=== PATIENT | female | born 1995 | race Caucasian/White ===

== ENCOUNTER → 2018-02-20 19:07 | Outpatient (CLI) | payer BC, SELFPAY ==
[2018-02-26 15:53] LABS: HPV Reflexed? NOT INDICATED
== END ==
PROVIDERS: Family Provider Pediatrics; PCP Pediatrics; Visit Provider Nurse Practitioner Women's Health
DX: Z12.4 Encounter for screening for malignant neoplasm of cervix (principal)
CPT/HCPCS: 88175; G0145

== ENCOUNTER → 2019-12-25 14:44 | Outpatient (CLI) | payer BC, SELFPAY ==
[2019-12-25 08:16] VITALS: BMI 23.2
[2019-12-25 17:58] LABS: Chlamydia Trachomatis by PCR Negative (Negative); Neisserai gonorrhoeae by PCR Negative (Negative); Probe Check PASS; Sample Adequacy Control PASS; Specimen Processing Control PASS
[2019-12-30 20:43] LABS: HPV Reflexed? NOT INDICATED
--- OUTSIDE RECORDS SUMMARY | 2020-05-18 15:33 | XMS RPT_ITS | CCD ---
:1995 External Reference #:[id number] Author Organization [facility] [employer] Care Team Providers Name Role Phone MALLAT Unavailable Unavailable MALLAT Unavailable Unavailable MALLAT Unavailable Unavailable ANDRE, C Unavailable Unavailable NO REFERRING DR Unavailable Unavailable MALLAT, F Unavailable Unavailable MALLAT, F Unavailable Unavailable MALLAT, F Unavailable Unavailable ANDRE, C Unavailable Unavailable Problems Active Problems Category Problem Name Status Date Location External Injury - Struck Struck by soccer Active 04-28-2017 - [facility] by; against ball, initial System (05267) encounter Unclassified Injury, unspecified, Active 05-17-2017 - [facility] encounter Medical Ce [facility]ter (50649) Unclassified Unknown / Active 05-17-2017 - [facility] UN[facility](Unknown) System (65944) Past or Other Problems Category Problem Name Status Date Location Crushing injury or Unspecified laceration Completed 04-28-2017 - [facility] injury of spleen, initial Medica [facility] Center encounter (34869) Unclassified Unspecified laceration 05-17-2017 - [facility] of spleen, initial Health Sy stem encounter (99629) Viral infection Infectious Completed 04-28-2017 - [facility] mon[facility]osis, [facility] unspecified without (25596) complication Results Result Name Value Range Unit Interpretation Flag Date Location progress on 2019-02 PROGRESS HNO ID: [id number] Normal 02-24-2019 [facility] Author: Lambert Markham [place] ([id number]) Service: ? Author Type: Physician Type: Progress Notes Filed: 02/24/2019 5:14 PM Note Text: WELL VISIT PEDIATRIC FEMALE 18+ YRS OLD SERVICE DATE: 02/24/2019 Chapin is a 23 year old female who presents today for well e xam. SUBJECTIVE CONCERNS: noting some chest tightness with running recently in the warmer weather. Patient knows that she has a lung nodule as a subse quent finding from MRI last year. 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 No surgical intervention. grade 2 tear. PAST SURGICAL HISTORY Procedure Laterality Date - NONE Allergies: ALLERGIES Allergen Reactions - Seasonal Allergies Other: See Comments Sinus pressure, itchy watery eyes Medications: fluticasone (FLONASE) 50 mcg/actuation nasal spray Use 2 Spr ays in each nostril once daily. Rinse mouth after use. Desogestrel-Ethinyl Estradiol (ORTHO-CEPT, 28,) 0.15-0.03 mg per tablet Take 1 tablet by mouth once daily. Family History: FAMILY HISTORY Problem Relation Age of Onset - other (hyperthyroidism) Mother 16 - Hypertension Maternal Grandmother - other (elevated cholesterol) Maternal Grandmother - other (albino) Sister Social History Social History Narrative Not on file Smoking Exposure: Do you spend a significant amount of time with anyone who sm okes? 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 Physical Activity more than 1 hour of physical activity per day Physical activity: running Screen Time totaling more than 2 hours of screen time per da y. Safety: seat belts, bike helmets and smoke detectors Diet: -Eats 3 meals per day and 1 snacks per day -Typical beverages include water -Fruits and vegetables are eaten as snacks -# of fast food meals/week: 2 -# of days/week that family has dinner together: 3 Elimination: Has IBS, has been doing well recently Dental: dental care not current Sleep: -no sleep concerns Gynecological history: LMP: 01/15/2019 Cycles are regular and last 5 days, periods are once every 3 months with BCP Dysmenorrhea: none Heavy periods: no Substance use: none High risk behaviors: none Sexual History: Attraction: male Sexually Active: Yes Number of lifetime partners: 1 Contraception: condoms every time GC/C screen within the past year: No GC/C screen since most recent partner? No Change in normal vaginal discharge: No Body image: satisfactory Screening tools reviewed and discussed with patient/family-P HQ-A score 0 (recommended cut off score is 11). Please see questionnaires and review flowsheets. REVIEW OF SYSTEMS GENERAL: No fevers EYES: No vision concerns and Wears glasses ENT: No hearing concerns RESPIRATORY: Negative for cough, wheezing or respiratory dis tress CARDIOVASCULAR: Negative for chest pain, syncope, lightheadn ess or heart racing SKIN: Negative for lesions, rash, and itching ENDOCRINE: No growth concerns HEARING EXAM: Frequency 2000Hz Right15 dB Left 15dB 4000Hz Right15 dB Left 15dB OBJECTIVE Physical Exam: BP 118/78 Pulse 64 Temp 36.6 ?C (97.8 ?F) (Temporal Sherice ry) Resp 12 Ht 169.5 cm (5' 6.73) Wt 66.2 kg (146 lb) LMP 01/04 BMI 23.05 kg/m? Blood pressure percentiles are not available for patients wh o are 18 years or older. Normalized BMI data available only for age 0 to 20 years. Last BMI: Wt: 65.3 kg (144 lb) BMI: 22.55 kg/(m2) Last 4 Encounter Wt Readings: Date: Wt: 06/05/2018 65.3 kg (144 lb) 01/14/2018 66.7 kg (147 lb) 01/03/2018 66.7 kg (147 lb) 11/02/2017 67.1 kg (148 lb) Last 4 Encounter Ht Readings: Date: Ht: 05/17/2017 170.2 cm (5' 7) 02/19/2017 170.2 cm (5' 7) 02/23/2016 170.2 cm (5' 7) (86 %, Z= 1.07)* 10/21/2014 169.7 cm (5' 6.8) (84 %, Z= 1.01)* GENERAL: alert, well appearing, in no distress HABITUS: normal build HEAD: normocephalic LEFT EYE: no drainage noted, no conjunctival injection noted , pupil round and reactive to light, fundus benign; RIGHT EYE: no drainage noted, no conjunctival injection noted, pupil round and reactive to li ght, fundus benign; NO ADDITIONAL EYE FINDINGS LEFT EAR: pinna normal, auditory canal normal, tympanic memb graham clear, no effusion noted, RIGHT EAR: pinna normal, auditory canal norm al, tympanic membrane clear, no effusion noted NOSE/SINUSES: nares normal, mucosa normal, no drainage noted OROPHARYNX: lips without lesions noted, gums/mucosa normal, oropharynx without erythema or exudates NECK/ADENOPATHY: neck supple, no adenopathy noted CHEST/LUNGS: lungs clear to auscultation CARDIOVASCULAR: regular rate and rhythm, no murmur, capillar y refill less than 2 seconds ABDOMEN: soft, nontender, bowel sounds normal, no masses, no organomegaly GENITILIA: DEFERRED EXAM MUSCULOSKELETAL: extremities with full range of motion prese nt throughout, spine without scoliosis NEUROLOGICAL: cranial nerves II-XII grossly intact, deep ten don reflexes 2+/4+ throughout, muscle mass and tone normal SKIN: normal color, no rash, no jaundice ASSESSMENT AND PLAN: Encounter Diagnosis ICD-10-CM 1. Encounter for routine child health examination with abnor mal findings Z00.121 BLOOD TB SCREEN TETANUS/DIPTHERIA BOOSTER (OVER 7), PF IM 2. Shortness of breath R06.02 3. Seasonal allergies J30.2 Normalized BMI data available only for age 0 to 20 years. Based on PHQ-A score and interview, presentation is not cons istent with depression - Discussed diet and safety. - Dental care discussed. - Bright Futures handout given (See Patient Instructions). - Ounce of Prevention handout given (See Patient Instruction s). - No immunization ordered at this visit. - Follow up in one year for routine physical. ADDITIONAL PLAN 1. Shortness of breath. She has noticed this over the last s everal weeks when the weather is extremely hot. No other respiratory symp toms. [facility] states that she had a pulmonary nodule that was diagnosed at an outside facility via MRI last year. We discussed I would recommend s cheduling an appointment to evaluate the shortness of breath. It will be important to obtain the MRI records before that appointment. 2. Mild scoliosis. No additional evaluation or treatment req uired. 3. 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 Problem list and history reviewed. Allergies reviewed. Medications reviewed. Immunizations reviewed. This note was partially generated using iloho recogni tion system, and there may be some incorrect words, spellings, and punctu ation that were not noted in checking the note before saving. Lambert Markham M.D. howard on 2019-02-24 CNOV Office Visit (PEDSWS) Normal 02-25-20 [place] [facility]LE[facility] ([id number]) 1995 F [place] Date Time Provider Department ([id number]) 02/24/19 1:45 PM LAMBERT MARKHAM During your visit today, we recorded the following informati on about you: Temperature Pulse Respiration Blood pressure 97.8 degrees 64/minute 12/minute 118/78 Weight Height Last Period 66.2 kg 1.695 m 01/15/19 Lambert Markham MD 02/24/2019 5:14 PM Signed WELL VISIT PEDIATRIC FEMALE 18+ YRS OLD SERVICE DATE: 02/24/2019 Chapin is a 23 year old female who presents today for well e xa. SUBJECTIVE CONCERNS: noting some chest tightness with running recently in the warmer weather. Patient knows that she has a hao ng nodule as a subsequent finding from MRI last year. 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 No surgical intervention. grade 2 tear. PAST SURGICAL HISTORY Procedure Laterality Date - NONE Allergies: ALLERGIES Allergen Reactions - Seasonal Allergies Other: See Comments Sinus pressure, itchy watery eyes Medications: fluticasone (FLONASE) 50 mcg /actuation nasal spray Use 2 Sprays in each nostril once daily. Rinse mouth after use. Desogestrel-Ethinyl Estradiol (ORTHO-CEP T, 28,) 0.15-0.03 mg per tablet Take 1 tablet by mouth once daily. Family History: FAMILY HISTORY Problem Relation Age of Onset - other (hyperthyroidism) Mother 16 - Hypertension Maternal Grandmother - other (elevated cholesterol) Maternal Grandmother - other (albino) Sister Social History Social History Narrative Not on file Smoking Exposure: Do you spend a significant amount of time with anyone who sm okes? 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 Physical Activity more than 1 hour of physical activity per day Physical activity: running Screen Time totaling more than 2 hours of screen time per da y. Safety: seat belts, bike helmets and smoke detectors Diet: -Eats 3 meals per day and 1 snacks per day -Typical beverages include water -Fruits and vegetables are eaten as snacks -# of fast food meals/week: 2 -# of days/week that family has dinner together: 3 Elimination: Has IBS, has been doing well recently Dental: dental care not current Sleep: -no sleep concerns Gynecological history: LMP: 01/15/2019 Cycles are regular and last 5 days, periods are once e very 3 months with BCP Dysmenorrhea: none Heavy periods: no Substance use: none High risk behaviors: none Sexual History: Attraction: male Sexually Active: Yes Number of lifetime partners: 1 Contraception: condoms every time GC/C screen within the past year: No GC/C screen since most recent partner? No Change in normal vaginal discharge: No Body image: satisfactory Screening tools reviewed and discussed with patient/family-P HQ-A score 0 (recommended cut off score is 11). Please see questionnaires and review flowsheets. REVIEW OF SYSTEMS GENERAL: No fevers EYES: No vision concerns and Wears glasses ENT: No hearing concerns RESPIRATORY: Negative for cough, wheezing or respiratory dis tress CARDIOVASCULAR: Negative for chest pain, syncope, lightheadness or heart racing SKIN: Negative for lesions, rash, and itching ENDOCRINE: No growth concerns HEARING EXAM: Frequency 2000Hz Right15 dB Left 15dB 4000Hz Right15 dB Left 15dB OBJECTIVE Physical Exam: BP 118/78 Pulse 64 Temp 36.6 ?C (97.8 ?F) (Temporal Ar carroll) Resp 12 Ht 169.5 cm (5' 6.73) Wt 66.2 kg (146 lb) LMP 9 BMI 23.05 kg/m? Blood pressure percentiles are not available for patients who are 18 years or older. Normalized BMI data available only for age 0 to 20 years. Last BMI: Wt: 65.3 kg (144 lb) BMI: 22.55 kg/(m2) Last 4 Encounter Wt Readings: Date: Wt: 06/05/2018 65.3 kg (144 lb) 01/14/2018 66.7 kg (147 lb) 01/03/2018 66.7 kg (147 lb) 11/02/2017 67.1 kg (148 lb) Last 4 Encounter Ht Readings: Date: Ht: 05/17/2017 170.2 cm (5' 7) 02/19/2017 170.2 cm (5' 7) 02/23/2016 170.2 cm (5' 7) (86 %, Z= 1.07)* 10/21/2014 169.7 cm (5' 6.8) (84 %, Z= 1.01)* GENERAL: alert, well appearing, in no distress HABITUS: normal build HEAD: normocephalic LEFT EYE: no drainage noted, no conjunctival inj ection noted, pupil round and reactive to light, fundus benign; RIGHT EYE: no drainage not ed, no conjunctival injection noted , pupil round and reactive to light, fundus benign; NO ADDITIONAL EYE FINDINGS LEFT EAR: pinna normal, auditory canal normal, tympanic memb graham clear, no effusion noted, RIGHT EAR: pinna normal, auditory canal norm al, tympanic membrane clear, no effusion noted NOSE/SINUSES: nares normal, mucosa normal, no drainage noted OROPHARYNX: lips without lesions noted, gums/mucosa normal, oropharynx without erythema or exudates NECK/ADENOPATHY: neck supple, no adenopathy noted CHEST/LUNGS: lungs clear to auscultation CARDIOVASCULAR: regular rate and rhythm, no murmur, capillary refill less than 2 seconds ABDOMEN: soft, nontender, bowel sounds normal, no masses, no organomegaly GENITILIA: DEFERRED EXAM MUSCULOSKELETAL: extremities with full range of motion prese nt throughout, spine without scoliosis NEUROLOGICAL: cranial nerves II-XII diego sly intact, deep tendon reflexes 2+/4+ throughout, muscle mass and tone normal SKIN: normal color, no rash, no jaundice ASSESSMENT AND PLAN: Encounter Diagnosis ICD-10-CM 1. Encounter for routine child health examination with abnor mal findings Z00.121 BLOOD TB SCREEN TETANUS/DIPTHERIA BOOSTER (OVER 7), PF IM 2. Shortness of breath R06.02 3. Seasonal allergies J30.2 Normalized BMI data available only for age 0 to 20 years. Based on PHQ-A score and interview, presentation is not cons istent with depression - Discussed diet and safety. - Dental care discussed. - Bright Futures handout given (See Patient Instructions). - Ounce of Prevention handout given (See Patient Instruction s). - No immunization ordered at this visit. - Follow up in one year for routine physical. ADDITIONAL PLAN 1. Shortness of breath. She has noticed this ove r the last several weeks when the weather is extremely hot. No other respiratory symptoms. [facility] states that she had a pulmonary nodule that was diagnos ed at an outside facility via MRI last year. We discussed I would recommend scheduling an appointment to evaluate the shortness of breath. It will be important to ob tain the MRI records before that appointment. 2. Mild scoliosis. No additional evaluation or treatment req uired. 3. Nursing school form to be completed once all results kaplan ve been returned. Problem list and history reviewed. Allergies reviewed. Medications reviewed. Immunizations reviewed. This note was partially generated using Andel system, and there may be some incorrect words, spellings, and punctuat ion that were not noted in checking the note before saving. Lambert Markham M.D. Referring Provider: SELF [[id number]] Allergies As of Date: 02/24/2019 Noted Allergy Reaction SEASONAL ALLERGIES 01/03/2018 14 - Other: See Comments Comments: Sinus pressure, itchy watery eyes Date Reviewed: 02/24/2019 Reviewed by: Lambert Markham - Fully Assessed Reason for Visit: Physical [83] Primary Visit Diagnosis:Encounter for routine child health examination with abnormal findings [Z00.121] Other Visit Diagnoses:Shortness of breath [R06.02] Seasonal allergies [J30.2] Order(s):fluticasone (FLONASE) 50 mcg/actuation nasal sprayU se 2 Sprays in each nostril once daily. Rinse mouth after use.Disp: 1 Bottl eRfl: 1 BLOOD TB SCREEN [SQINFTBP] Order #: [id number] FUTURE TETANUS/DIPTHERIA BOOSTER (OVER 7), PF IM [[id number]] Order # : [id number] Prescriptions as of 02/24/2019 Sig: FLUTICASONE PROPIONATE 50 MCG* Use 2 Sprays in each nostril * DESOGESTREL 0.15 MG-ETHINYL E* Take 1 tablet by mouth once d * Problem List As Of Date 02/24/2019 Noted Resolved Acne [L70.9] INVALID FOR* Dysmenorrhea [N94.6] INVALID FOR* Shortness of breath [R06.02] INVALID FOR* Seasonal allergies [J30.2] INVALID FOR* Prescriptions ordered this encounter Disp Refills Start End FLUTICASONE PROPIONATE 50 MCG/ACTUAT* 1 Abhi* 1 02/24/2019 Route: EACH NOSTRIL Sig: Use 2 Sprays in each nostril once daily. Rinse mouth af ter use. Medications Discontinued During This Encounter fluticasone (FLONASE) 50 mcg/actuati* 1 Abhi* 1 06/05/201802/04 Route: EACH NOSTRIL Sig: Use 2 Sprays in each nostril once daily. Rinse mouth af ter use. Disc: Reason for discontinue is not on file. Questionnaire: PED PHQ 9 1. Feeling down, depressed, irritable or hopeless? -> 0 - No t at All 2. Little interest or pleasure in doing things? -> 0 - Not A t All 3. Trouble falling asleep, staying aslee p, or sleeping too much? -> 0 - Not At All 4. Poor appetite, weight loss, or overeating? -> 0 - Not At All 5. Feeling tired or little energy? -> 0 - Not At All 6. Feeling bad about yourself-or feeling that you are a fa ilure or that you have let yourself or your family down? -> 0 - Not At All 7. Trouble concentrating on things like school work, r eading or watching TV? -> 0 - No- t At All 8. Moving or speaking so slowly that other people coul d have notices? Or the opposite-being so fidgety or restless that you were mo ving around a lot more than usual? -> 0 - Not At All 9. Thoughts that you would be better off or of hu rting yourself in some way? -> 0 - Not At All 10. In the past year have yo u felt depressed or sad most days, even if you felt okay sometimes? -> No 11. If you are experiencing any of the problems listed on this questionnaire, how difficult have these pro blems made it for you to do your work, take care of things at home or get along with other people? -> Not at all difficult 12. Has there been a time in the past mo nth when you have had serious thoughts about ending your life? -> No 13. Have you ever tried to kill yourself or made a suicide a ttempt? -> No SCORE -> 0 Questionnaire: PED SOCIAL HLTH TOOL In the last 3 months, were you ever worr ied your food would run out before you could buy more? -> No In the last 12 months, has it been hard for you to pay any o f these bills: Utility, Housing, Car, and Medical? -> No Are you worried that in the next 2 month s, you may not have stable housing? -> No Do problems getting children's author make it difficult for you to work or study? (leave blank if you do not have children) -> No In the last 12 months, have you needed to see a doctor but could not because of the cost? -> No In the last 12 months, have you ever had to go without health care because you didn?t have a way to get there? -> No Do you ever need help reading hospital materials? -> No Are you afraid you might be hurt in your apartment buildin g or house? -> No If you checked YES to any boxes above, would you like to r eceive assistance with any of these needs? -> No Are any of your needs urgent? (For examp le: I don?t have food tonight, I don?t have a place to sleep tonight) -> No Over the past 2 weeks, have you had little interest or pleas ure in doing things? -> Not at all Over the past 2 weeks have you felt down , depressed or hopeless? -> Not at all Encounter Status:Closed by LAMBERT MARKHAM MD on 02/24/19 progress on 2018-05 PROGRESS HNO ID: [id number] Normal 06-05-2018 [facility] Author: Cristiane (Linesperson) [facility] ([id number]) Service: (none) Author Type: Nurse Practitioner Type: Progress Notes Filed: 06/05/2018 2:07 PM Note Text: Subjective HPI HPI Chapin Coleman is a 22 year old female who presents today for CC of upset stomach, sore throat. This started 1 week. Has tried o tc medication. Symptoms are worsened by nothing. Risk factors s ick exposures at school. Denies possibility of being . 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 No surgical intervention. grade 2 tear. PAST SURGICAL HISTORY Procedure Laterality Date - NONE ALLERGIES Seasonal Allergies MEDICATIONS Desogestrel-Ethinyl Estradiol (ORTHO-CEPT, 28,) 0.15-0.03 mg per tablet Take 1 tablet by mouth once daily. FAMILY HISTORY Problem Relation Age of Onset - other (hyperthyroidism) Mother 16 - Hypertension Maternal Grandmother - other (elevated cholesterol) Maternal Grandmother - other (albino) Sister Social History Substance Use Topics - Smoking status: Never Smoker - Smokeless tobacco: Never Used - Alcohol use No Review of Systems Constitutional: Negative for chills, fever, malaise/fatigue and weight loss. HENT: Positive for congestion, sinus pain (may be improving) and sore throat. Negative for ear pain and nosebleeds. Respiratory: Negative for cough, shortness of breath and whe ezing. Cardiovascular: Negative for chest pain. Musculoskeletal: Negative for neck pain. Neurological: Negative for weakness. Objective Blood pressure 110/68, pulse 80, temperature 37.3 ?C (99.1 ? F), temperature source Tympanic, resp. rate 16, weight 65.3 kg ( 144 lb). Physical Exam Constitutional: She is oriented to person, place, and time a nd well-developed, well-nourished, and in no distress. Non-toxi c appearance. She does not have a sickly appearance. No distress. HENT: Head: Normocephalic and atraumatic. Right Ear: Hearing, tympanic membrane, external ear and ear canal normal. Left Ear: Hearing, tympanic membrane, external ear and ear c anal normal. Nose: Nose normal. Mouth/Throat: Uvula is midline and mucous membranes are norm al. Posterior oropharyngeal erythema present. No oropharyngeal exudate, po sterior oropharyngeal edema or tonsillar abscesses. Eyes: Pupils are equal, round, and reactive to light. Conjun ctivae and lids are normal. Right eye exhibits no discharge. Left eye e xhibits no discharge. No scleral icterus. Neck: Trachea normal and normal range of motion. Neck supple . Cardiovascular: Normal rate, regular rhythm and normal heart sounds. Pulmonary/Chest: Effort normal and breath sounds normal. Abdominal: Soft. Normal appearance and bowel sounds are norm al. There is no hepatosplenomegaly, splenomegaly or hepatomegaly. There i s no tenderness. Lymphadenopathy: She has no cervical adenopathy. Neurological: She is alert and oriented to person, place, an d time. Skin: No rash noted. She is not diaphoretic. ASSESSMENT/PLAN: 1. Sore throat - ICD9: 462, ICD10: J02.9 (primary diagnosis) - suspect viral - Rapid Strep negative in the office today and Throat cultur e pending - Discussed supportive care treatment with fluids, rest and analgesia. - The patient should follow up in 3-5 days if symptoms persi st or worsen - Call back if drooling, increased temperature, symptoms of dehydration and/or still sick in one week - GROUP A STREPTOCOCCUS BY PCR - RAPID STREP TEST B/O 2. Sinus pressure - ICD9: 478.19, ICD10: J34.89 -hold antibiotic for 3-4 days and if no better use antibioti c - Supportive care with plenty of fluids, rest, and analgesia prn. - Follow up in 3-5 days if symptoms persist or worsen. - AMOXICILLIN 875 MG-POTASSIUM CLAVULANATE 125 MG TABLET - FLUTICASONE 50 MCG/ACTUATION NASAL SPRAY,SUSPENSION Prescription instructions reviewed with patient as applicabl e. Patient advised if symptoms do not improve or if symptoms worsen hallie ner, to contact the office for further evaluation by their primary c are physician. Potential red flag symptoms discussed with the patient. Revi ewed appropriate action plan to take if red flag symptoms occur. Patient agreeable to treatment plan. Cristiane Storey APRN.ROBBIE group a strep by pcr on 2018-06-05 [facility] Specimen Source Throat Swab Normal 06-05-20 [facility] ([id number]) Comment: Performed By: #### GASPCR ## ## [facility] Laboratorie s [address] [id number] Group A Strep PCR Negative for Group A Normal 1 [facility] Streptococcus by PCR. [place] ([id number]) Comment: Result Comment: This test wa s developed and its performance characteristics determined by [facility]'s [facility] [place] ([facility]). It has not been cleared or a pproved by the FDA. [facility] is regulated under CLIA as qualified to perform high-complexity testing. This test is used for clinical purposes. It should not be regarded as inv estigational or for research . Performed By: #### GASPCR ## ## [facility] [address] [address] cnov on 2018-06-05 CNOV Office Visit (UCWSTR) Normal 06-05-20 18 [place] CHAPIN Lopez ([id number]) 1995 F [place] Date Time Provider Department ([id number]) 06/05/18 1:15 PM CRISTIANE STOREY (BUSINESS SOLUTION ANALYST) [facility] During your visit today, we recorded the following informati on about you: Temperature Pulse Respiration Blood pressure 99.1 degrees 80/minute 16/minute 110/68 Weight 65.3 kg Cristiane Storey APRN.CNP 06/05/2018 2:07 PM Signed Subjective HPI HPI Chapin Coleman is a 22 year old [facility] upset stomach, sore throat. This started 1 week. Has t ried otc medication. Symptoms are worsened by nothing. Risk factors sick exposures at [facility]. Denies possibility of being . 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 No surgical intervention. grade 2 tear. PAST SURGICAL HISTORY Procedure Laterality Date - NONE ALLERGIES Seasonal Allergies MEDICATIONS Desogestrel-Ethinyl Estradiol (ORTHO-CEP T, 28,) 0.15-0.03 mg per tablet Take 1 tablet by mouth once daily. FAMILY HISTORY Problem Relation Age of Onset - other (hyperthyroidism) Mother 16 - Hypertension Maternal Grandmother - other (elevated cholesterol) Maternal Grandmother - other (albino) Sister Social History Substance Use Topics - Smoking status: Never Smoker - Smokeless tobacco: Never Used - Alcohol use No Review of Systems Constitutional: Negative for chills, fever, malaise/fa tigue and weight loss. HENT: Positive for congestion, sinus pain (december b e improving) and sore throat. Negative for ear pain and nosebleeds. Respiratory: Negative for cough, shortness of breath and whe ezing. Cardiovascular: Negative for chest pain. Musculoskeletal: Negative for neck pain. Neurological: Negative for weakness. Objective Blood pressure 110/68, pulse 80, temperature 37.3 ?C (99.1 ?F), temperature source Tympanic, resp. rate 16, weight 65.3 kg (144 lb). Physical Exam Constitutional: She is oriented to perso n, place, and time and well-developed, well-nourished, and in no distress. Non-toxic ap pearance. She does not have a sickly appearance. No distress. HENT: Head: Normocephalic and atraumatic. Right Ear: Hearing, tympanic membrane, external ear and ear canal normal. Left Ear: Hearing, tympanic membrane, external ear and ear c anal normal. Nose: Nose normal. Mouth/Throat: Uvula is midline and mucous membranes are norm al. Posterior oropharyngeal erythema present. No oropharyngeal exudate, po sterior oropharyngeal edema or tonsillar abscesses. Eyes: Pupils are equal, roun d, and reactive to light. Conjunctivae and lids are normal. Right eye exhibits no discharge. Left eye exhibits no discharge. No scleral icterus. Neck: Trachea normal and normal range of motion. Neck supple . Cardiovascular: Normal rate, regular rhythm and normal heart sounds. Pulmonary/Chest: Effort normal and breath sounds normal. Abdominal: Soft. Normal appearance and bowel sounds are no rmal. There is no hepatosplenomegaly, splenomegaly or hepatomegaly. There is n o tenderness. Lymphadenopathy: She has no cervical adenopathy. Neurological: She is alert and oriented to person, place, an d time. Skin: No rash noted. She is not diaphoretic. ASSESSMENT/PLAN: 1. Sore throat - ICD9: 462, ICD10: J02.9 (primary diagnosis) - suspect viral - Rapid Strep negative in the office today and Throat cultur e pending - Discussed supportive care treatment with fluids, rest and analgesia. - The patient should follow up in 3-5 days if symptoms persi st or worsen - Call back if drooling, increased tempe rature, symptoms of dehydration and/or still sick in one week - GROUP A STREPTOCOCCUS BY PCR - RAPID STREP TEST B/O 2. Sinus pressure - ICD9: 478.19, ICD10: J34.89 -hold antibiotic for 3-4 days and if no better use antibioti c - Supportive care with plenty of fluids, rest, and analgesia prn. - Follow up in 3-5 days if symptoms persist or worsen. - AMOXICILLIN 875 MG-POTASSIUM CLAVULANATE 125 MG TABLET - FLUTICASONE 50 MCG/ACTUATION NASAL SPRAY,SUSPENSION Prescription instructions reviewed with patient as applicable. Patient advised if symptoms do not improve or if symptom s worsen sooner, to contact the office for further evaluation by their primary care physician. Pote ntial red flag symptoms discussed with the patient. Reviewed ap propriate action plan to take if red flag symptoms occur. Patient agreeable to treatment karen hammer. CHRISTEN Cabrera APRN.CNP 06/05/2018 1:45 PM Signed ASSESSMENT/PLAN: 1. Sore throat - ICD9: 462, ICD10: J02.9 (primary diagnosis) - suspect viral - Rapid Strep negative in the office today and Throat cultur e pending - Discussed supportive care treatment with fluids, rest and analgesia. - The patient should follow up in 3-5 days if symptoms persi st or worsen - Call back if drooling, increased tempe rature, symptoms of dehydration and/or still sick in one week - GROUP A STREPTOCOCCUS BY PCR - RAPID STREP TEST B/O 2. Sinus pressure - ICD9: 478.19, ICD10: J34.89 -hold antibiotic for 3-4 days and if no better use antibioti c - Supportive care with plenty of fluids, rest, and analgesia prn. - Follow up in 3-5 days if symptoms persist or worsen. - AMOXICILLIN 875 MG-POTASSIUM CLAVULANATE 125 MG TABLET - FLUTICASONE 50 MCG/ACTUATION NASAL SPRAY,SUSPENSION You have sinusitis, an infection of the sinus cavities around the nose. This infection usually follows a respiratory illness; it can also be related to allergies, changes in atmospheric pressure (flyi ng, diving), or anything that blocks nasal drainage. Symptoms include: headach e, facial pain, a thick nasal discharge, congestion, and cough. The treatment includes antibiotic therapy, increasing oral fluids, and pain medication if needed. Nose s pray decongestants (Afrin, Abdulaziz-Synephrine) and oral decongestants may be needed to reduce congestion and drainage. Rarely the sinus must be irrigated to remove the infected material. Sinusitis can lead to seriou s complications by spreading to other areas such as the eye or brain. Please drea l your doctor or return here right away if you have any of the following more serious symptoms: - Unusual swelling around the eye or trouble seeing. - Increasing pain, severe headache, or toothache. - Nausea, vomiting, or unusual drowsiness. Referring Provider: SELF [[id number]] Allergies As of Date: 06/05/2018 Noted Allergy Reaction SEASONAL ALLERGIES 01/03/2018 14 - Other: See Comments Comments: Sinus pressure, itchy watery eyes Date Reviewed: 06/05/2018 Reviewed by: Cristiane Storey - Fully Assessed Reason for Visit: Sore Throat [200] Cmt: white spots x 1 week, upset stomach d oes have ibs Reason For Visit History Recorded Primary Visit Diagnosis:Sore throat [J02.9] Other Visit Diagnosis:Sinus pressure [J34.89] Order(s):GROUP A STREPTOCOCCUS BY PCR [SQGASPCR] Order #: [id number] RAPID STREP TEST B/O [[id number]] Order #: [id number] amoxicillin-clavulanic acid (AUGMENTIN) 875-125 mg per table tTake 1 tablet by mouth twice daily for 10 days.Disp: 20 tabletRfl: 0 fluticasone (FLONASE) 50 mcg/actuation nasal sprayUse 2 Spra ys in each nostril once daily. Rinse mouth after use.Disp: 1 Bottl eRfl: 1 Prescriptions as of 06/05/2018 Sig: DESOGESTREL 0.15 MG-ETHINYL E* Take 1 tablet by mouth once d * AMOXICILLIN 875 MG-POTASSIUM * Take 1 tablet by mouth twice * FLUTICASONE 50 MCG/ACTUATION * Use 2 Sprays in each nostril * Problem List As Of Date 06/05/2018 Noted Resolved Acne [L70.9] INVALID FOR* Dysmenorrhea [N94.6] INVALID FOR* Other instructions from your clinician: ASSESSMENT/PLAN: 1. Sore throat - ICD9: 462, ICD10: J02.9 (primary diagnosis) - suspect viral - Rapid Strep negative in the office today and Throat cultur e pending - Discussed supportive care treatment with fluids, rest and analgesia. - The patient should follow up in 3-5 days if symptoms persi st or worsen - Call back if drooling, increased temperature, symptoms of dehydration and/or still sick in one week - GROUP A STREPTOCOCCUS BY PCR - RAPID STREP TEST B/O 2. Sinus pressure - ICD9: 478.19, ICD10: J34.89 -hold antibiotic for 3-4 days and if no better use antibioti c - Supportive care with plenty of fluids, rest, and analgesia prn. - Follow up in 3-5 days if symptoms persist or worsen. - AMOXICILLIN 875 MG-POTASSIUM CLAVULANATE 125 MG TABLET - FLUTICASONE 50 MCG/ACTUATION NASAL SPRAY,SUSPENSION You have sinusitis, an infection of the sinus cavities aroun d the nose. This infection usually follows a respiratory illness; it can also be related to allergies, changes in atmospheric pressure (flyin g, diving), or anything that blocks nasal drainage. Symptoms include: heada danika, facial pain, a thick nasal discharge, congestion, and cough. The treatment includes antibiotic therapy, increasing oral f luids, and pain medication if needed. Nose spray decongestants (Afrin, Abdulaziz-Synephrine) and oral decongestants may be needed to redu ce congestion and drainage. Rarely the sinus must be irrigated to remove t he infected material. Sinusitis can lead to serious complications by spreading to other areas such as the eye or brain. Please call your doctor or return here right away if you have any of the following more serious symptoms: - Unusual swelling around the eye or trouble seeing. - Increasing pain, severe headache, or toothache. - Nausea, vomiting, or unusual drowsiness. Prescriptions ordered this encounter Disp Refills Start End AMOXICILLIN 875 MG-POTASSIUM CLAVULA* 20 t* 0 06/05/201805/2018 Class: Print RX Route: ORAL Sig: Take 1 tablet by mouth twice daily for 10 days. FLUTICASONE 50 MCG/ACTUATION NASAL S* 1 Abhi* 1 06/05/2018 Route: EACH NOSTRIL Sig: Use 2 Sprays in each nostril once daily. Rinse mouth af ter use. Encounter Status:Closed by CRISTIANE STOREY CNP on 06/05/18 progress on 2017-05 PROGRESS HNO ID: [id number]: Mirta Normal 05-17-2017 [facility] (none)Author Type: Medical Center PhysicianType: Progress NotesFiled: ([id number]) 05/17/2017 5:08 PMNote Text:Patient referred by:Madelaine Andre MD[address] 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- PMH - PAST MEDICAL HISTORY OF 01/05 Normal color visionPAST SURGICAL HISTORYProcedure Laterality Date- NONEFAMILY HISTORYProblem Relation Age of Onset- Hypertension Maternal Grandmother- elevated cholesterol [OTHER] Maternal Grandmother- albino [OTHER] SisterSocial History Marital status: Single Spouse name: Years of education: Number of children: 0Occupational HistoryOccupation Employer CommentStudent [place]Social History Main Topics Smoking status: Never Smoker Smokeless status: Never Used Alcohol use: No Drug use: No Sexual activity: Yes Partners with: Male control/protection: PillCurrent Outpatient Prescriptions:Desogestrel-Ethinyl Estradiol (ORTHO-CEPT, 28,) 0.15-0.03 mg per tabletTake 1 tablet by mouth once daily.No current facility-administered medications for this visit.ALLERGIESNo Known AllergiesREVIEW OF SYSTEMS:GENERAL: No weight loss, malaise or feversGI: Negative for abdominal pain, nausea , vomiting, diarrhea, constipationand signs of jaundice Positive for nonePHYSICAL EXAM:BP 102/64 Pulse 64 Ht 5' 7 (1.70m) Wt 145 lb (65.8kg) LMP04/08/2017 BMI 22.71 kg/(m2).GENERAL APPEARANCE: Well appearing, alert, in no acute distress,well-hydrated, well nourished..ABDOMEN: Normal abdominal exam, Abdomen soft, non-tender. Bowel soundsnormal. No masses, organomegalyNEURO: Alert, oriented x3, no asterixis, speech clear and articulate andMAEDATA:Diagnostic tests reviewed for today's visit:No new labsA total of 15 minutes was spent in direct patient contact.Greater than 50%of the direct patient contact time was spent in counseling or coordinationof care.ASSESSMENT / PLAN1. Laceration of spleen, initial encounterConservative management. She is ok to gradually resume soccer activity ator after 6 weeks. I will see her on PRN basis2. Blunt traumaAs MD max Melendezov on 2017-05-17 CNOV Office Visit Normal 05-17-2017 [place] (AGGENS5) ---------MARYANCHAPIN Moe ([id number]) 1995 F Date Time Provider Ytzbtzavyr36/12/17 3:30 PM MIRTA ALICEA AGGENS5 During M edical your visit today, we recorde d the following information about you: Pulse Blood pressure Weight Height Cente r 64/minute 102/64 65.8 kg 1.7 02 García Alicea MD 05/17/2017 4:06 PM SignedYour exam today is normal. ([id number] ) Please maintain low physical activity till 6 weeksfrom your injury then start graduallyAli MD Deanne 05/17/2017 5:08 PM SignedPat ient referred by:Madelaine Andre MD[address] [facility] [place] [address]Kqernsh presents with:H ospital F/U: SPLEEN LACERATIONHPI:Chapin is a 21 year old female who had a splenic laceration 3 weeks a go she wasnoted to have mononucleosis and she was injured during a [facility] she has been doing very well she has been taking iteasy she has no complaint of nausea vomit ing or constipation no feverPAST MEDICAL HISTORYDiagnosis Date- PMH - PAST MEDICAL HISTORY OF 01/05 Willam e Syndrome - right eye doesn't turn to the side- PMH - PAST MEDICAL HISTORY OF 01/05 Normal color visionPAST SURGICAL HISTORYProcedure Laterality Date- NONEFAMILY HISTORYProblem Relation Age of Onset- Hypertension Maternal Grandmother- elevated cholesterol [OTHER] Maternal Grandmother- albino [OTHER] SisterSocial History Marital status: Single Spouse name: Years of education: Number of childre n: 0Occupational HistoryOccupation Employer CommentStudent [employer]Social History Main Topics Smoking status: Never Smoker Smokeless status: Never Used Alcohol use: No Drug use: No Sexual activity: Yes Partners with: Male control/protection: PillCurrent Outpatient Prescriptions:Desogestrel-Et hinyl Estradiol (ORTHO-CEPT, 28,) 0.15-0.03 mg per tablet Take 1tablet by mouth once daily.No current facility-administered medications for this visit.ALLERGIESNo Known AllergiesREVIEW OF SYSTEMS:G ENERAL: No weight loss, malaise or feversGI: Negative for abdominal pain, nausea , vomiting, diarrhea, constipation andsigns of jaundice Positive for nonePHYSICAL EXAM:BP 102/64 Pulse 64 Ht 5' 7A NDquot; (1.70m) Wt 145 lb (65.8kg) LMP04/08/2017 BMI 22.71 kg/(m2).GENERAL APPEARANCE: Well appearing, alert, in no acute distress, well-hydrated,well nourished..ABDOMEN: Normal a bdominal exam, Abdomen soft, non-tender. Bowel sounds normal.No masses, organomegalyNEURO: Alert, or iented x3, no asterixis, speech clear and articulate and MAEDATA:Diagnostic tests rev iewed for today's visit:No new labsA total of 15 minutes was spent in direct patient contact.Great er than 50% ofthe direct patient contact time was spent in counseling or coordination of care.ASSESSM ENT / PLAN1. Laceration of spleen, initial encounterConservative management. She is ok to gra dually resume soccer activity at orafter 6 weeks. I will see her on PRN basis2. Blunt traumaAs above Mirta Alicea MDReferrlui Provider: MADELAINE ANDRE [[id number]]Allergies As of Date: 05/17/2017(No Known Al lergies)Date Reviewed: 05/17/2017Reviewed by: Mirta Alicea - Fully AssessedReason for Visit: Henrry ford F/U [57] Cmt: SPLEEN LACERATIONPrimary Visit Diagnosis:Laceration of spleen, initial encounter [S36.039A] Other Visit Diagnosis:Blunt trauma [T14.90XA]Prescriptions as of 05/17/2017 Sig: DESOGESTR EL 0.15 MG-ETHINYL E* Take 1 tablet by mouth once d*Problem List As Of Date 05/17/2017 Noted Resolv ed Acne [L70.9] INVALID FOR* Dysmenorrhea [N94.6] INVALID FOR* Other instructions from your clini li: Your exam today is normal. Please maintain low physical activity till 6 weeks from your injur y then start graduallyDisposition: Return if symptoms worsen or fail to improve.Follow-up and Dispos ition History RecordedEncounter Number: [id number] Status:Closed by MIRTA ALICEA MD on 05/17/17 discharge summary o n 2017-05-09 DISCHARGE SUMMARY [facility] No rmal 05-09-2017 [facility] SYNDEYMRN: [id number] ACCTNUM: [id number]) [id number] OF : 1995 SEX/AGE: F/21[place] [facility] [place] [id number] DATE: 04/28/2017 DISCHARGE DATE: 04/30/2017A 48-hour discharge summary for that patient.REASON FOR HOSPITALIZATION: Blunt abdominal injury following diagnosis of mononucleosis.SIGNIFICANT FINDINGS: Included a grade 2 splenic laceration.PROCEDURES: None.COMPLICATIONS: None.CONDITION AT DISCHARGE: Good.DISPOSITION: Home.FINAL DIAGNOSES: Grade 2 splenic laceration and mono.MEDICATION RECONCILIATION: Please see MRF for medication at time of discharge.DISCHARGE AND FOLLOWUP INSTRUCTIONS: Call office for followup appointment with Dr. Alicea for 2weeks, . Also, to follow up with primary care physician prior to resuming sports. Also, report tophysician if fevers of 100.4, more of recurrent pain, persistent fatigue, dizziness, or bloody urine.Augustine Moraes MD dictating Perri Alicea MD Signed: MIRTA ALICEA MD 05/09/2017 10:00 EDTSurgeryBC:modlD: 05/03/2017 18:05:20T: 05/04/2017 09:27:14Job #: [id number] Page 1 of 1 DISCHARGE SUMMARY Normal 05-09-2017 A [facility] ([id number]) mdrd gfr on 2017-04 eGFR (non-black) >60 >60mL/min/1.73m2 mL/min/{1.73_m2} Normal 04-30-2017 [facility] ([address]25) Comment: Result Comment: If the patie nt is , multiply the result by 1.210. Performed By: #### GFR ####A [address] [address] hemogram/diff on 22-04-25 Interpreted by See below Normal 04-30-2017 [facility] (15466) Comment: Result Comment: Santaigo hope M.D., Pathologist Performed By: #### CBCD1 ### [address] [address] Interpreted by See below Normal 04-30-2017 [facility] (25312) Comment: Result Comment: Santiago hope M.D., Pathologist Performed By: #### CBCD1 ### [address] [address] Basophils Auto #/vol 0.06 0.01-0.08 thou/cmm Normal 7 [facility] (00 000) Comment: Performed By: #### CBCD1 ### [address] [address] Basophils/100 WBC Auto (Bld) 0.4 % Normal 0 04-30-2017 [facility] (62108) Comment: Performed By: #### CBCD1 ### [address] [address] Eosinophils 0.07 0.00-0.31 thou/cmm Normal 04-30-2017 [facility] ([address]96) Comment: Performed By: #### CBCD1 ### [address] [address] Eosinophils/100 leukocytes 0.5 % Normal [facility] (55816) Comment: Performed By: #### CBCD1 ### [address] [address] Erythrocyte distribution 13.2 11.7-14.4 % Normal 04-30 [facility] width Auto Ratio (RBC) System (33263) Comment: Performed By: #### CBCD1 ### [address], [place] [address] Erythrocytes (RBC) 4.41 3.93-5.22 mil/cmm Normal 04-30-2017 [facility] (00 000) Comment: Performed By: #### CBCD1 ### #[facility] [place], [place] [address] Hematocrit (HCT) 37.6 34.1-44.9 % Normal 04-30-2017 [facility] (75411) Comment: Performed By: #### CBCD1 ### [address] [address] Hemoglobin mass conc 12.9 11.2-15.7 g/dL Normal 7 [facility] (00 000) Comment: Performed By: #### CBCD1 ### [address] [address] Immature Grans 0.20 % Normal 04-30-2017 [facility] (34874) Comment: Performed By: #### CBCD1 ### [address] [address] Immature Grans # 0.03 0.00-0.05 thou/cmm Normal 04-30-2017 [facility] (00 000) Comment: Performed By: #### CBCD1 ### [address] [address] Lymphocytes 10.21 1.18-3.74 thou/cmm High 04-30-2017 [facility] (90928) Comment: Performed By: #### CBCD1 ### [address] [address] Lymphocytes/100 leukocytes 73.3 % Normal [facility] (17056) Comment: Performed By: #### CBCD1 ### [address] [address] MCH 29.3 25.6-32.2 pg Normal 04-30-2017 [facility] (58672) Comment: Performed By: #### CBCD1 ### [address] [address] MCHC mass conc (RBC) 34.3 31.6-34.8 % Normal 201 7 [facility] ([address]) Comment: Performed By: #### CBCD1 ### [address] [address] MCV 85.3 79.4-94.8 fl Normal 04-30-2017 [facility] (51912) Comment: Performed By: #### CBCD1 ### [address] [address] Monocytes 1.43 0.27-0.70 thou/cmm High 04-30-2017 [facility] (99735) Comment: Performed By: #### CBCD1 ### #[place] [id number] Monocytes/100 leukocytes 10.3 % Normal 04-30 [facility] (12923) Comment: Performed By: #### CBCD1 ### [address] [address] Platelet mean volume (PMV) 10.7 9.4-12.3 fl Normal [facility] (00 000) Comment: Performed By: #### CBCD1 ### [address] [address] Platelets 174 182-369 thou/cmm Low 04-30-2017 [facility] (72674) Comment: Performed By: #### CBCD1 ### [address] [address] RDW SD 40.9 36.4-46.3 fl Normal 04-30-2017 [facility] (39457) Comment: Performed By: #### CBCD1 ### [address] [address] Seg Neutrophil 15.3 % Normal 04-30-2017 [facility] (76142) Comment: Performed By: #### CBCD1 ### [address] [address] Seg. Neut.# 2.13 1.56-6.13 thou/cmm Normal 04-30-2017 [facility] (30640) Comment: Performed By: #### CBCD1 ### #[facility] [place] [id number] WBC (Leukocytes) 13.93 3.98-10.04 thou/cmm High 04-30-2017 [place] (00 000) Comment: Performed By: #### CBCD1 ### #[place] [id number] hemogram on 2017-04 Erythrocyte distribution 13.2 11.7-14.4 % Normal 04-30 [facility] width Auto Ratio (RBC) System (74[address]) Comment: Performed By: #### CBC1 #### [place] [address] Erythrocytes (RBC) 4.39 3.93-5.22 mil/cmm Normal 04-30-2017 [facility] (00 000) Comment: Performed By: #### CBC1 #### [place] [address] Hematocrit (HCT) 37.1 34.1-44.9 % Normal 04-30-2017 [facility] (26018) Comment: Performed By: #### CBC1 #### [place] [address] Hemoglobin mass conc 12.8 11.2-15.7 g/dL Normal 7 [facility] (00 000) Comment: Performed By: #### CBC1 #### [place] [address] MCH 29.2 25.6-32.2 pg Normal 04-30-2017 [facility] (50984) Comment: Performed By: #### CBC1 #### [address] [address] MCHC mass conc (RBC) 34.5 31.6-34.8 % Normal 7 [facility] (77963) Comment: Performed By: #### CBC1 #### [place] [address] MCV 84.5 79.4-94.8 fl Normal 04-30-2017 [facility] (97333) Comment: Performed By: #### CBC1 #### [facility] [place], [place] [address] Platelet mean volume (PMV) 9.8 9.4-12.3 fl Normal [facility] (00 000) Comment: Performed By: #### CBC1 #### [address] [address] Platelets 188 182-369 thou/cmm Normal 04-30-2017 [facility] ([id number]) Comment: Performed By: #### CBC1 #### [address] [address] RDW SD 40.3 36.4-46.3 fl Normal 04-30-2017 [facility] (34040) Comment: Performed By: #### CBC1 #### [address] [address] WBC (Leukocytes) 14.66 3.98-10.04 thou/cmm High 04-30-2017 [employer] [facility] (00 000) Comment: Performed By: #### CBC1 #### [address] [address] basic panel on 2016 Creatinine 0.77 0.51-0.95 mg/dL Normal 04-30-2017 [facility] (64313) Comment: Performed By: #### P8 ####[address] [address] Glucose mass conc 87 70-99 mg/dL Normal 04-30-2017 [employer] [facility] (93075) Comment: Performed By: #### P8 ####[address] [address] Urea nitrogen 3 7-18 mg/dL Low 04-30-2017 [facility] [employer] [facility] (65725) Comment: Performed By: #### P8 ####[address] [address] Anion gap 9 8-16 mmol/L Normal 04-30-2017 [facility] (78834) Comment: Performed By: #### P8 ####[facility] [place], [place] [address] Calcium 8.6 8.5-10.1 mg/dL Normal 04-30-2017 [facility] (21285) Comment: Performed By: #### P8 ####[address] [address] CO2 27 21-32 mEq/L Normal 04-30-2017 [facility] (53471) Comment: Performed By: #### P8 ####[address] [address] Chloride 101 98-107 mEq/L Normal 04-30-2017 [facility] (78346) Comment: Performed By: #### P8 ####[place] [address] Potassium molar conc 4.3 3.5-5.1 mEq/L Normal 7 [facility] (57896) Comment: Performed By: #### P8 ####[address] [address] Sodium 133 136-145 mEq/L Low 04-30-2017 [facility] (60708) Comment: Performed By: #### P8 ####[address] [address] mdrd gfr on 2017-04 eGFR (non-black) >60 >60mL/min/1.73m2 mL/min/{1.73_m2} Normal 04-29-2017 [facility] (36552) Comment: Result Comment: If the patie nt is , multiply the result by 1.210. Performed By: #### GFR ####A [address] [address] hemogram/diff on 22-04-24 Anisocytosis presence Slight Normal 04-29-20 [facility] (38080) Comment: Performed By: #### CBCD1 ### #[address] [address] Basophils Auto #/vol 0.00 0.01-0.08 thou/cmm Low 7 [facility] (00 000) Comment: Performed By: #### CBCD1 ### #[facility] [place], [place] [address] Basophils/100 WBC Auto (Bld) 0.0 % Normal 0 04-29-2017 [facility] (85201) Comment: Performed By: #### CBCD1 ### #[address] [address] Eosinophils 0.32 0.00-0.31 thou/cmm High 04-29-2017 [facility] (79685) Comment: Performed By: #### CBCD1 ### #[address] [address] Eosinophils/100 leukocytes 3.0 % Normal [facility] (70515) Comment: Performed By: #### CBCD1 ### [address] [address] Erythrocyte morphology Present Normal 017 [facility] (35182) Comment: Performed By: #### CBCD1 ### [address] [address] Hypochromasia Slight Normal 04-29-2017 [facility] (66379) Comment: Performed By: #### CBCD1 ### [address] [address] Immat Grans Abs calc 0.11 Normal 7 [facility] (01823) Comment: Performed By: #### CBCD1 ### [address] [address] Lymphocytes 6.90 1.18-3.74 thou/cmm High 04-29-2017 [facility] (46521) Comment: Performed By: #### CBCD1 ### [address] [address] Lymphocytes/100 leukocytes 53.0 % Normal [facility] (59086) Comment: Performed By: #### CBCD1 ### #[facility] [place], [place] [address] Lymphocytes/100 leukocytes 11.0 % Normal [facility] (51875) Comment: Performed By: #### CBCD1 ### [address] [address] Macrocytosis Slight Normal 04-29-2017 [facility] (32216) Comment: Performed By: #### CBCD1 ### [address] [address] Metamyelocytes 1.0 % Normal 04-29-2017 [facility] (69170) Comment: Performed By: #### CBCD1 ### [address] [address] Monocytes 0.22 0.27-0.70 thou/cmm Low 04-29-2017 [facility] (09184) Comment: Performed By: #### CBCD1 ### [address] [address] Monocytes/100 leukocytes 2.0 % Normal 04-29 [facility] (05329) Comment: Performed By: #### CBCD1 ### [address] [address] Seg Neutrophil 30.0 % Normal 04-29-2017 [facility] (20416) Comment: Performed By: #### CBCD1 ### [address] [address] Seg. Neut.# 3.23 1.56-6.13 thou/cmm Normal 04-29-2017 [facility] (19124) Comment: Performed By: #### CBCD1 ### #[place] [id number] Erythrocyte distribution 13.2 11.7-14.4 % Normal 04-29 [facility] width Auto Ratio (RBC) [facility] (79979) Comment: Performed By: #### CBCD1 ### #[place] [id number] Erythrocytes (RBC) 4.09 3.93-5.22 mil/cmm Normal 04-29-2017 [facility] (00 000) Comment: Performed By: #### CBCD1 ### [address] [address] Hematocrit (HCT) 35.3 34.1-44.9 % Normal 04-29-2017 [facility] (15524) Comment: Performed By: #### CBCD1 ### #[place] [address] Hemoglobin mass conc 12.0 11.2-15.7 g/dL Normal 7 [facility] (00 000) Comment: Performed By: #### CBCD1 ### #[place] [address] MCH 29.3 25.6-32.2 pg Normal 04-29-2017 [facility] (02072) Comment: Performed By: #### CBCD1 ### #[place] [address] MCHC mass conc (RBC) 34.0 31.6-34.8 % Normal 7 [facility] (13307) Comment: Performed By: #### CBCD1 ### #[place] [id number] MCV 86.3 79.4-94.8 fl Normal 04-29-2017 [facility] (32474) Comment: Performed By: #### CBCD1 ### [address] [address] Platelet mean volume (PMV) 10.5 9.4-12.3 fl Normal [facility] (00 000) Comment: Performed By: #### CBCD1 ### [address] [address] Platelets 173 182-369 thou/cmm Low 04-29-2017 [facility] (61347) Comment: Performed By: #### CBCD1 ### #[place] [id number] RDW SD 41.6 36.4-46.3 fl Normal 04-29-2017 [facility] (99351) Comment: Performed By: #### CBCD1 ### #[address] [address] WBC (Leukocytes) 10.78 3.98-10.04 thou/cmm High 04-29-2017 [place] (00 000) Comment: Performed By: #### CBCD1 ### #[address] [address] basic panel on 2016 Creatinine 0.86 0.51-0.95 mg/dL Normal 04-29-2017 [facility] (95646) Comment: Performed By: #### P8 ####[address] [address] Anion gap 12 8-16 mmol/L Normal 04-29-2017 [facility] (33927) Comment: Performed By: #### P8 ####[address] [address] CO2 23 21-32 mEq/L Normal 04-29-2017 [facility] (38025) Comment: Performed By: #### P8 ####[address] [address] Glucose mass conc 106 70-99 mg/dL High 04-29-2017 [place] (38804) Comment: Performed By: #### P8 ####[address] [address] Urea nitrogen 5 7-18 mg/dL Low 04-29-2017 [facility] (68686) Comment: Performed By: #### P8 ####[address] [address] Calcium 8.3 8.5-10.1 mg/dL Low 04-29-2017 [facility] (52707) Comment: Performed By: #### P8 ####[address] [address] Chloride 103 98-107 mEq/L Normal 04-29-2017 [facility] (02490) Comment: Performed By: #### P8 ####[facility] [place], [place] [address] Potassium molar conc 4.6 3.5-5.1 mEq/L Normal 7 [facility] (80129) Comment: Performed By: #### P8 ####[facility] [place], [place] [address] Sodium 133 136-145 mEq/L Low 04-29-2017 [facility] (55791) Comment: Performed By: #### P8 ####[facility] [place], [place] [address] Encounters Date Type Reason Provider Location 05-17-2017 - Ambulatory [facility] MADELAINE C [facility] 05-17-2017 [facility] ([id number]) [facility] 04-29-2017 - Ambulatory ALI MALLAT ALI [facility] 04-30-2017 [facility] (79098) 04-29-2017 - Evaluation and Unspecified NO REFERRING DR Facility:Andres IRIZARRY 04-30-2017 management of laceration of [facility] spleen, initial [facility] encounter Payers Payer Name Policy Number Location [facility] ALIRIO [id number] [facility] ([id number]) The following information is from the original human readable contentNo Payer Records FoundNo Payer Records FoundNo Payer Records Found Summary Purpose Family History No Family History Records FoundNo Family History Records FoundNo Family History Records Found Advance Directives No Advanced Directives Records FoundNo Advanced Directives Records FoundNo Advanced Directives Records Found Additional Source Comments FOR RECORDS PERTAINING TO PATIENTS WHO ARE OR HAVE BEEN ENROLLED IN A CHEMICAL DEPENDENCY/SUBSTANCE ABUSE PROGRAM, SOME INFORMATION MAY BE OMITTED. This clinical summary was aggregated from multiple sources. Caution should be exercised in using it in the provision of clinical care. This summary normalizes information from multiple sources, and as a consequence, information in this document may materially changethe coding, format and clinical context of patient data. In addition, data may be omittedin some cases. CLINICAL DECISIONS SHOULD BE BASED ON THE PRIMARY CLINICAL RECORDS. [facility] provides no warranty or guarantee of the accuracy or completeness of information in this document. UNRECOGNIZED CONTENT PROVIDED BELOW FOR UNRECOGNIZED SECTION INFORMATION SOURCE DATE CREATED AUTHOR AUTHOR'S JAJAO Davin 01/29/2018 [facility] DATE CREATED AUTHOR AUTHOR'S ORGANIZATIO N 01/29/2018 [facility] DATE CREATED AUTHOR AUTHOR'S ORGANIZATIO N 02/24/2019 [facility] Kvng braun
== END ==
PROVIDERS: PCP Pediatrics; Referring Provider Nurse Practitioner Women's Health; Visit Provider Nurse Practitioner Women's Health
DX: Z12.4 Encounter for screening for malignant neoplasm of cervix (principal)
CPT/HCPCS: 87491; 87591; 88175; G0145

== ENCOUNTER 2021-01-26 09:09 | Outpatient (RCR) | payer BC, SELFPAY ==
[2019-12-25 08:16] VITALS: BMI 23.2
== END 2021-02-02 23:59 ==
LOC: EMPH 09:09
PROVIDERS: PCP Pediatrics; Visit Provider Family Medicine Geriatric Medicine
DX: Z03.818 Encounter for observation for suspected exposure to other biological agents ruled out (principal)
CPT/HCPCS: 87426

== ENCOUNTER → 2021-06-08 03:05 | Outpatient (CLI) | payer BC, SELFPAY | PROVIDERS: PCP Pediatrics; Visit Provider Family Medicine Geriatric Medicine | DX: Z03.818 Encounter for observation for suspected exposure to other biological agents ruled out (principal) | CPT/HCPCS: 87426 ==

== ENCOUNTER → 2022-01-20 08:42 | Outpatient (REF) | payer OTHER, SELFPAY | LOC: EMPH 08:42 | PROVIDERS: PCP Pediatrics; Visit Provider Family Medicine Geriatric Medicine | DX: Z03.818 Encounter for observation for suspected exposure to other biological agents ruled out (principal) | CPT/HCPCS: 87811 ==

== ENCOUNTER → 2023-03-19 | Outpatient (CLI) | payer OTHER, SELFPAY ==
[2023-03-19 17:16] LABS: T4 Free Direct 0.77 ng/dL (0.76-1.46); Thyroid Stim Hormone (TSH) 1.68 uIU/mL (0.358-3.74)
[2023-03-23 12:37] LABS: HPV Reflexed? NOT INDICATED
[2023-03-28 20:08] LABS: Testosterone Free 0.8 pg/mL (0.0-4.2); Thyroid Peroxidase AB < 9 IU/mL (0-34)
== END | disposition home or self-care (01) ==
PROVIDERS: PCP Pediatrics; Referring Provider Nurse Practitioner Women's Health; Visit Provider Nurse Practitioner Women's Health
DX: Z12.4 Encounter for screening for malignant neoplasm of cervix (principal); L70.9 Acne, unspecified; L65.9 Nonscarring hair loss, unspecified; R53.83 Other fatigue; Z13.29 Encounter for screening for other suspected endocrine disorder
CPT/HCPCS: 36415; 82627; 84402; 84439; 84443; 86376; 88175; 82626; G0145

== ENCOUNTER → 2024-10-17 | Outpatient (CLI) | payer OTHER, SELFPAY | END | disposition home or self-care (01) | PROVIDERS: PCP Pediatrics; Referring Provider Registered Nurse; Visit Provider Registered Nurse | DX: Z31.430 Encounter of female for testing for genetic disease carrier status for procreative management (principal) | CPT/HCPCS: 36415 ==

== ENCOUNTER 2025-01-16 23:19 | Emergency (ER) | payer OTHER, SELFPAY ==
[2025-01-16 23:19] VITALS: BP 140/66; PULSE 79; RESP 16; TEMP 36.8; O2SAT 100; BMI 26.4
--- NOTE | 2025-01-16 23:46 | US_ITS ---
PROCEDURE: TRANSVAGINAL W/PREG US 01/17/2025 REASON FOR EXAM: SEVERE PELVIC PAIN TECHNIQUE: High resolution obstetric ultrasound performed using a 2D transducer. Standard views obtained, including biometry, anatomy survey, and Doppler studies. Transvaginal real-time ultrasound images. COMPARISON: None. FINDINGS Single, live intrauterine gestation. Mean gestational sac diameter 16 mm, 6 weeks and 3 days. The yolk sac measures 2 mm. The crown-rump length measures 5 mm, 6 weeks and 2 days. heart rate 117 beats per minute. Estimated gestational age based on today's ultrasound is 6 weeks and 3 days. Estimated delivery date on 09/09/2024. The uterus measures 8.8 x 5.6 x 3.7 cm. The cervix is closed. Nonvisualization of the right ovary secondary to overlying bowel gas. The left ovary measures 3.8 x 2.3 x 2.6 cm. Left ovarian corpus luteum cyst is noted measuring 2.5 x 2.4 x 1.8 cm. Normal bilateral ovarian flow without evidence of ovarian torsion. No free fluid in the pelvic cul-de-sac. US/Transvaginal w/Preg US IMPRESSION: Single, live intrauterine gestation. No abnormality is noted. Reading Location[facility]
--- NOTE | 2025-01-16 23:47 | EDS_ITS ---
HPI HPI - GI History of Present Illness Chief Complaint: Abd Pain Informant: patient and friend Narrative Narrative: 29-year-old female is about 6 weeks , , last normal menstrual cycle started 12/01/2024, she states she bent over tonight and had a very sharp severe brief pain left abdomen, followed by suprapubic cramping that she felt in her low back that felt like uterine cramping, it became quite severe, and then slowly improved to the point now where she feels only mild discomfort. She has been having some of his cramping off and on for weeks, but never like this. No urinary issues. No vaginal bleeding or discharge. No syncope or near syncope, or vomiting. [facility] Medical History Seasonal allergies Albinism PMS (premenstrual syndrome) Family planning counseling Dense breast tissue Splenic laceration IBS (irritable bowel syndrome) Home Medications ?Medication ?Instructions ?Recorded ?Last Taken ?Type citalopram 10 mg tablet 10 mg PO QDAY #90 tabs 07/02 Unknown Rx multivit-min no.71-iron fum 28 1 cap PO DAILY 01/16/25 Unknown History mg-folate no.1 1 mg-dha 300 mg capsule (PNV-Columbus) Allergy/AdvReac Type Severity Reaction Status Date / Time No Known Allergies Allergy Verified 01/16/25 23:19 Family History Grandmother Hypertension Maternal Thyroid disorder Grandfather Hypertension Maternal Thyroid disorder Maternal- hypothyroidism Mother Thyroid disorder, Onset Age: 15 hyperthyroidism Aunt Thyroid disorder, Onset Age: 40 Maternal- hypothyroidism Social History adopted: No household members: spouse housing: house current occupational status: employed current occupation: [employer] current occupational exposures/hazards: No pets and animals: Yes history of recent travel: No sexually active: Yes Smoking Status: Never smoker alcohol intake: current alcohol intake frequency: holidays/special occasions only details: not while substance use type: does not use well-balanced diet: daily or most days caffeine: Yes Type: coffee Number of servings: 1 eating out: 1-3 times/week during the past year weight has: remained stable what type of physical activity do you participate in: walking, running and other details: pilates, bar workouts frequency: 3-4 times per week duration: 45-60 minutes/day lynette/rastafarian: Buddhist seatbelt use: always do you feel safe at home: Yes additional social history: - 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 [facility] Constitutional Constitutional ED: Denies chills or fever(s) Eyes Eyes: Denies change in vision or diplopia ENT ENT ED: Denies rhinorrhea or sore throat Cardiovascular Cardiovascular: Denies chest pain or palpitations Respiratory/Chest Respiratory/Chest: Denies cough or dyspnea Gastrointestinal Gastrointestinal: Reports abdominal pain; Denies diarrhea, nausea or vomiting Genitourinary Genitourinary ED: Reports LMP (females 10-50) Details: Comment: (12/01/24); Denies dysuria, hematuria, vaginal bleeding or vaginal discharge Musculoskeletal Musculoskeletal: Denies back pain or neck pain Integumentary Denies abscess or rash Neurologic Neurologic: Denies headache(s), paresthesias or weakness Psychiatric Psychiatric: Denies anxiety or suicidal thoughts EXAM Physical Exam Const Vital Signs: 01/16/25 23:19 01/17/25 01:19 Temperature 98.2 F Temperature Source Temporal Pulse Rate 79 82 Respiratory Rate 16 16 Blood Pressure 140/66 H 131/73 H Blood Pressure Mean 90 92 Pulse Ox 100 100 Oxygen Delivery Method Room Air Room Air Positive well nourished and well developed General Appearance ED: well developed and NAD HEENT Reports moist mucous membranes normocephalic and atraumatic Eyes PERRL and EOMs intact bilaterally Neck full ROM and supple Resp normal respiratory effort and clear to auscultation bilaterally Cardio regular rate, regular rhythm and no murmurs GI non-tender and non-distended Auscultation: normoactive bowel sounds Palpation: soft Speculum Exam - Vagina: Negative for vaginal bleeding or vaginal discharge Back/Spine no CVA tenderness General Back: other FROM Extremity normal to inspection General Extremety ED: Negative for edema, pulses abnormal or tenderness General Extremity: Negative for edema or pulses abnormal Neuro oriented x3, CN's II-XII intact bilaterally and no sensory deficits noted Sensorium / Orientation: awake and alert Motor Exam: strength 5/5 throughout Skin no rashes or lesions noted and no wounds MDM MDM MDM Narrative Medical decision making narrative: Although patient is nontender, she states her symptoms were quite severe and unilateral with regards to the brief sharp pain she had and I think alan given her early stages of to obtain a quantitative hCG and a pelvic ultrasound to rule out ectopic. Quantitative hCG correlates with ultrasound showing single live intrauterine at 6 weeks 3 days, heart tones noted at 117, urinalysis normal. Patient is doing well clinically and hemodynamically, stable for discharge close a patient follow-up and she is reassured at this time, advised she can take Tylenol as needed for recurrent pain and advised to follow-up with her OB. Lab Data Attestation: I reviewed the patient's lab results. Labs: Laboratory Results - last 24 hr 01/16/25 01/16/25 23:30 23:59 HCG, Quant [id number] H Urine Color Yellow Urine Clarity Clear Urine pH 6.5 Ur Specific [place] 1.010 Urine Protein Negative Urine Glucose (UA) Normal Urine Ketones Negative Urine Occult Blood Negative Urine Nitrite Negative Urine Bilirubin Negative Urine Urobilinogen Normal Ur Leukocyte Esterase Negative Urine RBC 0 SEEN Urine WBC 0 SEEN Ur Squamous Epith Cells 5-10 SEEN Urine Bacteria RARE Urine Mucus RARE Radiography Diagnostic Testing: Clinical Impression(s) from Imaging Studies Obstetrics Ultrasound 01/16/25 23:46 IMPRESSION: Single, live intrauterine gestation. No abnormality is noted. Reading Location: [place] [address] Discharge Plan Triage Chief Complaint: Abd Pain ED Provider: Clarence Viveros Dx/Rx/DC Orders Clinical Impression: Pelvic pain during in first trimester, antepartum Instructions: ED Abdominal Pain, Early Prescriptions: No Action PNV-[place] 28-1-300 mg capsule 1 cap PO DAILY citalopram 10 mg tablet 10 mg PO QDAY Qty: 90 0RF Primary Care Provider: Care Physician,No Primary Referrals: Lidya Child, [Med Staff - Active Staff] - As soon as possible Print Language: Maltese Disposition Disposition: Home, Self Care
[2025-01-17 00:04] LABS: Red Blood Cells-Urine 0 SEEN /hpf (0-5); White Blood Cells 0 SEEN /hpf (0-5)
[2025-01-17 00:28] LABS: Color, Urine Yellow (Yellow); Glucose, Dipstick Normal (Normal); Urine Bilirubin Dipstick Negative (Negative); Urine Clarity Clear (Clear)
[2025-01-17 00:29] LABS: Bacteria RARE /hpf (None Seen); Ketone-Dipstick Negative (Negative); Leukocyte Esterase-Dipstick Negative /ul (Negative); Mucous, Urine RARE /hpf (<or=2+); Nitrite-Dipstick Negative (Negative); Occult Blood-Urine Negative /ul (Negative); Protein-Dipstick Negative (Negative); Squamous Epithelial Cells - UA 5-10 SEEN /hpf (5-10); Urine Urobilinogen Normal (Normal); Urine pH 6.5 (5.0 - 8.0)
--- OUTSIDE RECORDS SUMMARY | 2025-01-17 00:37 | XMS RPT_ITS | CCD ---
Author Organization [facility] Care Team Providers Care Char House Supervisor Name Role Phone NO REFERRING DR Unavailable Unavailable MALLAT, ALI F Unavailable Unavailable MALLAT, ALI F Unavailable Unavailable MALLAT, ALI F Unavailable Unavailable ANDRE, MADELAINE C Unavailable Unavailable Unavailable Primary Care Provider Unavailabl e Cabrales PA-C, Nieves Primary Care Provider Cabrales PA-C, Nieves Primary Care Provider Cabrales PA-C, Nieves Primary Care Provider [phone] CABRALES, NIEVES Attending Unavailable CABRALES, NIEVES Primary Care Unavailable CABRALES, NIEVES Referring Unavailable CABRALES, NIEVES Primary Care Unavailable CABRALES, NIEVES Attending Unavailable CABRALES, NIEVES Primary Care Unavailable KAMERON, LEANN Attending Unavailable KAMERON, LEANN Referring Unavailable CABRALES, NIEVES Primary Care Unavailable Dr. Madelaine Andre Primary Care Provider Dr. Madelaine Andre Referring Provider Troy SUPERVISOR [employer], SUPERVISOR T[employer] CLEANING-C Lois Attending Provider Dr. Madelaine Andre MD Primary Care Provider Dr. Madelaine Andre MD Referring Provider [phone] Nuha Glynn CNM Attending Provider Nuha Glynn CNM Referring Provider Madelaine Andre Referring Unavailable Nuha Glynn Attending Unavailable Porter, Madelaine Primary Care Unavailable Andre, Madelaine Primary Care Unavailable Odilon Andrea Referring Unavailable Isabel Trevizo Attending Unavailable Andre Madelaine Referring Unavailable Andre, Madelaine Primary Care Unavailable Lidya See Attending Unavailabl e Andre, Madelaine Primary Care Unavailable Nuha Glynn Attending Unavailable Nuha Glynn Referring Unavailable Andre, Madelaine Primary Care Unavailable Andre, Madelaine Referring Unavailable Isabel Trevizo Attending Unavailable Dr. Lidya Child DO Attending Provider Allergies Allergy Classification Reported Allergen(s) Allergy Type Date of Onset Reaction(s) Facility (7 sources) Seasonal allergy; Translations: [SEASONAL ALLERGIES] Propensity to adverse reactions 8 Other: See Comments [facility] Work Phone: Medications Current Medications Medication Drug Class(es) Dates Sig (Normalized) Sig (Original) amoxicillin 500 mg oral capsule (1 source) Penicillin-class Antibacterial Start: 06-13-2022 End: 06-23-2022 take 1 capsule by mouth every twelve hours amoxicillin (POLYMOX, AMOXIL) 500 mg capsule Take 1 capsule by mouth every 12 hours for 10 days. 20 capsule 0 06/13/2022 06/23/2022 Active Comment on above: Take 1 capsule by mo ut every 12 hours for 10 days. Mv-Mins 88-Aikq-Blwjr No.1-Dha (Pnv-Conception) 28-1-300 mg capsule (1 source) Start: 01-16-2025 Mv-Mins 72-Belp-Vrrjl No.1-Dha (Pnv-Conception) 28-1-300 mg capsule Active NMA PO January 16, 2025 12:00am Petros (Nk) (1 source) Start: 03-19-2023 Petros (Nk) Active March 19, 2023 12:00am Completed/Discontinued Medications Medication Drug Class(es) Dates Sig (Normalized) Sig (Original) citalopram 10 mg oral tablet (6 sources) Serotonin Reuptake Inhibitor Start: 04-30-2024 End: 07-02-2024 take 1 tablet by mouth once daily Citalopram 10 mg tablet Discontinued 10 mg PO daily June 11, 2024 5:17pm July 02, 2024 5:31pm Desogestrel-Ethiny l Estradiol (20 sources) Progestin, Estrogen Start: 03-16-2022 End: 03-19-2023 Desogestrel-Ethinyl Estradiol 0.15-0.03 mg tablet Discontinued 1 {tbl} PO .COMPLEX 84 March 16, 2022 2:57pm March 19, 2023 3:50pm 1 tab PO active pills only for continuous cycling Start: 03-16-2022 End: 03-19-2023 Desogestrel-Ethinyl Estradio l Discontinued 1 TABLET PO .COMPLEX March 16, 2022 2:57pm March 19, 2023 3:50pm 1 tab PO active pills only for continuous cycling Start: 02-07-2022 End: 03-16-2022 Desogestrel-Ethinyl Estradio l 0.15-0.03 mg tablet Discontinued 1 {tbl} PO .COMPLEX February 07, 2022 10:14am March 16, 2022 2:57pm 1 tab PO active pills only for continuous cycling Start: 02-07-2022 End: 03-16-2022 Desogestrel-Ethinyl Estradio l Discontinued 1 TABLET PO .COMPLEX February 07, 2022 10:14am March 16, 2022 2:57pm 1 tab PO active pills only for continuous cycling Start: 02-01-2021 End: 02-07-2022 Desogestrel-Ethinyl Estradio l 0.15-0.03 mg tablet Discontinued 1 {tbl} PO .COMPLEX February 01, 2021 8:56am February 07, 2022 10:15am 1 tab PO active pills only for continuous cycling Start: 02-01-2021 End: 02-07-2022 Desogestrel-Ethinyl Estradio l Discontinued 1 TABLET PO .COMPLEX February 01, 2021 8:56am February 07, 2022 10:15am 1 tab PO active pills only for continuous cycling Start: 12-20-2020 End: 02-01-2021 Desogestrel-Ethinyl Estradio l 0.15-0.03 mg tablet Discontinued 1 {tbl} PO .COMPLEX December 20, 2020 9:04am February 01, 2021 8:56am 1 tab PO active pills only for continuous cycling Start: 12-20-2020 End: 02-01-2021 Desogestrel-Ethinyl Estradio l Discontinued 1 TABLET PO .COMPLEX December 20, 2020 9:04am February 01, 2021 8:56am 1 tab PO active pills only for continuous cycling Start: 12-25-2019 End: 12-20-2020 Desogestrel-Ethinyl Estradio l 0.15-0.03 mg tablet Discontinued 1 {tbl} PO .COMPLEX 84 December 25, 2019 8:18am December 20, 2020 9:12am 1 tab PO active pills only for continuous cycling Start: 12-25-2019 End: 12-20-2020 Desogestrel-Ethinyl Estradio l Discontinued 1 TABLET PO .COMPLEX 84 December 25, 2019 8:18am December 20, 2020 9:12am 1 tab PO active pills only for continuous cycling Start: 08-18-2019 End: 12-25-2019 Desogestrel-Ethinyl Estradio l 0.15-0.03 mg tablet Discontinued 1 {tbl} PO .COMPLEX 84 August 18, 2019 10:10am December 25, 2019 8:18am 1 tab PO active pills only for continuous cycling Start: 08-18-2019 End: 12-25-2019 Desogestrel-Ethinyl Estradio l Discontinued 1 TABLET PO .COMPLEX 84 August 18, 2019 10:10am December 25, 2019 8:18am 1 tab PO active pills only for continuous cycling Start: 03-31-2019 End: 08-18-2019 Desogestrel-Ethinyl Estradio l 0.15-0.03 mg tablet Discontinued 1 {tbl} PO .COMPLEX 84 March 31, 2019 2:42pm August 18, 2019 10:10am 1 tab PO active pills only for continuous cycling Start: 03-31-2019 End: 08-18-2019 Desogestrel-Ethinyl Estradio l Discontinued 1 TABLET PO .COMPLEX 84 March 31, 2019 2:42pm August 18, 2019 10:10am 1 tab PO active pills only for continuous cycling Start: 02-20-2018 End: 03-31-2019 Desogestrel-Ethinyl Estradio l 0.15-0.03 mg tablet Discontinued 1 {tbl} PO .COMPLEX 84 February 20, 2018 11:06am March 31, 2019 2:42pm 1 tab PO active pills only for continuous cycling Start: 02-20-2018 End: 03-31-2019 Desogestrel-Ethinyl Estradio l Discontinued 1 TABLET PO .COMPLEX 84 February 20, 2018 11:06am March 31, 2019 2:42pm 1 tab PO active pills only for continuous cycling Start: 02-14-2018 End: 02-20-2018 Desogestrel-Ethinyl Estradio l 0.15-0.03 mg tablet Discontinued 1 {tbl} PO DAILY February 14, 2018 2:58pm February 20, 2018 11:07am Start: 02-14-2018 End: 02-20-2018 take 1 tablet by mouth once daily Desogestrel-Ethinyl Estradiol Discontinued 1 TABLET PO DAILY February 14, 2018 2:58pm February 20, 2018 11:07am Start: 04-28-2017 End: 02-14-2018 Desogestrel-Ethinyl Estradio l 1 EACH tablet Discontinued 1 {tbl} PO DAILY April 28, 2017 12:00am February 14, 2018 3:00pm Start: 04-28-2017 End: 02-14-2018 take 1 tablet by mouth once daily Desogestrel-Ethinyl Estradiol Discontinued 1 TABLET PO DAILY April 28, 2017 12:00am February 14, 2018 3:00pm Start: 02-16-2017 take 1 tablet by alfredo th once daily Desogestrel-Ethinyl Estradiol (ORTHO-CEPT, 28,) 0.15-0.03 mg per tablet Indications: Dysmenorrhea , Acne vulgaris , General counseling for prescription of oral contraceptives Take 1 tablet by mouth once daily. 3 Package 4 02/16/2017 Active Comment on above: Take 1 tablet by alfredo th once daily. fluticasone propionate 0.05 mg/actuat metered dose nasal spray (6 sources) Corticosteroid Start: 019 take 2 spray(s) by mouth once daily fluticasone (FLONASE) 50 mcg/actuation nasal spray Use 2 Sprays in each nostril once daily. Rinse mouth after use. 1 Bottle 1 02/24/2019 Active Comment on above: Use 2 Sprays in each nostril once daily. Rinse mouth after use. spironolactone 25 mg oral tablet (2 sources) Aldosterone Antagonist Start: 024 End: 025 take 1 tablet by mouth twice daily Spironolactone 25 mg tablet Discontinued 25 mg PO TWICE A DAY April 30, 2024 12:00am January 16, 2025 1:14pm Problems Active Problems Problem Classification Problem Date Documented Date Episodic/Chronic Bacterial infection; unspecified site (1 source) Other specified bacterial agents as the cause of diseases classified elsewhere; Translations: [Bacterial sinusitis] Onset: 10-12-19 Episodic Contraceptive and procreative management (5 sources) Patient encounter status; Translations: [Encounter for other general counseling and advice on contraception] Onset: 10-29-19 25 10-17-2024 Episodic Comment on above: genetic carrier scre ening counseling- desiresrisk benefits and alternatives discussed for anxiety/PMDD, desires to continue on citalopram, will continue during with low dose.pnv genetic carrier neg. - desiresrisk benefits and alternatives discussed for anxiety/PMDD, desires to continue on citalopram, will continue during with low dose.pnv External Injury - Struck by; against (1 source) Struck by soccer ball, initial encounter; Translations: [STRUCK BY SOCCER BALL IN] Onset: 04-28-20 Malaise and fatigue (1 source) Other fatigue; Translations: [Other malaise and fatigue] 03-19-2023 Episodic Menstrual disorders (6 sources) Dysmenorrhea; Translations: [Dysmenorrhea, unspecified] Onset: 10-22-19 15 10-21-2014 Chronic Mood disorders (5 sources) Premenstrual dysphoric disorder; Translations: [Premenstrual dysphoric disorder] Onset: 07-11-20 24 10-17-2024 Chronic Comment on above: 10mg citalopramrecom mended counseling. Other female genital disorders (3 sources) Premenstrual tension syndrome; Translations: [Premenstrual tension syndrome] 02-01-2021 Chronic Other gastrointestinal disorders (3 sources) Irritable bowel syndrome; Translations: [Irritable bowel syndrome without diarrhea] 02-20-2018 Chronic Other skin disorders (9 sources) Acne; Translations: [Acne, unspecified] Onset: 02-26-20 13 02-25-2013 Episodic Other skin disorders (3 sources) Loss of hair; Translations: [Nonscarring hair loss, unspecified] 03-19-2023 Episodic Other skin disorders (1 source) Acne, unspecified; Translations: [Other acne] 03-19-2023 Episodic Other skin disorders (1 source) Nonscarring hair loss, unspecified; Translations: [Alopecia, unspecified] 03-19-2023 Episodic Other upper respiratory disease (6 sources) Seasonal allergy; Translations: [Other seasonal allergic rhinitis] Onset: 02-25-20 19 02-24-2019 Chronic Other upper respiratory infections (1 source) Chronic sinusitis, unspecified; Translations: [Bacterial sinusitis] Onset: 10-12-19 Chronic Screening and history of mental health and substance abuse codes (1 source) Encounter for screening for depression; Translations: [Depression screening] Onset: 10-12-19 Episodic Unclassified (1 source) Unknown / UNK(Unknown) Onset: 05-17-20 Past or Other Problems Problem Classification Problem Date Documented Da te Episodic/Chronic Crushing injury or internal injury (3 sources) Unspecified laceration of spleen, initial encounter; Translations: [Moderate laceration of spleen, initial encounter] Onset: 04-28-2017 Episodic Nonmalignant breast conditions (3 sources) Lump in lower outer quadrant of right breast; Translations: [Unspecified lump in the right breast, lower outer quadrant] Onset: 02-14-2022 Episodic Other lower respiratory disease (6 sources) Dyspnea; Translations: [Shortness of breath] Onset: 02-24-2019 02-24-2019 Episodic Other upper respiratory infections (2 sources) Acute pharyngitis, unspecified; Translations: [Streptococcal pharyngitis] Onset: 06-13-2022 Episodic Unclassified (1 source) Unspecified laceration of spleen, initial encounter Onset: 05-17-2017 Viral infection (1 source) Infectious mononucleosis, unspecified without complication; Translations: [INFECTIOUS MONO UNS W/O] Onset: 04-28-2017 Episodic Results Test Name Value Interpretation Reference Range Facility Miscellaneous procedureOrder ed By: Nuha Glynn on 10-17-2024 Miscellaneous Test Comment SEE SCANNED REPORT [facility] NATERAon 10-17-2024 LAYNE SEE SCANNED REPORT Normal [facility] Comment on above: Performed By: #### L [id number] #### [facility] [address] 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 Is patient in pain?: No Allergies No Known Allergies Allergy (Verified 10/17/24 08:15) Medications ???Medication ???Instructions ???Recorded ???Confirmed ???Type spironolactone 25 mg tablet 25 mg PO BID 04/30/24 10/17/24 His tory citalopram 10 mg tablet 10 mg PO QDAY #90 tabs 07/02/24 Rx Is last menstrual period known: Yes Last Menstrual Period: 10/05/24 Post menopausal: No Patient : No : No PFSH Medical History Dense breast tissue Splenic laceration IBS (irritable bowel syndrome) Family History Grandmother Hypertension Grandfather Hypertension Social History Smoking Status: Never smoker alcohol intake: current alcohol intake frequency: holidays/special occasions only substance use type: does not use caffeine: Yes Type: coffee Number of servings: 1 what type of physical activity do you participate in: other details: soccer frequency: daily seatbelt use: always do you feel safe at home: Yes additional social history: - 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 HPI Family Planning Consult Details: CHAPIN CHAUDHARI is a 28 year old who presents for family planning. she is planning a in the next few months with her . 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 she was taking spironolactone until recently, weaned off when knew this would not be continued in a . she has been off any control and is having regular cycles. she denies any family history of genetic disorders except for albinism. her biggest concern is continuing on citalopram as she is experiencing great benefits on it for her PMDD. Female Reproductive History Last Menstrual Period: 10/05/24 History 0 Elective abortions Hx Para Spontaneous abortions Hx # Term Pregnancies Ectopic pregnancies Hx # Pregnancies Multiple births # of living children Exam Const General: cooperative and healthy appearing Resp Effort Inspection: normal respiratory effort and able to speak in complete sentences Other: deferred Musc Other: pap up to date Skin General: no rashes or lesions noted Extrem General: normal to inspection Psych Appearance: grossly normal Coding Level of Care Code Off vis,est,level 3 Diagnoses PMDD (premenstrual dysphoric disorder) F32.81 Family planning counseling Z30.09 Assessment and Plan Assessment and Plan (1) PMDD (premenstrual dysphoric disorder): Status: Acute Comment: 10mg citalopram recommended counseling. (2) Family planning counseling: Status: Acute Comment: genetic carrier screening counseling- desires risk benefits and alternatives discussed for anxiety/PMDD, desires to continue on citalopram, will continue during with low dose. pnv 10/17/24 1655 Date Nuha Glynn CNM Cosigner Signature: Date (if applicable) CC: Normal [facility] Senior Loan Officer Office Visit Reporton 06-11-2024 Senior Loan Officer Office Visit Report [facility] [address], [address] [place] [address] OFFICE VISIT Date of Service: 06/11/24 MR#: [id number] Acct: [id number] Name: CHAPIN CHAUDHARI Rep #: [id number] : 1995 Provider: VILMA Rooney Age/Sex: 28/F Location: [facility] [place] [facility] Status: Signed Intake Vital Signs 04/30/24 08:06 06/11/24 15:54 06/11/24 15:55 Height 5 ft 7 in 5 ft 7 in 5 ft 7 in Weight: 163 lb 159 lb BMI 25.5 24.9 BP 118/77 114/76 Intake Visit Reasons: 6 WK MED CHECK Chief Complaint: 6 wk med check Plant Breeder Scientist Required: No Is patient in pain?: No Allergies No Known Allergies Allergy (Verified 06/11/24 15:55) Medications ???Medication ???Instructions ???Recorded ???Confirmed ???Type spironolactone 25 mg tablet 25 mg PO BID 04/30/24 06/11/24 History citalopram 10 mg tablet 10 mg PO QDAY #30 tabs 06/11/24 06/11/24 Rx Is last menstrual period known: Yes Last Menstrual Period: 05/21/24 Post menopausal: No Patient : No : No Control Method: none PFSH Medical History Dense breast tissue Splenic laceration IBS (irritable bowel syndrome) Family History Grandmother Hypertension Grandfather Hypertension Social History Smoking Status: Never smoker alcohol intake: current alcohol intake frequency: holidays/special occasions only substance use type: does not use caffeine: Yes Type: coffee Number of servings: 1 what type of physical activity do you participate in: other details: soccer frequency: daily seatbelt use: always do you feel safe at home: Yes additional social history: - 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 [facility] 6 WK MED CHECK Details: CHAPIN CHAUDHARI is a 28 year old who presents for med check; she was started on citalopram 6 weeks ago. She initially had mild side effects as expected however these have improved and she feels well with taking medication. She reports her PMDD symptoms have improved at least with her last cycle. Overall her anxiety has improved; not completely gone but improved to where she feels happy with. Taking compliantly at this time. Female Reproductive History Last Menstrual Period: 05/21/24 History 0 Elective abortions Hx Para Spontaneous abortions Hx # Term Pregnancies Ectopic pregnancies Hx # Pregnancies Multiple births # of living children ROS Const Constitutional: Denies chills, fatigue, fever(s), headache(s) or weight loss Eyes Eyes: Denies change in vision ENT ENT: Denies dizziness Resp Resp: Denies cough GI GI: Denies abdominal pain, constipation or nausea Neuro Neuro: Denies dizziness Psych Psych: Reports anxiety (improved with most recent menses. ) and depression (improved with most recent menses); Denies homicidal ideation, hopelessness or suicidal ideation Endo Endo: Denies cold intolerance, excessive sweating or heat intolerance Exam Const General: cooperative, healthy appearing, comfortable, no acute distress, well groomed and well hydrated Nutritional Appearance: well nourished Orientation: alert, awake and oriented x3 HENMT Head: normal to inspection and normocephalic Ears: hearing grossly normal bilaterally and external ears normal Nose: external nose normal Face and sinus: normal facial exam Eyes General: appearance normal, both eyes and all related structures Resp Effort Inspection: normal respiratory effort, able to speak in complete sentences and symmetric chest movement Neuro General: patient alert, patient awake, patient oriented x3 and moves all extremities Psych Appearance: grossly normal Mental Status: mental status grossly normal Affect: normal affect Speech and Movement: speech and movement normal Attitude: cooperative Coding Level of Care Code Established Pt Off vis,est,level 3 Patient Type Established Diagnoses PMDD (premenstrual dysphoric disorder) F32.81 Assessment and Plan Assessment and Plan (1) PMDD (premenstrual dysphoric disorder): Status: Acute Plan: Continue citalopram. Will call if dose increase needed after her next 2 menses and update. Determine med check follow up at that time depending on how she is doing. Follow up 1 year for annual visit. Call office sooner with questions or concerns. Medications: Refilled citalopram 10 mg PO QDAY 30 tabs 6RF 06/11/24 1619 Date Isabel Trevizo NP-C Cosigner Signature: Date (if applicable) CC: Normal [facility] Senior Loan Officer Office Visit Reporton 04-30-2024 Senior Loan Officer Office Visit Report [facility] [address], [address] [place] [address] OFFICE VISIT Date of Service: 04/30/24 MR#: [id number] Acct: [id number] Name: CHAPIN CHAUDHARI Rep #: [id number] : 1995 Provider: VILMA Rooney Age/Sex: 28/F Location: [facility] [place] Status: Signed Intake Vital Signs 03/19/23 15:50 04/30/24 08:06 Height 5 ft 7 in 5 ft 7 in Weight: 163 lb BMI 25.5 BP 118/77 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) Chief Complaint: annual Is patient in pain?: No Allergies No Known Allergies Allergy (Verified 04/30/24 15:52) Medications ???Medication ???Instructions ???Recorded ???Confirmed ???Type citalopram 10 mg tablet 10 mg PO QDAY #30 tabs 04/30/24 04/30/24 Rx spironolactone 25 mg tablet 25 mg PO BID 04/30/24 04/30/24 History Is last menstrual period known: Yes Last Menstrual Period: 04/27/24 Post menopausal: No Patient : No : No Control Method: none PFSH Medical History Dense breast tissue Splenic laceration IBS (irritable bowel syndrome) Family History Grandmother Hypertension Grandfather Hypertension Social History Smoking Status: Never smoker alcohol intake: current alcohol intake frequency: holidays/special occasions only substance use type: does not use caffeine: Yes Type: coffee Number of servings: 1 what type of physical activity do you participate in: other details: soccer frequency: daily seatbelt use: always do you feel safe at home: Yes additional social history: - 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 History 0 Elective abortions Hx Para Spontaneous abortions Hx # Term Pregnancies Ectopic pregnancies Hx # Pregnancies Multiple births # of living children HPI Encounter for routine gynecological examination Details: CHAPIN CHAUDHARI is a 28 year old who presents for annual exam. She reports symptoms of highs and lows prior to her period; she has mood shifts from anxiety to depression. Last PAP: 2022; negative History of abnormal PAP: no Last mammogram: yes; 2021 History of abnormal mammogram: diagnostic and ultrasound--negative. Colon cancer screening: None Other preventative health care screenings: Madelaine Andre- pcp. Female Reproductive History Last Menstrual Period: 04/27/24 Cycle Length: 21-35 Bleeding Duration: 5 Questions: metorrhagia: No, sexually active: Yes, dyspareunia: No and PCB: No ROS Const Constitutional: Denies chills, fatigue, fever(s), headache(s) or weight loss Eyes Eyes: Denies change in vision ENT ENT: Denies dizziness Resp Resp: Denies cough GI GI: Denies abdominal pain, constipation or nausea : Denies difficulty voiding, dysuria, hematuria, pelvic pain, prolapse symptoms, urinary incontinence, vaginal discharge, vaginal dryness, vaginal odor or vaginal pruritus Skin Skin/Breast: Denies alopecia or rash Neuro Neuro: Denies dizziness Psych Psych: Reports anxiety (associated with period) and depression (associated with period); Denies homicidal ideation, hopelessness or suicidal ideation Endo Endo: Denies cold intolerance, excessive sweating or heat intolerance Exam Const General: cooperative, healthy appearing, comfortable, no acute distress, well groomed and well hydrated Nutritional Appearance: well nourished Orientation: alert, awake and oriented x3 HENMT Head: normal to inspection and normocephalic Ears: hearing grossly normal bilaterally and external ears normal Nose: external nose normal Face and sinus: normal facial exam Eyes General: appearance normal, both eyes and all related structures Neck Neck: normal visual inspection, full ROM and no lymphadenopathy Thyroid: thyroid normal Chest Chest palpation inspection: normal inspection of the chest Breast inspection: normal inspection of the breasts and normal inspection of the axillae Breast palpation: normal palpation of the breasts, normal palpation of the axillae and no axillary lymphadenopathy Resp Effort Inspection: normal respiratory effort, able to speak in complete sentences and symmetric chest movement GI Inspection: normal to inspection Palpation: soft and no hepatosplenomegaly General: bladder normal to palpation External Female Exam: normal external appearance and normal appearance of the urethra Urethra: normal appearance of the urethra Speculum Exam - Vagina: normal appearance of the vagina (menses), normal vaginal discharge, no lesions and nontender Speculum Exam - Cervix: normal appearance of the cervix, no lesions and no masses Bimanual Exam- Vagina Uterus: normal bimanual exam, uterine size normal, bladder (more content not included)... Normal [facility] - Chemistry and C hemistry - challengeOrdered By: Lois Stewart on 03-19-2023 Free T4 [Mass/Vol] 0.77 ng/dL 0.76-1.46 [facility] No Panel InformationOrdered By: Lois Stewart on 03-19-2023 Thyroid Stimulating Hormone (TSH) 1.68 uIU/mL 0.358-3.74 [facility] CNOVon 10-11-2022 CNOV Office Visit ([facility]) CHAPIN CHAUDHARI ([id number]) 1995 F Date Time Provider Department 10/11/22 1:00 PM LEANN MELO A[facility] During your visit today, we recorded the following information about you: Temperature Pulse Blood pressure Weight 98.1 degrees 81/minute 120/79 72.1 kg Height 1.727 m Leann Melo DO 10/11/2022 1:19 PM Signed [facility] [address] [address] Date of Evaluation: 10/11/2022 Patient Name: Chapin Chaudhari : 1995 Chief Complaint: Patient presents with: Sore Throat URI Sinusitis Rhinitis Nursing Intake: There are no exam notes on file for this visit. Subjective Ms. Chaudhari is a 26 year old female who presents with the following complaint(s): HPI Sunday: body aches Sunday: chills, fever 100 Sunday: congestion and sinus pressure, and sore throat. Couging, throat hurting, Ears are full. Got covid Covid this past aug 2022. 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 Having reoccurring tonsil stones. 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 No surgical intervention. grade 2 tear. PAST SURGICAL HISTORY Procedure Laterality Date NONE FAMILY HISTORY Problem Relation Age of Onset other (hyperthyroidism) Mother 16 No Known Problems Father No Known Problems Sister No Known Problems Sister Hypertension Maternal Grandmother other (elevated cholesterol) Maternal Grandmother Social History Tobacco Use Smoking status: Never Smokeless tobacco: Never Vaping Use Vaping Use: Never used Substance Use Topics Alcohol use: No Drug use: No Current Outpatient Medications Medication Sig Dispense Refill amoxicillin-clavulanic acid (AUGMENTIN) 875-125 mg per tablet Take 1 tablet by mouth every 12 hours for 7 days. 14 tablet 0 fluticasone (FLONASE) 50 mcg/actuation nasal spray Use 2 Sprays in each nostril once daily. Rinse mouth after use. (Patient not taking: Reported on 10/11/2022) 1 Bottle 1 No current facility-administered medications for this visit. I have confirmed and edited as necessary the chief complaint, medications, past medical, family and social histories obtained by others. Objective BP 120/79 Pulse 81 Temp (Src) 98.1 (Oral) Ht 5' 8 (1.73m) Wt 159 lb (72.1kg) SpO2 96% LMP 05/17/2022 BMI 24.18 kg/(m2). Physical Exam Vitals and nursing note reviewed. Constitutional: Appearance: Normal appearance. HENT: Head: Normocephalic and atraumatic. Right Ear: No decreased hearing noted. No swelling. A middle ear effusion is present. Tympanic membrane is not injected, erythematous or bulging. Left Ear: No decreased hearing noted. Tenderness present. No swelling. A middle ear effusion is present. Tympanic membrane is bulging. Tympanic membrane is not injected or erythematous. Mouth/Throat: Mouth: Mucous membranes are moist. Pharynx: Pharyngeal swelling and posterior oropharyngeal erythema present. Eyes: Extraocular Movements: Extraocular movements intact. Conjunctiva/sclera: Conjunctivae normal. Pupils: Pupils are equal, round, and reactive to light. Neck: Thyroid: No thyroid mass. Cardiovascular: Rate and Rhythm: Normal rate and regular rhythm. Heart sounds: Normal heart sounds. Pulmonary: Effort: Pulmonary effort is normal. Breath sounds: Normal breath sounds and air entry. Musculoskeletal: General: Normal range of motion. Lymphadenopathy: Cervical: No cervical adenopathy. Skin: General: Skin is warm and dry. Neurological: General: No focal deficit present. Mental Status: She is alert and oriented to person, place, and time. Psychiatric: Mood and Affect: Mood normal. Behavior: Behavior normal. Thought Content: Thought content normal. Judgment: Judgment normal. Data Reviewed: No new labs ASSESSMENT/PLAN: 1. Bacterial sinusitis - ICD9: 473.9, 041.9, ICD10: J32.9, B96.89 (primary diagnosis) - Will begin treatment with Augmentin 875 mg PO BID for 7 days - Supportive care with plenty of fluids, rest, and analgesia prn. - AMOXICILLIN 875 MG-POTASSIUM CLAVULANATE 125 MG TABLET 2. Depression screening - ICD9: V79.0, ICD10: Z13.31 Negative - DEPRESSION SCREENING/ASSESSMENT Leann Melo, DO Return if symptoms worsen or fail to improve. Discussed the above with the patient using shared decision making. The patient is in agreement with the diagnostic and treatment plans. Referring Provider: LEANN MELO [[id number]] Allergies As of Date: 10/11/2022 Noted Allergy Reaction SEASONAL ALLERGIES 01/03/2018 14 - Other: See Comments Comments: Sinus pressure, itchy watery eyes Da (more content not included)... Normal [facility] Sylvia 06-14-2022 CNPN Telephone (AGG[facility]) CHAPIN CHAUDHARI ([id number]) 1995 F Date Time Provider Department 06/14/22 NIEVES CABRALES During your visit today, we recorded the following information about you: Philomena Martinez 06/14/2022 9:42 AM Signed Pt was wanting to know what you recommend. Should she fill the Rx that you gave her yesterday? Her tonsils are still swollen and sore but she is starting to feel a little better. Please advise. Philomena Martinez Nieves Cabrales PA-C 06/14/2022 11:18 AM Signed The majority of pharyngitis cases are due to viral infection and will improve and resolve without treatment. Her immune system will fight it off over 7 to 10 days, so she should experience gradual improvement. Her rapid strep test is negative, so she does not have the bacterial Group A streptococcus infection. And, there is a very small likelihood of Group B strep infection. I would only suggest starting the antibiotic to fight off a possible bacterial infection if she is getting worse and not better. That being said, if she is getting better then I would not advise taking the antibiotic. MARILEE Wilson MA 06/14/2022 11:28 AM Signed Spoke with patient and notified her of provider's recommendations. Patient states she is feeling a little better so will hold off on starting antibiotic. Katelyn Batres MA Allergies As of Date: 06/14/2022 Noted Allergy Reaction SEASONAL ALLERGIES 01/03/2018 14 - Other: See Comments Comments: Sinus pressure, itchy watery eyes Date Reviewed: 06/13/2022 Reviewed by: Katelyn Batres MA - Fully Assessed Reason for Visit: Medication Question [2678] Prescriptions as of 06/14/2022 - amoxicillin (POLYMOX, AMOXIL) 500 mg capsule Take 1 capsule by mouth every 12 hours for 10 days. - fluticasone (FLONASE) 50 mcg/actuation nasal spray Use 2 Sprays in each nostril once daily. Rinse mouth after use. Problem List As Of Date 06/14/2022 Noted Resolved Acne [L70.9] 02/25/2013 Dysmenorrhea [N94.6] 10/21/2014 Shortness of breath [R06.02] 02/24/2019 Seasonal allergies [J30.2] 02/24/2019 Encounter Status:Closed by KATELYN BATRES on 06/14/22 [facility] CNOVon 06-13-2022 CNOV Office Visit ([facility]GPC) CHAPIN CHAUDHARI ([id number]) 1995 F Date Time Provider Department 06/13/22 3:40 PM NIEVES CABRALES A[facility] During your visit today, we recorded the following information about you: Temperature Pulse Blood pressure Weight 98.1 degrees 89/minute 116/74 73 kg Height Last Period 1.695 m 05/17/22 Katelyn Batres MA 06/13/2022 3:50 PM Signed Chapin Chaudhari is a 26 year old female who presents for Sore Throat, Chest Congestion, ears hurt and neck stiffness since Sunday afternoon. Had fever last night. Did not test for COVID. Denies cough. LULI Ye PA-C 06/14/2022 3:46 PM Signed [facility] [place] [address] Date of Evaluation: 06/13/2022 Patient Name: Chapin Chaudhari : 1995 Chief Complaint: Patient presents with: Sore Throat Chest Congestion neck stiffness Nursing Intake: Nursing Notes: Katelyn Batres MA 06/13/2022 3:50 PM Signed Chapin Chaudhari is a 26 year old female who presents for Sore Throat, Chest Congestion, ears hurt and neck stiffness since Sunday afternoon. Had fever last night. Did not test for COVID. Denies cough. Katelyn Batres MA Subjective Ms. Chaudhari is a 26 year old female who presents with the following complaint(s): HPI Since weekend on Sunday, sore throat, fever, white spots on both tonsils. Achy, sore neck but no nuchal rigidity. Also has runny nose, congestion, ear fullness, occ cough. Can swallow, eat/drink, no difficulty breathing. Note, prior pharyngitis with mononucleosis (EBV) and splenic rupture in 2017. Off control since last month - had negative test 2 days ago. 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 No surgical intervention. grade 2 tear. PAST SURGICAL HISTORY Procedure Laterality Date NONE FAMILY HISTORY Problem Relation Age of Onset other (hyperthyroidism) Mother 16 No Known Problems Father No Known Problems Sister No Known Problems Sister Hypertension Maternal Grandmother other (elevated cholesterol) Maternal Grandmother Social History Tobacco Use Smoking status: Never Smokeless tobacco: Never Vaping Use Vaping Use: Never used Substance Use Topics Alcohol use: No Drug use: No Current Outpatient Medications Medication Sig Dispense Refill fluticasone (FLONASE) 50 mcg/actuation nasal spray Use 2 Sprays in each nostril once daily. Rinse mouth after use. (Patient taking differently: Use 2 Sprays in each nostril once daily. Rinse mouth after use. prn) 1 Bottle 1 Desogestrel-Ethinyl Estradiol (ORTHO-CEPT, 28,) 0.15-0.03 mg per tablet Take 1 tablet by mouth once daily. (Patient not taking: Reported on 06/13/2022) 3 Package 4 No current facility-administered medications for this visit. I have confirmed and edited as necessary the chief complaint, medications, past medical, family and social histories obtained by others. Objective BP 116/74 Pulse 89 Temp 98.1 Ht 5' 6.732 (1.70m) Wt 161 lb (73.0kg) SpO2 97[ra]% LMP 05/17/2022 BMI 25.42 kg/(m2). Physical Exam Vitals and nursing note reviewed. Constitutional: General: She is not in acute distress. Appearance: Normal appearance. She is well-groomed. Interventions: Face mask in place. HENT: Head: Normocephalic and atraumatic. Right Ear: Tympanic membrane and external ear normal. Left Ear: Tympanic membrane and external ear normal. Nose: Nose normal. Mouth/Throat: Mouth: Mucous membranes are moist. Tonsils: Tonsillar exudate (bilateral) present. Eyes: Extraocular Movements: Extraocular movements intact. Pupils: Pupils are equal, round, and reactive to light. Cardiovascular: Rate and Rhythm: Normal rate and regular rhythm. Pulses: Normal pulses. Radial pulses are 2+ on the right side and 2+ on the left side. Posterior tibial pulses are 2+ on the right side and 2+ on the left side. Heart sounds: Normal heart sounds. No murmur heard. Pulmonary: Effort: Pulmonary effort is normal. Breath sounds: Normal breath sounds. No wheezing, rhonchi or rales. Abdominal: General: Bowel sounds are normal. Palpations: Abdomen is soft. Musculoskeletal: General: Normal range of motion. Cervical back: Normal range of motion and neck supple. No rigidity. No pain with movement. Right lower leg: No edema. Left lower leg: No edema. Lymphadenopathy: Cervical: Cervical adenopathy (bilateral) present. Skin: General: Skin is warm. Capillary Refill: Capillary refill takes less than 2 seconds. Neurological: General: No f (more content not included)... Normal [facility] 03-13-2022 [facility] Telephone ([facility]) CHAPIN CHAUDHARI ([id number]) 1995 F Date Time Provider Department 03/13/22 NIEVES CABRALES [facility] During your visit today, we recorded the following information about you: Katelyn Batres MA 03/13/2022 3:49 PM Signed ----- Message from Nieves Cabrales PA-C sent at 03/13/2022 9:20 AM EDT ----- Good news - Ultrasound of right breast shows prominent fibroglandular (dense) tissue that is not a concern or is cancerous. There are no abnormalities noted. MARILEE Wilson MA 03/13/2022 3:49 PM Signed Patient notified of results. She states understanding and has no further questions. Katelyn Batres MA Allergies As of Date: 03/13/2022 Noted Allergy Reaction SEASONAL ALLERGIES 01/03/2018 14 - Other: See Comments Comments: Sinus pressure, itchy watery eyes Date Reviewed: 02/14/2022 Reviewed by: Nieves Cabrales PA-C - Fully Assessed Reason for Visit: Results [95] Prescriptions as of 03/13/2022 - fluticasone (FLONASE) 50 mcg/actuation nasal spray Use 2 Sprays in each nostril once daily. Rinse mouth after use. - Desogestrel-Ethinyl Estradiol (ORTHO-CEPT, 28,) 0.15-0.03 mg per tablet Take 1 tablet by mouth once daily. Problem List As Of Date 03/13/2022 Noted Resolved Acne [L70.9] 02/25/2013 Dysmenorrhea [N94.6] 10/21/2014 Shortness of breath [R06.02] 02/24/2019 Seasonal allergies [J30.2] 02/24/2019 Encounter Status:Closed by KATELYN BATRES on 03/13/22 Normal [facility] US BREAST COMPLETE RTon 03-10-2022 [facility] US BREAST COMPLETE RT * * *Final Report* * * DATE OF EXAM: Mar 10 2022 1:26PM [facility] 0605 - [facility] US BREAST COMPLETE RT / PROCEDURE REASON: Mass of lower outer quadrant of right breast * * * * Physician Interpretation * * * * ULTRASOUND OF RIGHT BREAST: 03/10/2022 Ordering Physician: NIEVES CABRALES CLINICAL: Mass Of Lower Outer Quadrant Of Right Breast. No prior exams were available for comparison. Ultrasound of the right breast was performed on the palpable area of interest. Miranda scale images of the real-time examination were reviewed. There is prominent fibroglandular tissue in the palpable area. No abnormalities were otherwise seen sonographically in the right breast. IMPRESSION: NEGATIVE Prominent fibroglandular tissue in the right breast palpable area. Otherwise unremarkable exam. Chai davidson/:03/10/2022 15:13:18 Bar Captain: Swathi Williamson RDMS, RT(R), [facility] Ultrasound BI-RADS: 1 Negative Waste Baler: Donte Transcribe Date/Time: Mar 10 2022 1:24P Dictated by : CHAI MCRAE MD This examination was interpreted and the report reviewed and electronically signed by: CHAI MCRAE MD on Mar 10 2022 3:13PM EST [id number] [facility] US BREAST COMPLETE RTon 08-0 [facility] CNPNon 02-23-2022 CNPN Telephone ([facility]GPC) CHAPIN CHAUDHARI ([id number]) 1995 F Date Time Provider Department 02/23/22 NIEVES CABRALES During your visit today, we recorded the following information about you: Katelyn Batres MA 02/23/2022 11:21 AM Signed ----- Message from Nieves Cabrales PA-C sent at 02/22/2022 5:13 PM EDT ----- Labs reviewed. Everything looks excellent.Thyroid function and vitamin D level are normal. Blood count, metabolic panel including kidney and liver function are also normal. Keep upcoming appointment for mammogram and ultrasound. MARILEE Wilson MA 02/23/2022 11:22 AM Signed Patient notified of results and recommendations. She voices understanding and has no further questions. Katelyn Batres MA Allergies As of Date: 02/23/2022 Noted Allergy Reaction SEASONAL ALLERGIES 01/03/2018 14 - Other: See Comments Comments: Sinus pressure, itchy watery eyes Date Reviewed: 02/14/2022 Reviewed by: Nieves Cabrales PA-C - Fully Assessed Reason for Visit: Results [95] Prescriptions as of 02/23/2022 - fluticasone (FLONASE) 50 mcg/actuation nasal spray Use 2 Sprays in each nostril once daily. Rinse mouth after use. - Desogestrel-Ethinyl Estradiol (ORTHO-CEPT, 28,) 0.15-0.03 mg per tablet Take 1 tablet by mouth once daily. Problem List As Of Date 02/23/2022 Noted Resolved Acne [L70.9] 02/25/2013 Dysmenorrhea [N94.6] 10/21/2014 Shortness of breath [R06.02] 02/24/2019 Seasonal allergies [J30.2] 02/24/2019 Encounter Status:Closed by KATELYN BATRES on 02/23/22 Normal [facility] 25(OH)D3 SerPl-ncon 2021 25-hydroxyvitamin D3 [Mass/Vol] 41.6 ng/mL Normal 31.0-80.0 [facility] Comment on above: Order Comment: Shane olivares Type: BLOOD SPECIMENOrdering Facility: [facility] Address: [address] [place] [address] Result Comment: Clas sification of 25 OH Vitamin D status: Deficiency/Insufficiency: < or = 30 ng/ml. Sufficiency/Optimal Levels: 31-80 ng/mL Toxicity: > 100 ng/mL. Test performed by chemiluminescent immunoassay. Performed By: #### 1 989-3 ####[facility] [id number] [address] STATES OF [facility] CBC W Auto Differential pane l (Bld)on 02-20-2022 Basophils (Bld) [#/Vol] 10*3/uL Normal <0.11 [facility] Comment on above: Order Comment: Shane olivares Type: BLOOD SPECIMEN Ordering Facility: [facility] Address: [address] [place] [address] Performed By: #### 5 7021-8 #### [facility] CLIA [id number] [address] Basophils/100 WBC (Bld) 0.3 % Normal [facility] Comment on above: Order Comment: Shane olivares Type: BLOOD SPECIMEN Ordering Facility: [facility] Address: [address] [place] [address] Performed By: #### 5 7021-8 #### [facility] CLIA [id number] [address] Differential cell count method Nom (Bld) Auto Normal [facility] Comment on above: Order Comment: Speci men Type: BLOOD SPECIMEN Ordering Facility: [facility] Address: [address] [place] [address] Performed By: #### 5 7021-8 #### [facility] CLIA [id number] [address] [place] Eosinophils (Bld) [#/Vol] 0.11 10*3/uL Normal <0.46 [facility] Comment on above: Order Comment: Speci men Type: BLOOD SPECIMEN Ordering Facility: [facility] Address: [address] [place] [address] Performed By: #### 5 7021-8 #### [facility] CLIA [id number] [address] [place] [address] Eosinophils/100 WBC (Bld) 1.9 % Normal [facility] Comment on above: Order Comment: Speci men Type: BLOOD SPECIMEN Ordering Facility: [facility] Address: [address] [place] [address] Performed By: #### 5 7021-8 #### [facility] CLIA [id number] [address] Erythrocyte distribution width (RBC) [Ratio] 12.4 % Normal 11.5-15.0 [facility] Comment on above: Order Comment: Speci men Type: BLOOD SPECIMEN Ordering Facility: [facility] Address: [address] [place] [address] Performed By: #### 5 7021-8 #### [facility] CLIA [id number] [address] [place] Hematocrit (Bld) [Volume fraction] 40.1 % Normal 36.0-46.0 [facility] Comment on above: Order Comment: Speci men Type: BLOOD SPECIMEN Ordering Facility: [facility] Address: [address] [place] [address] Performed By: #### 5 7021-8 #### [facility] CLIA [id number] [address] [place] Hemoglobin (Bld) [Mass/Vol] 13.5 g/dL Normal 11.5-15.5 [facility] Comment on above: Order Comment: Speci men Type: BLOOD SPECIMEN Ordering Facility: [facility] Address: [address] [place] [address] Performed By: #### 5 7021-8 #### [facility] CLIA [id number] [address] IMMATURE GRAN % 0.2 % Normal [facility] Comment on above: Order Comment: Speci men Type: BLOOD SPECIMEN Ordering Facility: [facility] Address: [address] [place] [address] Performed By: #### 5 7021-8 #### [facility] CLIA [id number] [address] IMMATURE GRAN ABS <0.03 Normal <0.10 [facility] Comment on above: Order Comment: Speci men Type: BLOOD SPECIMEN Ordering Facility: [facility] Address: [address] [place] [address] Performed By: #### 5 7021-8 #### [facility] CLIA [id number] [address] [place] Lymphocytes (Bld) [#/Vol] 2.05 10*3/uL Normal 1.00-4.00 [facility] Comment on above: Order Comment: Speci men Type: BLOOD SPECIMEN Ordering Facility: [facility] Address: [address] [place] [address] Performed By: #### 5 7021-8 #### [facility] CLIA [id number] [address] Lymphocytes/100 WBC (Bld) 35.5 % Normal [facility] Comment on above: Order Comment: Speci men Type: BLOOD SPECIMEN Ordering Facility: [facility] Address: [address] [place] [address] Performed By: #### 5 7021-8 #### [facility] CLIA [id number] [address] MCH (RBC) [Entitic mass] 29.0 pg Normal 26.0-34.0 [facility] Comment on above: Order Comment: Speci men Type: BLOOD SPECIMEN Ordering Facility: [facility] Address: [address] [place] [address] Performed By: #### 5 7021-8 #### [facility] CLIA [id number] [address] MCHC (RBC) [Mass/Vol] 33.7 g/dL Normal 30.5-36.0 [facility] Comment on above: Order Comment: Speci men Type: BLOOD SPECIMEN Ordering Facility: [facility] Address: [address] [place] [address] Performed By: #### 5 7021-8 #### [facility] CLIA [id number] [address] MCV (RBC) [Entitic vol] 86.1 fL Normal 80.0-100.0 [facility] Comment on above: Order Comment: Speci men Type: BLOOD SPECIMEN Ordering Facility: [facility] Address: [address] [place] [address] Performed By: #### 5 7021-8 #### [facility] CLIA [id number] [address] [place] [address] Monocytes (Bld) [#/Vol] 0.45 10*3/uL Normal <0.87 [facility] Comment on above: Order Comment: Speci men Type: BLOOD SPECIMEN Ordering Facility: [facility] Address: [address] [place] [address] Performed By: #### 5 7021-8 #### [facility] CLIA [id number] [address] Monocytes/100 WBC (Bld) 7.8 % Normal [facility] Comment on above: Order Comment: Speci men Type: BLOOD SPECIMEN Ordering Facility: [facility] Address: [address] [place] [address] Performed By: #### 5 7021-8 #### [facility] CLIA [id number] [address] [place] Neutrophils (Bld) [#/Vol] 3.13 10*3/uL Normal 1.45-7.50 [facility] Comment on above: Order Comment: Speci men Type: BLOOD SPECIMEN Ordering Facility: [facility] Address: [address] [place] [address] Performed By: #### 5 7021-8 #### [facility] CLIA [id number] [address] [place] Neutrophils/100 WBC (Bld) 54.3 % Normal [facility] Comment on above: Order Comment: Speci men Type: BLOOD SPECIMEN Ordering Facility: [facility] Address: [address] [place] [address] Performed By: #### 5 7021-8 #### [facility] CLIA [id number] [address] [place] Nucleated RBC (Bld) [#/Vol] 10*3/uL Normal <0.01 [facility] Comment on above: Order Comment: Speci men Type: BLOOD SPECIMEN Ordering Facility: [facility] Address: [address] [address] Performed By: #### 5 7021-8 #### [facility] CLIA [id number] [address] OF [place] Nucleated RBC/100 WBC (Bld) [Ratio] 0.0 /100 WBC Normal [facility] Comment on above: Order Comment: Speci men Type: BLOOD SPECIMEN Ordering Facility: [facility] Address: [address] [address] Performed By: #### 5 7021-8 #### [facility] CLIA [id number] [address] STATES OF [facility] Platelet mean volume (Bld) [Entitic vol] 10.6 fL Normal 9.0-12.7 [facility] Comment on above: Order Comment: Speci men Type: BLOOD SPECIMEN Ordering Facility: [facility] Address: [address] [place] [address] Performed By: #### 5 7021-8 #### [facility] CLIA [id number] [address] STATES OF [place] Platelets (Bld) [#/Vol] 296 10*3/uL Normal 150-400 [facility] Comment on above: Order Comment: Speci men Type: BLOOD SPECIMEN Ordering Facility: [facility] Address: [address] [place] [address] Performed By: #### 5 7021-8 #### [facility] CLIA [id number] [address] RBC (Bld) [#/Vol] 4.66 10*6/uL Normal 3.90-5.20 [facility] Comment on above: Order Comment: Speci men Type: BLOOD SPECIMEN Ordering Facility: [facility] Address: [address] [place] [address] Performed By: #### 5 7021-8 #### [facility] CLIA [id number] [address] WBC (Bld) [#/Vol] 5.77 10*3/uL Normal 3.70-11.00 [facility] Comment on above: Order Comment: Speci men Type: BLOOD SPECIMEN Ordering Facility: [facility] Address: [address] [place] [address] Performed By: #### 5 7021-8 #### [facility] CLIA [id number] [address] [place] Comprehensive metabolic 2000 panelon 02-20-2022 Albumin [Mass/Vol] 4.1 g/dL Normal 3.9-4.9 [facility] Comment on above: Order Comment: Speci men Type: BLOOD SPECIMENOrdering Facility: [facility] Address: [address] [place] [address] Performed By: #### 2 4323-8, 3016-3 ####[facility] [id number] [address] ALP [Catalytic activity/Vol] 72 U/L Normal 34-123 [facility] Comment on above: Order Comment: Speci men Type: BLOOD SPECIMENOrdering Facility: [facility] Address: [address] [place] [address] Performed By: #### 2 4323-8, 6-3 ####[facility]ORYCLIA [id number] [address] OF [facility] ALT With P-5'-P [Catalytic activity/Vol] 25 U/L Normal 7-38 [facility] Comment on above: Order Comment: Speci men Type: BLOOD SPECIMENOrdering Facility: [facility] Address: [address] [place] [address] Performed By: #### 2 4323-8, 6-3 ####[facility]ORYCLIA [id number] [address] Anion gap [Moles/Vol] 10 mmol/L Normal 9-18 [facility] Comment on above: Order Comment: Speci men Type: BLOOD SPECIMENOrdering Facility: [facility] Address: [address] [place] [address] Performed By: #### 2 4323-8, 6-3 ####[facility]ORYCLIA [id number] [address] [facility] AST With P-5'-P [Catalytic activity/Vol] 22 U/L Normal 13-35 [facility] Comment on above: Order Comment: Speci men Type: BLOOD SPECIMENOrdering Facility: [facility] Address: [address] [place] [address] Performed By: #### 2 4323-8, 6-3 ####[facility]ORYCLIA [id number] [place] [address] [place] Bilirubin [Mass/Vol] 0.5 mg/dL Normal 0.2-1.3 [facility] Comment on above: Order Comment: Speci men Type: BLOOD SPECIMENOrdering Facility: [facility] Address: [address] [place] [address] Performed By: #### 2 4323-8, 3016-3 ####[facility]ORYCLIA [id number] [place] [address] [place] Calcium [Mass/Vol] 9.0 mg/dL Normal 8.5-10.2 [facility] Comment on above: Order Comment: Speci men Type: BLOOD SPECIMENOrdering Facility: [facility] Address: [address] [place] [address] Performed By: #### 2 4323-8, 6-3 ####[facility]ORYCLIA [id number] [place] [address] [place] Chloride [Moles/Vol] 105 mmol/L Normal 97-105 [facility] Comment on above: Order Comment: Speci men Type: BLOOD SPECIMENOrdering Facility: [facility] Address: [address] [place] [address] Performed By: #### 2 4323-8, 6-3 ####[facility]ORYCLIA [id number] [place] [address] [place] CO2 [Moles/Vol] 23 mmol/L Normal 22-30 [facility] Comment on above: Order Comment: Speci men Type: BLOOD SPECIMENOrdering Facility: [facility] Address: [address] [place] [address] Performed By: #### 2 4323-8, 3016-3 ####[facility]ATORYCLIA [id number] [place] [address] [place] Creatinine [Mass/Vol] 0.84 mg/dL Normal 0.58-0.96 [facility] Comment on above: Order Comment: Speci men Type: BLOOD SPECIMENOrdering Facility: [facility] Address: [address] [place] [address] Performed By: #### 2 4323-8, 3015-3 ####[facility] [id number] [address] [place] ESTIMATED GLOMERULAR FILTRATION RATE 99 mL/min/1.73m??? Normal >=60 [facility] Comment on above: Order Comment: Vishunclifford olivares Type: BLOOD SPECIMENOrdering Facility: [facility] Address: [address] [place] [address] Result Comment: Ana mated Glomerular Filtration Rate (eGFR) is calculated using the 2020 CKD-EPI creatinine equation. This equation utilizes serum creatinine, sex, and age as parameters. The creatinine assay has traceable calibration to isotope dilution-mass spectrometry. Refer to KDIGO guidelines for clinical interpretation. In patients with unstable renal function, e.g. those with acute kidney injury, the eGFR may not accurately reflect actual GFR. Performed By: #### 2 4323-8, 3015-3 ####[facility] LAB[facility]ATORYIA [id number] [place] [address] [place] Glucose [Mass/Vol] 84 mg/dL Normal 74-99 [facility] Comment on above: Order Comment: Shane olivares Type: BLOOD SPECIMENOrdering Facility: [facility] Address: [address] [place] [address] Result Comment: The [place] Diabetes Association (ADA) provides guidance for cutoff values for fasting glucose and random glucose. The ADA defines fasting as no caloric intake for at least 8 hours. Fasting plasma glucose results between 100 to 125 mg/dL indicate increased risk for diabetes (prediabetes). Fasting plasma glucose results greater than or equal to 126 mg/dL meet the criteria for diagnosis of diabetes. In the absence of unequivocal hyperglycemia, results should be confirmed by repeat testing. In a patient with classic symptoms of hyperglycemia or hyperglycemic crisis, random plasma glucose results greater than or equal to 200 mg/dL meet the criteria for diagnosis of diabetes. Reference: Standards of Medical Care in Diabetes 2016, [place] Diabetes Association. Diabetes Care. 2016.39(Suppl 1). Performed By: #### 2 4323-8, 3016-3 ####[facility]ORATORYCLIA [id number] [place] [address] [place] Potassium [Moles/Vol] 4.3 mmol/L Normal 3.7-5.1 [facility] Comment on above: Order Comment: Speci men Type: BLOOD SPECIMENOrdering Facility: [facility] Address: [address] [place] [address] Performed By: #### 2 4323-8, 3015-3 ####[facility]ATORYCLIA [id number] [place] [address] [place] Protein [Mass/Vol] 6.5 g/dL Normal 6.3-8.0 [facility] Comment on above: Order Comment: Speci men Type: BLOOD SPECIMENOrdering Facility: [facility] Address: [address] [place] [address] Performed By: #### 2 4328, 3015-3 ####[facility]ORATORYCLIA [id number] [address] STATES OF [facility] Sodium [Moles/Vol] 138 mmol/L Normal 136-144 [facility] Comment on above: Order Comment: Speci men Type: BLOOD SPECIMENOrdering Facility: [facility] Address: [address] [place] [address] Performed By: #### 2 4328, 3015-3 ####[facility]ATORYCLIA [id number] [place] [address] [place] Urea nitrogen [Mass/Vol] 9 mg/dL Normal 7-21 [facility] Comment on above: Order Comment: Speci men Type: BLOOD SPECIMENOrdering Facility: [facility] Address: [address] [place] [address] Performed By: #### 2 43238, 6-3 ####[facility]ATORYCLIA [id number] [place] [address] [place] TSH SerPl-aCncon 02-20-2022 TSH Qn 2.610 m[IU]/L Normal 0.270-4.200 [facility] Comment on above: Order Comment: Speci men Type: BLOOD SPECIMENOrdering Facility: [facility] Address: [address], [place] [address] Result Comment: If t he patient is , TSH reference range varies by gestational period: First Trimester (weeks 9-12): 0.180-2.990 mIU/L Second Trimester: 0.110-3.980 mIU/L Third Trimester: 0.480-4.710 mIU/L Zach Arnold et al. A Practical Approach for the Verifications and Determination of Site- and Trimester-Specific Reference Intervals for Thyroid Function tests in . Thyroid, 2019:29:3:412-420. Aristeo Mg, et al. 2017 Guidelines of the [place] Thyroid Association for the Diagnosis and Management of Thyroid Disease during and the . Thyroid, 2017:27:3:315-389. Performed By: #### 2 4323-8, 3016-3 ####[facility]ORATORYCLIA [id number] [place], [place] [address] [place] [address] [place] [address] [facility] CNOVon 02-14-2022 CNOV Office Visit ([facility]) FARACHAPIN Laureano ([id number]) 1995 F Date Time Provider Department 02/14/22 3:20 PM NIEVES CABRALES [facility] During your visit today, we recorded the following information about you: Temperature Pulse Blood pressure Weight 97.6 degrees 75/minute 118/76 70.1 kg Height 1.695 m Mónica Cox MA 02/14/2022 4:02 PM Signed Chapin Laureano Fara is a 26 year old female who presents with complaint of Breast Problem (right breast). LULI Loera PA-C 02/14/2022 5:15 PM Signed [facility] [address] [address] Date of Evaluation: 02/14/2022 Patient Name: Chapin Chaudhari : 1995 Chief Complaint: Patient presents with: Breast Problem: right breast Nursing Intake: Nursing Notes: Mónica Cox MA 02/14/2022 4:02 PM Signed Chapin Chaudhari is a 26 year old female who presents with complaint of Breast Problem (right breast). Mónica Cox MA Subjective Ms. Chaudhari is a 26 year old female who presents with the following complaint(s): HPI Sunday - felt lump right breast, lower/outer tender as if bruised. No skin changes, dimpling, or wound. On OCP X 7 yrs, missed a couple of pills, late getting refill this past week. 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 Hx of mononucleosis and splenic laceration did not require surgery 2017. Had follow up CT abdomen 2018 - incidental left lung nodule 4 mm no followup is recommended, unless risk for lung malignancy. 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 , no history of . No FH heart disease; MGF with DM Review of Systems Constitutional: Negative for activity change, appetite change, fatigue and unexpected weight change. HENT: Negative for dental problem, hearing loss, tinnitus and trouble swallowing. Eyes: Negative for visual disturbance. Respiratory: Negative for apnea, cough and shortness of breath. Cardiovascular: Negative for chest pain, palpitations and leg swelling. Gastrointestinal: Negative for abdominal distention, abdominal pain, blood in stool, constipation, diarrhea and nausea. Genitourinary: Negative for frequency, hematuria, menstrual problem and urgency. Musculoskeletal: Positive for arthralgias (stiff in the morning, back/neck primarily ). Negative for back pain, joint swelling, myalgias and neck pain. Skin: Negative. Allergic/Immunologic: Positive for environmental allergies (occasional Flonase, not in past 3 mos ). Neurological: Negative for dizziness, weakness, light-headedness, numbness and headaches. Hematological: Does not bruise/bleed easily. Psychiatric/Behavioral : Negative for dysphoric mood and sleep disturbance. The patient is not nervous/anxious. 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 No surgical intervention. grade 2 tear. PAST SURGICAL HISTORY Procedure Laterality Date - NONE FAMILY HISTORY Problem Relation Age of Onset - other (hyperthyroidism) Mother 16 - Hypertension Maternal Grandmother - other (elevated cholesterol) Maternal Grandmother - other (albino) Sister Social History Tobacco Use - Smoking status: Never Smoker - Smokeless tobacco: Never Used Substance Use Topics - Alcohol use: No - Drug use: No Current Outpatient Medications Medication Sig Dispense Refill - fluticasone (FLONASE) 50 mcg/actuation nasal spray Use 2 Sprays in each nostril once daily. Rinse mouth after use. (Patient taking differently: Use 2 Sprays in each nostril once daily. Rinse mouth after use. prn ) 1 Bottle 1 - Desogestrel-Ethinyl Estradiol (ORTHO-CEPT, 28,) 0.15-0.03 mg per tablet Take 1 tablet by mouth once daily. 3 Package 4 No current facility-administered medications for this visit. I have confirmed and edited as necessary the chief complaint, medications, past medical, family and social histories obtained by others. Objective BP 118/76 Pulse 75 Temp (Src) 97.6 (Tympanic) Ht 5' 6.732 (1.70m) Wt 154 lb 9.6 oz (70.1kg) SpO2 98% LMP 01/15/2019 BMI 24.41 kg/(m2). Physical Exam Vitals and nursing note reviewed. Constitutional: General: She is not in acute distress. Appearance: Normal appearance. She is well-developed, well-groomed and normal weight. She is not ill-appearing or toxic-appearing. Interventions: Face mask in place. HENT: Head: Normocephalic and atraumatic. Right E (more content not included)... 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 Juan Carlos Sanders RN Allergies As of Date: 11/30/2020 Noted Allergy Reaction SEASONAL ALLERGIES 01/03/2018 14 - Other: See Comments Comments: Sinus pressure, itchy watery eyes Date Reviewed: 02/24/2019 Reviewed by: Lambert Graham - Fully Assessed Reason for Visit: Release Of Medical Records [2017] Prescriptions as of 11/30/2020 Sig: FLUTICASONE PROPIONATE 50 MCG* Use 2 Sprays in each nostril * DESOGESTREL 0.15 MG-ETHINYL E* Take 1 tablet by mouth once d* Problem List As Of Date 11/30/2020 Noted Resolved Acne [L70.9] 02/25/2013 Dysmenorrhea [N94.6] 10/21/2014 Shortness of breath [R06.02] 02/24/2019 Seasonal allergies [J30.2] 02/24/2019 Encounter Status:Closed by JUAN CARLOS SANDERS RN on 11/30/20 [facility] DISCHARGE SUMMARYon 05-09-20 17 DISCHARGE SUMMARY [facility] Discharge SummarySHAWANDA COLEMANMRN: [id number] ACCTNUM: [id number] OF : 1995 SEX/AGE: F/20PATIENT TYPE: [facility]: LOCATION: [id number] DATE: 04/28/2017 DISCHARGE DATE: 04/30/2017A 48-hour discharge summary for that patient.REASON FOR HOSPITALIZATION: Blunt abdominal injury following diagnosis of mononucleosis.SIGNIFIC ANT FINDINGS: Included a grade 2 splenic laceration.PROCEDURES: [...] Moraes MD dictating Perri Alicea MD Signed: JAZMYNE ALICEA MD 05/09/2017 10:00 EDTSurgeryBC:modlD: 05/03/2017 18:05:20T: 05/04/2017 09:27:14Job #: [id number] Page 1 of 1 Normal [facility] DISCHARGE SUMMARY PDF Normal [facility] Basic Panelon 04-30-2017 Creatinine 0.77 mg/dL Normal 0.51-0.95 [facility] Comment on above: Performed By: #### P 8 ####[facility] [address] Glucose mass conc 87 mg/dL Normal 70-99 [facility] Comment on above: Performed By: #### P 8 ####[address] [address] Urea nitrogen 3 mg/dL Low 7-18 [facility] Comment on above: Performed By: #### P 8 ####[facility] [place], [place] [address] Anion gap 9 mmol/L Normal 8-16 [facility] Comment on above: Performed By: #### P 8 ####[facility] [place], [place] [address] Calcium 8.6 mg/dL Normal 8.5-10.1 [facility] Comment on above: Performed By: #### P 8 ####[facility] [address] [place] [address] CO2 27 mmol/L Normal 21-32 [facility] Comment on above: Performed By: #### P 8 ####[facility] [place] [address] Chloride 101 mmol/L Normal 98-107 [facility] Comment on above: Performed By: #### P 8 ####[facility] [address] [place] [address] Potassium molar conc 4.3 mmol/L Normal 3.5-5.1 [facility] Comment on above: Performed By: #### P 8 ####[facility] [address] [place] [address] Sodium 133 mmol/L Low 136-145 [facility] Comment on above: Performed By: #### P 8 ####[place] [address] Hemogramon 04-30-2017 Erythrocyte distribution width Auto Ratio (RBC) 13.2 % Normal 11.7-14.4 [facility] Comment on above: Performed By: #### C BC1 ####[place] [address] Erythrocytes (RBC) 4.39 mil/cmm Normal 3.93-5.22 [facility] Comment on above: Performed By: #### C BC1 ####[place] [address] Hematocrit (HCT) 37.1 % Normal 34.1-44.9 [facility] Comment on above: Performed By: #### C BC1 ####[place] [address] Hemoglobin mass conc (Bld) 12.8 g/dL Normal 11.2-15.7 [facility] Comment on above: Performed By: #### C BC1 ####[place] [address] MCH 29.2 pg Normal 25.6-32.2 [facility] Comment on above: Performed By: #### C BC1 ####[place] [address] MCHC mass conc (RBC) 34.5 % Normal 31.6-34.8 [facility] Comment on above: Performed By: #### C BC1 ####[address] [place] [address] MCV 84.5 fL Normal 79.4-94.8 [facility] Comment on above: Performed By: #### C BC1 ####[place] [address] Platelet mean volume (PMV) 9.8 fL Normal 9.4-12.3 [facility] Comment on above: Performed By: #### C BC1 ####[place] [address] Platelets 188 thou/cmm Normal 182-369 [facility] Comment on above: Performed By: #### C BC1 ####[place] [address] RDW SD 40.3 fl Normal 36.4-46.3 [facility] Comment on above: Performed By: #### C BC1 ####[place] [address] WBC (Leukocytes) 14.66 thou/cmm High 3.98-10.04 [facility] Comment on above: Performed By: #### C BC1 ####[place] [address] Hemogram/Diffon 04-30-2017 Interpreted by See below Normal [facility] Comment on above: Result Comment: Kristy Whitney M.D., Pathologist Performed By: #### C BCD1 ####[place] [address] Interpreted by See below Normal [facility] Comment on above: Result Comment: Kristy Whitney M.D., Pathologist Performed By: #### Soniya BCD1 ####[place] [address] Basophils Auto #/vol (Bld) 0.06 thou/cmm Normal 0.01-0.08 [facility] Comment on above: Performed By: #### C BCD1 ####[place] [address] Basophils/100 WBC Auto (Bld) 0.4 % Normal [facility] Comment on above: Performed By: #### C BCD1 ####[facility] [place], [place] [address] Eosinophils 0.07 thou/cmm Normal 0.00-0.31 [facility] Comment on above: Performed By: #### C BCD1 ####[address] [address] Eosinophils/100 leukocytes 0.5 % Normal [facility] Comment on above: Performed By: #### C BCD1 ####[place] [address] Erythrocyte distribution width Auto Ratio (RBC) 13.2 % Normal 11.7-14.4 [facility] Comment on above: Performed By: #### C BCD1 ####[place] [address] Erythrocytes (RBC) 4.41 mil/cmm Normal 3.93-5.22 [facility] Comment on above: Performed By: #### C BCD1 ####[place] [address] Hematocrit (HCT) 37.6 % Normal 34.1-44.9 [facility] Comment on above: Performed By: #### C BCD1 ####[place] [address] Hemoglobin mass conc (Bld) 12.9 g/dL Normal 11.2-15.7 [facility] Comment on above: Performed By: #### C BCD1 ####[place] [address] Immature Grans 0.20 % Normal [facility] Comment on above: Performed By: #### C BCD1 ####[place] [address] Immature Grans # 0.03 thou/cmm Normal 0.00-0.05 [facility] Comment on above: Performed By: #### C BCD1 ####[place] [address] Lymphocytes 10.21 thou/cmm High 1.18-3.74 [facility] Comment on above: Performed By: #### C BCD1 ####[facility] [place], [place] [address] Lymphocytes/100 leukocytes 73.3 % Normal [facility] Comment on above: Performed By: #### C BCD1 ####[facility] [place], [place] [address] MCH 29.3 pg Normal 25.6-32.2 [facility] Comment on above: Performed By: #### C BCD1 ####[facility] [place], [place] [address] MCHC mass conc (RBC) 34.3 % Normal 31.6-34.8 [facility] Comment on above: Performed By: #### C BCD1 ####[address] [address] MCV 85.3 fL Normal 79.4-94.8 [facility] Comment on above: Performed By: #### C BCD1 ####[address] [address] Monocytes 1.43 thou/cmm High 0.27-0.70 [facility] Comment on above: Performed By: #### C BCD1 ####[address] [address] Monocytes/100 leukocytes 10.3 % Normal [facility] Comment on above: Performed By: #### C BCD1 ####[address] [address] Platelet mean volume (PMV) 10.7 fL Normal 9.4-12.3 [facility] Comment on above: Performed By: #### C BCD1 ####[address] [address] Platelets 174 thou/cmm Low 182-369 [facility] Comment on above: Performed By: #### C BCD1 ####[address] [address] RDW SD 40.9 fl Normal 36.4-46.3 [facility] Comment on above: Performed By: #### C BCD1 ####[facility] [place] [address] Seg Neutrophil 15.3 % Normal [facility] Comment on above: Performed By: #### C BCD1 ####[facility] [place] [address] Seg. Neut.# 2.13 thou/cmm Normal 1.56-6.13 [facility] Comment on above: Performed By: #### C BCD1 ####[place] [address] WBC (Leukocytes) 13.93 thou/cmm High 3.98-10.04 [facility] [facility] Comment on above: Performed By: #### C BCD1 ####[place] [address] MDRD GFRon 04-30-2017 eGFR (non-black) mL/min/{1.73_m2} Normal >60mL/m in/1.7 3m2 [facility] Comment on above: Result Comment: If t he patient is , multiply the result by 1.210. Performed By: #### G FR ####[place] [address] Basic Panelon 04-29-2017 Creatinine 0.86 mg/dL Normal 0.51-0.95 [facility] Comment on above: Performed By: #### P 8 ####[place] [address] Anion gap 12 mmol/L Normal 8-16 [facility] Comment on above: Performed By: #### P 8 ####[place] [address] CO2 23 mmol/L Normal 21-32 [facility] Comment on above: Performed By: #### P 8 ####[place] [address] Glucose mass conc 106 mg/dL High 70-99 [facility] Comment on above: Performed By: #### P 8 ####[place] [address] Urea nitrogen 5 mg/dL Low 7-18 [facility] Comment on above: Performed By: #### P 8 ####[facility] [place], [place] [address] Calcium 8.3 mg/dL Low 8.5-10.1 [facility] Comment on above: Performed By: #### P 8 ####[facility] [place], [place] [address] Chloride 103 mmol/L Normal 98-107 [facility] Comment on above: Performed By: #### P 8 ####[facility] [place], [place] [address] Potassium molar conc 4.6 mmol/L Normal 3.5-5.1 [facility] Comment on above: Performed By: #### P 8 ####[address] [address] Sodium 133 mmol/L Low 136-145 [facility] Comment on above: Performed By: #### P 8 ####[address] [address] Hemogram/Diffon 04-29-2017 Anisocytosis presence Slight Normal [facility] Comment on above: Performed By: #### C BCD1 ####[address] [address] Basophils Auto #/vol (Bld) 0.00 thou/cmm Low 0.01-0.08 [facility] Comment on above: Performed By: #### C BCD1 ####[address] [address] Basophils/100 WBC Auto (Bld) 0.0 % Normal [facility] Comment on above: Performed By: #### C BCD1 ####[address] [address] Eosinophils 0.32 thou/cmm High 0.00-0.31 [facility] Comment on above: Performed By: #### C BCD1 ####[address] [address] Eosinophils/100 leukocytes 3.0 % Normal [facility] Comment on above: Performed By: #### C BCD1 ####[facility] [place], [place] [address] Erythrocyte morphology Present Normal [facility] Comment on above: Performed By: #### C BCD1 ####[facility] [place], [place] [address] Hypochromasia Slight Normal [facility] Comment on above: Performed By: #### C BCD1 ####[place] [address] Immat Grans Abs calc 0.11 Normal [facility] Comment on above: Performed By: #### C BCD1 ####[place] [address] Lymphocytes 6.90 thou/cmm High 1.18-3.74 [facility] Comment on above: Performed By: #### C BCD1 ####[place] [address] Lymphocytes/100 leukocytes 11.0 % Normal [facility] Comment on above: Performed By: #### C BCD1 ####[address] [address] Lymphocytes/100 leukocytes 53.0 % Normal [facility] Comment on above: Performed By: #### C BCD1 ####[place] [address] Macrocytosis Slight Normal [facility] Comment on above: Performed By: #### C BCD1 ####[place] [address] Metamyelocytes 1.0 % Normal [facility] Comment on above: Performed By: #### C BCD1 ####[address] [address] Monocytes 0.22 thou/cmm Low 0.27-0.70 [facility] Comment on above: Performed By: #### C BCD1 ####[address] [address] Monocytes/100 leukocytes 2.0 % Normal [facility] Comment on above: Performed By: #### C BCD1 ####[place] [id number] Seg Neutrophil 30.0 % Normal [facility] Comment on above: Performed By: #### C BCD1 ####[facility] [place] [address] Seg. Neut.# 3.23 thou/cmm Normal 1.56-6.13 [facility] Comment on above: Performed By: #### C BCD1 ####[facility] [place] [address] Erythrocyte distribution width Auto Ratio (RBC) 13.2 % Normal 11.7-14.4 [facility] Comment on above: Performed By: #### C BCD1 ####[place] [address] Erythrocytes (RBC) 4.09 mil/cmm Normal 3.93-5.22 [facility] Comment on above: Performed By: #### C BCD1 ####[place] [address] Hematocrit (HCT) 35.3 % Normal 34.1-44.9 [facility] Comment on above: Performed By: #### C BCD1 ####[place] [address] Hemoglobin mass conc (Bld) 12.0 g/dL Normal 11.2-15.7 [facility] Comment on above: Performed By: #### C BCD1 ####[place] [address] MCH 29.3 pg Normal 25.6-32.2 [facility] Comment on above: Performed By: #### C BCD1 ####[place] [address] MCHC mass conc (RBC) 34.0 % Normal 31.6-34.8 [facility] Comment on above: Performed By: #### C BCD1 ####[place] [address] MCV 86.3 fL Normal 79.4-94.8 [facility] Comment on above: Performed By: #### C BCD1 ####[address] [place], [place] [address] Platelet mean volume (PMV) 10.5 fL Normal 9.4-12.3 [facility] Comment on above: Performed By: #### C BCD1 ####[facility] [place], [place] [address] Platelets 173 thou/cmm Low 182-369 [facility] Comment on above: Performed By: #### C BCD1 ####[facility] [place], [place] [address] RDW SD 41.6 fl Normal 36.4-46.3 [facility] Comment on above: Performed By: #### C BCD1 ####[address] [address] WBC (Leukocytes) 10.78 thou/cmm High 3.98-10.04 [facility] Comment on above: Performed By: #### C BCD1 ####[address] [address] MDRD GFRon 04-29-2017 eGFR (non-black) mL/min/{1.73_m2} Normal >60mL/m in/1.7 3m2 [facility] Comment on above: Result Comment: If t he patient is , multiply the result by 1.210. Performed By: #### G FR ####[address] [address] Vital Signs Date Time Vital Sign Value Performing Clinician Facility 10-17-2024 08:15-040 Body height 170.[address] Madelaine Andre MD Work Phone: [facility] 10-17-2024 08:15040 Body mass index (BMI) [Ratio] 25.5 kg/m2 Dr. Madelaine Andre MD Work Phone: [facility] 10-17-2024 08:15-040 Body weight 73.[address] Madelaine Andre MD Work Phone: [facility] 10-17-2024 08:15-0400 Diastolic blood pressure 74 mm[Hg] Dr. Madelaine Andre MD Work Phone: [facility] 10-17-2024 08:15-0400 Systolic blood pressure 109 mm[Hg] Dr. Madelaine Andre MD Work Phone: [facility] 03-19-2023 15:50-0400 Body height 170.[address] Madelaine Andre Work Phone: [facility] 03-19-2023 15:43-0400 Body mass index (BMI) [Ratio] 26 kg/m2 Dr. Madelaine Andre Work Phone: [facility] 03-19-2023 15:43-0400 Body weight 75.[address] Madelaine Andre Work Phone: [facility] 03-19-2023 15:43-0400 Diastolic blood pressure 82 mm[Hg] Dr. Madelaine Andre Work Phone: [facility] 03-19-2023 15:43-0400 Systolic blood pressure 128 mm[Hg] Dr. Madelaine Andre Work Phone: [facility] 02-14-2022 15:57-0400 Body height 169.5 cm Nieves Cabrales PA-C Work Phone: [facility] 02-14-2022 15:57-0400 Body temperature 97.59 [degF] Nieves Cabrales PA-C Work Phone: [facility] 02-14-2022 15:57-0400 Body weight 70.13 kg Nieves Cabrales PA-C Work Phone: [facility] 02-14-2022 15:57-0400 Diastolic blood pressure 76 mm[Hg] Nieves Cabrales PA-C Work Phone: [facility] 02-14-2022 15:57-0400 Heart rate 75 /min Nieves Cabrales PA-C Work Phone: [facility] 02-14-2022 15:57-0400 SaO2% (BldA) [Mass fraction] 98 % Nieves Cabrales PA-C Work Phone: [facility] 02-14-2022 15:57-0400 Systolic blood pressure 118 mm[Hg] Nievesmary Cabrales PA-C Work Phone: [facility] Encounters Encounter Date Encounter Type Care Provider Facility Start: 01-16-2025 End: 01-16-2025 ambulatory Madelaine Andre Facility:[facility] Start: 01-16-2025 End: 01-16-[address] Lidya Child DO -[facility] Work Phone: Start: 10-17-2024 End: 10-17-2024 Patient encounter procedure Nuha LEROY -[facility] Work Phone: Start: 10-17-2024 End: 10-17-[address] Madelaine Andre MD Work Phone: [facility] Work Phone: Start: 10-17-2024 End: 10-17-2024 ambulatory Madelaine Andre Facility:[facility] Start: 06-11-2024 End: 06-11-2024 ambulatory Madelaine Andre Facility:[facility] Start: 04-30-2024 End: 04-30-2024 ambulatory Madelaine Andre Facility:[facility] Start: 03-19-2023 End: 03-19-[address] Madelaine Andre Work Phone: [facility] Work Phone: Start: 03-19-2023 End: 03-19-[address] Madelaine Andre Work Phone: [facility] Work Phone: Start: 10-11-2022 End: 10-11-2022 ambulatory LEANN MELO Facility:[facility] Start: 06-14-2022 Telephone encounter Nieves Cabrales PA-C Work Phone: [facility] Comment on above: Medication Question Start: 06-13-2022 End: 06-13-2022 ambulatory NIEVES CABRALES Facility:[facility] Start: 03-13-2022 Telephone encounter Nieves Cabrales PA-C Work Phone: [facility] Comment on above: Results Start: 03-10-2022 End: 03-10-2022 Subsequent hospital visit by physician Screen/Diagnostic Mammo [facility] Comment on above: Mass of lower outer quadrant of right breast [N63.13] Start: 02-23-2022 Telephone encounter Nieves Cabrales PA-C Work Phone: [facility] Comment on above: Results Start: 02-20-2022 End: 02-21-2022 ambulatory NIEVES CABRALES Facility:[facility] Start: 02-20-2022 Patient encounter procedure NIEVES CABRALES [facility] Start: 02-14-2022 End: 02-14-2022 ambulatory NIEVES CABRALES Facility:[facility] Start: 02-14-2022 End: 02-14-2022 Patient encounter procedure Nieves Cabrales PA-C Work Phone: [facility] Comment on above: Encounter for annual health examination (Primary Dx); Mass of lower outer quadrant of right breast Start: 02-13-2022 ambulatory Lavonne Schroeder RN [employer] Comment on above: Cyst Start: 05-17-2017 End: 05-17-2017 Ambulatory JAZMYNE ALICEA [facility] Start: 04-29-2017 End: 04-30-2017 Evaluation and management of inpatient NO REFERRING DR Facility:[facility] Procedures Date Procedure Procedure Detail Performing Clinician Start: 10-17-[address] Madelaine contreras MD Work Phone: Start: 03-10-2022 Us breast uni real t rhiannon with image complete Nieves Cabrales PA-C Work Phone: Start: 02-14-2022 Adult depression screening assessment Nieves Cabrales PA-C Work Phone: Start: 02-24-2019 Adult depression screening assessment Lavonne Schroeder RN Plan of Treatment Date Care Activity Detail Author Start: 12-02-2030 Urine microalbumin profile DTAP,TDAP,TD (9 - Td or Tdap) [facility] Start: 02-24-2029 Urine microalbumin profile DTAP,TDAP,TD (8 - Td or Tdap) [facility] Start: 03-19-2023 Dehydroepiandrosterone sulfate (DHEA-S) [Mass/volume] in Serum or Plasma [facility] Start: 03-19-2023 Testosterone Free [Mass/volume] in Serum or Plasma [facility] Start: 03-19-2023 Thyroperoxidase Ab [Units/volume] in Serum or Plasma [facility] Start: 03-19-2023 Liquid based cervical cytology screening [facility] Start: 02-14-2023 Adult depression screening assessment DEPRESSION SCREENING [facility] Start: 02-02-2023 Influenza vaccination INFLUENZA (#1) [facility] Comment on above: Postponed from 04/06/2022 (Declined at t his time) Start: 04-06-2022 Influenza vaccination INFLUENZA (#1) [facility] Start: 02-14-2022 End: 04-16-2022 25-hydroxyvitamin D3 [Mass/volume] in Serum or Plasma VITAMIN D 25 HYDROXY Lab Routine Encounter for annual health examination Expected: 02/14/2022, Expires: 04/16/2022 [facility] Work Phone: Comment on above: Expected: 02/14/2022, Expires: 2 Start: 02-14-2022 End: 04-16-2022 CBC W Auto Differential panel - Blood CBC + DIFF Lab Routine Encounter for annual health examination Expected: 02/14/2022, Expires: 04/16/2022 [facility] Work Phone: Comment on above: Expected: 02/14/2022, Expires: 2 Start: 02-14-2022 End: 04-16-2022 Comprehensive metabolic 2000 panel - Serum or Plasma COMP METABOLIC PANEL Lab Routine Encounter for annual health examination Expected: 02/14/2022, Expires: 04/16/2022 [facility] Work Phone: Comment on above: Expected: 02/14/2022, Expires: 2 Start: 02-14-2022 End: 04-16-2022 Thyrotropin [Units/volume] in Serum or Plasma TSH BLD Lab Routine Encounter for annual health examination Expected: 02/14/2022, Expires: 04/16/2022 [facility] Work Phone: Comment on above: Expected: 02/14/2022, Expires: 2 Start: 08-20-2021 COVID-19 VACCINE (4 - Booster for Pfizer series) COVID-19 VACCINE (4 - Booster for Pfizer series) [facility] Start: 08-06-2021 DEPRESSION ASSESSMENT DEPRESSION ASSESSMENT [facility] Start: 02-25-2020 Adult depression screening assessment DEPRESSION SCREENING [facility] Start: 2017 PAP TESTING PAP TESTING [facility] Start: 2014 HEPATITIS C SCREENING HEPATITIS C SCREENING [facility] Start: 2014 HIV SCREENING HIV SCREENING [facility] Start: 2010 PEDS TO ADULT TRANSITION ANNUAL ASSESSMENT PEDS TO ADULT TRANSITION ANNUAL ASSESSMENT [facility] Start: 2008 PEDS TO ADULT TRANSITION INITIAL DISCUSSION PEDS TO ADULT TRANSITION INITIAL DISCUSSION [facility] Start: 05-30-1997 COVID-19 VACCINE (#1) COVID-19 VACCINE (#1) [facility] End: 03-16-2023 Diagnostic mammography computer-aided detcj bi [facility] Routine Mass of lower outer quadrant of right breast 1 Occurrences starting 02/14/2022 until 03/16/2023 [facility] Work Phone: Comment on above: 1 Occurrences starting 02/14/2022 until 03/16/2023 End: 03-10-2022 Diagnostic mammography computer-aided [facility]cj [facility] Routine Mass of lower outer quadrant of right breast 1 Occurrences starting 03/10/2022 until 03/10/2022 [facility] Work Phone: Comment on above: 1 Occurrences starting 03/10/2022 until 03/10/2022 Path report.final Dx Spec [facility] End: 03-16-2023 Us breast uni real time with image complete US BREAST COMPLETE RT Radiology Routine Mass of lower outer quadrant of right breast 1 Occurrences starting 02/14/2022 until 03/16/2023 [facility] Work Phone: Comment on above: 1 Occurrences starting 02/14/2022 until 03/16/2023 [facility] Immunizations Immunization Date Immunization Notes Care Provider Jeremy marcelo 06-25-2021 influenza, injectabl e, quadrivalent, preservative free Nieves Cabrales PA-C Work Phone: [facility] 12-02-2020 tetanus toxoid, redu ozzie diphtheria toxoid, and acellular pertussis vaccine, adsorbed Nieves Cabrales PA-C Work Phone: [facility] 08-15-2020 influenza, injectabl e, quadrivalent, preservative free Nieves Cabrales PA-C Work Phone: [facility] 02-24-2019 tetanus and diphther ia toxoids, adsorbed, preservative free, for adult use (5 Lf of tetanus toxoid and 2 Lf of diphtheria toxoid) Lavonne Schroeder RN [facility] 02-25-2013 Meningococcal, MCV4, unspecified conjugate formulation(groups A, C, Y and W-135) Lavonne Schroeder RN [facility] 02-25-2013 varicella virus vaccine Lavonne trujillo RN [facility] 2011 human papilloma viru s vaccine, quadrivalent Lavonne Schroeder RN [facility] 05-02-2011 human papilloma viru s vaccine, quadrivalent Lavonne Schroeder RN [facility] Work Phone: 02-28-2011 human papilloma viru s vaccine, quadrivalent Lavonne Schroeder RN [facility] Work Phone: 03-04-2009 Meningococcal, MCV4, unspecified conjugate formulation(groups A, C, Y and W-135) Lavonne Schroeder RN [facility] Work Phone: 03-04-2009 tetanus toxoid, redu ozzie diphtheria toxoid, and acellular pertussis vaccine, adsorbed Lavonne Schroeder RN [facility] Work Phone: 07-23-2006 influenza virus vaccine, unspecified formulation Lavonne Schroeder RN [facility] Work Phone: 06-13-2005 influenza virus vaccine, unspecified formulation Lavonne Schroeder RN [facility] Work Phone: 01-20-2002 diphtheria, tetanus toxoids and acellular pertussis vaccine Lavonne Schroeder RN [facility] Work Phone: 01-20-2002 measles, mumps and rubella virus vaccine Lavonne Schroeder RN [facility] Work Phone: 01-20-2002 poliovirus vaccine, inactivated Lavonne Schroeder RN [facility] Work Phone: 03-04-1998 diphtheria, tetanus toxoids and acellular pertussis vaccine Lavonne Schroeder RN [facility] Work Phone: 03-04-1998 haemophilus influenz ae type b vaccine, HbOC conjugate Lavonne Schroeder [facility] Work Phone: 12-24-1997 measles, mumps and rubella virus vaccine Lavonne Schroeder RN [facility] Work Phone: 12-24-1997 varicella virus vaccine Lavonne trujillo [facility] Work Phone: 08-24-1997 hepatitis B vaccine, pediatric or pediatric/adolescent dosage Lavonne Schroeder RN [facility] Work Phone: 06-01-1997 diphtheria, tetanus toxoids and acellular pertussis vaccine Lavonne Schroeder [facility] Work Phone: 06-01-1997 haemophilus influenz ae type b vaccine, HbOC conjugate Lavonne Schroeder RN [facility] Work Phone: 06-01-1997 trivalent poliovirus vaccine, live, oral Lavonne Schroeder RN [facility] Work Phone: 03-30-1997 diphtheria, tetanus toxoids and acellular pertussis vaccine Lavonne Schroeder RN [facility] Work Phone: 03-30-1997 haemophilus influenz ae type b vaccine, HbOC conjugate Lavonne Schroeder [facility] Work Phone: 03-30-1997 trivalent poliovirus vaccine, live, oral Lavonne Schroeder RN [facility] Work Phone: 01-29-1997 diphtheria, tetanus toxoids and acellular pertussis vaccine Lavonne Schroeder RN [facility] Work Phone: 01-29-1997 haemophilus influenz ae type b vaccine, HbOC conjugate Lavonne Schroeder RN [facility] Work Phone: 01-29-1997 trivalent poliovirus vaccine, live, oral Lavonne Schroeder RN [facility] Work Phone: 1996 hepatitis B vaccine, pediatric or pediatric/adolescent dosage Lavonne Schroeder RN [facility] Work Phone: 1996 hepatitis B vaccine, pediatric or pediatric/adolescent dosage Lavonne Schroeder RN [facility] Work Phone: Payers Date Payer Category Payer Self-pay [id number] [facility] 2021 Unknown MMO MMO [employer] [id number] 2021-Present [phone] [address] [place] [address] PPO [id number] 2021 Unknown MMO MMO [employer] [id number] 2021-Present [phone] [address] [place] [address] PPO [id number] 2021 Unknown [id number] Unknown [id number] Unknown [id number] Unknown [id number] Unknown [id number] Unknown [id number] Unknown [id number] Social History Date Type Detail Facility Start: 02-09-2011 End: 01-16-2025 Tobacco smoking status NHIS Never smoked tobacco [facility] Start: 02-24-2019 End: 06-13-2022 Alcohol intake Current non-drinker of alcohol (finding) [facility] Start: 1995 Sex Assigned At Not on file C [facility] Start: 02-03-2022 End: 06-13-2022 Exposure to SARS-CoV-2 (event) Not sure [facility] Start: 02-09-2011 Tobacco use and exposure Smokeless tobacco non-user [facility] Work Phone: Start: 03-19-2023 Tobacco smoking stat us NHIS Unknown if ever smoked [facility] Start: 1995 Sex Assigned At Female W [facility] Start: 10-28-2024 Sex Female (finding) [facility] Clinical Notes 02-13-2022 to 10-17-2024 Note Date & Type Note Facility 10-17-2024 Evaluation note Diagnosis Onset Date Resolution Family planning counseling acute October 17, 2024 8:12am PMDD (premenstrual dysphoric disorder) acute October 17, 2024 8:12am [facility] Work Phone: [phone]) 826-996903-08-2023 NoteHNO ID: [id number] Author: Leann Melo DO Service: ? Author Type: Physician Type: Progress Notes Filed: 10/11/2022 1:19 PM Note Text: [facility] [address] [address] Date of Evaluation: 10/11/2022 Patient Name: Chapin Chaudhari : 1995 Chief Complaint: Patient presents with: Sore Throat URI Sinusitis Rhinitis Nursing Intake: There are no exam notes on file for this visit. Subjective Ms. Chaudhari is a 26 year old female who presents with the following complaint(s): HPI Sunday: body aches Sunday: chills, fever 100 Sunday: congestion and sinus pressure, and sore throat. Couging, throat hurting, Ears are full. Got covid Covid this past aug 2022. 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 Having reoccurring tonsil stones. 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 No surgical intervention. grade 2 tear. PAST SURGICAL HISTORY Procedure Laterality Date NONE FAMILY HISTORY Problem Relation Age of Onset other (hyperthyroidism) Mother 16 No Known Problems Father No Known Problems Sister No Known Problems Sister Hypertension Maternal Grandmother other (elevated cholesterol) Maternal Grandmother Social History Tobacco Use Smoking status: Never Smokeless tobacco: Never Vaping Use Vaping Use: Never used Substance Use Topics Alcohol use: No Drug use: No Current Outpatient Medications Medication Sig Dispense Refill amoxicillin-clavulanic acid (AUGMENTIN) 875-125 mg per tablet Take 1 tablet by mouth every 12 hours for 7 days. 14 tablet 0 fluticasone (FLONASE) 50 mcg/actuation nasal spray Use 2 Sprays in each nostril once daily. Rinse mouth after use. (Patient not taking: Reported on 10/11/2022) 1 Bottle 1 No current facility-administered medications for this visit. I have confirmed and edited as necessary the chief complaint, medications, past medical, family and social histories obtained by others. Objective BP 120/79 Pulse 81 Temp (Src) 98.1 (Oral) Ht 5' 8 (1.73m) Wt 159 lb (72.1kg) SpO2 96% LMP 05/17/2022 BMI 24.18 kg/(m2). Physical Exam Vitals and nursing note reviewed. Constitutional: Appearance: Normal appearance. HENT: Head: Normocephalic and atraumatic. Right Ear: No decreased hearing noted. No swelling. A middle ear effusion is present. Tympanic membrane is not injected, erythematous or bulging. Left Ear: No decreased hearing noted. Tenderness present. No swelling. A middle ear effusion is present. Tympanic membrane is bulging. Tympanic membrane is not injected or erythematous. Mouth/Throat: Mouth: Mucous membranes are moist. Pharynx: Pharyngeal swelling and posterior oropharyngeal erythema present. Eyes: Extraocular Movements: Extraocular movements intact. Conjunctiva/sclera: Conjunctivae normal. Pupils: Pupils are equal, round, and reactive to light. Neck: Thyroid: No thyroid mass. Cardiovascular: Rate and Rhythm: Normal rate and regular rhythm. Heart sounds: Normal heart sounds. Pulmonary: Effort: Pulmonary effort is normal. Breath sounds: Normal breath sounds and air entry. Musculoskeletal: General: Normal range of motion. Lymphadenopathy: Cervical: No cervical adenopathy. Skin: General: Skin is warm and dry. Neurological: General: No focal deficit present. Mental Status: She is alert and oriented to person, place, and time. Psychiatric: Mood and Affect: Mood normal. Behavior: Behavior normal. Thought Content: Thought content normal. Judgment: Judgment normal. Data Reviewed: No new labs ASSESSMENT/PLAN: 1. Bacterial sinusitis - ICD9: 473.9, 041.9, ICD10: J32.9, B96.89 (primary diagnosis) - Will begin treatment with Augmentin 875 mg PO BID for 7 days - Supportive care with plenty of fluids, rest, and analgesia prn. - AMOXICILLIN 875 MG-POTASSIUM CLAVULANATE 125 MG TABLET 2. Depression screening - ICD9: V79.0, ICD10: Z13.31 Negative - DEPRESSION SCREENING/ASSESSMENT Leann Kameron, DO Return if symptoms worsen or fail to improve. Discussed the above with the patient using shared decision making. The patient is in agreement with the diagnostic and treatment plans.[facility]11-09-2022 Miscellaneous Notes* Telephone Encounter - Katelyn Batres MA - 06/14/2022 11:27 AM EST Spoke with patient and notified her of provider's recommendations. Patient states she is feeling a little better so will hold off on starting antibiotic. Katelyn Batres MA * Telephone Encounter - Nieves Cabrales PA-C - 06/14/2022 11:06 AM EST The majority of pharyngitis cases are due to viral infection and will improve and resolve without treatment. Her immune system will fight it off over 7 to 10 days, so she should experience gradual improvement. Her rapid strep test is negative, so she does not have the bacterial Group A streptococcus infection. And, there is a very small likelihood of Group B strep infection. I would only suggest starting the antibiotic to fight off a possible bacterial infection if she is getting worse and not better. That being said, if she is getting better then I would not advise taking the antibiotic. Nieves Cabrales PA-C * Telephone Encounter - Philomena Martinez - 06/14/2022 9:40 AM EST Pt was wanting to know what you recommend. Should she fill the Rx that you gave her yesterday? Her tonsils are still swollen and sore but she is starting to feel a little better. Please advise. Philomena Martinez documented in this encounterCoshocton [facility]11-08-2022 NoteHNO ID: [id number] Author: Nieves Cabrales PA-C Service: ? Author Type: Physician [place] Program Coordinator Type: Progress Notes Filed: 06/14/2022 3:46 PM Note Text: [facility] [address] [place] [address] Date of Evaluation: 06/13/2022 Patient Name: Chapin Chaudhari : 1995 Chief Complaint: Patient presents with: Sore Throat Chest Congestion neck stiffness Nursing Intake: Nursing Notes: Katelyn Batres MA 06/13/2022 3:50 PM Signed Chapin Chaudhari is a 26 year old female who presents for Sore Throat, Chest Congestion, ears hurt and neck stiffness since Sunday afternoon. Had fever last night. Did not test for COVID. Denies cough. Katelyn Batres MA Subjective Ms. Chaudhari is a 26 year old female who presents with the following complaint(s): HPI Since weekend on Sunday, sore throat, fever, white spots on both tonsils. Achy, sore neck but no nuchal rigidity. Also has runny nose, congestion, ear fullness, occ cough. Can swallow, eat/drink, no difficulty breathing. Note, prior pharyngitis with mononucleosis (EBV) and splenic rupture in 2017. Off control since last month - had negative test 2 days ago. 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 No surgical intervention. grade 2 tear. PAST SURGICAL HISTORY Procedure Laterality Date NONE FAMILY HISTORY Problem Relation Age of Onset other (hyperthyroidism) Mother 16 No Known Problems Father No Known Problems Sister No Known Problems Sister Hypertension Maternal Grandmother other (elevated cholesterol) Maternal Grandmother Social History Tobacco Use Smoking status: Never Smokeless tobacco: Never Vaping Use Vaping Use: Never used Substance Use Topics Alcohol use: No Drug use: No Current Outpatient Medications Medication Sig Dispense Refill fluticasone (FLONASE) 50 mcg/actuation nasal spray Use 2 Sprays in each nostril once daily. Rinse mouth after use. (Patient taking differently: Use 2 Sprays in each nostril once daily. Rinse mouth after use. prn) 1 Bottle 1 Desogestrel-Ethinyl Estradiol (ORTHO-CEPT, 28,) 0.15-0.03 mg per tablet Take 1 tablet by mouth once daily. (Patient not taking: Reported on 06/13/2022) 3 Package 4 No current facility-administered medications for this visit. I have confirmed and edited as necessary the chief complaint, medications, past medical, family and social histories obtained by others. Objective BP 116/74 Pulse 89 Temp 98.1 Ht 5' 6.732 (1.70m) Wt 161 lb (73.0kg) SpO2 97[ra]% LMP 05/17/2022 BMI 25.42 kg/(m2). Physical Exam Vitals and nursing note reviewed. Constitutional: General: She is not in acute distress. Appearance: Normal appearance. She is well-groomed. Interventions: Face mask in place. HENT: Head: Normocephalic and atraumatic. Right Ear: Tympanic membrane and external ear normal. Left Ear: Tympanic membrane and external ear normal. Nose: Nose normal. Mouth/Throat: Mouth: Mucous membranes are moist. Tonsils: Tonsillar exudate (bilateral) present. Eyes: Extraocular Movements: Extraocular movements intact. Pupils: Pupils are equal, round, and reactive to light. Cardiovascular: Rate and Rhythm: Normal rate and regular rhythm. Pulses: Normal pulses. Radial pulses are 2+ on the right side and 2+ on the left side. Posterior tibial pulses are 2+ on the right side and 2+ on the left side. Heart sounds: Normal heart sounds. No murmur heard. Pulmonary: Effort: Pulmonary effort is normal. Breath sounds: Normal breath sounds. No wheezing, rhonchi or rales. Abdominal: General: Bowel sounds are normal. Palpations: Abdomen is soft. Musculoskeletal: General: Normal range of motion. Cervical back: Normal range of motion and neck supple. No rigidity. No pain with movement. Right lower leg: No edema. Left lower leg: No edema. Lymphadenopathy: Cervical: Cervical adenopathy (bilateral) present. Skin: General: Skin is warm. Capillary Refill: Capillary refill takes less than 2 seconds. Neurological: General: No focal deficit present. Mental Status: She is alert. Psychiatric: Mood and Affect: Mood normal. Office Visit on 06/13/2022 Component Date Value Ref Range Status Strep A (POCT) 06/13/2022 Negative Negative Final Procedural Control 06/13/2022 Valid Final ASSESSMENT/PLAN: 1. Pharyngitis, unspecified etiology - ICD9: 462, ICD10: J02.9 - suspect viral etiology - Rapid Strep negative in the office today - Discussed supportive care treatment with fluids, rest and analgesia. - Contagious dz precautions discussed- including considered contagious (more content not included)...[facility]08-08-2022 Miscellaneous Notes* Telephone Encounter - Katelyn Batres MA - 03/13/2022 3:49 PM EDT Patient notified of results. She states understanding and has no further questions. Katelyn Batres MA * Telephone Encounter - Katelyn Batres MA - 03/13/2022 3:49 PM EDT ----- Message from Nieves Cabrales PA-C sent at 03/13/2022 9:20 AM EDT ----- Good news - Ultrasound of right breast shows prominent fibroglandular (dense) tissue that is not a concern or is cancerous. There are no abnormalities noted. Nieves Cabrales PA-C documented in this encounterCoshocton [facility] Center08-05-2022 NoteHNO ID: [id number] Author: RT Noelle(R) Service: Radiology Author Type: Technologist Type: Progress Notes Filed: 03/10/2022 1:38 PM Note Text: Summary: ultrasound right target breast Radiology Service Progress Note PATIENT NAME: Chapin Chaudhari DATE OF SERVICE: March 10, 2022 TIME: 1:38 PM PATIENT IDENTITY VERIFICATION COMPLETED USING TWO (2) IDENTIFIERS: Name and Date of confirmed by patient verbally. FALL SCREENING: Has the patient had 2 falls in the last year or 1 fall with injury or currently using an Ambulatory Assistive Device (Walker, Cane, Wheelchair, Crutches, etc.)? No PATIENT GENDER DATA: Female. status: : No status: NO. PATIENT RELEVANT IMPLANT DATA REVIEWED: Not Applicable RADIOLOGY DEPARTMENT: Ultrasound PERIPHERAL IV DATA: Not applicable SIGNED BY: RT Noelle(R) March 10, 2022 1:38 PM[facility] History of Present illness Narrative* RT Noelle(R) - 03/10/2022 1:00 PM EDTSummary: ultrasound right target breast Radiology Service Progress Note PATIENT NAME: Chapin Chaudhari DATE OF SERVICE: March 10, 2022 TIME: 1:38 PM PATIENT IDENTITY VERIFICATION COMPLETED USING TWO (2) IDENTIFIERS: Name and Date of confirmedby patient verbally. FALL SCREENING: Has the patient had 2 falls in the last year or 1 fall with injury or currently using an Ambulatory Assistive Device (Walker, Cane, Wheelchair, Crutches, etc.)? No PATIENT GENDER DATA: Female. status: : No status: NO. PATIENT RELEVANT IMPLANT DATA REVIEWED: Not Applicable RADIOLOGY DEPARTMENT: Ultrasound PERIPHERAL IV DATA: Not applicable SIGNED BY: RT Noelle(R) March 10, 2022 1:38 PM documented in this encounterCoshocton [facility]07-21-2022 Miscellaneous Notes* Telephone Encounter - Katelyn Batres MA - 02/23/2022 11:21 AM EDT Patient notified of results and recommendations. She voices understanding and has no further questions. Katelyn Batres MA * Telephone Encounter - Katelyn Batres MA - 02/23/2022 11:21 AM EDT ----- Message from Nieves Cabrales PA-C sent at 02/22/2022 5:13 PM EDT ----- Labs reviewed. Everything looks excellent.Thyroid function and vitamin D level are normal. Blood count, metabolic panel including kidney and liver function are also normal. Keep upcoming appointment for mammogram and ultrasound. Nieves Cabrales PA-C documented in this encounterCoshocton [facility] Center07-12-2022 NoteHNO ID: [id number] Author: Nieves Cabrales PA-C Service: ? Author Type: Physician [place] Program Coordinator Type: Progress Notes Filed: 02/14/2022 5:15 PM Note Text: [facility] [place] [address] Date of Evaluation: 02/14/2022 Patient Name: Chapin Chaudhari : 1995 Chief Complaint: Patient presents with: Breast Problem: right breast Nursing Intake: Nursing Notes: Mónica Cox MA 02/14/2022 4:02 PM Signed Chapin Chaudhari is a 26 year old female who presents with complaint of Breast Problem (right breast). Mónica Cox MA Subjective Ms. Chaudhari is a 26 year old female who presents with the following complaint(s): HPI Sunday - felt lump right breast, lower/outer tender as if bruised. No skin changes, dimpling, or wound. On OCP X 7 yrs, missed a couple of pills, late getting refill this past week. 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 Hx of mononucleosis and splenic laceration did not require surgery 2017. Had follow up CT abdomen 2018 - incidental left lung nodule 4 mm no followup is recommended, unless risk for lung malignancy. 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 , no history of . No FH heart disease; MGF with DM Review of Systems Constitutional: Negative for activity change, appetite change, fatigue and unexpected weight change. HENT: Negative for dental problem, hearing loss, tinnitus and trouble swallowing. Eyes: Negative for visual disturbance. Respiratory: Negative for apnea, cough and shortness of breath. Cardiovascular: Negative for chest pain, palpitations and leg swelling. Gastrointestinal: Negative for abdominal distention, abdominal pain, blood in stool, constipation, diarrhea and nausea. Genitourinary: Negative for frequency, hematuria, menstrual problem and urgency. Musculoskeletal: Positive for arthralgias (stiff in the morning, back/neck primarily ). Negative for back pain, joint swelling, myalgias and neck pain. Skin: Negative. Allergic/Immunologic: Positive for environmental allergies (occasional Flonase, not in past 3 mos ). Neurological: Negative for dizziness, weakness, light-headedness, numbness and headaches. Hematological: Does not bruise/bleed easily. Psychiatric/Behavioral: Negative for dysphoric mood and sleep disturbance. The patient is not nervous/anxious. 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 No surgical intervention. grade 2 tear. PAST SURGICAL HISTORY Procedure Laterality Date - NONE FAMILY HISTORY Problem Relation Age of Onset - other (hyperthyroidism) Mother 16 - Hypertension Maternal Grandmother - other (elevated cholesterol) Maternal Grandmother - other (albino) Sister Social History Tobacco Use - Smoking status: Never Smoker - Smokeless tobacco: Never Used Substance Use Topics - Alcohol use: No - Drug use: No Current Outpatient Medications Medication Sig Dispense Refill - fluticasone (FLONASE) 50 mcg/actuation nasal spray Use 2 Sprays in each nostril once daily. Rinse mouth after use. (Patient taking differently: Use 2 Sprays in each nostril once daily. Rinse mouth after use. prn ) 1 Bottle 1 - Desogestrel-Ethinyl Estradiol (ORTHO-CEPT, 28,) 0.15-0.03 mg per tablet Take 1 tablet by mouth once daily. 3 Package 4 No current facility-administered medications for this visit. I have confirmed and edited as necessary the chief complaint, medications, past medical, family and social histories obtained by others. Objective BP 118/76 Pulse 75 Temp (Src) 97.6 (Tympanic) Ht 5' 6.732 (1.70m) Wt 154 lb 9.6 oz (70.1kg) SpO2 98% LMP 01/15/2019 BMI 24.41 kg/(m2). Physical Exam Vitals and nursing note reviewed. Constitutional: General: She is not in acute distress. Appearance: Normal appearance. She is well-developed, well-groomed and normal weight. She is not ill-appearing or toxic-appearing. Interventions: Face mask in place. HENT: Head: Normocephalic and atraumatic. Right Ear: Tympanic membrane and external ear normal. Left Ear: Tympanic membrane and external ear normal. Nose: Nose normal. No nasal deformity or septal deviation. Mouth/Throat: Lips: Sikes. Mouth: Mucous membranes are moist. Tongue: No lesions. Tongue does not deviate from midline. Pharynx: Oropharynx is clear. Uvula midline. No pharyngeal swelling or posterior oropharyngeal erythema. Eyes: General: Lids are normal. Extraocul (more content not included)...[facility]07-12-[facility] Instructions* Patient Instructions* Nieves Cabrales PA-C - 02/14/2022 4:55 PM EDT Our office will schedule mammogram and right breast ultrasound. Stay on healthy diet and exercise regularly. You have blood tests ordered so please do those soon. You will need to be fasting for 10 hours prior to having these drawn. Our lab is located on the first floor of this building. No appointment needed, just walk in at yourconvenience. We will contact you with results. HOURS Mon-Fri 6:30AM to 4:30PM Sunday 8AM to 11:30PM [address] [place] [address] documented in this encounterCoshocton [facility] Center07-12-2022 History of Present illness Narrative* Nieves Cabrales PA-C - 02/14/2022 4:23 PM EDT Images from the original note were not included. [facility] [address] [place] [address] Date of Evaluation: 02/14/2022 Patient Name: Chapin Chaudhari : 1995 Chief Complaint: Patient presents with: Breast Problem: right breast Nursing Intake: Nursing Notes: Mónica Cox MA 02/14/2022 4:02 PM Signed Chapin Chaudhari is a 26 year old female who presents with complaint of Breast Problem (right breast). Mónica Cox MA Subjective Ms. Chaudhari is a 26 year old female who presents with the following complaint(s): HPI Sunday - felt lump right breast, lower/outer tender as if bruised. No skin changes, dimpling, or wound. On OCP X 7 yrs, missed a couple of pills, late getting refill this past week. 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 Hx of mononucleosis and splenic laceration did not require surgery 2017. Had follow up CT abdomen 2018 - incidental left lung nodule 4 mm no followup is recommended, unlessrisk for lung malignancy. 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 , no history of . No FH heart disease; MGF with DM Review of Systems Constitutional: Negative for activity change, appetite change, fatigue and unexpected weight change. HENT: Negative for dental problem, hearing loss, tinnitus and trouble swallowing. Eyes: Negative for visual disturbance. Respiratory: Negative for apnea, cough and shortness of breath. Cardiovascular: Negative for chest pain, palpitations and leg swelling. Gastrointestinal: Negative for abdominal distention, abdominal pain, blood in stool, constipation, diarrhea and nausea. Genitourinary: Negative for frequency, hematuria, menstrual problem and urgency. Musculoskeletal: Positive for arthralgias (stiff in the morning, back/neck primarily ). Negative for back pain, joint swelling, myalgias and neck pain. Skin: Negative. Allergic/Immunologic: Positive for environmental allergies (occasional Flonase, not in past 3 mos ). Neurological: Negative for dizziness, weakness, light-headedness, numbness and headaches. Hematological: Does not bruise/bleed easily. Psychiatric/Behavioral: Negative for dysphoric mood and sleep disturbance. The patient is not nervous/anxious. 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 No surgical intervention. grade 2 tear. PAST SURGICAL HISTORY Procedure Laterality Date NONE FAMILY HISTORY Problem Relation Age of Onset other (hyperthyroidism) Mother 16 Hypertension Maternal Grandmother other (elevated cholesterol) Maternal Grandmother other (albino) Sister Social History Tobacco Use Smoking status: Never Smoker Smokeless tobacco: Never Used Substance Use Topics Alcohol use: No Drug use: No Current Outpatient Medications Medication Sig Dispense Refill fluticasone (FLONASE) 50 mcg/actuation nasal spray Use 2 Sprays in each nostril once daily. Rinse mouth after use. (Patient taking differently: Use 2 Sprays in each nostril once daily. Rinse mouth after use. prn ) 1 Bottle 1 Desogestrel-Ethinyl Estradiol (ORTHO-CEPT, 28,) 0.15-0.03 mg per tablet Take 1 tablet by mouth oncedaily. 3 Package 4 No current facility-administered medications for this visit. I have confirmed and edited as necessary the chief complaint, medications, past medical, family andsocial histories obtained by others. Objective BP 118/76 Pulse 75 Temp (Src) 97.6 (Tympanic) Ht 5' 6.732 (1.70m) Wt 154 lb 9.6 oz (70.1kg) SpO2 98% LMP 01/15/2019 BMI 24.41 kg/(m^2). Physical Exam Vitals and nursing note reviewed. Constitutional: General: She is not in acute distress. Appearance: Normal appearance. She is well-developed, well-groomed and normal weight. She is not ill-appearing or toxic-appearing. Interventions: Face mask in place. HENT: Head: Normocephalic and atraumatic. Right Ear: Tympanic membrane and external ear normal. Left Ear: Tympanic membrane and external ear normal. Nose: Nose normal. No nasal deformity or septal deviation. Mouth/Throat: Lips: Sikes. Mouth: Mucous membranes are moist. Tongue: No lesions. Tongue does not deviate from midline. Pharynx: Oropharynx is clear. Uvula midline. No pharyngeal swelling or posterior oropharyngeal erythema. Eyes: General: Lids are normal. Extraocular Movements: Extraocular movements intact. Pupils: Pupils are equal, round, and reactive to light. Neck: Thyroid: No thyroid mass or thyromegaly. Vascular: Normal carotid pulses. No carotid bruit. Trachea: Trachea normal. Cardiovascular: Rate and Rhythm: Normal rate and regular rhythm. Pulses: Normal pulses. Carotid pulses are 2+ on the right side and 2+ on the left side. Radial pulses are 2+ on the right side and 2+ on the left side. Posterior tibial pulses are 2+ on the right side and 2+ on the left side. Heart sounds: Normal heart sounds. No murmur heard. No friction rub. No gallop. Pulmonary: Effort: Pulmonary effort is normal. No accessory muscle usage, respiratory distress or retractions. Breath sounds: Normal breath sounds and air entry. No wheezing, rhonchi or rales. Chest: Chest wall: No tenderness. Abdominal: General: Bowel sounds are normal. There is no distension. Palpations: Abdomen is soft. There is no mass. Tenderness: There is no abdominal tenderness. Musculoskeletal: General: Normal range of motion. Cervical back: Normal, normal range of motion and neck supple. No tenderness. Thoracic back: Normal. No tenderness. Lumbar back: Normal. No tenderness. Right lower leg: No edema. Left lower leg: No edema. Lymphadenopathy: Cervical: No cervical adenopathy. Skin: General: Skin is warm. Capillary Refill: Capillary refill takes less than 2 seconds. Coloration: Skin is not pale. Findings: No bruising or lesion. Neurological: General: No focal deficit present. Mental Status: She is alert and oriented to person, place, and time. Cranial Nerves: No dysarthria or facial asymmetry. Motor: Motor function is intact. No weakness or tremor. Coordination: Coordination is intact. Gait: Gait is intact. Psychiatric: Attention and Perception: Attention normal. Mood and Affect: Mood normal. Speech: Speech normal. Behavior: Behavior normal. Cognition and Memory: Cognition normal. Data Reviewed: Most recent labs and imaging results. ASSESSMENT/PLAN: 1. Encounter for annual health examination - ICD9: V70.0, ICD10: Z00.00 (primary diagnosis) - Counseled on healthy diet and regular exercise - Keep annual PROCESS TRAINER exams, scheduled for March 2022 - CBC + DIFF - COMP METABOLIC PANEL - TSH BLD - VITAMIN D 25 HYDROXY 2. Mass of lower outer quadrant of right breast - ICD9: 611.72, ICD10: N63.13 - [facility] - US BREAST COMPLETE RT Nieves Cabrales PA-C Return in about 1 year (around 02/14/2023) for annual physical exam. Discussed the above with the patient using shared decision making. The patient is in agreement with the diagnostic and treatment plans. documented in this encounterCoshocton [facility] Center07-12-2022 Nurse Note* Mónica Cox MA - 02/14/2022 3:59 PM EDT Chapin Chaudhari is a 26 year old female who presents with complaint of Breast Problem (right breast). Mónica Cox MA documented in this encounterCoshocton [facility] Center07-11-2022 Miscellaneous Notes* Telephone Encounter - Lavonne Schroeder RN - 02/13/2022 10:59 AM EDT Reason: Lump noticed on right breast. Outcome: See PCP within 3 days. Conferenced to [facility] for appointment. Reason for Disposition Breast lump Answer Assessment - Initial Assessment Questions 1. SYMPTOM: Lump on right breast. 2. LOCATION: Right breast. 3. ONSET: 02-11-22. 4. PRIOR HISTORY: Denies. 5. CAUSE: Unsure. 6. OTHER SYMPTOMS: Denies any other symptoms. 7. -: Denies or . Protocols used: BREAST [id number] documented in [facility] encounterL[facility]* Diagnosis Encounter for annual health examination- Primary Routine general medical examination at a health care facility Mass of lower outer quadrant of right breast documented in this encounter [facility] note* Diagnosis Mass of lower outer quadrant of right breast documented in this encounter [facility] note* Diagnosis Onset Date Resolution Status Acne acute Hair loss acute Encounter for routine gynecological examination noneactive Fatigue noneactive [facility] Work Phone: Reason for referral (narrative)* Diagnostic Procedure Only (Routine) - Pending Review Specialty Diagnoses / Procedures Referred By Contac t Referred To Contact [facility] Diagnoses Mass of lower outer quadrant of right breast Procedures US BREAST COMPLETE RT US BREAST UNI REAL TIME WITH IMAGE COMPLETE Nieves Cabrales PA-C 1944 [facility] [address] [place] [address] [facility] [address] [place] [address] Referral ID Status Reason Start Date Expiration Date Visits Requested Visits Authorized [id number] Pending Review Auto-Generat ed Referral 02/14/2022 03/16/2023 1 1 * Diagnostic Procedure Only (Routine) - Pending Review Specialty Diagnoses / Procedures Referred By Ana t Referred To Contact [facility] Diagnoses Mass of lower outer quadrant of right breast Procedures [facility] BILAT DIAGNOSTIC MAMMOGRAPHY COMPUTER-AIDED DETCJ BI Nieves Cabrales PA-C 1945 [facility] [address] [place] [address] [facility] [address] [place] [address] Referral ID Status Reason Start Date Expiration Date Visits Requested Visits Authorized [id number] Pending Review Auto-Generat ed Referral 02/14/2022 03/16/2023 1 1 [facility] for referral (narrative)* Diagnostic Procedure Only (Routine) - Closed Specialty Diagnoses / Procedures Referred By Ana ward Referred To Contact [facility] Diagnoses Mass of lower outer quadrant of right breast Procedures US BREAST COMPLETE RT US BREAST UNI REAL TIME WITH IMAGE COMPLETE Nieves Cabrales PA-C 6 [facility] [address] [place] [address] [facility] [address] [place] [address] Referral ID Status Reason Start Date Expiration Date V isits Requested Visits Authorized [id number] Closed Auto-Generate d Referral 02/14/2022 03/16/2023 1 1 * Diagnostic Procedure Only (Routine) - Closed Specialty Diagnoses / Procedures Referred By Contac t Referred To Contact [facility] Diagnoses Mass of lower outer quadrant of right breast Procedures [facility] DIAGNO[facility]IC BILAT DIAGNOSTIC MAMMOGRAPHY COMPUTER-AIDED DETCJ BI Nieves Cabrales PA-C 1945 [facility] [address] [place] [address] [facility] [address] [place] [address] Referral ID Status Reason Start Date Expiration Date V isits Requested Visits Authorized [id number] Closed Auto-Generate d Referral 02/14/2022 03/16/2023 1 1 [facility]No reason for referral information availableWSelect Medical [facility] [place] Work Phone: Reason for visit Narrative* Diagnostic Procedure Only (Routine) - Closed Specialty Diagnoses / Procedures Referred By Contac t Referred To Contact [facility] Diagnoses Mass of lower outer quadrant of right breast Procedures US BREAST COMPLETE RT US BREAST UNI REAL TIME WITH IMAGE COMPLETE Nieves Cabrales PA-C 1944 [facility] [address] [place] [address] [facility] [address] [place] [address] Referral ID Status Reason Start Date Expiration Date V isits Requested Visits Authorized [id number] Closed Auto-Generate d Referral 02/14/2022 03/16/2023 1 1 [facility] Summary Purpose Family History Relationship Condition Age at Onset Recorded Date/T rhiannon grandmother Hypertension Unknown grandfather Hypertension Unknown Relationship Condition Age at Onset Recorded Date/T rhiannon grandmother Hypertension Unknown Disorder of thyroid Unknown grandfather Hypertension Unknown mother Disorder of thyroid 15 aunt Disorder of thyroid 40 Advance Directives Advance Directive Response Recorded Date/ Time Living Will No March 31 9 10:31am Power of Bottle Gauger No March 31 019 10:31am Chief Complaint and Reason for Visit Chief Complaint 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) Reason for Visit Acne Hair loss Encounter for routine gynecological examination Fatigue Chief Complaint Admit Date Family Planning Consult October 17, 2024 8:12am Reason for Visit Admit Date Family planning counseling October 17, 025 8:12am PMDD (premenstrual dysphoric disorder) M 2024 8:12am Chief Complaint Admit Date Family Planning Consult October 17, 2024 8:12am Pre new ob, confirm preg, vitals January 162024 12:58pm Additional Source Comments INFORMATION SOURCE (unrecogn ized section and content) DATE CREATED AUTHOR 01/29/2018 [facility] DATE CREATED AUTHOR AUTHOR'S ORGANIZ ATION 09/26/2021 [facility] DATE CREATED AUTHOR AUTHOR'S ORGANIZ ATION 03/11/2022 [facility]ter DATE CREATED AUTHOR AUTHOR'S ORGANIZ ATION 10/13/2022 [facility] DATE CREATED AUTHOR AUTHOR'S ORGANIZ ATION 01/08/2025 [facility] Source Comments (unrecognize d section and content) In the event this informatio n is protected by the Federal Confidentiality of Alcohol and Drug Abuse Patient Records regulations: The Federal rules restrict any use of the information to criminally investigate or prosecute any alcohol or drug abuse patient.[facility] the event this information is protected by the Federal Confidentiality of Alcohol and Drug Abuse Patient Records regulations: The Federal rules restrict any use of the information to criminally investigate or prosecute any alcohol or drug abuse patient.[facility] the event this information is protected by the Federal Confidentiality of Alcohol and Drug Abuse Patient Records regulations: The Federal rules restrict any use of the information to criminally investigate or prosecute any alcohol or drug abuse patient.[facility] the event this information is protected by the Federal Confidentiality of Alcohol and Drug Abuse Patient Records regulations: The Federal rules restrict any use of the information to criminally investigate or prosecute any alcohol or drug abuse patient.[facility] the event this information is protected by the Federal Confidentiality of Alcohol and Drug Abuse Patient Records regulations: The Federal rules restrict any use of the information to criminally investigate or prosecute any alcohol or drug abuse patient.[facility] the event this information is protected by the Federal Confidentiality of Alcohol and Drug Abuse Patient Records regulations: The Federal rules restrict any use of the information to criminally investigate or prosecute any alcohol or drug abuse patient.[facility] Reason for Visit (unrecogniz ed section and content) Reason Comments Cyst Reason Comments Breast Problem right breast Reason Comments Results Reason Comments Medication Question Care Teams (unrecognized sec tion and content) Char House Supervisor Relationship Specialty Start Date End Date Nieves Cabrales PA-C [address] [facility] [address] [place] [address] PCP - General Family Practice 02/14/22 Char House Supervisor Relationship Specialty Start Date End Date Osman Nieves PA-C 1945 [facility] [address] [place] [address] PCP - General Family Practice 02/14/22 Char House Supervisor Relationship Specialty Start Date End Date Osman ULYSSES Pickett-C 1945 [facility] [address] [place] [address] PCP - General Family Practice 02/14/22 Char House Supervisor Relationship Specialty Start Date End Date Osman Nieves PA-C 1945 [facility] [address] [place] [address] PCP - General Family Practice 02/14/22 Char House Supervisor Relationship Specialty Start Date End Date Osman Nieves PA-C 1945 [facility] [address] [place] [address] PCP - General Family Medicine 02/14/22 Team Status: Active Member Role Status Dates Dr. Madelaine Andre MD Family Provider Active Dr. Madelaine Andre MD Primary Care Provider Active Team Status: Inactive Member Role Status Dates Dr. Madelaine Andre MD Primary Care Provider, Referring Provider Active Lois Stewart SUPERVISOR [employer], SUPERVISOR [employer] CLEANING-C Attending Provider Active Team Status: Inactive Member Role Status Dates Dr. Madelaine Andre MD Primary Care Provider Active Lois Stewart SUPERVISOR [employer], SUPERVISOR [employer]-C Attending Provider, Referring Provider Active Team Status: Inactive Member Role Status Dates Dr. Madelaine Andre MD Primary Care Provider Active Start: October 17, 2024 End: October 17, 2024 Dr. Madelaine Andre MD Referring Provider Active Start: October 17, 2024 End: October 17, 2024 Nuha Glynn CNM Attending Provider Active Start: October 17, 2024 End: October 17, 2024 Team Status: Inactive Member Role Status Dates Dr. Madelaine Andre MD Primary Care Provider Active Start: October 17, 2024 End: October 17, 2024 Nuha Glynn CNM Attending Provider Active Start: October 17, 2024 End: October 17, 2024 Nuha Glynn CNM Referring Provider Active Start: October 17, 2024 End: October 17, 2024 Team Status: Inactive Member Role Status Dates Dr. Madelaine Andre MD Primary Care Provider Active Start: January 16, 2025 End: January 16, 2025 Dr. Madelaine Andre MD Referring Provider Active Start: January 16, 2025 End: January 16, 2025 Dr. Lidya Child DO Attending Provider Activ e Start: January 16, 2025 End: January 16, 2025 Goals (unrecognized section and content) Goals may be documented in a n alternate sectionGoals may be documented in an alternate sectionGoals may be documented in an alternate section FOR RECORDS PERTAINING TO PATIENTS WHO ARE OR HAVE BEEN ENROLLED IN A CHEMICAL DEPENDENCY/SUBSTANCEABUSE PROGRAM, SOME INFORMATION MAY BE OMITTED. This clinical summary was aggregated from multiple sources. Caution should be exercised in using it in the provision of clinical care. This summary normalizes information from multiple sources, and as a consequence, information in this document may materially change the coding, format and clinical context of patient data. In addition, data may be omitted in some cases. CLINICAL DECISIONS SHOULD BE BASED ON THE PRIMARY CLINICAL RECORDS. [employer] provides no warranty or guarantee of the accuracy or completeness of information in this document.
[2025-01-17 01:03] LABS: hCG Titer Quant., Serum 26859 mIU/mL (<9 non-preg)
[2025-01-17 01:19] VITALS: BP 131/73; PULSE 82; RESP 16; O2SAT 100
[2025-01-17 01:25] VITALS: BP 131/73; PULSE 82; RESP 16; TEMP 36.8; O2SAT 100
== END 2025-01-17 01:31 | disposition home or self-care (01) ==
PROVIDERS: Emergency Provider Emergency Medicine; Visit Provider Emergency Medicine
DX: O26.891 Other specified pregnancy related conditions, first trimester (principal); R10.2 Pelvic and perineal pain; Z3A.01 Less than 8 weeks gestation of pregnancy; Z79.899 Other long term (current) drug therapy
CPT/HCPCS: 76817; 81001; 84702; 99282; A4216

== ENCOUNTER → 2025-02-03 | Outpatient (CLI) | payer OTHER, SELFPAY ==
[2025-02-06 06:07] LABS: Chlamydia By Nucleic Acid AMP Negative (Negative); Gonococcus By Nucleic Acid AMP Negative (Negative)
== END | disposition home or self-care (01) ==
LOC: LABSPEC 15:49
PROVIDERS: Referring Provider Obstetrics & Gynecology; Visit Provider Obstetrics & Gynecology
DX: Z34.00 Encounter for supervision of normal first pregnancy, unspecified trimester (principal)
CPT/HCPCS: 87086; 87088; 87491; 87591

== ENCOUNTER → 2025-02-18 | Outpatient (CLI) | payer OTHER, SELFPAY ==
[2025-02-18 12:24] LABS: Hematocrit 38.3 % (37-47); Hemoglobin 13.4 g/dL (12.0-15.0); Immature Granulocytes Count 0.010 X10^3/uL (0.0-0.0); Mean Corp Hgb Conc 35.0 g/dL (32-36); Mean Corpuscular Volume 89.1 fL (81-99); Mean Platelet Vol. 12.3 fl (6.2-12.0); NRBC Flagged by Analyzer 0 % (0-5); Platelet Count 233 K/mm3 (150-450); RBC Distribution Width CV 12.2 % (11.6-14.6); RBC Distribution Width SD 39.5 fl (35.1-43.9); Red Blood Count 4.30 M/mm3 (4.2-5.4); White Blood Count 6.7 K/mm3 (4.4-11.0)
[2025-02-18 13:04] LABS: HIV Nonreactive (Nonreactive); Hepatitis B Surface Antigen Nonreactive (Nonreactive); Hepatitis C Antibody Nonreactive (Nonreactive); Syphilis Antibodies Nonreactive (Nonreactive)
== END | disposition home or self-care (01) ==
PROVIDERS: Referring Provider Obstetrics & Gynecology; Visit Provider Obstetrics & Gynecology
DX: Z34.01 Encounter for supervision of normal first pregnancy, first trimester (principal)
CPT/HCPCS: 36415; 85025; 86703; 86762; 86780; 86803; 86850; 86900; 86901; 87340

== ENCOUNTER → 2025-06-15 | Outpatient (CLI) | payer OTHER, SELFPAY ==
[2025-06-15 17:13] LABS: Hematocrit 35.0 % (37-47); Hemoglobin 12.3 g/dL (12.0-15.0); Immature Granulocytes Count 0.050 X10^3/uL (0.0-0.0); Mean Corp Hgb Conc 35.1 g/dL (32-36); Mean Corpuscular Volume 90.2 fL (81-99); Mean Platelet Vol. 11.9 fl (6.2-12.0); NRBC Flagged by Analyzer 0 % (0-5); Platelet Count 222 K/mm3 (150-450); RBC Distribution Width CV 12.8 % (11.6-14.6); RBC Distribution Width SD 41.6 fl (35.1-43.9); Red Blood Count 3.88 M/mm3 (4.2-5.4); White Blood Count 10.6 K/mm3 (4.4-11.0)
[2025-06-15 17:58] LABS: Glucose Challenge Gest 1H 50g 198 mg/dL (70-140); HIV Nonreactive (Nonreactive); Syphilis Antibodies Nonreactive (Nonreactive)
== END | disposition home or self-care (01) ==
PROVIDERS: Nurse Practitioner Women's Health; Visit Provider Obstetrics & Gynecology
DX: Z34.02 Encounter for supervision of normal first pregnancy, second trimester (principal); Z13.1 Encounter for screening for diabetes mellitus
CPT/HCPCS: 36415; 82950; 85025; 86703; 86780; 86850; 86900; 86901

== ENCOUNTER 2025-06-23 10:00 | Outpatient (RCR) | payer OTHER, SELFPAY | END 2025-07-05 23:59 | LOC: NS 10:00 | PROVIDERS: Referring Provider Obstetrics & Gynecology; Visit Provider Obstetrics & Gynecology | CPT/HCPCS: 97802 ==

== ENCOUNTER 2025-07-06 12:27 | Outpatient (RCR) | payer OTHER, SELFPAY | END 2025-08-05 23:59 | LOC: NS 12:27 | PROVIDERS: Referring Provider Obstetrics & Gynecology; Visit Provider Obstetrics & Gynecology | DX: Z71.3 Dietary counseling and surveillance (principal); O24.419 Gestational diabetes mellitus in pregnancy, unspecified control | CPT/HCPCS: 97803 ==

== ENCOUNTER → 2025-07-14 | Outpatient (CLI) | payer OTHER, SELFPAY ==
[2025-07-14 16:47] LABS: ROM Internal Control Test YES-OK TO RESULT pt. (Internal QC); ROM Patient Test Negative (Negative); Record Kit Lot#, ROM+ K3607
--- OUTSIDE RECORDS SUMMARY | 2025-07-14 19:12 | XMS RPT_ITS | CCD ---
Author Organization [facility] InformFormerly [facility] Care Team Providers Care Second Mate Name Role Phone NO REFERRING DR Unavailable Unavailable MALLAT, ALI F Unavailable Unavailable MALLAT, ALI F Unavailable Unavailable MALLAT, ALI F Unavailable Unavailable PHILIP ANDRE Unavailable Unavailable Unavailable Primary Care Provider Unavailabl e Cabrales PA-C, Nieves Primary Care Provider Cabrales PA-C, Nieves Primary Care Provider Cabrales PA-C, Nieves Primary Care Provider CABRALES, NIEVES Attending Unavailable CABRALES, NIEVES Primary Care Unavailable CABRALES, NIEVES Referring Unavailable CABRALES, NIEVES Primary Care Unavailable CABRALES, NIEVES Attending Unavailable CABRALES, NIEVES Primary Care Unavailable KAMERON, WARREN Attending Unavailable KAMERON, WARREN Referring Unavailable CABRALES, NIEVES Primary Care Unavailable Dr. Philip Andre Primary Care Provider Dr. Philip Andre Referring Provider [place] [employer], [employer] Lois Attending Provider Dr. Philip Andre MD Primary Care Provider Dr. Philip Andre MD Referring Provider Nuha Glynn CNM Attending Provider Nuha Glynn CNM Referring Provider Dr. Lidya Child DO Attending Provider Dr. Clarence Viveros MD Emergency Provider Care Physician, No Primary Primary Care Provider Unavailable Dr. Clarence Viveros MD Attending Provider Dr. Lidya Child DO Referring Provider Porter GUTIERREZ Dr. Philip Primary Care Provider Porter GUTIERREZ, Dr. Burkett Referring Provider Tamika Garcia CNM Attending Provider [phone] Care Physician, No Primary Referring Provider Un available Ling GUTIERREZ, Dr. Hatch Attending Provider NO PRIMARY CARE, MD Primary Care Unavailable TAMIKA GARCIA Referring Unavailable TAMIKA GARCIA Attending Unavailable Porter GUTIERREZ, Dr. Burkett Primary Care Physician Celso See DO, Dr. Bose Attending Physician Felice GUTIERREZ, Dr. Lima Attending Physician [phone] Felice GUTIERREZ, Dr. Lima Emergency Department Phys ician Care Physician, No Primary Primary Care Physicia n Unavailable Tamika Garcia CNM Attending Physician [phone] Ling GUTIERREZ, Dr. Hatch Attending Physician Terry COREY-CLois Attending Physician [phone] Nuha Glynn Attending Unavailable Andre, Philip Primary Care Unavailable Andre, Philip Referring Unavailable Mamie Dubon Attending Unavailable Care Physician, No Primary Primary Care Unava ilable Nuha Glynn Referring Unavailable Andre, Philip Primary Care Unavailable Nuha Glynn Attending Unavailable Lidya Child Attending Unavailabl e Mckaylae VelLidya dominique Referring Unavailabl e Care Physician, No Primary Primary Care Unava ilable Lidya Child Attending Unavailabl e Mckaylae VelLidya dominique Referring Unavailabl e Care Physician, No Primary Primary Care Unava ilable Clarence Viveros Attending Unavailable Care Physician, No Primary Primary Care Unava ilable Andre, Philip Primary Care Unavailable Andre, Philip Referring Unavailable Vande Lidya See Attending Unavailabl e Andre, Philip Referring Unavailable Vande Lidya See Attending Unavailabl e Care Physician, No Primary Primary Care Unava ilable Tamika Garcia Attending Unavailable Andre, Philip Referring Unavailable Care Physician, No Primary Primary Care Unava ilable Mamie Dubon Attending Unavailable Care Physician, No Primary Referring Unava ilable Care Physician, No Primary Primary Care Unava ilable Lois Stewart NP Attending Unavailable Care Physician, No Primary Referring Unava ilable Care Physician, No Primary Primary Care Unava ilable Terry COREY, Lois Attending Unavailable Care Physician, No Primary Referring Unava ilable Care Physician, No Primary Primary Care Unava ilable Mamie Dubon Attending Unavailable Care Physician, No Primary Referring Unava ilable Care Physician, No Primary Primary Care Unava ilable Care Physician, No Primary Primary Care Physicia n Unavailable Celso See DO, Dr. Bose Attending Physician Dr. Lidya Child DO Referring Provider Dr. Philip Andre MD Referring Provider Tamika Garcia CNM Attending Physician Care Physician, No Primary Referring Provider Un available Ling GUTIERREZ, Dr. Hatch Attending Physician Terry [employer], Lois Attending Physician [phone] Allergies Allergy Classification Reported Allergen(s) Allergy Type Date of Onset Reaction(s) Facility (7 sources) Seasonal allergy; Translations: [SEASONAL ALLERGIES] Propensity to adverse reactions 201 8 Other: See Comments [facility] Work Phone: Medications Current Medications Medication Drug [...] Comment on above: Take 1 capsule by [facility] every 12 hours for 10 days. Flash Glucose Scanning [place] (Freestyle Bozena 14 Day [place]) misc (1 source) Start: 06-16-2025 Flash Glucose Scanning [place] (Freestyle Bozena 14 Day [place]) misc Active 0 .Route 1 0 June 16, 2025 12:00am Gestational diabetes mellitus (GDM) Gestational diabetes mellitus in , unspecified control As directed Flash Glucose Sensor (Freestyle Bozena 14 Day Sensor) kit (1 source) Start: 06-16-2025 Flash Glucose Sensor (Freestyle Bozena 14 Day Sensor) kit Active 0 .Route 1 3 June 16, 2025 12:00am Gestational diabetes mellitus (GDM) Gestational diabetes mellitus in , unspecified control As directed. Need numbers for fasting and 2 hours post prandial. Mv-Mins 18-Guba-Cfzfo No.1-Dha (Pnv-[place]) 28-1-300 mg capsule (9 sources) Start: 01-16-2025 Start: 01-16-2025 Mv-Mins 71-Iro n-Folic No.1-Dha (Pnv-[place]) 28-1-300 mg capsule Active 1 NMA PO DAILY January 16, 2025 12:00am Complies with drug therapy Start: 01-16-2025 Mv-Mins 71-Iro n-Folic No.1-Dha (Pnv-[place]) 28-1-300 mg capsule Active 1 NMA PO DAILY January 16, 2025 12:00am Start: 01-16-2025 Mv-Mins 71-Iro n-Folic No.1-Dha (Pnv-[place]) 28-1-300 mg capsule Active NMA PO January 16, 2025 12:00am [place] (Nk) (1 source) Start: 03-19-2023 [place] (Nk) Active March 19, 2023 12:00am promethazine hydrochloride 12.5 mg oral tablet (7 sources) Phenothiazine Start: 02-03-2025 take 1 tablet by mouth every six hours as needed for nausea Completed/Discontinued Medications Medication Drug Class(es) Dates Sig (Normalized) Sig (Original) citalopram 10 mg oral tablet (20 sources) Serotonin Reuptake Inhibitor Start: 04-30-2024 End: 04-01-2025 take 1 tablet by mouth once daily Citalopram 10 mg tablet Discontinued 10 mg PO daily 90 0 July 02, 2024 4:31pm April 01, 2025 7:23am Desogestrel-Ethiny l Estradiol (20 sources) Progestin, Estrogen Start: 03-16-2022 End: 03-19-2023 Desogestrel-Ethinyl Estradiol 0.15-0.03 mg tablet Discontinued 1 {tbl} PO .COMPLEX 84 4 March 16, 2022 1:57pm March 19, 2023 2:50pm 1 tab PO active pills only for continuous cycling Start: 03-16-2022 End: 03-19-2023 Desogestrel-Ethinyl Estradio l 0.15-0.03 mg tablet Discontinued 1 {tbl} PO .COMPLEX 84 4 March 16, 2022 2:57pm March 19, 2023 3:50pm 1 tab PO active pills only for continuous cycling Start: 03-16-2022 End: 03-19-2023 Desogestrel-Ethinyl Estradio l 0.15-0.03 mg tablet Discontinued 1 {tbl} PO .COMPLEX 84 March 16, 2022 2:57pm March 19, 2023 3:50pm 1 tab PO active pills only for continuous cycling Start: 03-16-2022 End: 03-19-2023 Desogestrel-Ethinyl Estradio l Discontinued 1 TABLET PO .COMPLEX 84 March 16, 2022 2:57pm March 19, 2023 3:50pm 1 tab PO active pills only for continuous cycling Start: 02-07-2022 End: 03-16-2022 Desogestrel-Ethinyl Estradio l 0.15-0.03 mg tablet Discontinued 1 {tbl} PO .COMPLEX 84 0 February 07, 2022 9:14am March 16, 2022 1:57pm 1 tab PO active pills only for continuous cycling Start: 02-07-2022 End: 03-16-2022 Desogestrel-Ethinyl Estradio l 0.15-0.03 mg tablet Discontinued 1 {tbl} PO .COMPLEX 84 0 February 07, 2022 10:14am March 16, 2022 2:57pm 1 tab PO active pills only for continuous cycling Start: 02-07-2022 End: 03-16-2022 Desogestrel-Ethinyl Estradio l 0.15-0.03 mg tablet Discontinued 1 {tbl} PO .COMPLEX 84 February 07, 2022 10:14am March 16, 2022 2:57pm 1 tab PO active pills only for continuous cycling Start: 02-07-2022 End: 03-16-2022 Desogestrel-Ethinyl Estradio l Discontinued 1 TABLET PO .COMPLEX 84 February 07, 2022 10:14am March 16, 2022 2:57pm 1 tab PO active pills only for continuous cycling Start: 02-01-2021 End: 02-07-2022 Desogestrel-Ethinyl Estradio l 0.15-0.03 mg tablet Discontinued 1 {tbl} PO .COMPLEX 84 4 February 01, 2021 7:56am February 07, 2022 9:15am 1 tab PO active pills only for continuous cycling Start: 02-01-2021 End: 02-07-2022 Desogestrel-Ethinyl Estradio l 0.15-0.03 mg tablet Discontinued 1 {tbl} PO .COMPLEX 84 4 February 01, 2021 8:56am February 07, 2022 10:15am 1 tab PO active pills only for continuous cycling Start: 02-01-2021 End: 02-07-2022 Desogestrel-Ethinyl Estradio l 0.15-0.03 mg tablet Discontinued 1 {tbl} PO .COMPLEX 84 February 01, 2021 8:56am February 07, 2022 10:15am 1 tab PO active pills only for continuous cycling Start: 02-01-2021 End: 02-07-2022 Desogestrel-Ethinyl Estradio l Discontinued 1 TABLET PO .COMPLEX 84 February 01, 2021 8:56am February 07, 2022 10:15am 1 tab PO active pills only for continuous cycling Start: 12-20-2020 End: 02-01-2021 Desogestrel-Ethinyl Estradio l 0.15-0.03 mg tablet Discontinued 1 {tbl} PO .COMPLEX 84 4 December 20, 2020 8:04am February 01, 2021 7:56am 1 tab PO active pills only for continuous cycling Start: 12-20-2020 End: 02-01-2021 Desogestrel-Ethinyl Estradio l 0.15-0.03 mg tablet Discontinued 1 {tbl} PO .COMPLEX 84 4 December 20, 2020 9:04am February 01, 2021 8:56am 1 tab PO active pills only for continuous cycling Start: 12-20-2020 End: 02-01-2021 Desogestrel-Ethinyl Estradio l 0.15-0.03 mg tablet Discontinued 1 {tbl} PO .COMPLEX 84 December 20, 2020 9:04am February 01, 2021 8:56am 1 tab PO active pills only for continuous cycling Start: 12-20-2020 End: 02-01-2021 Desogestrel-Ethinyl Estradio l Discontinued 1 TABLET PO .COMPLEX 84 December 20, 2020 9:04am February 01, 2021 8:56am 1 tab PO active pills only for continuous cycling Start: 12-25-2019 End: 12-20-2020 Desogestrel-Ethinyl Estradio l 0.15-0.03 mg tablet Discontinued 1 {tbl} PO .COMPLEX 84 December 25, 2019 7:18am December 20, 2020 8:12am 1 tab PO active pills only for [...] {tbl} PO .COMPLEX 84 August 18, 2019 9:10am December 25, 2019 7:18am 1 tab PO active pills only for [...] {tbl} PO .COMPLEX 84 March 31, 2019 1:42pm August 18, 2019 9:10am 1 tab PO active pills only for [...] {tbl} PO .COMPLEX 84 February 20, 2018 10:06am March 31, 2019 1:42pm 1 tab PO active pills only for [...] mg tablet Discontinued 1 {tbl} PO DAILY 28 February 14, 2018 1:58pm February 20, 2018 10:07am Start: 02-14-2018 End: 02-20-2018 Desogestrel-Ethinyl Estradio l 0.15-0.03 mg tablet Discontinued 1 {tbl} PO DAILY 31 10February 14, 2018 2:58pm February 20, 2018 11:07am Start: 02-14-2018 End: 02-20-2018 Desogestrel-Ethinyl Estradio l [...] tablet Discontinued 1 {tbl} PO DAILY April 27, 2017 11:00pm February 14, 2018 2:00pm Start: 04-28-2017 End: 02-14-2018 Desogestrel-Ethinyl Estradio l [...] after use. spironolactone 25 mg oral tablet (10 sources) Aldosterone Antagonist Start: 024 End: 025 take 1 tablet by mouth twice daily Spironolactone 25 mg tablet Discontinued 25 mg PO TWICE A DAY April 29, 2024 11:00pm January 16, 2025 12:14pm Problems Active Problems Problem Classification Problem Date Documented Date Episodic/Chronic Bacterial infection; unspecified site (1 source) Other specified bacterial agents as the cause of diseases classified elsewhere; Translations: [Bacterial sinusitis] Onset: 10-12-19 Episodic Diabetes or abnormal glucose tolerance complicating ; childbirth; or the puerperium (1 source) Gestational diabetes mellitus; Translations: [Gestational diabetes mellitus in , unspecified control] 06-16-2025 Episodic Comment on above: Continuous monitor, nutrition consult. External Injury - Struck by; against (1 source) Struck by soccer ball, initial encounter; Translations: [STRUCK BY SOCCER BALL IN] Onset: 04-28-20 Immunizations and screening for infectious disease (1 source) Encounter for immunization; Translations: [Encounter for immunization] Onset: 06-15-20 Episodic Malaise and fatigue (1 source) Other fatigue; Translations: [Other malaise and fatigue] 03-19-2023 Episodic Menstrual disorders (6 sources) Dysmenorrhea; Translations: [Dysmenorrhea, unspecified] Onset: 10-22-19 15 10-21-2014 Chronic Mood disorders (20 sources) Premenstrual dysphoric disorder; Translations: [Premenstrual dysphoric disorder] Onset: 03-05-20 25 10-17-2024 Chronic Comment on above: 10mg citalopramrecom mended counseling. Other complications of (8 sources) Pain in pelvis; Translations: [Other specified related conditions, first trimester] 01-17-2025 Episodic Other complications of (16 sources) RhD negative; Translations: [Other specified related conditions, unspecified trimester] 02-23-2025 Episodic Comment on above: O-, Rhogam @ 28 week s Other complications of (1 source) Other specified related conditions, second trimester; Translations: [Other specified related conditions, second trimester] Onset: 06-15-20 Episodic Other female genital disorders (11 sources) Premenstrual tension syndrome; Translations: [Premenstrual tension syndrome] 02-01-2021 Chronic Other gastrointestinal disorders (20 sources) Irritable bowel syndrome; Translations: [Irritable bowel syndrome without diarrhea] 02-20-2018 Chronic Other gastrointestinal disorders (1 source) Irritable bowel syndrome without diarrhea; Translations: [Irritable bowel syndrome, unspecified] Onset: 03-05-20 Chronic Other and delivery including normal (20 sources) Normal ; Translations: [Encounter for supervision of normal first , unspecified trimester] Onset: 02-04-20 25 01-16-2025 Episodic Comment on above: , PATSY 09/07/25, Hu herminio Valladares discussed NIPT testi ng- undecided, carrier negative PRR, , PATSY 6, Blaine elects NIPT low risk , male , carrier negative PRR, , PATSY 2/2/ 6,boy Blaine PRR, , PATSY 2// 6,boy Blaine, elects NIPT low risk , male , carrier negative , normal anatomy Other screening for suspected conditions (not mental disorders or infectious disease) (1 source) Encounter for screening for diabetes mellitus; Translations: [Encounter for screening for diabetes mellitus] Onset: 06-15-20 25 Episodic Other skin disorders (20 sources) Acne; Translations: [Acne, unspecified] Onset: 02-26-20 13 02-25-2013 Episodic Other skin disorders (20 sources) Loss of hair; Translations: [Nonscarring hair loss, unspecified] 03-19-2023 Episodic Other upper respiratory disease (6 sources) Seasonal allergy; Translations: [Other seasonal allergic rhinitis] Onset: 02-25-20 19 02-24-2019 Chronic Other upper respiratory infections (1 source) Chronic sinusitis, unspecified; Translations: [Bacterial sinusitis] Onset: 10-12-19 Chronic Residual codes; unclassified (1 source) Unspecified blood type, Rh negative; Translations: [Unspecified blood type, Rh negative] Onset: 06-15-20 Episodic Residual codes; unclassified (1 source) 28 weeks gestation of ; Translations: [28 weeks gestation of ] Onset: 06-15-20 Episodic Screening and history of mental health and substance abuse codes (1 source) Encounter for screening for depression; Translations: [Depression screening] Onset: 10-12-19 23 Episodic Unclassified (1 source) Unknown / UNK(Unknown) Onset: 05-17-20 17 Unclassified (16 sources) Rh positive blood type in fetus 02-23-2025 Comment on above: rhogam given 06/15 Past or Other Problems Problem Classification Problem Date Documented Da te Episodic/Chronic Abdominal pain (1 source) Unspecified abdominal pain; Translations: [Unspecified abdominal pain] Onset: 01-22-2025 Episodic Contraceptive and procreative management (16 sources) Patient encounter status; Translations: [Encounter for other general counseling and advice on contraception] Onset: 10-28-2024 10-17-2024 Episodic Comment on above: genetic carrier scre ening counseling- desiresrisk benefits and alternatives discussed for anxiety/PMDD, desires to continue on citalopram, will continue during with low dose.pnv genetic carrier neg. - desiresrisk benefits and alternatives discussed for anxiety/PMDD, desires to continue on citalopram, will continue during with low dose.pnv Crushing injury or internal injury (3 sources) Unspecified laceration of spleen, initial encounter; Translations: [Moderate laceration of spleen, initial encounter] Onset: 04-28-2017 Episodic Nonmalignant breast conditions (3 sources) Lump in lower outer quadrant of right breast; Translations: [Unspecified lump in the right breast, lower outer quadrant] Onset: 02-14-2022 Episodic Other complications of (1 source) Other specified related conditions, unspecified trimester; Translations: [Other specified related conditions, unspecified trimester] Onset: 03-05-2025 Episodic Other lower respiratory disease (6 sources) Dyspnea; Translations: [Shortness of breath] Onset: 02-24-2019 02-24-2019 Episodic Other skin disorders (2 sources) Acne, unspecified; Translations: [Other acne] Onset: 03-05-2025 03-19-2023 Episodic Other skin disorders (2 sources) Nonscarring hair loss, unspecified; Translations: [Alopecia, unspecified] Onset: 03-05-2025 03-19-2023 Episodic Other upper respiratory infections (2 sources) Acute pharyngitis, unspecified; Translations: [Streptococcal pharyngitis] Onset: 06-13-2022 Episodic Residual codes; unclassified (1 source) 13 weeks gestation of ; Translations: [13 weeks gestation of ] Onset: 03-05-2025 Episodic Unclassified (1 source) Unspecified laceration of spleen, initial encounter Onset: 05-17-2017 Viral infection (1 source) Infectious mononucleosis, unspecified without complication; Translations: [INFECTIOUS MONO UNS W/O] Onset: 04-28-2017 Episodic Results Test Name Value Interpretation Reference Range Facility Absolute lymphocyte countOrd ered By: Lois Stewart on 06-15-2025 Lymphocytes Auto (Unsp spec) [#/Vol] 1.21 10*3/uL 0.83-4.51 [facility] Absolute neutrophil countOrd ered By: Lois Stewart on 06-15-2025 Neutrophils (Bld) [#/Vol] 8.8 10*3/uL High 2.0-7.7 [facility] Automated lymphocyte count a s percentage of total leukocytesOrdered By: Lois Stewart on 06-15-2025 Lymphocytes/100 WBC Auto (Unsp spec) 11.5 % Low 19-41 [facility] Basophil percentageOrdered B y: Lois Stewart on 06-15-2025 Basophils/100 WBC (Bld) 0.1 % 0-1 [facility] CBC W/Diff, Automatedon 06-06 0-2024 Absolute Lymph 1.21 X10 3/uL Normal 0.83-4.51 [facility] Comment on above: Performed By: #### L 7000.1800, M1.0 #### [facility] [address] [place], [address] Absolute Neut 8.8 X10 3/uL High 2.0-7.7 [facility] Comment on above: Performed By: #### L 7000.1800, M1.0 #### [facility] [address] [place], [address] Basophils/100 WBC (Bld) 0.1 % Normal 0-1 [facility] Comment on above: Performed By: #### L 7000.1800, M100.2200 #### [facility] [address] [place], [address] Eosinophils/100 WBC (Bld) 0.4 % Normal 0-5 [facility] Comment on above: Performed By: #### L 7000.1800, M100.2200 #### [facility] [address] [place], [address] Erythrocyte distribution width (RBC) [Ratio] 12.8 % Normal 11.6-14.6 [facility] Comment on above: Performed By: #### L 7000.1800, M100.2200 #### [facility] [address] [place], [address] Hematocrit (Bld) [Volume fraction] 35.0 % Low 37-47 [facility] Comment on above: Performed By: #### L 0.1800, #### [facility] [address] [place], [address] Hemoglobin (Bld) [Mass/Vol] 12.3 g/dL Normal 12.0-15.0 [facility] Comment on above: Performed By: #### L 0.1799, #### [facility] [address] [place], [address] IG% 0.500 Normal 0.0-0.9 [facility] Comment on above: Result Comment: IG% - Immature Granulocytes (promyelocytes, myelocytes and metamyelocytes) > 1% indicates that a LEFT SHIFT is Present. Performed By: #### L 0.1799, #### [facility] [address] [place], [address] Lymphocytes/100 WBC (Bld) 11.5 % Low 19-41 [facility] Comment on above: Performed By: #### L 0.1799, #### [facility] [address] [place], [address] MCH (RBC) [Entitic mass] 31.7 pg Normal 27.0-32.0 [facility] Comment on above: Performed By: #### L 0.1799, #### [facility] [address] [place], [address] MCHC (RBC) [Mass/Vol] 35.1 g/dL Normal 32-36 [facility] Comment on above: Performed By: #### L 0.1800, #### [facility] [address] [place], [address] MCV (RBC) [Entitic vol] 90.2 fL Normal 81-99 [facility] Comment on above: Performed By: #### L 7000.1800, #### [facility] [address] [place], [address] Monocytes/100 WBC (Bld) 4.7 % Normal 0-10 [facility] Comment on above: Performed By: #### L 0.1799, #### [facility] [address] [place], [address] Neutrophils/100 WBC (Bld) 82.8 % High 47-70 [facility] Comment on above: Performed By: #### L 0.1799, #### [facility] [address] [place], [address] Nucleated RBC (Bld) [#/Vol] 0 10*3/uL Normal 0-5 [facility] Comment on above: Performed By: #### L 7000.1799, #### [facility] [address] [place], [address] Platelet mean volume (Bld) [Entitic vol] 11.9 fL Normal 6.2-12.0 [facility] Comment on above: Performed By: #### L 0.1799, #### [facility] [address] [place], [address] Platelets (Bld) [#/Vol] 222 10*3/uL Normal 150-450 [facility] Comment on above: Performed By: #### L 7000.1800, #### [facility] [address] [place], [address] RBC (Bld) [#/Vol] 3.88 10*6/uL Low 4.2-5.4 [facility] Comment on above: Performed By: #### L 0.1800, #### [facility] [address] [place], [address] RDW SD 41.6 fl Normal 35.1-43.9 [facility] Comment on above: Performed By: #### L 0.1800, .0 #### [facility] [address] [place], [address] WBC (Bld) [#/Vol] 10.6 10*3/uL Normal 4.4-11.0 [facility] Comment on above: Performed By: #### L 0.1800, M1.2199 #### [facility] [address] [place], [address] Eosinophil percentageOrdered By: Lois Stewart on 06-15-2025 Eosinophils/100 WBC (Bld) 0.4 % 0-5 [facility] Erythrocyte distribution wid th ratioOrdered By: Lois Stewart on 06-15-2025 Erythrocyte distribution width (RBC) [Ratio] 12.8 % 11.6-14.6 [facility] Erythrocyte distribution wid th standard deviationOrdered By: [facility]-2025 Erythrocyte distribution width (RBC) [Ratio] 41.6 fl 35.1-43.9 [facility] Glucose Challenge Gest 1H 50 ebony 06-15-2025 GLU GEST 50g 1H 198 mg/dL High 70-140 [facility] Comment on above: Performed By: #### L 0.1799, #### [facility] [address] [place], [address] Glucose measurement at 2 nimesh rs post-dose gestational glucose tolerance testOrdered By: Lois Stewart on 06-15-2025 Glucose [Mass/Vol] 198 mg/dL High 70-[address] [facility] HIVon 06-15-2025 HIV Non-Reactive Normal Nonreactive [facility] Comment on above: Result Comment: Non- Reactive Reactive Repeatedly reactive samples must be confirmed according to CDC recommended confirmatory algorithms. The subresults for either HIVAG or AHIV can be used as an aid in the selection of the confirmation algorithm for reactive samples. Send out specimens with Reactive results to [facility] for confirmation. Order the HIV antibody detection and differentiation: #[id number] Performed By: #### L 7000.1800, M100.2200 #### [facility] [address] [place], [address] HIV 1 and HIV-2 antibody ass ay with HIV-1 p24 antigen detectionOrdered By: Lois Stewart on 06-15-2025 HIV 1+2 Ab+HIV1 p24 Ag IA Ql Non-Reactive Nonreactive [facility] Comment on above: Non-ReactiveReactive Repeatedly reactive samples must be confirmed according to CDC recommended confirmatory algorithms. The subresults for either HIVAG or AHIV can be used as an aid in the selection of the confirmation algorithm for reactive samples.Send out specimens with Reactive results to [facility] for confirmation.Order the HIV antibody detection and differentiation: #[id number] Hematocrit Auto (Bld) [Volum e fraction]Ordered By: Lois Stewart on 06-15-2025 Hematocrit (Bld) [Volume fraction] 35.0 % Low 37-47 [facility] Hemoglobin measurementOrdere d By: Lois Stewart on 06-15-2025 Hemoglobin (Bld) [Mass/Vol] 12.3 g/dL 12.0-15.0 [facility] Immature granulocytes/100 WB C Auto (Bld)Ordered By: Lois Stewart on 06-15-2025 Immature granulocytes/100 WBC (Bld) 0.500 % 0.0-0.9 [facility] Comment on above: IG% - Immature Granu locytes (promyelocytes, myelocytes and metamyelocytes) > 1% indicates that a LEFT SHIFT is Present. Laboratory - Chemistry and C hemistry - challengeOrdered By: Mamie Dubon on 06-15-2025 Glucose Ql (U) Negative [facility] - UrinalysisOrder ed By: Mamie Dubon on 06-15-2025 Protein Ql (U) Negative [facility] MCV (mean corpuscular volume ) determinationOrdered By: Lois Stewart on 06-15-2025 MCV (RBC) [Entitic vol] 90.2 fL 81-99 [facility] Mean corpuscular hemoglobin (MCH) determinationOrdered By: Lois Stewart on 06-15-2025 MCH (RBC) [Entitic mass] 31.7 pg 27.0-32.0 [facility] Mean corpuscular hemoglobin concentration (MCHC) determinationOrdered By: Lois Stewart on 06-15-2025 MCHC (RBC) [Mass/Vol] 35.1 g/dL 32-36 [facility] Mean platelet volume determi nationOrdered By: Lois Stewart on 06-15-2025 Platelet mean volume (Bld) [Entitic vol] 11.9 fL 6.2-12.0 [facility] Monocyte percentageOrdered B y: Lois Stewart on 06-15-2025 Monocytes/100 WBC (Bld) 4.7 % 0-10 [facility] Neutrophil percentageOrdered By: Lois Stweart on 06-15-2025 Neutrophils/100 WBC (Bld) 82.8 % High 47-70 [facility] Nucleated red blood cell per centageOrdered By: Lois Stewart on 06-15-2025 Nucleated RBC/100 WBC (Bld) [Ratio] 0 % 0-5 [facility] [employer] Office Visit Reporton 06-15-2025 [employer] Office Visit Report [facility] [address], [address] [place] [address] OFFICE VISIT Date of Service: 06/15/25 MR#: [id number] Acct: [id number] Name: CHAPIN CHAUDHARI Rep #: [id number] : 1995 Provider: Dr. Mamie jaime MD Age/Sex: 29/F [place] [facility] [place]: [place]igned Intake Vital Signs 03/31/25 16:07 05/28/25 08:35 06/15/25 15:35 Height 5 ft 7 in 5 ft 7 in 5 ft 7 in Weight: 185 lb 4 oz BMI 29.0 BP 110/72 Intake Visit Reasons: 28wk ob/glucose/rhogam Explosive Operator Grenade Required: No Is patient in pain?: No Allergies No Known Allergies Allergy (Verified 06/15/25 15:37) Medications ???Medication ???Instructions ???Recorded ???Confirmed ???Type multivit-min no.71-iron fum 28 1 cap PO DAILY 01/16/25 06/15/25 H istory mg-folate no.1 1 mg-dha 300 mg capsule (PNV-[place]) promethazine 12.5 mg tablet 12.5 mg PO Q6H PRN nausea #30 tabs 02/03/25 06/15/25 Rx citalopram 10 mg tablet 10 mg PO QDAY #90 tabs 04/01/25 Rx Last Menstrual Period: 12/01/24 Zika: Zika virus screening: Negative : No PFSH PFSH Medical History Seasonal allergies Albinism PMS (premenstrual syndrome) Family planning counseling Dense breast tissue Splenic laceration IBS (irritable bowel syndrome) Family History Grandmother Hypertension Maternal Thyroid disorder Grandfather Hypertension Maternal Thyroid disorder Maternal- hypothyroidism Mother Thyroid disorder, Onset Age: 15 hyperthyroidism Aunt Thyroid disorder, Onset Age: 40 Maternal- hypothyroidism Social History adopted: No household members: spouse housing: house current occupational status: employed 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, [employer] current occupational exposures/hazards: No pets and animals: Yes history of recent travel: No sexually active: Yes Smoking Status: Never smoker alcohol intake: current alcohol intake frequency: holidays/special occasions only details: not while substance use type: does not use well-balanced diet: daily or most days caffeine: Yes Type: coffee Number of servings: 1 eating out: 1-3 times/week during the past year weight has: remained stable what type of physical activity do you participate in: walking, running and other details: pilates, bar workouts frequency: 3-4 times per week duration: 45-60 minutes/day lynette/moravian: Mosque seatbelt use: always do you feel safe at home: Yes additional social history: - 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 History 1 Elective abortions Hx Para 0 Spontaneous abortions Hx # Term Pregnancies Ectopic pregnancies Hx # Pregnancies Multiple births # of living children HPI 28wk ob/glucose/rhogam Details: CHAPIN CHAUDHARI is a 29 year old who presents for routine OB visit. OB Visit PATSY Calculator Estimated Delivery Date Method Current WG Current Estimate 09/07/25 LMP (Certain) 28w 0d Other Estimates 09/08/25 Ultrasound #1 27w 6d Expected Delivery Route/Plan Labor Preferences- CB/BF classes: yes labor support person: Blaine labor intervention preferences: [] pain management options preferred: cut cord/dad catch: cord : yes PP control planned: discussed discussed possible routes of delivery and associated risks: [] special requests: [] Specific Issue/Plans Covid status: [] Flu vaccine: given Tdap vaccine: 06/15 Rhogam: 06/15 LARC form signed: yes movement and labor precautions reviewed. Problem list reviewed and updated with the most current plan of care details and appropriate orders placed. Relevant counseling for the gestational age provided. Continue routine care and follow up unless otherwise noted in visit notes/problem list details Initial Weight: Not Recorded Date -???-???-???-???-?? ?-???-???-???-???-? ??-???-???- EGA Weight BP Urine Prot -???-???-???-???-?? ?-???-???-???-???-? ??-???-???- Glucose FHR FuHt Pres Dilation -???-???-???-???-?? ?-???-???-???-???-? ??-???-???- Effaced St Visit Note 02/03/25 -???-???-???-???-?? ?-???-???-???-???-? ??-???-???- 9w 1d 170 lb 6 oz 117/75 -???-???-???-???-?? ?-???-???-???-???-? ??-???-???- 165 -???-???-???-???-?? ?-???-???-???-???-? ??-???-???- JV- CRL cons istent with LMP. Did carrier screen already. 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 SHe is jose's sis (L D nurse) 03/05/25 -???-???-???-???-?? ?-???-???-???-???-? ??-???-???- 13w 3d 170 lb 129/78 Negative -???-???-???-???-?? ?-???-???-???-???-? ??-???-???- Negative 153 -???-???-??? (more content not included)... Normal [facility] Platelet countOrdered By: Merrill Stewart on 06-15-2025 Platelets (Bld) [#/Vol] 222 10*3/uL 150-450 [facility] RBC Auto (Bld) [#/Vol]Ordere d By: Lois Stewart on 06-15-2025 RBC (Bld) [#/Vol] 3.88 10*6/uL Low 4.2-5.4 [facility] Syphilis Antibodieson 2024 Syphilis Abs Non-Reactive Normal Nonreactive [facility] Comment on above: Performed By: #### L 7000.1800, #### [facility] [address] [place], [id number] Type AND Screenon 06-15-2025 ABO and Rh group Nom (Bld) Blood group O Rh(D) negative Normal [facility] Comment on above: Order Comment: PN Performed By: #### L 7000.1800, M1 #### [facility] [address] [place], [address] White blood cell (WBC) count Ordered By: Lois Stewart on 06-15-2025 WBC (Bld) [#/Vol] 10.6 10*3/uL 4.4-11.0 [facility] - Chemistry and C hemistry - challengeOrdered By: Lois Stewart on 05-28-2025 Glucose Ql (U) Negative [facility] - UrinalysisOrder ed By: Lois Stewart on 05-28-2025 Protein Ql (U) Negative [facility] [employer] Office Visit Reporton 05-28-2025 [employer] Manager Office Visit Report [facility], [address] [place] [address] OFFICE VISIT Date of Service: 05/28/25 MR#: [id number] Acct: [id number] Name: CHAPIN CHAUDHARI Rep #: [id number] : 1995 Provider: VILMA lubin Age/Sex: 29/F [place] [facility] [place]: Signed Intake Vital Signs 03/05/25 11:01 04/27/25 15:39 05/28/25 08:35 Height 5 ft 7 in 5 ft 7 in 5 ft 7 in Weight: 179 lb 2 oz 185 lb 5 oz BMI 28.0 29.0 BP 122/75 H 128/80 H Intake Visit Reasons: 25 WK OB Explosive Operator Grenade Required: No Is patient in pain?: No Allergies No Known Allergies Allergy (Verified 05/28/25 08:35) Medications ???Medication ???Instructions ???Recorded ???Confirmed ???Type multivit-min no.71-iron fum 28 1 cap PO DAILY 01/16/25 05/28/25 H istory mg-folate no.1 1 mg-dha 300 mg capsule (PNV-[place]) promethazine 12.5 mg tablet 12.5 mg PO Q6H PRN nausea #30 tabs 02/03/25 05/28/25 Rx citalopram 10 mg tablet 10 mg PO QDAY #90 tabs 04/01/25 Rx Last Menstrual Period: 12/01/24 Zika: Zika virus screening: Negative : Yes PFS PFS Medical History Seasonal allergies Albinism PMS (premenstrual syndrome) Family planning counseling Dense breast tissue Splenic laceration IBS (irritable bowel syndrome) Family History Grandmother Hypertension Maternal Thyroid disorder Grandfather Hypertension Maternal Thyroid disorder Maternal- hypothyroidism Mother Thyroid disorder, Onset Age: 15 hyperthyroidism Aunt Thyroid disorder, Onset Age: 40 Maternal- hypothyroidism Social History adopted: No household members: spouse housing: house current occupational status: employed 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, [employer] current occupational exposures/hazards: No pets and animals: Yes history of recent travel: No sexually active: Yes Smoking Status: Never smoker alcohol intake: current alcohol intake frequency: holidays/special occasions only details: not while substance use type: does not use well-balanced diet: daily or most days caffeine: Yes Type: coffee Number of servings: 1 eating out: 1-3 times/week during the past year weight has: remained stable what type of physical activity do you participate in: walking, running and other details: pilates, bar workouts frequency: 3-4 times per week duration: 45-60 minutes/day lynette/moravian: Mosque seatbelt use: always do you feel safe at home: Yes additional social history: - 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 History 1 Elective abortions Hx Para 0 Spontaneous abortions Hx # Term Pregnancies Ectopic pregnancies Hx # Pregnancies Multiple births # of living children HPI 25 WK OB Details: CHAPIN CHAUDHARI is a 29 year old who presents for routine OB visit. OB Visit PATSY Calculator Estimated Delivery Date Method Current WG Current Estimate 09/07/25 LMP (Certain) 25w 3d Other Estimates 09/08/25 Ultrasound #1 25w 2d Expected Delivery Route/Plan Labor Preferences- CB/BF classes: yes labor support person: Blaine labor intervention preferences: [] pain management options preferred: cut cord/dad catch: cord : yes PP control planned: discussed discussed possible routes of delivery and associated risks: [] special requests: [] Specific Issue/Plans Covid status: [] Flu vaccine: given Tdap vaccine: [] Rhogam: [] LARC form signed: yes Problem list reviewed and updated with the most current plan of care details and appropriate orders placed. Relevant counseling for the gestational age provided. Continue routine care and follow up unless otherwise noted in visit notes/problem list details Initial Weight: Not Recorded Date -???-???-???-???-?? ?-???-???-???-???-? ??-???-???- EGA Weight BP Urine Prot -???-???-???-???-?? ?-???-???-???-???-? ??-???-???- Glucose FHR FuHt Pres Dilation -???-???-???-???-?? ?-???-???-???-???-? ??-???-???- Effaced St Visit Note 02/03/25 -???-???-???-???-?? ?-???-???-???-???-? ??-???-???- 9w 1d 170 lb 6 oz 117/75 -???-???-???-???-?? ?-???-???-???-???-? ??-???-???- 165 -???-???-???-???-?? ?-???-???-???-???-? ??-???-???- JV- CRL cons istent with LMP. Did carrier screen already. 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 SHe is jose's sis (L D nurse) 03/05/25 -???-???-???-???-?? ?-???-???-???-???-? ??-???-???- 13w 3d 170 lb 129/78 Negative -???-???-???-???-?? ?-???-???-???-???-? ??-???-???- Negative 153 -???-???-???-???-?? ?-???-???-???-???-? ??-???-???- KW- no vb/cr amp (more content not included)... Normal [facility] - Chemistry and C hemistry - challengeOrdered By: Lois Stewart on 04-27-2025 Glucose Ql (U) Negative [facility] - UrinalysisOrder ed By: Lois Stewart on 04-27-2025 Protein Ql (U) Negative [facility] [employer] Office Visit Reporton 04-27-2025 [employer] Manager Office Visit Report [facility] [address], [address] [place] [address] OFFICE VISIT Date of Service: 04/27/25 MR#: [id number] Acct: [id number] Name: CHAPIN CHAUDHARI Rep #: [id number] : 1995 Provider: VILMA lubin Age/Sex: 29/F [place] [facility] [place]: Signed Intake Vital Signs 02/03/25 10:39 03/31/25 16:07 04/27/25 15:39 Height 5 ft 7 in 5 ft 7 in 5 ft 7 in Weight: 179 lb 2 oz BMI 28.0 BP 122/75 H Intake Visit Reasons: 21wk ob Explosive Operator Grenade Required: No Is patient in pain?: No Allergies No Known Allergies Allergy (Verified 04/27/25 15:44) Medications ???Medication ???Instructions ???Recorded ???Confirmed ???Type multivit-min no.71-iron fum 28 1 cap PO DAILY 01/16/25 04/27/25 H istory mg-folate no.1 1 mg-dha 300 mg capsule (PNV-[place]) promethazine 12.5 mg tablet 12.5 mg PO Q6H PRN nausea #30 tabs 02/03/25 04/27/25 Rx citalopram 10 mg tablet 10 mg PO QDAY #90 tabs 04/01/25 Rx Last Menstrual Period: 12/01/24 Zika: Zika virus screening: Negative : No Have you fallen in the past year?: No PFSH PFSH Medical History Seasonal allergies Albinism PMS (premenstrual syndrome) Family planning counseling Dense breast tissue Splenic laceration IBS (irritable bowel syndrome) Family History Grandmother Hypertension Maternal Thyroid disorder Grandfather Hypertension Maternal Thyroid disorder Maternal- hypothyroidism Mother Thyroid disorder, Onset Age: 15 hyperthyroidism Aunt Thyroid disorder, Onset Age: 40 Maternal- hypothyroidism Social History adopted: No household members: spouse housing: house current occupational status: employed 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, [employer] current occupational exposures/hazards: No pets and animals: Yes history of recent travel: No sexually active: Yes Smoking Status: Never smoker alcohol intake: current alcohol intake frequency: holidays/special occasions only details: not while substance use type: does not use well-balanced diet: daily or most days caffeine: Yes Type: coffee Number of servings: 1 eating out: 1-3 times/week during the past year weight has: remained stable what type of physical activity do you participate in: walking, running and other details: pilates, bar workouts frequency: 3-4 times per week duration: 45-60 minutes/day lynette/moravian: Mosque seatbelt use: always do you feel safe at home: Yes additional social history: - 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 OB Visit PATSY Calculator Estimated Delivery Date Method Current WG Current Estimate 09/07/25 LMP (Certain) 21w 0d Other Estimates 09/08/25 Ultrasound #1 20w 6d Expected Delivery Route/Plan Labor Preferences- CB/BF classes: [] labor support person: [] labor intervention preferences: [] pain management options preferred: [] cut cord/dad catch: [] : [] PP control planned: [] discussed possible routes of delivery and associated risks: [] special requests: [] Specific Issue/Plans Covid status: [] Flu vaccine: [] Tdap vaccine: [] Rhogam: [] LARC form signed: [] Problem list reviewed and updated with the most current plan of care details and appropriate orders placed. Relevant counseling for the gestational age provided. Continue routine care and follow up unless otherwise noted in visit notes/problem list details Initial Weight: Not Recorded Date -???-???-???-???-?? ?-???-???-???-???-? ??-???-???- EGA Weight BP Urine Prot -???-???-???-???-?? ?-???-???-???-???-? ??-???-???- Glucose FHR FuHt Pres Dilation -???-???-???-???-?? ?-???-???-???-???-? ??-???-???- Effaced St Visit Note 02/03/25 -???-???-???-???-?? ?-???-???-???-???-? ??-???-???- 9w 1d 170 lb 6 oz 117/75 -???-???-???-???-?? ?-???-???-???-???-? ??-???-???- 165 -???-???-???-???-?? ?-???-???-???-???-? ??-???-???- JV- CRL cons istent with LMP. Did carrier screen already. 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 SHe is jose's sis (L D nurse) 03/05/25 -???-???-???-???-?? ?-???-???-???-???-? ??-???-???- 13w 3d 170 lb 129/78 Negative -???-???-???-???-?? ?-???-???-???-???-? ??-???-???- Negative 153 -???-???-???-???-?? ?-???-???-???-???-? ??-???-???- KW- no vb/cr amping. answered Rhoga (more content not included)... Normal [facility] - Chemistry and C hemistry - challengeOrdered By: Mamie Dubon on 03-31-2025 Glucose Ql (U) Negative [facility] - UrinalysisOrder ed By: Mamie Dubon on 03-31-2025 Protein Ql (U) Negative [facility] [employer] Office Visit Reporton 03-31-2025 [employer] Manager Office Visit Report [facility] [address], [facility] [address] [place] [address] OFFICE VISIT Date of Service: 03/31/25 MR#: [id number] Acct: [id number] Name: CHAPIN CHAUDHARI Rep #: [id number] : 1995 Provider: Dr. Mamie jaime MD Age/Sex: 29/F [place] [facility] [place]: Signed Intake Vital Signs 02/03/25 10:39 03/05/25 11:01 03/31/25 16:05 03/31/25 16:07 Height 5 ft 7 in 5 ft 7 in 5 ft 7 in 5 ft 7 in Weight: 170 lb 175 lb 5 oz BMI 26.6 27.4 BP 129/78 H 137/75 H Intake Visit Reasons: 17wk ob Explosive Operator Grenade Required: No Is patient in pain?: No Allergies No Known Allergies Allergy (Verified 03/31/25 16:04) Medications ???Medication ???Instructions ???Recorded ???Confirmed ???Type citalopram 10 mg tablet 10 mg PO QDAY #90 tabs 07/02/24 Rx multivit-min no.71-iron fum 28 1 cap PO DAILY 01/16/25 03/31/25 H istory mg-folate no.1 1 mg-dha 300 mg capsule (PNV-[place]) promethazine 12.5 mg tablet 12.5 mg PO Q6H PRN nausea #30 tabs 02/03/25 03/31/25 Rx Last Menstrual Period: 12/01/24 Zika: Zika virus screening: Negative : No PFSH PFSH Medical History (Updated 03/31/25 @ 16:[address] 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, [employer] current occupational exposures/hazards: No pets and animals: Yes history of recent travel: No sexually active: Yes Smoking Status: Never smoker alcohol intake: current alcohol intake frequency: holidays/special occasions only details: not while substance use type: does not use well-balanced diet: daily or most days caffeine: Yes Type: coffee Number of servings: 1 eating out: 1-3 times/week during the past year weight has: remained stable what type of physical activity do you participate in: walking, running and other details: pilates, bar workouts frequency: 3-4 times per week duration: 45-60 minutes/day lynette/moravian: Mosque seatbelt use: always do you feel safe at home: Yes additional social history: - 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 History 1 Elective abortions Hx Para 0 Spontaneous abortions Hx # Term Pregnancies Ectopic pregnancies Hx # Pregnancies Multiple births # of living children HPI 17wk ob Details: CHAPIN CHAUDHARI is a 29 year old who presents for routine OB visit. OB Visit PATSY Calculator Estimated Delivery Date Method Current WG Current Estimate 09/07/25 LMP (Certain) 17w 1d Other Estimates 09/08/25 Ultrasound #1 17w 0d Expected Delivery Route/Plan Labor Preferences- CB/BF classes: [] labor support person: [] labor intervention preferences: [] pain management options preferred: [] cut cord/dad catch: [] : [] PP control planned: [] discussed possible routes of delivery and associated risks: [] special requests: [] Specific Issue/Plans Covid status: [] Flu vaccine: [] Tdap vaccine: [] Rhogam: [] LARC form signed: [] Problem list reviewed and updated with the most current plan of care details and appropriate orders placed. Relevant counseling for the gestational age provided. Continue routine care and follow up unless otherwise noted in visit notes/problem list details Initial Weight: Not Recorded Date -???-???-???-???-?? ?-???-???-???-???-? ??-???-???- EGA Weight BP Urine Prot -???-???-???-???-?? ?-???-???-???-???-? ??-???-???- Glucose FHR FuHt Pres Dilation -???-???-???-???-?? ?-???-???-???-???-? ??-???-???- Effaced St Visit Note 02/03/25 -???-???-???-???-?? ?-???-???-???-???-? ??-???-???- 9w 1d 170 lb 6 oz 117/75 -???-???-???-???-?? ?-???-???-???-???-? ??-???-???- 165 -???-???-???-???-?? ?-???-???-???-???-? ??-???-???- JV- CRL cons istent with LMP. Did carrier screen already. 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 SHe is jose's sis (L D nurse) 03/05/25 -???-???-???-???-?? ?-???-???-???-???-? ??-???-???- 13w 3d 170 lb 129/78 Negative -???-???-???-???-?? ?-???-???-???-???-? ??-???-???- Negative 153 -???-???-???-???-?? ?-???-???-???-???-? ??-???-???- KW- n (more content not included)... Normal [facility] - Chemistry and C hemistry - challengeOrdered By: Tamika Garcia on 03-05-2025 Glucose Ql (U) Negative [facility] - UrinalysisOrder ed By: Tamika Garcia on 03-05-2025 Protein Ql (U) Negative [facility] [employer] Office Visit Reporton 03-05-2025 Marina [employer] Manager Office Visit Report [facility] [address], [address] [place] [address] OFFICE VISIT Date of Service: 03/05/25 MR#: [id number] Acct: [id number] Name: CHAPIN CHAUDHARI Rep #: [id number] : 1995 Provider: CASSANDRA Shukla ams Age/Sex: 29/F [place] [facility] [place] Status: Signed Intake Vital Signs 10/17/24 08:15 02/03/25 10:39 03/05/25 11:01 Height 5 ft 7 in 5 ft 7 in 5 ft 7 in Weight: 170 lb BMI 26.6 BP 129/78 H Intake Visit Reasons: 13wk ob Chief Complaint: 13wk OB Explosive Operator Grenade Required: No Is patient in pain?: No Allergies No Known Allergies Allergy (Verified 03/05/25 10:59) Medications ???Medication ???Instructions ???Recorded ???Confirmed ???Type citalopram 10 mg tablet 10 mg PO QDAY #90 tabs 07/02/24 Rx multivit-min no.71-iron fum 28 1 cap PO DAILY 01/16/25 03/05/25 H istory mg-folate no.1 1 mg-dha 300 mg capsule (PNV-[place]) promethazine 12.5 mg tablet 12.5 mg PO Q6H PRN nausea #30 tabs 02/03/25 03/05/25 Rx Last Menstrual Period: 12/01/24 : No PFSH PFSH Medical History Seasonal allergies Albinism PMS (premenstrual syndrome) Family planning counseling Dense breast tissue Splenic laceration IBS (irritable bowel syndrome) Family History Grandmother Hypertension Maternal Thyroid disorder Grandfather Hypertension Maternal Thyroid disorder Maternal- hypothyroidism Mother Thyroid disorder, Onset Age: 15 hyperthyroidism Aunt Thyroid disorder, Onset Age: 40 Maternal- hypothyroidism Social History adopted: No household members: spouse housing: house current occupational status: employed 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, [employer] current occupational exposures/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: No pets and animals: Yes history of recent travel: No sexually active: Yes Smoking Status: Never smoker alcohol intake: current alcohol intake frequency: holidays/special occasions only details: not while substance use type: does not use well-balanced diet: daily or most days caffeine: Yes Type: coffee Number of servings: 1 eating out: 1-3 times/week during the past year weight has: remained stable what type of physical activity do you participate in: walking, running and other details: pilates, bar workouts frequency: 3-4 times per week duration: 45-60 minutes/day lynette/moravian: Mosque seatbelt use: always do you feel safe at home: Yes additional social history: - 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 OB Visit PATSY Calculator Estimated Delivery Date Method Current WG Current Estimate 09/07/25 LMP (Certain) 13w 3d Other Estimates 09/08/25 Ultrasound #1 13w 2d Expected Delivery Route/Plan Labor Preferences- CB/BF classes: [] labor support person: [] labor intervention preferences: [] pain management options preferred: [] cut cord/dad catch: [] : [] PP control planned: [] discussed possible routes of delivery and associated risks: [] special requests: [] Specific Issue/Plans Covid status: [] Flu vaccine: [] Tdap vaccine: [] Rhogam: [] LARC form signed: [] Problem list reviewed and updated with the most current plan of care details and appropriate orders placed. Relevant counseling for the gestational age provided. Continue routine care and follow up unless otherwise noted in visit notes/problem list details Initial Weight: Not Recorded Date -???-???-???-???-?? ?-???-???-???-???-? ??-???-???- EGA Weight BP Urine Prot -???-???-???-???-?? ?-???-???-???-???-? ??-???-???- Glucose FHR FuHt Pres Dilation -???-???-???-???-?? ?-???-???-???-???-? ??-???-???- Effaced St Visit Note 02/03/25 -???-???-???-???-?? ?-???-???-???-???-? ??-???-???- 9w 1d 170 lb 6 oz 117/75 -???-???-???-???-?? ?-???-???-???-???-? ??-???-???- 165 -???-???-???-???-?? ?-???-???-???-???-? ??-???-???- JV- CRL cons istent with LMP. Did carrier screen already. 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 SHe is jose's sis (L D nurse) 03/05/25 -???-???-???-???-?? ?-???-???-???-???-? ??-???-???- 13w 3d 170 lb 129/78 Negative -???-???-???-???-?? ?-???-???-???-???-? ??-???-???- Negative 153 -???-???-???-???-?? ?-???-???-???-???-? ??-???-???- KW- no vb/cr amping. answered Rhogam questions. ACOG First Trimester First Trimester (more content not included)... Normal [facility] Absolute lymphocyte countOrd ered By: Lidya See on 02-18-2025 Lymphocytes Auto (Unsp spec) [#/Vol] 1.17 10*3/uL 0.83-4.51 [facility] Absolute neutrophil countOrd ered By: Lidya See on 02-18-2025 Neutrophils (Bld) [#/Vol] 5.1 10*3/uL 2.0-7.7 [facility] Automated lymphocyte count a s percentage of total leukocytesOrdered By: Lidya See on 02-18-2025 Lymphocytes/100 WBC Auto (Unsp spec) 17.5 % Low 19-41 [facility] Basophil percentageOrdered B y: Lidya See on 02-18-2025 Basophils/100 WBC (Bld) 0.3 % 0-1 [facility] CBC W/Diff, Automatedon 02-03 Absolute Lymph 1.17 X10 3/uL Normal 0.83-4.51 [facility] Comment on above: Performed By: #### L 3890.6006, BTS, L3890.6301, L3890.6102, L509.4006, L100.0100, L900.0098, L509.8002 #### [facility] [address] [place], [address] Absolute Neut 5.1 X10 3/uL Normal 2.0-7.7 [facility] Comment on above: Performed By: #### L 3890.6006, BTS, L3890.6301, L3890.6102, L509.4006, L100.0100, L900.0098, L509.8002 #### [facility] [address] [place], [address] Basophils/100 WBC (Bld) 0.3 % Normal 0-1 [facility] Comment on above: Performed By: #### L 3890.6006, BTS, L3890.6301, L3890.6102, L509.4006, L100.0100, L900.0098, L509.8002 #### [facility] [address] [place], [address] Eosinophils/100 WBC (Bld) 0.4 % Normal 0-5 [facility] Comment on above: Performed By: #### L 3890.6006, BTS, L3890.6301, L3890.6102, L509.4006, L100.0100, L900.0098, L509.8002 #### [facility] [address] [place], [address] Erythrocyte distribution width (RBC) [Ratio] 12.2 % Normal 11.6-14.6 [facility] Comment on above: Performed By: #### L 3890.6006, BTS, L3890.6301, L3890.6102, L509.4006, L100.0100, L900.0098, L509.8002 #### [facility] [address] [place], [address] Hematocrit (Bld) [Volume fraction] 38.3 % Normal 37-47 [facility] Comment on above: Performed By: #### L 3890.6006, BTS, L3890.6301, L3890.6102, L509.4006, L100.0100, L900.0098, L509.8002 #### [facility] [address] [place], [address] Hemoglobin (Bld) [Mass/Vol] 13.4 g/dL Normal 12.0-15.0 [facility] Comment on above: Performed By: #### L 3890.6006, BTS, L3890.6301, L3890.6102, L509.4006, L100.0100, L900.0098, L509.8002 #### [facility] [address] [facility] [place], [address] IG% 0.100 Normal 0.0-0.9 [facility] Comment on above: Result Comment: IG% - Immature Granulocytes (promyelocytes, myelocytes and metamyelocytes) > 1% indicates that a LEFT SHIFT is Present. Performed By: #### L 3890.6006, BTS, L3890.6301, L3890.6102, L509.4006, L100.0100, L900.0098, L509.8002 #### [facility] [address] [place], [address] Lymphocytes/100 WBC (Bld) 17.5 % Low 19-41 [facility] Comment on above: Performed By: #### L 3890.6006, BTS, L3890.6301, L3890.6102, L509.4006, L100.0100, L900.0098, L509.8002 #### [facility] [address] [place], [address] MCH (RBC) [Entitic mass] 31.2 pg Normal 27.0-32.0 [facility] Comment on above: Performed By: #### L 3890.6006, BTS, L3890.6301, L3890.6102, L509.4006, L100.0100, L900.0098, L509.8002 #### [facility] [address] [place], [address] MCHC (RBC) [Mass/Vol] 35.0 g/dL Normal 32-36 [facility] Comment on above: Performed By: #### L 3890.6006, BTS, L3890.6301, L3890.6102, L509.4006, L100.0100, L900.0098, L509.8002 #### [facility] [address] [place], [address] MCV (RBC) [Entitic vol] 89.1 fL Normal 81-99 [facility] Comment on above: Performed By: #### L 3890.6006, BTS, L3890.6301, L3890.6102, L509.4006, L100.0100, L900.0098, L509.8002 #### [facility] [address] [place], [address] Monocytes/100 WBC (Bld) 6.0 % Normal 0-10 [facility] Comment on above: Performed By: #### L 3890.6006, BTS, L3890.6301, L3890.6102, L509.4006, L100.0100, L900.0098, L509.8002 #### [facility] [address] [place], [address] Neutrophils/100 WBC (Bld) 75.7 % High 47-70 [facility] Comment on above: Performed By: #### L 3890.6006, BTS, L3890.6301, L3890.6102, L509.4006, L100.0100, L900.0098, L509.8002 #### [facility] [address] [place], [address] Nucleated RBC (Bld) [#/Vol] 0 10*3/uL Normal 0-5 [facility] Comment on above: Performed By: #### L 3890.6006, BTS, L3890.6301, L3890.6102, L509.4006, L100.0100, L900.0098, L509.8002 #### [facility] [address] [place], [address] Platelet mean volume (Bld) [Entitic vol] 12.3 fL High 6.2-12.0 [facility] Comment on above: Performed By: #### L 3890.6006, BTS, L3890.6301, L3890.6102, L509.4006, L100.0100, L900.0098, L509.8002 #### [facility] [address] [place], [address] Platelets (Bld) [#/Vol] 233 10*3/uL Normal 150-450 [facility] Comment on above: Performed By: #### L 3890.6006, BTS, L3890.6301, L3890.6102, L509.4006, L100.0100, L900.0098, L509.8002 #### [facility] [address] [place], [address] RBC (Bld) [#/Vol] 4.30 10*6/uL Normal 4.2-5.4 [facility] Comment on above: Performed By: #### L 3890.6006, BTS, L3890.6301, L3890.6102, L509.4006, L100.0100, L900.0098, L509.8002 #### [facility] [address] [place], [address] RDW SD 39.5 fl Normal 35.1-43.9 [facility] Comment on above: Performed By: #### L 3890.6006, BTS, L3890.6301, L3890.6102, L509.4006, L100.0100, L900.0098, L509.8002 #### [facility] [address] [place], [address] WBC (Bld) [#/Vol] 6.7 10*3/uL Normal 4.4-11.[address] [facility] Comment on above: Performed By: #### L 3890.6006, BTS, L3890.6301, L3890.6102, L509.4006, L100.0100, L900.0098, L509.8002 #### [facility] [address] [place], [address] Eosinophil percentageOrdered By: Lidya See on 02-18-2025 Eosinophils/100 WBC (Bld) 0.4 % 0-5 [facility] Erythrocyte distribution wid th ratioOrdered By: Lidya See on 02-18-2025 Erythrocyte distribution width (RBC) [Ratio] 12.2 % 11.6-14.6 [facility] Erythrocyte distribution wid th standard deviationOrdered By: Lidya See on 02-18-2025 Erythrocyte distribution width (RBC) [Ratio] 39.5 fl 35.1-43.9 [facility] HIVon 02-18-2025 HIV Non-Reactive Normal Nonreactive [facility] Comment on above: Result Comment: Non- Reactive Reactive Repeatedly reactive samples must be confirmed according to CDC recommended confirmatory algorithms. The subresults for either HIVAG or AHIV can be used as an aid in the selection of the confirmation algorithm for reactive samples. Send out specimens with Reactive results to [facility] for confirmation. Order the HIV antibody detection and differentiation: lc#[id number] Performed By: #### L 3890.6006, BTS, L3890.6301, L3890.6102, L509.4006, L100.0100, L900.0098, L509.8002 #### [facility] [address] [place], [place], [address] Hematocrit Auto (Bld) [Volum e fraction]Ordered By: Lidya See on 02-18-2025 Hematocrit (Bld) [Volume fraction] 38.3 % 37-47 [facility] Hemoglobin measurementOrdere d By: Lidya See on 02-18-2025 Hemoglobin (Bld) [Mass/Vol] 13.4 g/dL 12.0-15.0 [facility] Hepatitis C Antibodyon 02-18 Hepatitis C Ab Non-Reactive Normal Nonreactive [facility] Comment on above: Result Comment: Reac tive: Presumptive evidence of antibodies to HCV. Follow CDC recommendations for supplemental testing. Non-Reactive: Antibodies to HCV were not detected; does not exclude the possibility of exposure to HCV Reactive Results are presumptive evidence of antibodies to HCV. Follow CDC recommendations for supplemental testing. Order confirmation testing: HCV Quant by PCR testing - HCVPCR #[id number] Non Reactive: < 0.8 Equivocal: >/= 0.8 to < 1.0 Reactive: >/= 1.0 The CDC requires that a reactive/equivocal HCV antibody result be sent out for confirmation. HCV Quant by PCR testing. Performed By: #### L 3890.6006, BTS, L3890.6301, L3890.6102, L509.4006, L100.0100, L900.0098, L509.8002 #### [facility] [address] [place], [place], [id number] (027) Immature granulocytes/100 WB C Auto (Bld)Ordered By: Lidya See on 02-18-2025 Immature granulocytes/100 WBC (Bld) 0.100 % 0.0-0.9 [facility] Comment on above: IG% - Immature Granu locytes (promyelocytes, myelocytes and metamyelocytes) > 1% indicates that a LEFT SHIFT is Present. L3890.6102on 02-18-2025 HEP B Surf Ag Non-Reactive Normal Nonreactive [facility] Comment on above: Result Comment: Reac tive: Presumptive evidence of HBV. Repeatedly reactive samples must be confirmed using a neutralization test ([employer] HBsAg Confirmatory Test) Non-Reactive: HBsAg not detected; does not exclude the possibility of exposure to HBV Performed By: #### L 3890.6006, BTS, L3890.6301, L3890.6102, L509.4006, L100.0100, L900.0098, L509.8002 #### [facility] [address] [facility] [place], [place], [address] L509.4006on 02-18-2025 Rubella IgG REAC Normal Nonreactive [facility] Comment on above: Result Comment: Anti body Result: Interpretation Non-Reactive: Non-Immune Reactive: Immune The following results were obtained with the [employer] Rubella IgG assay. Results from assays of other manufacturers cannot be used interchangeably. Performed By: #### L 3890.6006, BTS, L3890.6301, L3890.6102, L509.4006, L100.0100, L900.0098, L509.8002 #### [facility] [address] [facility] [place], [place], [id number] Laboratory - Microbiology an d Antimicrobial susceptibilityOrdered By: Lidya See on 02-18-2025 HBV surface Ag Ql (S) Non-Reactive Nonreactive [facility] Comment on above: Reactive: Presumptiv e evidence of HBV. Repeatedly reactive samples must be confirmed using a neutralization test ([employer] HBsAg Confirmatory Test)Non-Reactive: HBsAg not detected; does not exclude the possibility of exposure to HBV MCV (mean corpuscular volume ) determinationOrdered By: Lidya See on 02-18-2025 MCV (RBC) [Entitic vol] 89.1 fL 81-99 [facility] Mean corpuscular hemoglobin (MCH) determinationOrdered By: Lidya See on 02-18-2025 MCH (RBC) [Entitic mass] 31.2 pg 27.0-32.0 [facility] Mean corpuscular hemoglobin concentration (MCHC) determinationOrdered By: Lidya See on 02-18-2025 MCHC (RBC) [Mass/Vol] 35.0 g/dL 32-36 [facility] Mean platelet volume determi nationOrdered By: Lidya See on 02-18-2025 Platelet mean volume (Bld) [Entitic vol] 12.3 fL High 6.2-12.0 [facility] Monocyte percentageOrdered B y: Lidya See on 02-18-2025 Monocytes/100 WBC (Bld) 6.0 % 0-10 [facility] NATERAon 02-18-2025 NATURA SEE SCANNED REPORT Normal [facility] Comment on above: Performed By: #### L 3890.6006, BTS, L3890.6301, L3890.6102, L509.4006, L100.0100, L900.0098, L509.8002 #### [facility] [place], [address] Neutrophil percentageOrdered By: Lidya See on 02-18-2025 Neutrophils/100 WBC (Bld) 75.7 % High 47-70 [facility] No Panel InformationOrdered By: Lidya See on 02-18-2025 HIV (1&2) Antibody Non-Reactive Nonreactive [facility] Comment on above: Non-ReactiveReactive Repeatedly reactive samples must be confirmed according to CDC recommended confirmatory algorithms. The subresults for either HIVAG or AHIV can be used as an aid in the selection of the confirmation algorithm for reactive samples.Send out specimens with Reactive results to [facility] for confirmation.Order the HIV antibody detection and differentiation: #[id number] Nucleated red blood cell per centageOrdered By: Lidya See on 02-18-2025 Nucleated RBC/100 WBC (Bld) [Ratio] 0 % 0-5 [facility] Platelet countOrdered By: Darrin See on 02-18-2025 Platelets (Bld) [#/Vol] 233 10*3/uL 150-450 [facility] RBC Auto (Bld) [#/Vol]Ordere d By: Lidya Esa on 02-18-2025 RBC (Bld) [#/Vol] 4.30 10*6/uL 4.2-5.4 [facility] Syphilis Antibodieson 2024 Syphilis Abs Non-Reactive Normal Nonreactive [facility] Comment on above: Performed By: #### L 3890.6006, BTS, L3890.6301, L3890.6102, L509.4006, L100.0100, L900.0098, L509.8002 #### [facility] [address] [place], [address] Type AND Screenon 02-18-2025 ABO and Rh group Nom (Bld) Blood group O Rh(D) negative Normal [facility] Comment on above: Order Comment: PN Performed By: #### L 7000.1800, #### [facility] [address] [place], [address] White blood cell (WBC) count Ordered By: Lidya Esa on 02-18-2025 WBC (Bld) [#/Vol] 6.7 10*3/uL 4.4-11.[address] [facility] Chlamydia/GC PATRICIA aptimaon CHLAMY,NUC ACID Negative Normal Negative [facility] Comment on above: Performed By: #### L 7000.1800, #### [facility] [address] [place], [address] GC BY NUC ACID Negative Normal Negative [facility] Comment on above: Result Comment: Perf ormed at: =G - [facility] [address] [id number] Retail Support Associate: Mali Ferrari MD, Phone: [phone] Performed By: #### L 7000.1800, M1.2200 #### [facility] [address] [place], [place], [address] Urine Cultureon 02-06-2025 URC Mixed Gram Pos Gram Neg Org [place] Count 11,000-25,000 MIXC Mixed contaminants. Submit a new specimen if indicated. Normal [facility] Comment on above: Performed By: #### L 7000.1800, M100.2200 #### [facility] [address] [place], [place], [address] Chlamydia trachomatis rRNA d etection by probe and target amplification methodOrdered By: Lidya See on 02-03-2025 C. trachomatis rRNA PATRICIA+probe Ql (Unsp spec) Negative Negative [facility] Neisseria gonorrhoeae nuclei c acid detection by amplified probe techniqueOrdered By: Lidya See on 02-03-2025 N. gonorrhoeae DNA PATRICIA+probe Ql (Unsp spec) Negative Negative [facility] Comment on above: Performed at: [address] [id number] Director: Mali Ferrari MD, Phone: [phone] [employer] Office Visit Reporton 02-03-2025 [employer] Office Visit Report [facility] [address], [address] [place] [address] OFFICE VISIT Date of Service: 02/03/25 MR#: [id number] Acct: [id number] Name: CHAPIN CHAUDHARI Rep #: [id number] : 1995 Provider: Dr. Lidya Hernandez, Age/Sex: 29/F [place] [facility] [place]: [place]igned Intake Vital Signs 10/17/24 08:15 01/16/25 23:19 02/03/25 10:37 02/03/25 10:39 Height 5 ft 7 in 5 ft 7 in 5 ft 7 in 5 ft 7 in Weight: 170 lb 6 oz BMI 26.6 BP 117/75 Intake Visit Reasons: *est* NOB LMP 12/01 Explosive Operator Grenade Required: No Is patient in pain?: No Allergies No Known Allergies Allergy (Verified 02/03/25 10:37) Medications ???Medication ???Instructions ???Recorded ???Confirmed ???Type citalopram 10 mg tablet 10 mg PO QDAY #90 tabs 07/02/24 Rx multivit-min no.71-iron fum 28 1 cap PO DAILY 01/16/25 02/03/25 H istory mg-folate no.1 1 mg-dha 300 mg capsule (PNV-[place]) promethazine 12.5 mg tablet 12.5 mg PO Q6H PRN nausea #30 tabs 02/03/25 02/03/25 Rx Last Menstrual Period: 12/01/24 Zika: Zika virus screening: Negative : No PFSH PFSH Medical History Seasonal allergies Albinism PMS (premenstrual syndrome) Family planning counseling Dense breast tissue Splenic laceration IBS (irritable bowel syndrome) Family History Grandmother Hypertension Maternal Thyroid disorder Grandfather Hypertension Maternal Thyroid disorder Maternal- hypothyroidism Mother Thyroid disorder, Onset Age: 15 hyperthyroidism Aunt Thyroid disorder, Onset Age: 40 Maternal- hypothyroidism Social History adopted: No household members: spouse housing: house current occupational status: employed 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, [employer] current occupational exposures/hazards: No pets and animals: Yes history of recent travel: No sexually active: Yes Smoking Status: Never smoker alcohol intake: current alcohol intake frequency: holidays/special occasions only details: not while substance use type: does not use well-balanced diet: daily or most days caffeine: Yes Type: coffee Number of servings: 1 eating out: 1-3 times/week during the past year weight has: remained stable what type of physical activity do you participate in: walking, running and other details: pilates, bar workouts frequency: 3-4 times per week duration: 45-60 minutes/day lynette/moravian: Mosque seatbelt use: always do you feel safe at home: Yes additional social history: - Blainerula 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 OB Visit PATSY Calculator Estimated Delivery Date Method Current WG Current Estimate 09/07/25 LMP (Certain) 9w 1d Other Estimates 09/08/25 Ultrasound #1 9w 0d Comments: HIV: Urine Culture: Sequential Screen: NIPT Screen: Estimated Due Date: 09/01/25 Expected Delivery Route/Plan Labor Preferences- CB/BF classes: [] labor support person: [] labor intervention preferences: [] pain management options preferred: [] cut cord/dad catch: [] : [] PP control planned: [] discussed possible routes of delivery and associated risks: [] special requests: [] Specific Issue/Plans Covid status: [] Flu vaccine: [] Tdap vaccine: [] Rhogam: [] LARC form signed: [] Problem list reviewed and updated with the most current plan of care details and appropriate orders placed. Relevant counseling for the gestational age provided. Continue routine care and follow up unless otherwise noted in visit notes/problem list details Initial Weight: Not Recorded Date -???-???-???-???-?? ?-???-???-???-???-? ??-???-???- EGA Weight BP Urine Prot -???-???-???-???-?? ?-???-???-???-???-? ??-???-???- Glucose FHR FuHt Pres Dilation -???-???-???-???-?? ?-???-???-???-???-? ??-???-???- Effaced St Visit Note 02/03/25 -???-???-???-???-?? ?-???-???-???-???-? ??-???-???- 9w 1d 170 lb 6 oz 117/75 -???-???-???-???-?? ?-???-???-???-???-? ??-???-???- 165 -???-???-???-???-?? ?-???-???-???-???-? ??-???-???- JV- CRL cons istent with LMP. Did carrier screen already. 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 SHe is jose's sis (L D nurse) Menstrual History Last Menstrual Period: 12/01/24 Reported LMP: definite Normal amount/duration: Yes Frequency in (more content not included)... Normal [facility] Urine cultureOrdered By: Margaret See on 02-03-2025 Bacteria identified Cx Nom (U) Mixed Gram Pos & Gram Neg Org Abnormal [facility] Urinalysis, Completeon 01-17 BACTERIA RARE Normal None Seen [facility] Comment on above: Order Comment: ALFONSO CTOR TO SPECIFY Performed By: #### L 400.0001 #### [facility] [address] [place], [address] EPI,SQUAMOUS 5-10 SEEN Normal 5-10 [facility] Comment on above: Order Comment: ALFONSO CTOR TO SPECIFY Performed By: #### L 400.0001 #### [facility] [address] [place], [address] KETONE UR Negative Normal Negative [facility] Comment on above: Order Comment: ALFONSO CTOR TO SPECIFY Performed By: #### L 400.0001 #### [facility] [address] [place], [address] LEUK ESTERASE Negative Normal Negative [facility] Comment on above: Order Comment: ALFONSO CTOR TO SPECIFY Performed By: #### L 400.0001 #### [facility] [address] [place], [address] Mucus Ql (Urine sed) RARE Normal [facility] Comment on above: Order Comment: ALFONSO CTOR TO SPECIFY Performed By: #### L 400.0001 #### [facility] [address] [place], [address] Nitrite Ql (U) Negative Normal Negative [facility] Comment on above: Order Comment: COLLE CTOR TO SPECIFY Performed By: #### L 400.0001 #### [facility] [address] [place], [address] OCCULT BLOOD-UR Negative Normal Negative [facility] Comment on above: Order Comment: COLLE CTOR TO SPECIFY Performed By: #### L 400.0001 #### [facility] [address] [place], [address] pH UR 6.5 Normal 5.0 - 8.0 [facility] Comment on above: Order Comment: COLLE CTOR TO SPECIFY Performed By: #### L 400.0001 #### [facility] [address] [place], [address] PROT DIPSTX Negative Normal Negative [facility] Comment on above: Order Comment: ALFONSO CTOR TO SPECIFY Performed By: #### L 400.0001 #### [facility] [address] [place], [address] SP.GR. DIPSTX 1.010 Normal 1.002-1.030 [facility] Comment on above: Order Comment: ALFONSO CTOR TO SPECIFY Performed By: #### L 400.0001 #### [facility] [address] [place], [address] UROBILI Normal Normal Normal [facility] Comment on above: Order Comment: COLLE CTOR TO SPECIFY Performed By: #### L 400.0001 #### [facility] [address] [place], [address] BILIRUBIN URINE Negative Normal Negative [facility] Comment on above: Order Comment: COLLE CTOR TO SPECIFY Performed By: #### L 400.0001 #### [facility] [address] [place], [address] Clarity (U) Clear Normal Clear [facility] Comment on above: Order Comment: ALFONSO CTOR TO SPECIFY Performed By: #### L 400.0001 #### [facility] [address], [address] Color (U) Yellow Normal Yellow [facility] Comment on above: Order Comment: ALFONSO CTOR TO SPECIFY Performed By: #### L 400.0001 #### [facility] [address] [place], [address] GLUCOSE, UR Normal Normal Normal [facility] Comment on above: Order Comment: ALFONSO CTOR TO SPECIFY Performed By: #### L 400.0001 #### [facility] [address], [address] RBC 0 SEEN Normal 0-5 [facility] Comment on above: Order Comment: ALFONSO CTOR TO SPECIFY Performed By: #### L 400.0001 #### [facility] [address] [place], [address] WBC 0 SEEN Normal 0-5 [facility] Comment on above: Order Comment: ALFONSO CTOR TO SPECIFY Performed By: #### L 400.0001 #### [facility] [address], [address] hCG Titer Quant., Serumon HCG QUANT. 21559 mIU/mL High <9 non-preg [facility] Comment on above: Order Comment: [id number] Result Comment: Gest ational Age 0.2-1 Week: 5-50 mIU/mL 1-2 Weeks: 50-500 mIU/mL 2-3 Weeks: 100-5000 mIU/mL 3-4 Weeks: 500-10,000 mIU/mL 4-5 Weeks:1000-50,000 mIU/mL 5-6 Weeks: 10,000-100,000 mIU/mL 6-8 Weeks: 15,000-200,000 mIU/mL 2-3 Months:10,000-100,000 mIU/mL Performed By: #### L 7000.1800, M100.2200 #### [facility] [address] [place], [address] Bilirubin Test strip Ql (U)O rdered By: Clarence Viveros on 01-16-2025 Bilirubin Ql (U) Negative Negative [facility] Emergency Department Summary on 01-16-2025 Emergency Department Summary [facility] Medical Records Department [address] [place] [address] Emergency Department Summary 01/16/25 MR#: [id number] Acct: [id number] Name: CHAPIN CHAUDHARI Rep #: [id number] : 1995 29 From: Clarence Viveros MD PCP: Care Physician,No Primary Status:REG ER Location: ED HPI HPI - GI History of Present Illness Chief Complaint: Abd Pain Informant: patient and friend Narrative Narrative: 29-year-old female is about 6 weeks , , last normal menstrual cycle started 12/01/2024, she states she bent over tonight and had a very sharp severe brief pain left abdomen, followed by suprapubic cramping that she felt in her low back that felt like uterine cramping, it became quite severe, and then slowly improved to the point now where she feels only mild discomfort. She has been having some of his cramping off and on for weeks, but never like this. No urinary issues. No vaginal bleeding or discharge. No syncope or near syncope, or vomiting. [facility] Medical History Seasonal allergies Albinism PMS (premenstrual syndrome) Family planning counseling Dense breast tissue Splenic laceration IBS (irritable bowel syndrome) Home Medications ???Medication ???Instructions ???Recorded ???Last Taken ???Type citalopram 10 mg tablet 10 mg PO QDAY #90 tabs 07/02/24 Un known Rx multivit-min no.71-iron fum 28 1 cap PO DAILY 01/16/25 Unknown Hi story mg-folate no.1 1 mg-dha 300 mg capsule (PNV-[place]) Allergy/AdvReac Type Severity Reaction Status Date / Time No Known Allergies Allergy Verified 01/16/25 23:19 Family History Grandmother Hypertension Maternal Thyroid disorder Grandfather Hypertension Maternal Thyroid disorder Maternal- hypothyroidism Mother Thyroid disorder, Onset Age: 15 hyperthyroidism Aunt Thyroid disorder, Onset Age: 40 Maternal- hypothyroidism Social History adopted: No household members: spouse housing: house current occupational status: employed 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, [employer] [facility] [employer] [facility] current occupational exposures/hazards: No pets and animals: Yes history of recent travel: No sexually active: Yes Smoking Status: Never smoker alcohol intake: current alcohol intake frequency: holidays/special occasions only details: not while substance use type: does not use well-balanced diet: daily or most days caffeine: Yes Type: coffee Number of servings: 1 eating out: 1-3 times/week during the past year weight has: remained stable what type of physical activity do you participate in: walking, running and other details: pilates, bar workouts frequency: 3-4 times per week duration: 45-60 minutes/day lynette/moravian: Mosque seatbelt use: always do you feel safe at home: Yes 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 ROS ROS ED Constitutional Constitutional ED: Denies chills or fever(s) Eyes Eyes: Denies change in vision or diplopia ENT ENT ED: Denies rhinorrhea or sore throat Cardiovascular Cardiovascular: Denies chest pain or palpitations Respiratory/Chest Respiratory/Chest: Denies cough or dyspnea Gastrointestinal Gastrointestinal: Reports abdominal pain; Denies diarrhea, nausea or vomiting Genitourinary Genitourinary ED: Reports LMP (females 10-50) Details: Comment: (12/01/24); Denies dysuria, hematuria, vaginal bleeding or vaginal discharge Musculoskeletal Musculoskeletal: Denies back pain or neck pain Integumentary Denies abscess or rash Neurologic Neurologic: Denies headache(s), paresthesias or weakness Psychiatric Psychiatric: Denies anxiety or suicidal thoughts EXAM Physical Exam Const Vital Signs: 01/16/25 23:19 01/17/25 01:19 Temperature 98.2 F Temperature Source Temporal Pulse Rate 79 82 Respiratory Rate 16 16 Blood Pressure 140/66 H 131/73 H Blood Pressure Mean 90 92 Pulse Ox 100 100 Oxygen Delivery Method Room Air Room Air Positive well nourished and well developed General Appearance ED: well developed and NAD HEENT Reports moist mucous membranes normocephalic and atraumatic Eyes PERRL and EOMs intact bilaterally Neck full ROM and supple Resp normal respiratory effort and clear to auscultation bilaterally Cardio regular rate, regular rhythm and no murmurs GI non-tender and non-distended Auscultation: normoactive bowel sounds Palpation: soft Speculum Exam - Vagina: Negative for vaginal bleeding or vaginal discharge Back/Spine no CVA tenderness General Back: other FROM Extremity normal to inspection General Extremety ED: Negative for edema, pulses abnormal or tenderness Genera (more content not included)... Normal [facility] Ketones Test strip Ql (U)Ord ered By: Clarence Viveros on 01-16-2025 Ketones Ql (U) Negative Negative [facility] Microscopic analysis of urin e for red blood cells (RBC)Ordered By: Clarence Viveros on 01-16-2025 Microscopic analysis of urine for red blood cells (RBC) 0 SEEN /hpf 0-5 [facility] Mucus LM Ql (Urine sed)Order ed By: Clarence Viveros on 01-16-2025 Mucus Ql (Urine sed) RARE /hpf [facility] Nitrite Test strip Ql (U)Ord ered By: Clarence Viveros on 01-16-2025 Nitrite Ql (U) Negative Negative [facility] Protein Test strip Ql (U)Ord ered By: Clarence Viveros on 01-16-2025 Protein Ql (U) Negative Negative [facility] Serum human chorionic gonado tropin detection for pregnancyOrdered By: Clarence Viveros on 01-16-2025 HCG ( test) [place] [address] mIU/mL High <9 [facility] Comment on above: Gestational Age0.2-1 Week: 5-50 mIU/mL1-2 Weeks: 50-500 mIU/mL2-3 Weeks: 100-5000 mIU/mL3-4 Weeks: 500-10,000 mIU/mL4-5 Weeks:1000-50,000 mIU/mL5-6 Weeks: 10,000-100,000 mIU/mL6-8 Weeks: 15,000-200,000 mIU/mL2-3 Months:10,000-100,000 mIU/mL Squamous epithelial cells de tection in urine sediment by light microscopyOrdered By: Clarence Viveros on 01-16-2025 Epithelial cells.squamous LM Ql (Urine sed) 5-10 SEEN /hpf 5-10 [facility] Transvaginal w/Preg USon Transvaginal w/Preg US [facility] Imaging Services [address] [place] [address] Transvaginal w/Preg US MR#: [id number] Acct: [id number] Name: CHAPIN CHAUDHARI Rep #: [id number] : 1995 F 29 From: Hayden trujilol MD PCP: Care Physician,No Primary Status: REG ER Study: Transvaginal w/Preg US Date of Exam: 01/16/25 Exam# [id number] Ordering Dr: Clarence Viveros MD PROCEDURE: TRANSVAGINAL W/PREG US 01/17/2025 REASON FOR EXAM: SEVERE PELVIC PAIN TECHNIQUE: High resolution obstetric ultrasound performed using a 2D transducer. Standard views obtained, including biometry, anatomy survey, and Doppler studies. Transvaginal real-time ultrasound images. COMPARISON: None. FINDINGS Single, live intrauterine gestation. Mean gestational sac diameter 16 mm, 6 weeks and 3 days. The yolk sac measures 2 mm. The crown-rump length measures 5 mm, 6 weeks and 2 days. heart rate 117 beats per minute. Estimated gestational age based on today's ultrasound is 6 weeks and 3 days. Estimated delivery date on 09/09/2024. The uterus measures 8.8 x 5.6 x 3.7 cm. The cervix is closed. Nonvisualization of the right ovary secondary to overlying bowel gas. The left ovary measures 3.8 x 2.3 x 2.6 cm. Left ovarian corpus luteum cyst is noted measuring 2.5 x 2.4 x 1.8 cm. Normal bilateral ovarian flow without evidence of ovarian torsion. No free fluid in the pelvic cul-de-sac. US/Transvaginal w/Preg US IMPRESSION: Single, live intrauterine gestation. No abnormality is noted. Reading Location: [place] [address] CC: Dr. Clarence Viveros MD; No Primary Care Physician Instrumentation Fitter: Signed Normal [facility] Urine clarityOrdered By: Davin Viveros on 01-16-2025 Clarity (U) Clear Clear [facility] Urine color determinationOrd ered By: Clarence Viveros on 01-16-2025 Color (U) Yellow Yellow [facility] Urine glucose detectionOrder ed By: Clarence Viveros on 01-16-2025 Glucose Ql (U) Normal mg/dl Normal [facility] Urine leukocyte esterase det ection by dipstickOrdered By: Clarence Viveros on 01-16-2025 Leukocyte esterase Test strip Ql (U) Negative Negative [facility] Urine pHOrdered By: Clarence Viveros on 01-16-2025 pH (U) 6.5 [pH] 5.0 - 8.0 [facility] Urine sediment bacteria coun t by microscopy (number/high power field)Ordered By: Clarence Viveros on 01-16-2025 Bacteria LM.HPF (Urine sed) [#/Area] RARE /hpf None Seen [facility] Urine specific gravity measu rementOrdered By: Clarence Viveros on 01-16-2025 Specific gravity (U) [Rel density] 1.010 1.002-1.030 [facility] Urine urobilinogen measureme ntOrdered By: Clarence Viveros on 01-16-2025 Urobilinogen Ql (U) Normal mg/dl Normal [facility] White blood cell countOrdere d By: Clarence Viveros on 01-16-2025 White blood cell count 0 SEEN /hpf 0-5 [facility] Miscellaneous procedureOrder ed By: Nuha Glynn on 10-17-2024 Miscellaneous Test Comment SEE SCANNED REPORT [facility] NATERAon 10-17-2024 NATURA SEE SCANNED REPORT Normal [facility] Comment on above: Performed By: #### L 7000.1800, M100.2200 #### [facility] [address] 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 pnv 10/17/24 1655 Date Nuha Glynn [facility] Cosigner Signature: Date (if applicable) CC: Normal [facility] - Chemistry and C hemistry - challengeOrdered By: Lois Stewart on 03-19-2023 Free T4 [Mass/Vol] 0.77 ng/dL 0.76-1.[address] [facility] No Panel InformationOrdered By: Lois Stewart on 03-19-2023 Thyroid Stimulating Hormone (TSH) 1.68 uIU/mL 0.358-3.74 [facility] CNOVon 10-11-2022 CNOV Office Visit ([facility]) ---- CHAPIN CHAUDHARI ([id number]) 1995 F Date Time Provider Department 10/11/22 1:00 PM WARREN MELO AGGNANCIE During your visit today, we recorded the following information about you: Temperature Pulse Blood pressure Weight 98.1 degrees 81/minute 120/79 72.1 kg Height 1.727 m Warren Melo DO 10/11/2022 1:19 PM Signed [facility] [address] [place] [address] Date of Evaluation: 10/11/2022 Patient Name: Chapin [...] Current Outpatient Medications Medication Sig Dispense Refill amoxicillin-clavula yamila acid (AUGMENTIN) 875-125 mg per tablet Take 1 tablet by mouth every 12 hours for 7 days. 14 tablet 0 fluticasone (FLONASE) 50 mcg/actuation nasal spray Use 2 Sprays in each nostril once daily. Rinse mouth after use. (Patient not taking: Reported on 10/11/2022) 1 Bottle 1 No current facility-administer ed medications for this visit. I have confirmed [...] ICD9: V79.0, ICD10: Z13.31 Negative - DEPRESSION SCREENING/ASSESSMEN Lisa Melo, DO Return if symptoms worsen or fail to improve. Discussed the above with the patient using shared decision making. The patient is in agreement with the diagnostic and treatment plans. Referring Provider: WARREN MELO [[id number]] Allergies As of Date: 10/11/2022 Noted Allergy Reaction SEASONAL ALLERGIES 01/03/2018 14 - Other: See Comments Comments: Sinus pressure, itchy watery eyes Da (more content not included)... Normal [facility] CNPNon 06-14-2022 CNPN Telephone ([facility]) ---- CHAPIN CHAUDHARI ([id number]) 1995 F Date Time Provider Department 06/14/22 NIEVES CABRALES AGGNANCIE During your visit today, we recorded the [...] so will hold off on starting antibiotic. Eduard Batres MA Allergies As of Date: 06/14/2022 Noted Allergy Reaction SEASONAL ALLERGIES 01/03/2018 14 - Other: See Comments Comments: Sinus pressure, itchy watery eyes Date Reviewed: 06/13/2022 Reviewed by: Eduard Batres MA - Fully Assessed Reason for Visit: Medication Question [9198] Prescriptions as of 06/14/2022 - amoxicillin (POLYMOX, [...] Seasonal allergies [J30.2] 02/24/2019 Encounter Status:Closed by EDUARD BATRES [facility] CHAPIN CHAUDHARI ([id number]) 1995 F Date Time Provider Department 06/13/22 3:40 PM NIEVES CABRALES During your visit today, we recorded the following information about you: Temperature Pulse Blood pressure Weight 98.1 degrees 89/minute 116/74 73 kg Height Last Period 1.695 m 05/17/22 Eduard Batres MA 06/13/2022 3:50 PM Signed Chapin Chaudhari is a 26 year old female who presents for Sore Throat, Chest Congestion, ears hurt and neck stiffness since Sunday afternoon. Had fever last night. Did not test for COVID. Denies cough. LULI Ye PA-C 06/14/2022 3:46 PM Signed [place] [id number] [place] [address] Date of Evaluation: 06/13/2022 Patient Name: Chapin Chaudhari : 1995 Chief Complaint: Patient presents with: Sore Throat Chest Congestion neck stiffness Nursing Intake: Nursing Notes: Eduard Batres MA 06/13/2022 3:50 PM Signed Chapin Chaudhari is a 26 year old female who presents for Sore Throat, Chest Congestion, ears hurt and neck stiffness since Sunday afternoon. Had fever last night. Did not test for COVID. Denies cough. Eduard Batres MA Subjective Ms. Chaudhari is a 26 year old female who presents with the following complaint(s): HPI Since weekend on Sunday, sore throat, fever, white spots on both tonsils. Achy, sore neck but no nuchal rigidity. Also has runny nose, congestion, ear fullness, occ cough. Can swallow, eat/drink, no difficulty breathing. Note, prior pharyngitis with mononucleosis (EBV) and splenic rupture in 2016. Off control since last month - had [...] on 06/13/2022) 3 Package 4 No current facility-administer ed medications for this visit. I have confirmed [...] No f (more content not included)... Normal [facility] CNPNon 03-13-2022 CNPN Telephone ([facility]) ---- FARACHAPIN ([id number]) 1995 F Date Time Provider Department 03/13/22 NIEVES CABRALES AGGNANCIE During your visit today, we recorded the following information about you: Eduard Batres MA 03/13/2022 3:49 PM Signed ----- Message from Nieves Cabrales PA-C sent at 03/13/2022 9:20 AM EDT ----- Good news - Ultrasound of right breast shows prominent fibroglandular (dense) tissue that is not a concern or is cancerous. There are no abnormalities noted. MARILEE Wilson MA 03/13/2022 3:49 PM Signed Patient notified of results. She states understanding and has no further questions. Eduard Batres MA Allergies As of Date: 03/13/2022 [...] Seasonal allergies [J30.2] 02/24/2019 Encounter Status:Closed by EDUARD BATRES on 03/13/22 [facility] US BREAST COMPLETE RTon 03-10-2022 [facility] US BREAST COMPLETE RT * * *Final Rep ort* * * DATE OF EXAM: Mar 10 2022 1:26PM [facility] 0605 - [facility] US BREAST COMPLETE RT / PROCEDURE REASON: [...] breast palpable area. Otherwise unremarkable exam. Chai Mcleod M.D. mwf/:03/10/2022 15:13:18 Badger Distiller Operator: Swathi Williamson RDMS RT(R), [facility] Ultrasound BI-RADS: 1 Negative Instrumentation Fitter: Donte Transcribe Date/Time: Mar 10 2022 1:24P Dictated by : CHAI MCLEOD MD This examination was interpreted and the report reviewed and electronically signed by: CHAI MCLEOD MD on Mar 10 2022 3:13PM EST [id number] [facility] US BREAST COMPLETE RTon 08-0 [facility] CNPNon 02-23-2022 CNPN Telephone ([facility]) ---- CHAPIN CHAUDHARI ([id number]) 1995 F Date Time Provider Department 02/23/22 NIEVES CABRALES During your visit today, we recorded the following information about you: Edaurd Batres MA 02/23/2022 11:21 AM Signed ----- [...] voices understanding and has no further questions. Eduard Batres MA Allergies As of Date: 02/23/2022 [...] Seasonal allergies [J30.2] 02/24/2019 Encounter Status:Closed by EDUARD BATRES on 02/23/22 Normal [facility] 25(OH)D3 Vilma-Tara 2021 25-hydroxyvitamin D3 [Mass/Vol] 41.6 ng/mL Normal 31.0-80.0 [facility] Comment on above: Order Comment: Speci men Type: BLOOD SPECIMENOrdering Facility: [facility] Address: [address] Result Comment: Clas sification of 25 [place] Vitamin D status: Deficiency/Insufficiency: < or = 30 ng/ml. Sufficiency/Optimal Levels: 31-80 ng/mL Toxicity: > 100 ng/mL. Test performed by chemiluminescent immunoassay. Performed By: #### 1 989-3 ####[facility] LAB[facility] [id number] [facility] [id number] [place] CBC W Auto Differential pane l (Bld)on 02-20-2022 Basophils (Bld) [#/Vol] 10*3/uL Normal <0.11 [facility] Comment on above: Order Comment: Speci men Type: BLOOD SPECIMEN Ordering Facility: [facility] Address: [address] [place] [address] Performed By: #### 5 7021-8 #### [facility] CLIA [id number] [address] [place] [address] [place] Basophils/100 WBC (Bld) 0.3 % Normal [facility] Comment on above: Order Comment: Speci men Type: BLOOD SPECIMEN Ordering Facility: [facility] Address: [address] [place] [address] Performed By: #### 5 7021-8 #### [facility] CLIA [id number] [address] [place] [address] [place] Differential cell count method Nom (Bld) Auto Normal [facility] Comment on above: Order Comment: Speci men Type: BLOOD SPECIMEN Ordering Facility: [facility] Address: [address] [place] [address] Performed By: #### 5 7021-8 #### [facility] CLIA [id number] [address] [place] [address] [place] Eosinophils (Bld) [#/Vol] 0.11 10*3/uL Normal <0.46 [facility] Comment on above: Order Comment: Speci men Type: BLOOD SPECIMEN Ordering Facility: [facility] Address: [address] [address] Performed By: #### 5 7021-8 #### [facility] CLIA [id number] [address] Eosinophils/100 WBC (Bld) 1.9 % Normal [facility] Comment on above: Order Comment: Speci men Type: BLOOD SPECIMEN Ordering Facility: [facility] Address: [address] [place] [address] Performed By: #### 5 7021-8 #### [facility] CLIA [id number] [address] Erythrocyte distribution width (RBC) [Ratio] 12.4 % Normal 11.5-15.0 [facility] Comment on above: Order Comment: Speci men Type: BLOOD SPECIMEN Ordering Facility: [facility] Address: [address] [place] [address] Performed By: #### 5 7021-8 #### [facility] CLIA [id number] [address] Hematocrit (Bld) [Volume fraction] 40.1 % Normal 36.0-46.0 [facility] Comment on above: Order Comment: Speci men Type: BLOOD SPECIMEN Ordering Facility: [facility] Address: [address] [place] [address] Performed By: #### 5 7021-8 #### [facility] CLIA [id number] [address] OF [facility] Hemoglobin (Bld) [Mass/Vol] 13.5 g/dL Normal 11.5-15.5 [facility] Comment on above: Order Comment: Speci men Type: BLOOD SPECIMEN Ordering Facility: [facility] Address: [address] [place] [address] Performed By: #### 5 7021-8 #### [facility] CLIA [id number] [address] IMMATURE GRAN % 0.2 % Normal [facility] Comment on above: Order Comment: Speci men Type: BLOOD SPECIMEN Ordering Facility: [facility] Address: [address] [address] Performed By: #### 5 7021-8 #### [facility] CLIA [id number] [address] IMMATURE GRAN ABS <0.03 Normal <0.10 [facility] Comment on above: Order Comment: Speci men Type: BLOOD SPECIMEN Ordering Facility: [facility] Address: [address] [place] [address] Performed By: #### 5 7021-8 #### [facility] CLIA [id number] [address] Lymphocytes (Bld) [#/Vol] 2.05 10*3/uL Normal 1.00-4.0 0 [facility] Comment on above: Order Comment: Speci men Type: BLOOD SPECIMEN Ordering Facility: [facility] Address: [address] [place] [address] Performed By: #### 5 7021-8 #### [facility] CLIA [id number] [address] Lymphocytes/100 WBC (Bld) 35.5 % Normal [facility] Comment on above: Order Comment: Speci men Type: BLOOD SPECIMEN Ordering Facility: [facility] Address: [address] [place] [address] Performed By: #### 5 7021-8 #### [facility] CLIA [id number] [address] MCH (RBC) [Entitic mass] 29.0 pg Normal 26.0-34.0 [facility] Comment on above: Order Comment: Speci men Type: BLOOD SPECIMEN Ordering Facility: [facility] Address: [address] [place] [address] Performed By: #### 5 7021-8 #### [facility] CLIA [id number] [address] MCHC (RBC) [Mass/Vol] 33.7 g/dL Normal 30.5-36.0 [facility] Comment on above: Order Comment: Speci men Type: BLOOD SPECIMEN Ordering Facility: [facility] Address: [address] [place] [address] Performed By: #### 5 7021-8 #### [facility] CLIA [id number] [address] MCV (RBC) [Entitic vol] 86.1 fL Normal 80.0-100.0 [facility] Comment on above: Order Comment: Speci men Type: BLOOD SPECIMEN Ordering Facility: [facility] Address: [address] [place] [address] Performed By: #### 5 7021-8 #### [facility] CLIA [id number] [address] OF [place] Monocytes (Bld) [#/Vol] 0.45 10*3/uL Normal <0.87 [facility] Comment on above: Order Comment: Speci men Type: BLOOD SPECIMEN Ordering Facility: [facility] Address: [address] [place] [address] Performed By: #### 5 7021-8 #### [facility] CLIA [id number] [address] Monocytes/100 WBC (Bld) 7.8 % Normal [facility] Comment on above: Order Comment: Speci men Type: BLOOD SPECIMEN Ordering Facility: [facility] Address: [address] [place] [address] Performed By: #### 5 7021-8 #### [facility] CLIA [id number] [address] OF [place] Neutrophils (Bld) [#/Vol] 3.13 10*3/uL Normal 1.45-7.5 0 [facility] Comment on above: Order Comment: Speci men Type: BLOOD SPECIMEN Ordering Facility: [facility] Address: [address] [place] [address] Performed By: #### 5 7021-8 #### [facility] CLIA [id number] [address] Neutrophils/100 WBC (Bld) 54.3 % Normal [facility] Comment on above: Order Comment: Speci men Type: BLOOD SPECIMEN Ordering Facility: [facility] Address: [address] [address] Performed By: #### 5 7021-8 #### [facility] CLIA [id number] [address] OF [place] Nucleated RBC (Bld) [#/Vol] 10*3/uL Normal <0.01 [facility] Comment on above: Order Comment: Speci men Type: BLOOD SPECIMEN Ordering Facility: [facility] Address: [address] [place] [address] Performed By: #### 5 7021-8 #### [facility] CLIA [id number] [address] Nucleated RBC/100 WBC (Bld) [Ratio] 0.0 /100 WBC Normal [facility] Comment on above: Order Comment: Speci men Type: BLOOD SPECIMEN Ordering Facility: [facility] Address: [address] [place] [address] Performed By: #### 5 7021-8 #### [facility] CLIA [id number] [address] OF [place] Platelet mean volume (Bld) [Entitic vol] 10.6 fL Normal 9.0-12.7 [facility] Comment on above: Order Comment: Speci men Type: BLOOD SPECIMEN Ordering Facility: [facility] Address: [address] [address] Performed By: #### 5 7021-8 #### [facility] CLIA [id number] [address] STATES [place] Platelets (Bld) [#/Vol] 296 10*3/uL Normal 150-400 [facility] Comment on above: Order Comment: Speci men Type: BLOOD SPECIMEN Ordering Facility: [facility] Address: [address] [address] Performed By: #### 5 7021-8 #### [facility] CLIA [id number] [address] RBC (Bld) [#/Vol] 4.66 10*6/uL Normal 3.90-5.20 [facility] Comment on above: Order Comment: Speci men Type: BLOOD SPECIMEN Ordering Facility: [facility] Address: [address] [place] [address] Performed By: #### 5 7021-8 #### [facility] CLIA [id number] [address] WBC (Bld) [#/Vol] 5.77 10*3/uL Normal 3.70-11.00 [facility] Comment on above: Order Comment: Speci men Type: BLOOD SPECIMEN Ordering Facility: [facility] Address: [address] [place] [address] Performed By: #### 5 7021-8 #### [facility] CLIA [id number] [address] Comprehensive metabolic 2000 panelon 02-20-2022 Albumin [Mass/Vol] 4.1 g/dL Normal 3.9-4.9 [facility] Comment on above: Order Comment: Speci men Type: BLOOD SPECIMENOrdering Facility: [facility] Address: [address] [place] [address] Performed By: #### 2 4323-8, 3016-3 ####[facility]ORY[facility]IA [id number] [address] ALP [Catalytic activity/Vol] 72 U/L Normal 34-123 [facility] Comment on above: Order Comment: Speci men Type: BLOOD SPECIMENOrdering Facility: [facility] Address: [address] [place] [address] Performed By: #### 2 4323-8, 3016-3 ####[facility]ORYCLIA [id number] [place] [address] [place] ALT With P-5'-P [Catalytic activity/Vol] 25 U/L Normal 7-38 [facility] Comment on above: Order Comment: Speci men Type: BLOOD SPECIMENOrdering Facility: [facility] Address: [address] [place] [address] Performed By: #### 2 4323-8, 6-3 ####[facility]ORYCLIA [id number] [place] [address] [place] Anion gap [Moles/Vol] 10 mmol/L Normal 9-18 [facility] Comment on above: Order Comment: Speci men Type: BLOOD SPECIMENOrdering Facility: [facility] Address: [address] [place] [address] Performed By: #### 2 4323-8, 3015-3 ####[facility]ORYCLIA [id number] [place] [address] [place] AST With P-5'-P [Catalytic activity/Vol] 22 U/L Normal 13-35 [facility] Comment on above: Order Comment: Speci men Type: BLOOD SPECIMENOrdering Facility: [facility] Address: [address] [place] [address] Performed By: #### 2 4323-8, 3015-3 ####[facility]ORYCLIA [id number] [address] [place] Bilirubin [Mass/Vol] 0.5 mg/dL Normal 0.2-1.3 [facility] Comment on above: Order Comment: Speci men Type: BLOOD SPECIMENOrdering Facility: [facility] Address: [address] [address] Performed By: #### 2 4323-8, 6-3 ####[facility]ORYCLIA [id number] [address] [place] Calcium [Mass/Vol] 9.0 mg/dL Normal 8.5-10.2 [facility] Comment on above: Order Comment: Speci men Type: BLOOD SPECIMENOrdering Facility: [facility] Address: [address] [address] Performed By: #### 2 4323-8, 3016-3 ####[facility]ORYCLIA [id number] [address] STATES OF [facility] Chloride [Moles/Vol] 105 mmol/L Normal 97-105 [facility] Comment on above: Order Comment: Speci men Type: BLOOD SPECIMENOrdering Facility: [facility] Address: [address] [address] Performed By: #### 2 4323-8, 6-3 ####[facility]ATORYCLIA [id number] [address] OF [facility] CO2 [Moles/Vol] 23 mmol/L Normal 22-30 [facility] Comment on above: Order Comment: Speci men Type: BLOOD SPECIMENOrdering Facility: [facility] Address: [address] [place] [address] Performed By: #### 2 4323-8, 3015-3 ####[facility]ORYCLIA [id number] [address] OF [facility] Creatinine [Mass/Vol] 0.84 mg/dL Normal 0.58-0.96 [facility] Comment on above: Order Comment: Speci men Type: BLOOD SPECIMENOrdering Facility: [facility] Address: [address] [place] [address] Performed By: #### 2 4323-8, 6-3 ####[facility]ORYCLIA [id number] [address] ESTIMATED GLOMERULAR FILTRATION RATE 99 mL/min/1.73m??? Normal >=60 [facility] Comment on above: Order Comment: Speci men Type: BLOOD SPECIMENOrdering Facility: [facility] Address: [address] [place] [address] Result Comment: Ana mated Glomerular Filtration Rate [...] GFR. Performed By: #### 2 4323-8, 3015-3 ####[facility]ATORYCLIA [id number] [place] [address] [place] Glucose [Mass/Vol] 84 mg/dL Normal 74-99 [facility] Comment on above: Order Comment: Speci men Type: BLOOD SPECIMENOrdering Facility: [facility] Address: [address] [place], [place] [id number] Result Comment: The [place] Diabetes Association (ADA) provides guidance for cutoff [...] Standards of Medical Care in Diabetes 2016, [place] [employer]. Diabetes Care. 2016.39(Suppl 1). Performed By: #### 2 4323-8, 3015-3 ####[facility]ATORYCLIA [id number] [place] [address] [place] Potassium [Moles/Vol] 4.3 mmol/L Normal 3.7-5.1 [facility] Comment on above: Order Comment: Shane olivares Type: BLOOD SPECIMENOrdering Facility: [facility] Address: [address] [id number] Performed By: #### 2 4323-8, 3015-3 ####[facility]ATORYCLIA [id number] [place] [address] [place] Protein [Mass/Vol] 6.5 g/dL Normal 6.3-8.0 [facility] Comment on above: Order Comment: Shane men Type: BLOOD SPECIMENOrdering Facility: [facility] Address: [address] [place] [address] Performed By: #### 2 4323-8, 3016-3 ####[facility]ATORYCLIA [id number] [address] STATES OF [facility] Sodium [Moles/Vol] 138 mmol/L Normal 136-144 [facility] Comment on above: Order Comment: Speci men Type: BLOOD SPECIMENOrdering Facility: [facility] Address: [address] [place] [address] Performed By: #### 2 4323-8, 3016-3 ####[facility]ATORYCLIA [id number] [address] [place] Urea nitrogen [Mass/Vol] 9 mg/dL Normal 7-21 [facility] Comment on above: Order Comment: Speci men Type: BLOOD SPECIMENOrdering Facility: [facility] Address: [address] [place] [address] Performed By: #### 2 4323-8, 3016-3 ####[facility]ORATORYCLIA [id number] [place] [address] [place] TSH SerPl-aCncon 02-20-2022 TSH Qn 2.610 m[IU]/L Normal 0.270-4.200 [facility] Comment on above: Order Comment: Speci men Type: BLOOD SPECIMENOrdering Facility: [facility] Address: [address] [place] [address] Result Comment: If t he patient is , TSH reference range varies by gestational period: First Trimester (weeks 9-12): 0.180-2.990 mIU/L Second Trimester: 0.110-3.980 mIU/L Third Trimester: 0.480-4.710 mIU/L Zach Arnold et al. A Practical Approach for the Verifications and Determination of Site- and Trimester-Specific Reference Intervals for Thyroid Function tests in . Thyroid, 2019:29:3:412-420. Aristeo E, et al. 2017 Guidelines of the [place] Thyroid Association for the Diagnosis and Management of Thyroid Disease during and the . Thyroid, 2017:27:3:315-389. Performed By: #### 2 4323-8, 3016-3 ####[facility]ORATORYCLIA [id number] [address] [id number] [facility] CNOVon 02-14-2022 CNOV Office Visit ([facility]) ---- CHAPIN CHAUDHARI ([id number]) 1995 F Date Time Provider Department 02/14/22 [...] LULI Loera PA-C 02/14/2022 5:15 PM Signed [facility] [address] [address] Date of Evaluation: 02/14/2022 Patient Name: Chapin Chaudhari : 1995 Chief Complaint: Patient presents with: Breast Problem: right breast Nursing Intake: Nursing Notes: Mónica Cox MA 02/14/2022 4:02 PM Signed Chaipn Chaudhari is a 26 year old female [...] pills, late getting refill this past week. 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 Tenderness now gone and she is not [...] swelling, myalgias and neck pain. Skin: Negative. Allergic/Immunologi c: Positive for environmental allergies (occasional Flonase, not in past 3 mos ). Neurological: Negative for dizziness, weakness, light-headedness, numbness and headaches. Hematological: Does not bruise/bleed easily. Psychiatric/Behavio ral: Negative for dysphoric mood and sleep disturbance. The patient is not nervous/anxious. 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 No surgical intervention. grade 2 tear. PAST [...] once daily. 3 Package 4 No current facility-administer ed medications for this visit. I have confirmed [...] Right E (more content not included)... 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 Lacey Sanders RN Allergies As of Date: 11/30/2020 [...] Seasonal allergies [J30.2] 02/24/2019 Encounter Status:Closed by LACEY SANDERS RN on 11/30/20 [facility] DISCHARGE SUMMARYon 05-09-20 DISCHARGE SUMMARY [facility] Discharge SummarySHAWANDA COLEMANMRN: [id number] ACCTNUM: [id number] OF : 1995 SEX/AGE: F/20PATIENT TYPE: [facility]P [facility]: LOCATION: [id number] DATE: 04/28/2017 DISCHARGE DATE: 04/30/2017A 48-hour discharge summary for that patient.REASON FOR HOSPITALIZATION: Blunt abdominal injury following diagnosis of mononucleosis.SIGNI FICANT FINDINGS: Included a grade 2 splenic laceration.PROCEDUR ES: None.COMPLICATIONS: None.CONDITION AT DISCHARGE: Good.DISPOSITION: Home.FINAL DIAGNOSES: Grade 2 splenic laceration and mono.MEDICATION RECONCILIATION: Please see MRF for medication at time of discharge.DISCHARGE AND FOLLOWUP INSTRUCTIONS: Call office for followup appointment with Dr. Reed for 2weeks, . Also, to follow up with primary care physician prior to resuming sports. Also, report tophysician if fevers of 100.4, more of recurrent pain, persistent fatigue, dizziness, or bloody urine.Augustine Moraes MD dictating Perri Reed MD Signed: JAZMYNE REED MD 05/09/2017 10:00 EDTSurgeryBC:modlD: 05/03/2017 18:05:20T: 05/04/2017 09:27:14Job #: [id number] Page 1 of 1 Normal [facility] DISCHARGE SUMMARY PDF Normal [facility] Basic Panelon 04-30-2017 Creatinine 0.77 mg/dL Normal 0.51-0.95 [facility] Comment on above: Performed By: #### P 8 ####[facility] [place], [place] [address] Glucose mass conc 87 mg/dL Normal 70-99 [facility] Comment on above: Performed By: #### P 8 ####[facility] [place], [place] [address] Urea nitrogen 3 mg/dL Low 7-18 [facility] Comment on above: Performed By: #### P 8 ####[address] [address] Anion gap 9 mmol/L Normal 8-16 [facility] Comment on above: Performed By: #### P 8 ####[address] [address] Calcium 8.6 mg/dL Normal 8.5-10.1 [facility] Comment on above: Performed By: #### P 8 ####[address] [address] CO2 27 mmol/L Normal 21-32 [facility] Comment on above: Performed By: #### P 8 ####[address] [address] Chloride 101 mmol/L Normal 98-107 [facility] Comment on above: Performed By: #### P 8 ####[address] [address] Potassium molar conc 4.3 mmol/L Normal 3.5-5.1 [facility] Comment on above: Performed By: #### P 8 ####[facility] [place], [place] [address] Sodium 133 mmol/L Low 136-145 [facility] Comment on above: Performed By: #### P 8 ####[address] [address] Hemogramon 04-30-2017 Erythrocyte distribution width Auto Ratio (RBC) 13.2 % Normal 11.7-14.4 [facility] Comment on above: Performed By: #### C BC1 ####[facility] [place], [place] [address] Erythrocytes (RBC) 4.39 mil/cmm Normal 3.93-5.22 [facility] Comment on above: Performed By: #### C BC1 ####[address] [address] Hematocrit (HCT) 37.1 % Normal 34.1-44.9 [facility] Comment on above: Performed By: #### C BC1 ####[place] [address] Hemoglobin mass conc (Bld) 12.8 g/dL Normal 11.2-15.7 [facility] Comment on above: Performed By: #### C BC1 ####[place] [address] MCH 29.2 pg Normal 25.6-32.2 [facility] Comment on above: Performed By: #### C BC1 ####[place] [address] MCHC mass conc (RBC) 34.5 % Normal 31.6-34.8 [facility] Comment on above: Performed By: #### C BC1 ####[place] [address] MCV 84.5 fL Normal 79.4-94.8 [facility] Comment on above: Performed By: #### C BC1 ####[place] [address] Platelet mean volume (PMV) 9.8 fL Normal 9.4-12.3 [facility] Comment on above: Performed By: #### C BC1 ####[place] [address] Platelets 188 thou/cmm Normal 182-369 [facility] Comment on above: Performed By: #### C BC1 ####[place] [address] RDW SD 40.3 fl Normal 36.4-46.3 [facility] Comment on above: Performed By: #### C BC1 ####[address] [address] WBC (Leukocytes) 14.66 thou/cmm High 3.98-10.04 [facility] Comment on above: Performed By: #### C BC1 ####[address] [address] Hemogram/Diffon 04-30-2017 Interpreted by See below Normal [facility] Comment on above: Result Comment: Kristy Whitney M.D., Pathologist Performed By: #### C BCD1 ####[place] [address] Interpreted by See below Normal [facility] Comment on above: Result Comment: Kristy Whitney M.D., Pathologist Performed By: #### C BCD1 ####[address] [address] Basophils Auto #/vol (Bld) 0.06 thou/cmm Normal 0.01-0.08 [facility] Comment on above: Performed By: #### C BCD1 ####[address] [address] Basophils/100 WBC Auto (Bld) 0.4 % Normal [facility] Comment on above: Performed By: #### C BCD1 ####[address] [address] Eosinophils 0.07 thou/cmm Normal 0.00-0.31 [facility] Comment on above: Performed By: #### C BCD1 ####[address] [address] Eosinophils/100 leukocytes 0.5 % Normal [facility] Comment on above: Performed By: #### C BCD1 ####[address] [address] Erythrocyte distribution width Auto Ratio (RBC) 13.2 % Normal 11.7-14.4 [facility] Comment on above: Performed By: #### C BCD1 ####[address] [address] Erythrocytes (RBC) 4.41 mil/cmm Normal 3.93-5.22 [facility] Comment on above: Performed By: #### C BCD1 ####[place] [address] Hematocrit (HCT) 37.6 % Normal 34.1-44.9 [facility] Comment on above: Performed By: #### C BCD1 ####[place] [address] Hemoglobin mass conc (Bld) 12.9 g/dL Normal 11.2-15.7 [facility] Comment on above: Performed By: #### C BCD1 ####[place] [address] Immature Grans 0.20 % Normal [facility] Comment on above: Performed By: #### C BCD1 ####[place] [address] Immature Grans # 0.03 thou/cmm Normal 0.00-0.05 [facility] Comment on above: Performed By: #### C BCD1 ####[place] [address] Lymphocytes 10.21 thou/cmm High 1.18-3.74 [facility] Comment on above: Performed By: #### C BCD1 ####[place] [address] Lymphocytes/100 leukocytes 73.3 % Normal [facility] Comment on above: Performed By: #### C BCD1 ####[place] [address] MCH 29.3 pg Normal 25.6-32.2 [facility] Comment on above: Performed By: #### C BCD1 ####[place] [address] MCHC mass conc (RBC) 34.3 % Normal 31.6-34.8 [facility] Comment on above: Performed By: #### C BCD1 ####[place] [address] MCV 85.3 fL Normal 79.4-94.8 [facility] Comment on above: Performed By: #### C BCD1 ####[facility] [place], [place] [address] Monocytes 1.43 thou/cmm High 0.27-0.70 [facility] Comment on above: Performed By: #### C BCD1 ####[address] [address] Monocytes/100 leukocytes 10.3 % Normal [facility] Comment on above: Performed By: #### C BCD1 ####[address] [address] Platelet mean volume (PMV) 10.7 fL Normal 9.4-12.3 [facility] Comment on above: Performed By: #### C BCD1 ####[place] [address] Platelets 174 thou/cmm Low 182-369 [facility] Comment on above: Performed By: #### C BCD1 ####[address] [address] RDW SD 40.9 fl Normal 36.4-46.3 [facility] Comment on above: Performed By: #### C BCD1 ####[address] [address] Seg Neutrophil 15.3 % Normal [facility] Comment on above: Performed By: #### C BCD1 ####[place] [place] [address] Seg. Neut.# 2.13 thou/cmm Normal 1.56-6.13 [facility] Comment on above: Performed By: #### C BCD1 ####[address] [address] WBC (Leukocytes) 13.93 thou/cmm High 3.98-10.04 [facility] Comment on above: Performed By: #### C BCD1 ####[address] [address] MDRD GFRon 04-30-2017 eGFR (non-black) mL/min/{1.73_m2} Normal >60mL/m in/1.73 m2 [facility] Comment on above: Result Comment: If t he patient is , multiply the result by 1.210. Performed By: #### G FR ####[facility] [place], [place] [address] Basic Panelon 04-29-2017 Creatinine 0.86 mg/dL Normal 0.51-0.95 [facility] Comment on above: Performed By: #### P 8 ####[facility] [place] [address] Anion gap 12 mmol/L Normal 8-16 [facility] Comment on above: Performed By: #### P 8 ####[place] [address] CO2 23 mmol/L Normal 21-32 [facility] Comment on above: Performed By: #### P 8 ####[address] [address] Glucose mass conc 106 mg/dL High 70-99 [facility] Comment on above: Performed By: #### P 8 ####[address] [address] Urea nitrogen 5 mg/dL Low 7-18 [facility] Comment on above: Performed By: #### P 8 ####[address] [address] Calcium 8.3 mg/dL Low 8.5-10.1 [facility] Comment on above: Performed By: #### P 8 ####[address] [address] Chloride 103 mmol/L Normal 98-107 [facility] Comment on above: Performed By: #### P 8 ####[address] [address] Potassium molar conc 4.6 mmol/L Normal 3.5-5.1 [facility] Comment on above: Performed By: #### P 8 ####[place] [address] Sodium 133 mmol/L Low 136-145 [facility] Comment on above: Performed By: #### P 8 ####[address] [address] Hemogram/Diffon 04-29-2017 Anisocytosis presence Slight Normal [facility] Comment on above: Performed By: #### C BCD1 ####[address] [address] Basophils Auto #/vol (Bld) 0.00 thou/cmm Low 0.01-0.08 [facility] Comment on above: Performed By: #### C BCD1 ####[address] [address] Basophils/100 WBC Auto (Bld) 0.0 % Normal [facility] Comment on above: Performed By: #### C BCD1 ####[address] [address] Eosinophils 0.32 thou/cmm High 0.00-0.31 [facility] Comment on above: Performed By: #### C BCD1 ####[address] [address] Eosinophils/100 leukocytes 3.0 % Normal [facility] Comment on above: Performed By: #### C BCD1 ####[address] [address] Erythrocyte morphology Present Normal [facility] Comment on above: Performed By: #### C BCD1 ####[address] [address] Hypochromasia Slight Normal [facility] Comment on above: Performed By: #### C BCD1 ####[address] [address] Immat Grans Abs calc 0.11 Normal [facility] Comment on above: Performed By: #### C BCD1 ####[address] [address] Lymphocytes 6.90 thou/cmm High 1.18-3.74 [facility] Comment on above: Performed By: #### C BCD1 ####[address] [address] Lymphocytes/100 leukocytes 11.0 % Normal [facility] Comment on above: Performed By: #### C BCD1 ####[address] [address] Lymphocytes/100 leukocytes 53.0 % Normal [facility] Comment on above: Performed By: #### C BCD1 ####[address] [address] Macrocytosis Slight Normal [facility] Comment on above: Performed By: #### C BCD1 ####[address] [address] Metamyelocytes 1.0 % Normal [facility] Comment on above: Performed By: #### C BCD1 ####[address] [address] Monocytes 0.22 thou/cmm Low 0.27-0.70 [facility] Comment on above: Performed By: #### C BCD1 ####[address] [address] Monocytes/100 leukocytes 2.0 % Normal [facility] Comment on above: Performed By: #### C BCD1 ####[address] [address] Seg Neutrophil 30.0 % Normal [facility] Comment on above: Performed By: #### C BCD1 ####[address] [address] Seg. Neut.# 3.23 thou/cmm Normal 1.56-6.13 [facility] Comment on above: Performed By: #### C BCD1 ####[address] [address] Erythrocyte distribution width Auto Ratio (RBC) 13.2 % Normal 11.7-14.4 [facility] Comment on above: Performed By: #### C BCD1 ####[address] [address] Erythrocytes (RBC) 4.09 mil/cmm Normal 3.93-5.22 [facility] Comment on above: Performed By: #### C BCD1 ####[facility] [place], [place] [address] Hematocrit (HCT) 35.3 % Normal 34.1-44.9 [facility] Comment on above: Performed By: #### C BCD1 ####[place] [address] Hemoglobin mass conc (Bld) 12.0 g/dL Normal 11.2-15.7 [facility] Comment on above: Performed By: #### C BCD1 ####[place] [address] MCH 29.3 pg Normal 25.6-32.2 [facility] Comment on above: Performed By: #### C AILYND1 ####[place] [address] MCHC mass conc (RBC) 34.0 % Normal 31.6-34.8 [facility] Comment on above: Performed By: #### C NEERU ####[place] [address] MCV 86.3 fL Normal 79.4-94.8 [facility] Comment on above: Performed By: #### C NEERU ####[place] [address] Platelet mean volume (PMV) 10.5 fL Normal 9.4-12.3 [facility] Comment on above: Performed By: #### C NEERU ####[place] [address] Platelets 173 thou/cmm Low 182-369 [facility] Comment on above: Performed By: #### C BCD1 ####[place] [address] RDW SD 41.6 fl Normal 36.4-46.3 [facility] Comment on above: Performed By: #### C BCD1 ####[place] [address] WBC (Leukocytes) 10.78 thou/cmm High 3.98-10.04 [facility] Comment on above: Performed By: #### C BCD1 ####[facility] [place], [place] [address] MDRD GFRon 04-29-2017 eGFR (non-black) mL/min/{1.73_m2} Normal >60mL/m in/1.73 m2 [facility] Comment on above: Result Comment: If t he patient is , multiply the result by 1.210. Performed By: #### G FR ####[facility] [place], [place] [address] Vital Signs Date Time Vital Sign Value Performing Clinician Facility 06-15-2025 15:35-0500 Body height 170.18 cm No Primary Care Physician [facility] 06-15-2025 15:35-0500 Body mass index (BMI) [Ratio] 29 kg/m2 No Primary Care Physician [facility] 06-15-2025 15:35-0500 Body weight 84.02 kg No Primary Care Physician [facility] 06-15-2025 15:35-0500 Diastolic blood pressure 72 mm[Hg] No Primary Care Physician [facility] 06-15-2025 15:35-0500 Systolic blood pressure 110 mm[Hg] No Primary Care Physician [facility] 05-28-2025 08:35-0400 Body mass index (BMI) [Ratio] 29 kg/m2 No Primary Care Physician [facility] 05-28-2025 08:35-0400 Body weight 84.05 kg No Primary Care Physician [facility] 05-28-2025 08:35-0400 Diastolic blood pressure 80 mm[Hg] No Primary Care Physician [facility] 05-28-2025 08:35-0400 Systolic blood pressure 128 mm[Hg] No Primary Care Physician [facility] 04-27-2025 15:39-0400 Body height 170.[address] Philip Andre MD Work Phone: [facility] 04-27-2025 15:39-0400 Body mass index (BMI) [Ratio] 28 kg/m2 Dr. Philip Andre MD Work Phone: [facility] 04-27-2025 15:39-0400 Body weight 81.[address] Philip Andre MD Work Phone: 3(242)013-657603 [place] [address] 04-27-2025 15:39-0400 Diastolic blood pressure 75 mm[Hg] Dr. Philip Andre MD Work Phone: 8(584)760-426403 [place] [address] 04-27-2025 15:39-0400 Systolic blood pressure 122 mm[Hg] Dr. Philip Andre MD Work Phone: 0(575)366-337503 [place] [address] 03-31-2025 16:07-0400 Body height 170.[address] Philip Andre MD Work Phone: 3(328)628-517703 [place] [address] 03-31-2025 16:05-0400 Body mass index (BMI) [Ratio] 27.4 kg/m2 Dr. Philip Andre MD Work Phone: 4(518)080-046403 [place] [address] 03-31-2025 16:05-0400 Body weight 79.[address] Philip Andre MD Work Phone: 5(908)858-952203 [place] [address] 03-31-2025 16:05-0400 Diastolic blood pressure 75 mm[Hg] Dr. Philip Andre MD Work Phone: 8(082)856-896203 [place] [address] 03-31-2025 16:05-0400 Systolic blood pressure 137 mm[Hg] Dr. Philip Andre MD Work Phone: 9(837)590-631003 [place] [address] 03-05-2025 11:01-0400 Body height 170.[address] Philip Andre MD Work Phone: 3(582)728-073803 [place] [address] 03-05-2025 11:01-0400 Body mass index (BMI) [Ratio] 26.6 kg/m2 Dr. Philip Andre MD Work Phone: 1(061)697-683803 [place] [address] 03-05-2025 11:01-0400 Body weight 77.[address] Philip Andre MD Work Phone: 5(578)921-419303 [place] [address] 03-05-2025 11:01-0400 Diastolic blood pressure 78 mm[Hg] Dr. Philip Andre MD Work Phone: 1(675)606-212803 [place] [address] 03-05-2025 11:01-0400 Systolic blood pressure 129 mm[Hg] Dr. Philip Andre MD Work Phone: 5(642)207-907103 [place] [address] 02-03-2025 10:39-0400 Body height 170.[address] Philip Andre MD Work Phone: 2(471)414-079603 [place] [address] 02-03-2025 10:37-0400 Body mass index (BMI) [Ratio] 26.6 kg/m2 Dr. Philip Andre MD Work Phone: 9(343)404-040703 [place] [address] 02-03-2025 10:37-0400 Body weight 77.[address] Philip Andre MD Work Phone: 1(499)390-908903 [place] [address] 02-03-2025 10:37-0400 Diastolic blood pressure 75 mm[Hg] Dr. Philip Andre MD Work Phone: 3(591)384-440903 [place] [address] 02-03-2025 10:37-0400 Systolic blood pressure 117 mm[Hg] Dr. Philip Andre MD Work Phone: 1(046)971-691603 [place] [address] 01-17-2025 01:25-0400 Body temperature 98.2 [degF] Dr. Philip Andre MD Work Phone: 5(580)846-566403 [place] [address] 01-17-2025 01:25-0400 Diastolic blood pressure 73 mm[Hg] Dr. Philip Andre MD Work Phone: 9(498)545-637203 [place] [address] 01-17-2025 01:25-0400 Heart rate 82 /min Dr. Philip Andre MD Work Phone: 1(774)567-025003 [place] [address] 01-17-2025 01:25-0400 Respiratory rate 16 /min Dr. Philip Andre MD Work Phone: 8(671)497-147603 [place] [address] 01-17-2025 01:25-0400 SaO2% (BldA) [Mass fraction] 100 % Dr. Philip Andre MD Work Phone: 7(865)225-136303 [place] [address] 01-17-2025 01:25-0400 Systolic blood pressure 131 mm[Hg] Dr. Philip Andre MD Work Phone: 6(197)697-444803 [place] [address] 01-16-2025 23:19-0400 Body height 170.[address] Philip Andre MD Work Phone: 6(836)721-817503 [place] [address] 01-16-2025 23:19-0400 Body mass index (BMI) [Ratio] 26.4 kg/m2 Dr. Philip Andre MD Work Phone: 6(743)111-765303 [place] [address] 01-16-2025 23:19-0400 Body weight 76.[address] Philip Andre MD Work Phone: 7(206)512-947403 [place] [address] 10-17-2024 08:15-0400 Body height 170.[address] Philip Andre MD Work Phone: 4(227)983-429503 [place] [address] 10-17-2024 08:15-0400 Body mass index (BMI) [Ratio] 25.5 kg/m2 Dr. Philip Andre MD Work Phone: 2(177)016-210503 [place] [address] 10-17-2024 08:15-0400 Body weight 73.[address] Philip Andre MD Work Phone: 7(559)621-374203 [place] [address] 10-17-2024 08:15-0400 Diastolic blood pressure 74 mm[Hg] Dr. Philip Andre MD Work Phone: 0(139)183-755403 [place] [address] 10-17-2024 08:15-0400 Systolic blood pressure 109 mm[Hg] Dr. Philip Andre MD Work Phone: 4(100)256-751003 [place] [address] 03-19-2023 15:50-0400 Body height 170.[address] Philip Andre Work Phone: 0(158)829-828103 [place] [address] 03-19-2023 15:43-0400 Body mass index (BMI) [Ratio] 26 kg/m2 Dr. Philip Andre Work Phone: 1(930)384-149103 [place] [address] 03-19-2023 15:43-0400 Body weight 75.[address] Philip Andre Work Phone: 6(615)034-942803 [place] [address] 03-19-2023 15:43-0400 Diastolic blood pressure 82 mm[Hg] Dr. Philip Andre Work Phone: 7(822)507-754903 [place] [address] 03-19-2023 15:43-0400 Systolic blood pressure 128 mm[Hg] Dr. Philip Andre Work Phone: 1(504)151-083503 [place] [address] 02-14-2022 15:57-0400 Body height 169.5 cm Nieves Cabrales PA-C Work Phone: [facility] 02-14-2022 15:57-0400 Body temperature 97.59 [degF] Nieves Cabrales PA-C Work Phone: [facility] 02-14-2022 15:57-0400 Body weight 70.13 kg Nieves Cabrales PA-C Work Phone: [facility] 02-14-2022 15:57-0400 Diastolic blood pressure 76 mm[Hg] Nivees Cabrales PA-C Work Phone: [facility] 02-14-2022 15:57-0400 Heart rate 75 /min Nieves Cabrales PA-C Work Phone: [facility] 02-14-2022 15:57-0400 SaO2% (BldA) [Mass fraction] 98 % Nieves Cabrales PA-C Work Phone: [facility] 02-14-2022 15:57-0400 Systolic blood pressure 118 mm[Hg] Nieves Cabrales PA-C Work Phone: [facility] Encounters Encounter Date Encounter Type Care Provider Facility Start: 06-15-2025 End: 06-15-2025 ambulatory Mamie Dubon Facility:[facility] Start: 05-28-2025 End: 05-28-2025 Patient encounter procedure Lois Stewart [employer] -[facility] Work Phone: Start: 05-28-2025 End: 05-28-2025 ambulatory Lois Stewart NP Facility:[facility] Start: 04-27-2025 End: 04-27-2025 Patient encounter procedure Lois Stewart [employer] -[facility] Work Phone: Start: 04-27-2025 End: 04-27-[address] Philip Ander MD Work Phone: -[facility] Start: 04-14-2025 End: 04-14-2025 ambulatory [facility] Start: 03-31-2025 End: 03-31-[address] Mamie Dubon MD -[facility] Work Phone: Start: 03-31-2025 End: 03-31-[address] Philip Andre MD Work Phone: -[facility] Start: 03-05-2025 End: 03-05-2025 Patient encounter procedure Tamika Armando TRUJILLO -[facility] Work Phone: Start: 03-05-2025 End: 03-05-[address] Philip Andre MD Work Phone: [facility] Start: 02-18-2025 End: 02-18-[address] Philip Adnre MD Work Phone: [facility] Start: 02-18-2025 End: 02-18-[address] Lidya Child DO -[facility] Start: 02-18-2025 End: 02-18-2025 ambulatory Lidya Child Facility:[facility] Start: 02-03-2025 End: 02-03-[address] Philip Andre MD Work Phone: -Laboratory Specimen Start: 02-03-2025 End: 02-03-[address] Lidya Child DO -Laboratory Specimen Work Phone: Start: 02-03-2025 End: 02-03-[address] Lidya Child DO -[facility] Work Phone: Start: 02-03-2025 End: 02-03-[address] Philip Andre MD Work Phone: [facility] Start: 02-03-2025 End: 02-03-2025 ambulatory Lidya Child Facility:[facility] Start: 01-16-2025 End: 01-17-2025 Emergency department patient visit Dr. Philip Andre MD Work Phone: -Emergency Department Work Phone: Start: 01-16-2025 End: 01-16-[address] Lidya Child DO -[facility] Work Phone: Start: 01-16-2025 End: 01-16-[address] Philip Andre MD Work Phone: [facility] Work Phone: Start: 10-17-2024 End: 10-17-2024 Patient encounter procedure Nuha Glynn [facility] -[facility] Work Phone: Start: 10-17-2024 End: 10-17-[address] Philip Andre MD Work Phone: [facility] Work Phone: Start: 10-17-2024 End: 10-17-2024 ambulatory Nuha Glynn Facility:[facility] Start: 03-19-2023 End: 03-19-[address] Philip Andre Work Phone: [facility] Work Phone: Start: 03-19-2023 End: 03-19-[address] Philip Andre Work Phone: [facility] Work Phone: Start: 10-11-2022 End: 10-11-2022 ambulatory WARREN KAMERON Facility:[facility] Start: 06-14-2022 Telephone encounter Nieves Cabrales PA-C Work Phone: [facility] Comment on above: Medication Question Start: 06-13-2022 End: 06-13-2022 ambulatory NIEVES CABRALES Facility:[facility] Start: 03-13-2022 Telephone encounter Nieves Cabrales PA-C Work Phone: [facility] Comment on above: Results Start: 03-10-2022 End: 03-10-2022 Subsequent hospital visit by physician Screen/Diagnostic [facility] Comment on above: Mass of lower outer quadrant of right breast [N63.13] Start: 02-23-2022 Telephone encounter Nievesmary Cabrales PA-C Work Phone: [facility] Comment on above: Results Start: 02-20-2022 End: 02-21-2022 ambulatory NIEVES CABRALES Facility:[facility] Start: 02-20-2022 Patient encounter procedure NIEVES CABRALES [facility] Start: 02-14-2022 End: 02-14-2022 ambulatory NIEVES CABRALES Facility:[facility] Start: 02-14-2022 End: 02-14-2022 Patient encounter procedure Nieves Osman HUNT Work Phone: [facility] Comment on above: Encounter for annual health examination (Primary Dx); Mass of lower outer quadrant of right breast Start: 02-13-2022 ambulatory Lavonne Schroeder RN NURSE [employer] Comment on above: Cyst Start: 05-17-2017 End: 05-17-2017 Ambulatory JAZMYNE REED [facility] Start: 04-29-2017 End: 04-30-2017 Evaluation and management of inpatient NO REFERRING DR Facility:[facility] Procedures Date Procedure Procedure Detail Performing Clinician Start: 06-15-2025 Serologic test for syphilis No Primary Care Physician Start: 02-18-2025 Hepatitis C antibody measurement Dr. Philip Andre MD Work Phone: Comment on above: Reactive: Presumptiv e evidence of antibodies to HCV. Follow CDC recommendations for supplemental testing.Non-Reactive: Antibodies to HCV were not detected; does not exclude the possibility of exposure to HCVReactive Results are presumptive evidence of antibodies to HCV. Follow CDC recommendations for supplemental testing.Order confirmation testing: HCV Quant by PCR testing - HCVPCR #[id number] Non Reactive: < 0.8 Equivocal: >/= 0.8 to < 1.0 Reactive: >/= 1.0The CDC requires that a reactive/equivocal HCV antibody result be sent out for confirmation. HCV Quant by PCR testing. Start: 02-18-[address] Philip contreras MD Work Phone: Start: 02-18-[address] Philip Andre MD Work Phone: Comment on above: Antibody Result: Int erpretationNon-Reactive: Non- ImmuneReactive: ImmuneThe following results were obtained with the [employer] Rubella IgG assay. Results from assays of other manufacturers cannot be used interchangeably. Start: 02-18-2025 Serologic test for syphilis Dr. Philip Andre MD Work Phone: Start: 02-03-[address] Philip Andre MD Work Phone: Start: 01-16-2025 Urnls dip stick/tabl et reagent auto microscopy Dr. Philip Andre MD Work Phone: Start: 01-16-2025 Transvaginal obst[address] ic ultrasonography Dr. Philip Andre MD Work Phone: Start: 10-17-[address] Philip contreras MD Work Phone: Start: 03-10-2022 Us breast uni real t rhiannon with image complete Nieves Cabrales PA-C Work Phone: Start: 02-14-2022 Adult depression scr eening assessment Nieves MARTINEZC Work Phone: Start: 02-24-2019 Adult depression scr eening assessment Lavonne Schroeder RN Plan of Treatment Date Care Activity Detail Author Start: 12-02-2030 Urine microalbumin profile DTAP,TDAP,TD (9 - Td or Tdap) [facility] Start: 02-24-2029 Urine microalbumin profile DTAP,TDAP,TD (8 - Td or Tdap) [facility] Start: 06-15-2025 End: 06-15-2025 Patient encounter procedure -[facility] Work Phone: Start: 01-17-2025 [facility] Start: 03-19-2023 Dehydroepiandrosterone sulfate (DHEA-S) [Mass/volume] in Serum or Plasma [facility] Start: 03-19-2023 Testosterone Free [Mass/volume] in Serum or Plasma [facility] Start: 03-19-2023 Thyroperoxidase Ab [Units/volume] in Serum or Plasma [facility] Start: 03-19-2023 Liquid based cervical cytology screening [facility] Start: 02-14-2023 Adult depression screening assessment DEPRESSION SCREENING [facility] Start: 02-02-2023 Influenza vaccination INFLUENZA (#1) [facility] Comment on above: Postponed from 04/06/2022 (Declined at t his time) Start: 04-06-2022 Influenza vaccination INFLUENZA (#1) [facility] Start: 02-14-2022 End: 04-16-2022 25-hydroxyvitamin D3 [Mass/volume] in Serum or Plasma VITAMIN D 25 HYDROXY Lab Routine Encounter for annual health examination Expected: 02/14/2022, Expires: 04/16/2022 [facility] Work Phone: Comment on above: Expected: 02/14/2022, Expires: 2 Start: 02-14-2022 End: 04-16-2022 CBC W Auto Differential panel - Blood CBC + DIFF Lab Routine Encounter for annual health examination Expected: 02/14/2022, Expires: 04/16/2022 [facility] Work Phone: Comment on above: Expected: 02/14/2022, Expires: 2 Start: 02-14-2022 End: 04-16-2022 Comprehensive metabolic 2000 panel - Serum or Plasma COMP METABOLIC PANEL Lab Routine Encounter for annual health examination Expected: 02/14/2022, Expires: 04/16/2022 [facility] Work Phone: Comment on above: Expected: 02/14/2022, Expires: 2 Start: 02-14-2022 End: 04-16-2022 Thyrotropin [Units/volume] in Serum or Plasma TSH BLD Lab Routine Encounter for annual health examination Expected: 02/14/2022, Expires: 04/16/2022 [facility] Work Phone: Comment on above: Expected: 02/14/2022, Expires: 2 Start: 08-20-2021 COVID-19 VACCINE (4 - Booster for Pfizer series) COVID-19 VACCINE (4 - Booster for Pfizer series) [facility] Start: 08-06-2021 DEPRESSION ASSESSMENT DEPRESSION ASSESSMENT [facility] Start: 02-25-2020 Adult depression screening assessment DEPRESSION SCREENING [facility] Start: 2017 PAP TESTING PAP TESTING [facility] Start: 2014 HEPATITIS C SCREENING HEPATITIS C SCREENING [facility] Start: 2014 HIV SCREENING HIV SCREENING [facility] Start: 2010 PEDS TO ADULT TRANSITION ANNUAL ASSESSMENT PEDS TO ADULT TRANSITION ANNUAL ASSESSMENT [facility] Start: 2008 PEDS TO ADULT TRANSITION INITIAL DISCUSSION PEDS TO ADULT TRANSITION INITIAL DISCUSSION [facility] Start: 05-30-1997 COVID-19 VACCINE (#1) COVID-19 VACCINE (#1) [facility] CBC W Auto Different ial panel - Blood [facility] Chlamydia deoxyribon ucleic acid detection [facility] End: 03-16-2023 Diagnostic mammography computer-aided detcj bi [facility] Routine Mass of lower outer quadrant of right breast 1 Occurrences starting 02/14/2022 until 03/16/2023 [facility] Work Phone: Comment on above: 1 Occurrences starting 02/14/2022 until 03/16/2023 End: 03-10-2022 Diagnostic mammography computer-aided detcj bi [facility] Rad[facility] Routine Mass of lower outer quadrant of right breast 1 Occurrences starting 03/10/2022 until 03/10/2022 [facility] Work Phone: Comment on above: 1 Occurrences starting 03/10/2022 until 03/10/2022 Hepatitis C antibody measurement [facility] Path report.final Dx Spec [facility] Patient Education ED Abdominal P ain, Early [facility] Work Phone: Patient referral [facility] Work Phone: Rubella IgG measurement [facility] Serologic test for syphilis [facility] End: 03-16-2023 Us breast uni real time with image complete US BREAST COMPLETE RT Radiology Routine Mass of lower outer quadrant of right breast 1 Occurrences starting 02/14/2022 until 03/16/2023 [facility] Work Phone: Comment on above: 1 Occurrences starting 02/14/2022 until 03/16/2023 [facility] Immunization Date Immunization Notes Care Provider Jeremy olverabaldemar 06-15-2025 tetanus toxoid, redu ozzie diphtheria toxoid, and acellular pertussis vaccine, adsorbed No Primary Care Physician [facility] 05-28-2025 influenza, injectabl e, madin christy canine kidney, preservative free No Primary Care Physician [facility] 06-25-2021 influenza, injectabl e, quadrivalent, preservative free Nieves Cabrales PA-C Work Phone: [facility] 12-02-2020 tetanus toxoid, redu ozzie diphtheria toxoid, and acellular pertussis vaccine, adsorbed Nieves Cabrales PA-C Work Phone: [facility] 08-15-2020 influenza, injectabl e, quadrivalent, preservative free Nieves Cabrales PA-C Work Phone: [facility] 02-24-2019 tetanus and diphther ia toxoids, adsorbed, preservative free, for adult use (5 Lf of tetanus toxoid and 2 Lf of diphtheria toxoid) Lavonne Schroeder RN [facility] 02-25-2013 Meningococcal, MCV4, unspecified conjugate formulation(groups A, C, Y and W-135) Lavonne Schroeder RN [facility] 02-25-2013 varicella virus vaccine Lavonne trujillo RN [facility] 2011 human papilloma viru s vaccine, quadrivalent Lavonne Schroeder RN [facility] 05-02-2011 human papilloma viru s vaccine, quadrivalent Lavonne Schroeder RN [facility] Work Phone: 02-28-2011 human papilloma viru s vaccine, quadrivalent Lavonne Schroeder RN [facility] Work Phone: 03-04-2009 Meningococcal, MCV4, unspecified conjugate formulation(groups A, C, Y and W-135) Lavonne Schroeder RN [facility] Work Phone: 03-04-2009 tetanus toxoid, redu ozzie diphtheria toxoid, and acellular pertussis vaccine, adsorbed Lavonne Schroeder RN [facility] Work Phone: 07-23-2006 influenza virus vaccine, unspecified formulation Lavonne Schroeder RN [facility] Work Phone: 06-13-2005 influenza virus vaccine, unspecified formulation Lavonne Schroeder RN [facility] Work Phone: 01-20-2002 diphtheria, tetanus toxoids and acellular pertussis vaccine Lavonne Schroeder RN [facility] Work Phone: 01-20-2002 measles, mumps and rubella virus vaccine Lavonne Schroeder RN [facility] Work Phone: 01-20-2002 poliovirus vaccine, inactivated Lavonne Schroeder [facility] Work Phone: 03-04-1998 diphtheria, tetanus toxoids and acellular pertussis vaccine Lavonne Schroeder RN [facility] Work Phone: 03-04-1998 haemophilus influenz ae type b vaccine, HbOC conjugate Lavonne Schroeder [facility] Work Phone: 12-24-1997 measles, mumps and rubella virus vaccine Lavonne Schroeder [facility] Work Phone: 12-24-1997 varicella virus vaccine Lavonne trujillo [facility] Work Phone: 08-24-1997 hepatitis B vaccine, pediatric or pediatric/adolescent dosage Lavonne Schroeder RN [facility] Work Phone: 06-01-1997 diphtheria, tetanus toxoids and acellular pertussis vaccine Lavonne Schroeder RN [facility] Work Phone: 06-01-1997 haemophilus influenz ae type b vaccine, HbOC conjugate Lavonne Schroeder [facility] Work Phone: 06-01-1997 trivalent poliovirus vaccine, live, oral Lavonne Schroeder RN [facility] Work Phone: 03-30-1997 diphtheria, tetanus toxoids and acellular pertussis vaccine Lavonne Schroeder RN [facility] Work Phone: 03-30-1997 haemophilus influenz ae type b vaccine, HbOC conjugate Lavonne Schroeder [facility] Work Phone: 03-30-1997 trivalent poliovirus vaccine, live, oral Lavonne Schroeder RN [facility] Work Phone: 01-29-1997 diphtheria, tetanus toxoids and acellular pertussis vaccine Lavonne Schroeder [facility] Work Phone: 01-29-1997 haemophilus influenz ae type b vaccine, HbOC conjugate Lavonne Schroeder [facility] Work Phone: 01-29-1997 trivalent poliovirus vaccine, live, oral Lavonne Schroeder [facility] Work Phone: 1996 hepatitis B vaccine, pediatric or pediatric/adolescent dosage Lavonne Schroeder [facility] Work Phone: 1996 hepatitis B vaccine, pediatric or pediatric/adolescent dosage Lavonne Schroeder [facility] Work Phone: Payers Date Payer Category Payer Self-pay [id number] [facility] 2021 Unknown MMO MMO [employer]US [id number] 2021-Present [phone] [address] [place] [address] PPO [id number] 2021 Unknown MMO MMO [employer]US [id number] 2021-Present [phone] [address] [place] [address] PPO [id number] 2021 Unknown [id number] 1996 Unknown [id number] Unknown [id number] Unknown [id number] Unknown [id number] Unknown [id number] Unknown [id number] Unknown [id number] Unknown [id number] Unknown [id number] Unknown [id number] Unknown [id number] Unknown [id number] Unknown [id number] Unknown [id number] Unknown [id number] Social History Date Type Detail Facility Start: 02-09-2011 End: 01-17-2025 Tobacco smoking status NHIS Never smoked tobacco [facility] Start: 02-24-2019 End: 06-13-2022 Alcohol intake Current non-drinker of alcohol (finding) [facility] Start: 1995 Sex Assigned At Not on file [facility] Start: 02-03-2022 End: 06-13-2022 Exposure to SARS-CoV-2 (event) Not sure [facility] Start: 02-09-2011 Tobacco use and exposure Smokeless tobacco non-user [facility] Work Phone: Start: 03-19-2023 Tobacco smoking stat us NHIS Unknown if ever smoked [facility] Start: 1995 Sex Assigned At Female W [facility] Start: 10-28-2024 Sex Female (finding) [facility] Sex Female [facility] Clinical Notes 02-13-2022 to 05-28-2025 Note Date & Type Note Facility 05-28-2025 Progress note [facility] 04-27-2025 Progress note [facility] 04-27-2025 Progress note Note Date/Time April 27, 2025 3:53pm 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 Grenade Required: No Is patient in pain?: No Allergies No Known Allergies Allergy (Verified 04/27/25 15:44) Medications ?Medication ?Instructions ?Recorded ?Confirmed ?Type multivit-min no.71-iron fum 28 1 cap PO DAILY 01/16/25 04/27/25 History mg-folate no.1 1 mg-dha 300 mg capsule (PNV-[place]) promethazine 12.5 mg tablet 12.5 mg PO Q6H PRN nausea #30 tabs 02/03/25 04/27/25 Rx citalopram 10 mg tablet 10 mg PO QDAY #90 tabs 04/0104/27/25 Rx Last Menstrual Period: 12/01/24 Zika: Zika virus screening: Negative : No Have you fallen in the past year?: No PFSH PFSH Medical History Seasonal allergies Albinism PMS (premenstrual syndrome) Family planning counseling Dense breast tissue Splenic laceration IBS (irritable bowel syndrome) Family History Grandmother Hypertension Maternal Thyroid disorder Grandfather Hypertension Maternal Thyroid disorder Maternal- hypothyroidism Mother Thyroid disorder, Onset Age: 15 hyperthyroidism Aunt Thyroid disorder, Onset Age: 40 Maternal- hypothyroidism Social History adopted: No household members: spouse housing: house current occupational status: employed 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, [employer] current occupational exposures/hazards: No pets and animals: Yes history of recent travel: No sexually active: Yes Smoking Status: Never smoker alcohol intake: current alcohol intake frequency: holidays/special occasions only details: not while substance use type: does not use well-balanced diet: daily or most days caffeine: Yes Type: coffee Number of servings: 1 eating out: 1-3 times/week during the past year weight has: remained stable what type of physical activity do you participate in: walking, running and other details: pilates, bar workouts frequency: 3-4 times per week duration: 45-60 minutes/day lynette/moravian: Mosque seatbelt use: always do you feel safe at home: Yes additional social history: - 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 OB Visit PATSY Calculator Estimated Delivery Date Method Current WG Current Estimate 09/07/25 LMP (Certain) 21w 0d Other Estimates 09/08/25 Ultrasound #1 20w 6d Expected Delivery Route/Plan Labor Preferences- CB/BF classes: [] labor support person: [] labor intervention preferences: [] pain management options preferred: [] cut cord/dad catch: [] : [] PP control planned: [] discussed possible routes of delivery and associated risks: [] special requests: [] Specific Issue/Plans Covid status: [] Flu vaccine: [] Tdap vaccine: [] Rhogam: [] LARC form signed: [] Problem list reviewed and updated with the most current plan of care details and appropriate orders placed. Relevant counseling for the gestational age provided. Continue routine care and follow up unless otherwise noted in visit notes/problem list details Initial Weight: Not Recorded Date -?-?-?-?-?-?-?-?-?-?-?-?- EGA Weight BP Urine Prot -?-?-?-?-?-?-?-?-?-?-?-?- Glucose FHR FuHt Pres Dilation -?-?-?-?-?-?-?-?-?-?-?-?- Effaced St Visit Note 02/03/25 -?-?-?-?-?-?-?-?-?-?-?-?- 9w 1d 170 lb 6 oz 117/75 -?-?-?-?-?-?-?-?-?-?-?-?- 165 -?-?-?-?-?-?-?-?-?-?-?-?- JV- CRL consiste nt with LMP. Did carrier screen already. 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 SHe is jose's sis (L&D nurse) 03/05/25 -?-?-?-?-?-?-?-?-?-?-?-?- 13w 3d 170 lb 129/78 Negative -?-?-?-?-?-?-?-?-?-?-?-?- Negative 153 -?-?-?-?-?-?-?-?-?-?-?-?- KW- no vb/crampi ng. answered Rhogam questions. 03/31/25 -?-?-?-?-?-?-?-?-?-?-?-?- 17w 1d 175 lb 5 oz 137/75 Nega tive -?-?-?-?-?-?-?-?-?-?-?-?- Negative 145 -?-?-?-?-?-?-?-?-?-?-?-?- SM- no vb crampi ng 04/27/25 -?-?-?-?-?-?-?-?-?-?-?-?- 21w 0d 179 lb 2 oz 122/75 Nega tive -?-?-?-?-?-?-?-?-?-?-?-?- Negative 154 -?-?-?-?-?-?-?-?-?-?-?-?- MH-NO VB. Feelin g movement. No concerns ACOG First Trimester First Trimester: Desire for , Alcohol, Tobacco Cessation, Illicit/Recreational Drug/Substance Use, Intimate Partner Violence, Barriers to care, Unstable Housing, Communication Barriers, Environmental/Work Hazards, Anticipated Course of Care, Toxoplasmosis Precations, Use of Any medications, Sexual activity, Exercise, Dental Care, Sauna/Hot tub use, Seat Belt use, Childbirth classes/Hospital facilities, Travel, Indications for Ultrasound and Screening for Aneuploidy; Discussed ROS Const Reports system reviewed and no additional complaints, except as documented GI Denies abdominal pain, Denies nausea and Denies vomiting Exam Const General: cooperative Nutritional Appearance: well nourished GI Palpation: soft, nontender and other (gravid) Results POC Urinalysis 2 Dip (Clinic) Office Urine Glucose Negative Last Edit by Annabelle Liu on 04/27/25 15:47 Office Urine Protein Negative Last Edit by Annabelle Liu on 04/27/25 15:47 Coding Level of Care Code OB Routine Diagnoses Encounter for supervision of normal first in second trimester Z34.02 Trimester: second trimester Rh negative status during in second trimester O26.892; Z67.91 Trimester: second trimester Rh positive blood type in fetus 21 weeks gestation of Z3A.21 Weeks of gestation: 21 weeks Assessment and Plan Assessment and Plan (1) Supervision of normal first : Status: Acute Qualifiers: Trimester: second trimester Qualified Code(s): Z34.02 - Encounter for supervision of normal first , second trimester Comment: PRR, , PATSY 09/07/25,boy Blaine, (2) Rh negative status during : Status: Acute Qualifiers: Trimester: second trimester Qualified Code(s): O26.892 - Other specified related conditions, second trimester; Z67.91 - Unspecified blood type, Rh negative Comment: O-, Rhogam @ 28 weeks (3) Rh positive blood type in fetus: Status: Acute (4) : Status: Acute Qualifiers: Weeks of gestation: 21 weeks Qualified Code(s): Z3A.21 - 21 weeks gestation of Comment: elects NIPT low risk, male , carrier negative , normal anatomy Orders: Orders POC Urinalysis 2 Dip (Clinic) Today Plan problem list reviewed and updated for most current plan of care and appropriate orders placed. Relevant counseling for the gestational age appropriate provided and ACOG education checklist updated. Continue routine care and follow up. Clinical Quality Measures Falls Risk Screening/Assistive Devices Have you fallen in the past year?: No 04/27/25 1550 <Electronically signed by Lois bennett NP, NP-C> Date _ Lois Stewart NP, NP-C Cosigner Signature: Date (if applicable) CC: ~ [facility] Work Phone: 1(465) 892-307207-31-2025 Evaluation note* Diagnosis Onset Date Resolution Status Admit Date acute March 05 10:58am Rh negative status during acute March 05, 2025 10:58am Rh positive blood type in fetus acute March 05, 2025 10:58am Supervision of normal first acute March 05, 2025 10:58am Acne resolved March 05 10:58am Hair loss resolved March 05 10:58am IBS (irritable bowel syndrome) resolved March 05, 2025 10:58am PMDD (premenstrual dysphoric disorder) resolved March 05, 2025 10:58am acute March 31, 2 025 4:01pm Rh negative status during acute March 31 4:01pm Rh positive blood type in fetus acute March 31 4:01pm Supervision of normal first acute March 31 4:01pm acute April 3:32pm Rh negative status during acute April 27, 2025 3:32pm Rh positive blood type in fetus acute April 27, 2025 3:32pm Supervision of normal first acute April 27, 2025 3:32pm acute May 28, 2025 8:29am Rh negative status during acute May 28 8:29am Rh positive blood type in fetus acute May 28 8:29am Supervision of normal first acute May 28 8:29am acute June 15, 2025 3:27pm Rh negative status during acute June 15, 2 025 3:27pm Rh positive blood type in fetus acute June 15, 2 025 3:27pm Supervision of normal first acute June 15, 2 025 3:27pm [facility] Work Phone: 1(167) 263-720307-31-2025 Progress [facility] [address] [place] [address], [address] [place] [address] OFFICE VISIT Date of Service: 03/05/25 MR#: [id number] Acct: [id number] Name: CHAPIN CHAUDHARI Rep #: [id number] : 1995 Provider: CASSANDRA Garcia Age/Sex: 29/F [place] [facility] [place]: Signed Intake Vital Signs 10/17/24 08:15 02/03/25 10:39 03/05/25 11:01 Height 5 ft 7 in 5 ft 7 in 5 ft 7 in Weight: 170 lb BMI 26.6 BP 129/78 H Intake Visit Reasons: 13wk ob Chief Complaint: 13wk OB Explosive Operator Grenade Required: No Is patient in pain?: No Allergies No Known Allergies Allergy (Verified 03/05/25 10:59) Medications ?Medication ?Instructions ?Recorded ?Confirmed ?Type citalopram 10 mg tablet 10 mg PO QDAY #90 tabs 07/0203/05/25 Rx multivit-min no.71-iron fum 28 1 cap PO DAILY 01/16/25 03/05/25 History mg-folate no.1 1 mg-dha 300 mg capsule (PNV-[place]) promethazine 12.5 mg tablet 12.5 mg PO Q6H PRN nausea #30 tabs 02/03/25 03/05/25 Rx Last Menstrual Period: 12/01/24 : No PFSH PFSH Medical History Seasonal allergies Albinism PMS (premenstrual syndrome) Family planning counseling Dense breast tissue Splenic laceration IBS (irritable bowel syndrome) Family History Grandmother Hypertension Maternal Thyroid disorder Grandfather Hypertension Maternal Thyroid disorder Maternal- hypothyroidism Mother Thyroid disorder, Onset Age: 15 hyperthyroidism Aunt Thyroid disorder, Onset Age: 40 Maternal- hypothyroidism Social History adopted: No household members: spouse housing: house current occupational status: employed 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, [employer] current occupational exposures/hazards: No pets and animals: Yes history of recent travel: No sexually active: Yes Smoking Status: Never smoker alcohol intake: current alcohol intake frequency: holidays/special occasions only details: not while substance use type: does not use well-balanced diet: daily or most days caffeine: Yes Type: coffee Number of servings: 1 eating out: 1-3 times/week during the past year weight has: remained stable what type of physical activity do you participate in: walking, running and other details: pilates, bar workouts frequency: 3-4 times per week duration: 45-60 minutes/day lynette/moravian: Mosque seatbelt use: always do you feel safe at home: Yes additional social history: - 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 OB Visit PATSY Calculator Estimated Delivery Date Method Current WG Current Estimate 09/07/25 LMP (Certain) 13w 3d Other Estimates 09/08/25 Ultrasound #1 13w 2d Expected Delivery Route/Plan Labor Preferences- CB/BF classes: [] labor support person: [] labor intervention preferences: [] pain management options preferred: [] cut cord/dad catch: [] : [] PP control planned: [] discussed possible routes of delivery and associated risks: [] special requests: [] Specific Issue/Plans Covid status: [] Flu vaccine: [] Tdap vaccine: [] Rhogam: [] LARC form signed: [] Problem list reviewed and updated with the most current plan of care details and appropriate ordersplaced. Relevant counseling for the gestational age provided. Continue routine care and follow up unless otherwise noted in visit notes/problem list details Initial Weight: Not Recorded Date -?-?-?-?-?-?-?-?-?-?-?-?- EGA Weight BP Urine Prot -?-?-?-?-?-?-?-?-?-?-?-?- Glucose FHR FuHt Pres Dilation -?-?-?-?-?-?-?-?-?-?-?-?- Effaced St Visit Note 02/03/25 -?-?-?-?-?-?-?-?-?-?-?-?- 9w 1d 170 lb 6 oz 117/75 -?-?--?-?-?-?-?-?-?-?-?-?- 165 -?-?-?-?-?-?-?-?-?-?-?-?- JV- CRL consiste nt with LMP. Did carrier screen already. 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 answered Rhogam questions. ACOG First Trimester First Trimester: Desire for , Alcohol, Tobacco Cessation, Illicit/Recreational Drug/Substance Use, Intimate Partner Violence, Barriers to care, Unstable Housing, Communication Barriers, Environmental/Work Hazards, Anticipated Course of Care, Toxoplasmosis Precations, Use of Any med ications, Sexual activity, Exercise, Dental Care, Sauna/Hot tub use, Seat Belt use, Childbirth classes/Hospital facilities, Travel, Indications for Ultrasound and Screening for Aneuploidy; Discussed ROS Const Reports system reviewed and no additional complaints, except as documented Eyes Reports system reviewed and no additional complaints, except as documented ENT Reports system reviewed and no additional complaints, except as documented Card Reports system reviewed and no additional complaints, except as documented Resp Reports system reviewed and no additional complaints, except as documented GI Reports system reviewed and no additional complaints, except as documented, Denies nausea and Denies vomiting Reports system reviewed and no additional complaints, except as documented Musc Reports system reviewed and no additional complaints, except as documented Skin/Breast Reports system reviewed and no additional complaints, except as documented Neuro Yes system reviewed and no additional complaints, except as documented Psych Reports system reviewed and no additional complaints, except as documented Endo Reports system reviewed and no additional complaints, except as documented Floyd/Lymph Reports system reviewed and no additional complaints, except as documented Aller/Immun Reports system reviewed and no additional complaints, except as documented Exam Const General: cooperative, healthy appearing and no acute distress Orientation: alert, awake and oriented x3 Neck Neck: normal visual inspection and full ROM Resp Effort & Inspection: normal respiratory effort, able to speak in complete sentences and symmetric chest movement GI Inspection: normal to inspection Palpation: soft and other Other: gravid Skin General: no rashes or lesions noted Neuro General: patient alert, patient awake and patient oriented x3 Cognition: normal cognition Speech: speech normal Gait: normal gait Motor: muscle tone normal throughout Extrem General: normal to inspection and full ROM Psych Appearance: grossly normal Mental Status: mental status grossly normal Mood: congruent mood Affect: normal affect Speech and Movement: speech and movement normal Attitude: cooperative Thought Process: normal Thought Content: normal Judgment: judgment good Results POC Urinalysis 2 Dip (Clinic) Office Urine Glucose Negative Last Edit by Lorie Angel on 03/05/25 11:07 Office Urine Protein Negative Last Edit by Lorie Angel on 03/05/25 11:07 Coding Level of Care Code OB Routine Diagnoses Rh negative status during O26.899; Z67.91 Rh positive blood type in fetus Supervision of normal first Z34.00 13 weeks gestation of Z3A.13 Weeks of gestation: 13 weeks PMDD (premenstrual dysphoric disorder) F32.81 Acne, unspecified acne type L70.9 Acne type: unspecified acne Hair loss L65.9 IBS (irritable bowel syndrome) K58.9 Assessment and Plan Assessment and Plan (1) Rh negative status during : Status: Acute Comment: O-, Rhogam @ 28 weeks (2) Rh positive blood type in fetus: Status: Acute (3) Supervision of normal first : Status: Acute Comment: PRR, , PATSY 09/07/25, Blaine (4) : Status: Acute Qualifiers: Weeks of gestation: 13 weeks Qualified Code(s): Z3A.13 - 13 weeks gestation of Comment: elects NIPT low risk, male , carrier negative (5) PMDD (premenstrual dysphoric disorder): Status: Acute Comment: 10mg citalopram recommended counseling. (6) Acne: Status: Acute Qualifiers: Acne type: unspecified acne Qualified Code(s): L70.9 - Acne, unspecified (7) Hair loss: Status: Acute (8) IBS (irritable bowel syndrome): Status: Chronic Orders: Orders POC Urinalysis 2 Dip (Clinic) Today Plan Details Additional Comments: ACOG trimester education reviewed and updated. see problem list details for updated plan management information and see below for orders placed atthis visit. [place] appropriate handout given. 03/05/25 1129 s CASSANDRA> Date _ Tamika Garcia CNM Cosigner Signature: Date (if applicable) CC: ~ [facility]07-01-2025 Evaluation note* Diagnosis Onset Date Resolution Status Admit Date Acne acute February 03, 2025 10:35am Hair loss acute February 03, 2025 10:35am PMDD (premenstrual dysphoric disorder) acute February 03, 2025 1 0:35am acute February 03, 2025 10:35am Supervision of normal first acute February 03, 2025 1 0:35am IBS (irritable bowel syndrome) chron ic February 03, 2025 10:35am [facility] Work Phone: 1(858) 149-226507-01-2025 Evaluation note* Diagnosis Onset Date Resolution Status Admit Date Acne acute February 03, 2025 10:35am Hair loss acute February 03, 2025 10:35am PMDD (premenstrual dysphoric disorder) acute February 03, 2025 1 0:35am acute February 03, 2025 10:35am Supervision of normal first acute February 03, 2025 1 0:35am IBS (irritable bowel syndrome) chron ic February 03, 2025 10:35am Acne acute March 05 10:58am Hair loss acute March 05 10:58am PMDD (premenstrual dysphoric disorder) acute March 05, 2025 10:58am acute March 05 10:58am Rh negative status during acute March 05, 2025 10:58am Rh positive blood type in fetus acut e March 05, 2025 10:58am Supervision of normal first acute March 05, 2025 10:58am IBS (irritable bowel syndrome) chron ic March 05, 2025 10:58am [facility] Work Phone: 1(465) 531-503707-01-2025 Evaluation note* Diagnosis Onset Date Resolution Status Admit Date acute February 03, 2025 10:35am Supervision of normal first acute February 03, 2025 1 0:35am Acne resolved February 03, 2025 10:35am Hair loss resolved February 03, 2025 10:35am IBS (irritable bowel syndrome) resol derrick February 03, 2025 10:35am PMDD (premenstrual dysphoric disorder) resolved February 03, 2025 1 0:35am acute March 05 10:58am Rh negative status during acute March 05, 2025 10:58am Rh positive blood type in fetus acute March 05, 2025 10:58am Supervision of normal first acute March 05, 2025 10:58am Acne resolved March 05 10:58am Hair loss resolved March 05 10:58am IBS (irritable bowel syndrome) resol derrick March 05, 2025 10:58am PMDD (premenstrual dysphoric disorder) resolved March 05, 2025 10:58am acute March 31, 2 025 4:01pm Rh negative status during acute March 31 4:01pm Rh positive blood type in fetus acute March 31 4:01pm Supervision of normal first acute March 31 4:01pm [facility] Work Phone: 1(278) 224-637307-01-2025 Evaluation note* Diagnosis Onset Date Resolution Status Admit Date acute February 03, 2025 10:35am Supervision of normal first acute February 03, 2025 1 0:35am Acne resolved February 03, 2025 10:35am Hair loss resolved February 03, 2025 10:35am IBS (irritable bowel syndrome) resolved February 03, 2025 1 0:35am PMDD (premenstrual dysphoric disorder) resolved February 03, 2025 1 0:35am acute March 05 10:58am Rh negative status during acute March 05, 2025 10:58am Rh positive blood type in fetus acute March 05, 2025 10:58am Supervision of normal first acute March 05, 2025 10:58am Acne resolved March 05 10:58am Hair loss resolved March 05 10:58am IBS (irritable bowel syndrome) resolved March 05, 2025 10:58am PMDD (premenstrual dysphoric disorder) resolved March 05, 2025 10:58am acute March 31, 2 025 4:01pm Rh negative status during acute March 31 4:01pm Rh positive blood type in fetus acute March 31 4:01pm Supervision of normal first acute March 31 4:01pm acute April 3:32pm Rh negative status during acute April 27, 2025 3:32pm Rh positive blood type in fetus acute April 27, 2025 3:32pm Supervision of normal first acute April 27, 2025 3:32pm [facility] Work Phone: 1(988) 622-805607-01-2025 [facility] [address] [place] [address], [address] [place] [address] OFFICE VISIT Date of Service: 02/03/25 MR#: [id number] Acct: [id number] Name: CHAPIN CHAUDHARI Rep #: [id number] : 1995 Provider: Dr. 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 Required: No Is patient in pain?: No Allergies No Known Allergies Allergy (Verified 02/03/25 10:37) Medications ?Medication ?Instructions ?Recorded ?Confirmed ?Type citalopram 10 mg tablet 10 mg PO QDAY #90 tabs 07/0202/03/25 Rx multivit-min no.71-iron fum 28 1 cap PO DAILY 01/16/25 02/03/25 History mg-folate no.1 1 mg-dha 300 mg capsule (PNV-F[place]) promethazine 12.5 mg tablet 12.5 mg PO Q6H PRN nausea #30 tabs 02/03/25 02/03/25 Rx Last Menstrual Period: 12/01/24 Zika: Zika virus screening: Negative : No PFSH PFSH Medical History Seasonal allergies Albinism PMS (premenstrual syndrome) Family planning counseling Dense breast tissue Splenic laceration IBS (irritable bowel syndrome) Family History Grandmother Hypertension Maternal Thyroid disorder Grandfather Hypertension Maternal Thyroid disorder Maternal- hypothyroidism Mother Thyroid disorder, Onset Age: 15 hyperthyroidism Aunt Thyroid disorder, Onset Age: 40 Maternal- hypothyroidism Social History adopted: No household members: spouse housing: house current occupational status: employed 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, [employer]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[employer] current occupational exposures/hazards: No pets and animals: Yes history of recent travel: No sexually active: Yes Smoking Status: Never smoker alcohol intake: current alcohol intake frequency: holidays/special occasions only details: not while substance use type: does not use well-balanced diet: daily or most days caffeine: Yes Type: coffee Number of servings: 1 eating out: 1-3 times/week during the past year weight has: remained stable what type of physical activity do you participate in: walking, running and other details: pilates, bar workouts frequency: 3-4 times per week duration: 45-60 minutes/day lynette/moravian: Mosque seatbelt use: always do you feel safe at home: Yes additional social history: - 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 OB Visit PATSY Calculator Estimated Delivery Date Method Current WG Current Estimate 09/07/25 LMP (Certain) 9w 1d Other Estimates 09/08/25 Ultrasound #1 9w 0d Comments: HIV: Urine Culture: Sequential Screen: NIPT Screen: Estimated Due Date: 09/01/25 Expected Delivery Route/Plan Labor Preferences- CB/BF classes: [] labor support person: [] labor intervention preferences: [] pain management options preferred: [] cut cord/dad catch: [] : [] PP control planned: [] discussed possible routes of delivery and associated risks: [] special requests: [] Specific Issue/Plans Covid status: [] Flu vaccine: [] Tdap vaccine: [] Rhogam: [] LARC form signed: [] Problem list reviewed and updated with the most current plan of care details and appropriate ordersplaced. Relevant counseling for the gestational age provided. Continue routine care and follow up unless otherwise noted in visit notes/problem list details Initial Weight: Not Recorded Date -?-?-?-?-?-?-?-?-?-?-?-?- EGA Weight BP Urine Prot -?-?-?-?-?-?-?-?-?-?-?-?- Glucose FHR FuHt Pres Dilation -?-?-?-?-?-?-?-?-?-?-?-?- Effaced St Visit Note 02/03/25 -?-?-?-?-?-?-?-?-?-?--?-?- 9w 1d 170 lb 6 oz 117/75 -?-?-?-?-?-?-?-?-?-?-?-?- 165 -?-?-?-?-?-?-?-?-?-?-?-?- JV- CRL consiste nt with LMP. Did carrier screen already. 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) Menstrual History Last Menstrual Period: 12/01/24 Reported LMP: definite Normal amount/duration: Yes Frequency in days: 27-29 On hormonal BC at conception: No hCG+: 12/25/24 Antepartum Record Genetic Screening: Congenital Heart Defect: Other, Neural Tube Defect: Other, Hemoglobinopathy Or Carrier: Other, Cystic Fibrosis: Other, Chromosome Abnormality: Other, Neri-Sachs: Other, Hemophilia: Other, Intellectual Disability/Autism: Partner (Brother), Recurrent Loss/Stillbirth: Other, Other Structural Defect: Other, Other Genetic Disease: Patient (Albinisim) and Maternal Metabolic Disorder: Other Infection History: Live with someone with TB or Exposed to TB: No, Patient or Partner has history of Genital Herpes: No, Rash or Viral illness since last mentrual period: No, Prior GBS-Infected child: No, History of STD: No, HIV Infection: No, History of Hepatitis: No, Recent travel outside of [place]: No, Concern for hepatitis exposure: No, Varicella immune: Yes (immune vaccinated) and Covid Vaccinated: Yes (Pfizer, Boosters annually) Medical History Medical History: Positive: Psychiatric (PMDD), Seasonal allergies (spring), Relevant family history(See PFSH) and Other (IBS) and Negative: Diabetes, Hypertension, Heart disease, Auto-immune disorder, Kidney disease/UTI, Neurologic/epilepsy, Depression/ depression, Hepatitis/liver disease, Varicosities/phlebitis, Thyroid dysfunction, Trauma/domestic violence, History of blood transfusions, D (Rh) Sensitized, Pulmonary (e.g.,TB,Asthma), Drug/latex allergies/reactions, Breast, Prosthodontist surgery, Operations/hospitalizations, Anesthetic complications, History of abnormal pap, Uterine anomaly/aleah, Infertility and Anti-retroviral treatment ACOG First Trimester First Trimester: Desire for , Alcohol, Tobacco Cessation, Illicit/Recreational Drug/Substance Use, Intimate Partner Violence, Barriers to care, Unstable Housing, Communication Barriers, Environmental/Work Hazards, Anticipated Course of Care, Nurtrition and weight gain, Toxoplasmosis Precations, Use of Any medications, Sexual activity, Exercise, Dental Care, Sauna/Hot tub use, Seat Belt use, Childbirth classes/Hospital facilities, Travel, Indications for Ultrasound and Screening for Aneuploidy; Discussed ROS Const Reports system reviewed and no additional complaints, except as documented, Reports fatigue and Denies fever(s) Eyes Reports system reviewed and no additional complaints, except as documented ENT Reports system reviewed and no additional complaints, except as documented Card Denies chest pain and Denies dyspnea Resp Reports system reviewed and no additional complaints, except as documented, Denies cough and Deniesdyspnea GI Denies abdominal pain and Reports nausea Reports system reviewed and no additional complaints, except as documented Musc Reports system reviewed and no additional complaints, except as documented Skin/Breast Reports system reviewed and no additional complaints, except as documented Neuro Yes system reviewed and no additional complaints, except as documented Psych Reports system reviewed and no additional complaints, except as documented Endo Reports system reviewed and no additional complaints, except as documented and Reports fatigue Exam Const General: healthy appearing, comfortable and no acute distress Orientation: alert [facility] Head: normal to inspection, normocephalic and atraumatic Ears: hearing grossly normal bilaterally and external ears normal Nose: external nose normal and nares normal Mouth: oral mucosae normal Teeth and gingiva: dentition normal Eyes General: appearance normal, both eyes and all related structures Neck Neck: normal visual inspection, no lymphadenopathy and supple Thyroid: thyroid normal Chest Chest palpation & inspection: normal inspection of the chest Breast inspection: normal inspection of the breasts and normal inspection of the axillae Breast palpation: normal palpation of the breasts and normal palpation of the axillae Resp Effort & Inspection: normal respiratory effort GI Inspection: normal to inspection Palpation: soft and no hepatosplenomegaly General: bladder normal to palpation External Female Exam: normal external appearance and normal appearance of the urethra Urethra: normal appearance of the urethra Speculum Exam - Vagina: normal appearance of the vagina and normal vaginal discharge Speculum Exam - Cervix: normal appearance of the cervix Bimanual Exam- Vagina & Uterus: normal bimanual exam, bladder normal to palpation, non-tender and other Bimanual Exam- Adnexa, other: non-tender Skin General: no rashes or lesions noted Neuro Motor: muscle tone normal throughout and no movement abnormalities noted Extrem General: normal to inspection and full ROM Supplemental Info ACOG book given and patient encouraged to read about nutrition, exercise, weight gain, and food avoidance in . Coding Level of Care Code OB Routine Diagnoses Supervision of normal first Z34.00 Z34.90 PMDD (premenstrual dysphoric disorder) F32.81 Acne, unspecified acne type L70.9 Acne type: unspecified acne Hair loss L65.9 IBS (irritable bowel syndrome) K58.9 Assessment and Plan Assessment and Plan (1) Supervision of normal first : Status: Acute Comment: , PATSY 09/07/25, Blaine (2) : Status: Acute Comment: discussed NIPT testing- undecided, carrier negative (3) PMDD (premenstrual dysphoric disorder): Status: Acute Comment: 10mg citalopram recommended counseling. (4) Acne: Status: Acute Qualifiers: Acne type: unspecified acne Qualified Code(s): L70.9 - Acne, unspecified (5) Hair loss: Status: Acute (6) IBS (irritable bowel syndrome): Status: Chronic Orders: Orders CBC W/Diff, Automated 01/16/25 Z34.00 - Encounter for supervision of normal first , unspecified trimester Type & Screen 01/16/25 Z34.00 - Encounter for supervision of normal first , unspecified trimester Rubella IgG 01/16/25 Z34.00 - Encounter for supervision of normal first , unspecified trimester Hepatitis C Antibody 01/16/25 Z34.00 - Encounter for supervision of normal first , unspecified trimester Hepatitis B Surface Antigen 01/16/25 Z34.00 - Encounter for supervision of normal first , unspecified trimester Culture, Urine 01/16/25 Z34.00 - Encounter for supervision of normal first , unspecified trimester Syphilis Antibodies 01/16/25 Z34.00 - Encounter for supervision of normal first , unspecified trimester Chlamydia/GC PATRICIA aptima 01/16/25 Z34.00 - Encounter for supervision of normal first , unspecified trimester HIV 01/16/25 Z34.00 - Encounter for supervision of normal first , unspecified trimester Medications: New promethazine 12.5 mg PO Q6H PRN 30 tabs 3RF nausea Plan Patient oriented to practice and discussed care expectations and screenings. ACOG book offered to patient. Discussed routine and specially indicated labs if needed- patient consents to testing. See problem list details for plan information. Optional screening including maternal carrier screenings, neural tube defect screening, genetic screening options including quad screen, nuchal translucency, sequential screening, and NIPT screening offered to patient and patient chose: nipt, possibly AFP 02/03/25 1129 e Esa DO> Date _ Lidya Warrenign Signature: Date (if applicable) CC: ~ [facility]06-14-2025 Discharge summary [facility] Medical Records Department [address] [place] [address] Emergency Department Summary 01/16/25 MR#: [id number] Acct: [id number] Name: CHAPIN CHAUDHARI Rep #:[id number] : 1995 29 From: Clarence Viveros MD PCP: Care Physician,No Primary Status :REG ER Location: ED HPI HPI - GI History of Present Illness Chief Complaint: Abd Pain Informant: patient and friend Narrative Narrative: 29-year-old female is about 6 weeks , , last normal menstrual cyclestarted 12/01/2024, she states she bent over tonight and had a very sharp severe brief pain left abdomen, followed by suprapubic cramping that she felt in her low back that felt like uterine cramping, it became quite severe, and then slowly improved to the point now where she feels only mild discomfort. She has been having some of his cramping off and on for weeks, but never like this. No urinary issues. No vaginal bleeding or discharge. No syncope or near syncope, or vomiting. [facility] Medical History Seasonal allergies Albinism PMS (premenstrual syndrome) Family planning counseling Dense breast tissue Splenic laceration IBS (irritable bowel syndrome) Home Medications ?Medication ?Instructions ?Recorded ?Last Taken ?Type citalopram 10 mg tablet 10 mg PO QDAY #90 tabs 07/02 Unknown Rx multivit-min no.71-iron fum 28 1 cap PO DAILY 01/16/25 Unknown History mg-folate no.1 1 mg-dha 300 mg capsule (PNV-[place]) Allergy/AdvReac Type Severity Reaction Status Date / Time No Known Allergies Allergy Verified 01/16/25 23:19 Family History Grandmother Hypertension Maternal Thyroid disorder Grandfather Hypertension Maternal Thyroid disorder Maternal- hypothyroidism Mother Thyroid disorder, Onset Age: 15 hyperthyroidism Aunt Thyroid disorder, Onset Age: 40 Maternal- hypothyroidism Social History adopted: No household members: spouse housing: house current occupational status: employed 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, [employer]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[employer] current occupational exposures/hazards: No pets and animals: Yes history of recent travel: No sexually active: Yes Smoking Status: Never smoker alcohol intake: current alcohol intake frequency: holidays/special occasions only details: not while substance use type: does not use well-balanced diet: daily or most days caffeine: Yes Type: coffee Number of servings: 1 eating out: 1-3 times/week during the past year weight has: remained stable what type of physical activity do you participate in: walking, running and other details: pilates, bar workouts frequency: 3-4 times per week duration: 45-60 minutes/day lynette/moravian: Mosque seatbelt use: always do you feel safe at home: Yes additional social history: - 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 ROS ROS ED Constitutional Constitutional ED: Denies chills or fever(s) Eyes Eyes: Denies change in vision or diplopia ENT ENT ED: Denies rhinorrhea or sore throat Cardiovascular Cardiovascular: Denies chest pain or palpitations Respiratory/Chest Respiratory/Chest: Denies cough or dyspnea Gastrointestinal Gastrointestinal: Reports abdominal pain; Denies diarrhea, nausea or vomiting Genitourinary Genitourinary ED: Reports LMP (females 10-50) Details: Comment: (12/01/24); Denies dysuria, hematuria, vaginal bleeding or vaginal discharge Musculoskeletal Musculoskeletal: Denies back pain or neck pain Integumentary Denies abscess or rash Neurologic Neurologic: Denies headache(s), paresthesias or weakness Psychiatric Psychiatric: Denies anxiety or suicidal thoughts EXAM Physical Exam Const Vital Signs: 01/16/25 23:19 01/17/25 01:19 Temperature 98.2 F Temperature Source Temporal Pulse Rate 79 82 Respiratory Rate 16 16 Blood Pressure 140/66 H 131/73 H Blood Pressure Mean 90 92 Pulse Ox 100 100 Oxygen Delivery Method Room Air Room Air Positive well nourished and well developed General Appearance ED: well developed and NAD HEENT Reports moist mucous membranes normocephalic and atraumatic Eyes PERRL and EOMs intact bilaterally Neck full ROM and supple Resp normal respiratory effort and clear to auscultation bilaterally Cardio regular rate, regular rhythm and no murmurs GI non-tender and non-distended Auscultation: normoactive bowel sounds Palpation: soft Speculum Exam - Vagina: Negative for vaginal bleeding or vaginal discharge Back/Spine no CVA tenderness General Back: other FROM Extremity normal to inspection General Extremety ED: Negative for edema, pulses abnormal or tenderness General Extremity: Negative for edema or pulses abnormal Neuro oriented x3, CN's II-XII intact bilaterally and no sensory deficits noted Sensorium / Orientation: awake and alert Motor Exam: strength 5/5 throughout Skin no rashes or lesions noted and no wounds MDM MDM MDM Narrative Medical decision making narrative: Although patient is nontender, she states her symptoms were quite severe and unilateral with regards to the brief sharp pain she had and I think alan given her early stages of to obtain a quantitative hCG and a pelvic ultrasound to rule out ectopic. Quantitative hCG correlates with ultrasound showing single live intrauterine at 6 weeks 3days, heart tones noted at 117, urinalysis normal. Patient is doing well clinically and hemodynamically, stable for discharge closea patient follow-up and she is reassured at this time, advisedshe can take Tylenol as needed for recurrent pain and advised to follow-up with her OB. Lab Data Attestation: I reviewed the patient's lab results. Labs: Laboratory Results - last 24 hr 01/16/25 01/16/25 23:30 23:59 HCG, Quant [id number] H Urine Color Yellow Urine Clarity Clear Urine pH 6.5 Ur Specific [place] 1.010 Urine Protein Negative Urine Glucose (UA) Normal Urine Ketones Negative Urine Occult Blood Negative Urine Nitrite Negative Urine Bilirubin Negative Urine Urobilinogen Normal Ur Leukocyte Esterase Negative Urine RBC 0 SEEN Urine WBC 0 SEEN Ur Squamous Epith Cells 5-10 SEEN Urine Bacteria RARE Urine Mucus RARE Radiography Diagnostic Testing: Clinical Impression(s) from Imaging Studies Obstetrics Ultrasound 01/16/25 23:46 IMPRESSION: Single, live intrauterine gestation. No abnormality is noted. Reading Location: [place] [address] Discharge Plan Triage Chief Complaint: Abd Pain ED Provider: Clarence Viveros Dx/Rx/DC Orders Clinical Impression: Pelvic pain during in first trimester, antepartum Instructions: ED Abdominal Pain, Early Prescriptions: No Action PNV-Flemington 28-1-300 mg capsule 1 cap PO DAILY citalopram 10 mg tablet 10 mg PO QDAY Qty: 90 0RF Primary Care Provider: Care Physician,No Primary Referrals: Lidya Child DO [Med Staff - Active Staff] - As soon as possible Print Language: Russian Disposition Disposition: Home, Self Care What to do if you have Problems For any increased pain, shortness of breath, bleeding, nausea or vomiting, chestpain, or any unexpected problems, contact your Primary Care Provider. Call [facility] ([phone]) or report tothe closest Emergency Room. Call 911 if necessary. 01/17/25 0129 Cosigner Signature (if applicable): CC: Dr. Lidya Child DO; No Primary Care Physician ~ Signed [facility]06-14-2025 Radiology Diagnostic study note [facility] Imaging Services [address] [place], [place] [address] Transvaginal w/Preg US MR#: [id number] Acct: [id number] Name: CHAPIN CHAUDHARI Rep #: [id number] : 1995 F 29 From: Saul Hitchcock MD PCP: Care Physician,No Primary Status: REG ER Study:Transvaginal w/Preg US Date of Exam: 01/16/25 Exam# [id number] Ordering Dr: Catalina Viveros MD PROCEDURE: TRANSVAGINAL W/PREG US 01/17/2025 REASON FOR EXAM: SEVERE PELVIC PAIN TECHNIQUE: High resolution obstetric ultrasound performed using a 2D transducer. Standard views obtained, including biometry, anatomy survey, and Doppler studies. Transvaginal real-time ultrasound images. COMPARISON: None. FINDINGS Single, live intrauterine gestation. Mean gestational sac diameter 16 mm, 6 weeks and 3 days. The yolk sac measures 2 mm. The crown-rump length measures 5 mm, 6 weeks and 2 days. heart rate 117 beats per minute. Estimated gestational age based on today's ultrasound is 6 weeks and 3 days. Estimated delivery date on 09/09/2024. The uterus measures 8.8 x 5.6 x 3.7 cm. The cervix is closed. Nonvisualizationof the right ovary secondary to overlying bowel gas. The left ovary measures 3.8 x 2.3 x 2.6 cm. Left ovarian corpus luteum cyst is noted measuring2.5 x 2.4 x 1.8 cm. Normal bilateral ovarian flow without evidence of ovarian torsion. No free fluid in the pelvic cul-de-sac. US/Transvaginal w/Preg US IMPRESSION: Single, live intrauterine gestation. No abnormality is noted. Reading Location: [id number] CC: Dr. Clarence Viveros MD; No Primary Care Physician ~ Instrumentation Fitter: Signed [facility]06-13-2025 Discharge summary Author Clarence Viveros [facility] Note Date/Time January 17, 2025 1:29 am [facility] Medical Records Department [address] [place] [address] Emergency Department Summary 01/16/25 MR#: [id number] Acct: [id number] Name: CHAPIN CHAUDHARI Rep #:[id number] : 1995 29 From: Clarence Viveros MD PCP: Care Physician,No Primary Status :REG ER Location: ED HPI HPI - GI History of Present Illness Chief Complaint: Abd Pain Informant: patient and friend Narrative Narrative: 29-year-old female is about 6 weeks , , last normal menstrual cyclestarted 12/01/2024, she states she bent over tonight and had a very sharp severe brief pain left abdomen, followed by suprapubic cramping that she felt in her low back that felt like uterine cramping, it became quite severe, and then slowly improved to the point now where she feels only mild discomfort. She has been having some of his cramping off and on for weeks, but never like this. No urinary issues. No vaginal bleeding or discharge. No syncope or near syncope, or vomiting. [facility] Medical History Seasonal allergies Albinism PMS (premenstrual syndrome) Family planning counseling Dense breast tissue Splenic laceration IBS (irritable bowel syndrome) Home Medications ?Medication ?Instructions ?Recorded ?Last Taken ?Type citalopram 10 mg tablet 10 mg PO QDAY #90 tabs 07/02 Unknown Rx multivit-min no.71-iron fum 28 1 cap PO DAILY 01/16/25 Unknown History mg-folate no.1 1 mg-dha 300 mg capsule (PNV-[place]ming[place]) Allergy/AdvReac Type Severity Reaction Status Date / Time No Known Allergies Allergy Verified 01/16/25 23:19 Family History Grandmother Hypertension Maternal Thyroid disorder Grandfather Hypertension Maternal Thyroid disorder Maternal- hypothyroidism Mother Thyroid disorder, Onset Age: 15 hyperthyroidism Aunt Thyroid disorder, Onset Age: 40 Maternal- hypothyroidism Social History adopted: No household members: spouse housing: house current occupational status: employed 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, [employer] current occupational exposures/hazards: No pets and animals: Yes history of recent travel: No sexually active: Yes Smoking Status: Never smoker alcohol intake: current alcohol intake frequency: holidays/special occasions only details: not while substance use type: does not use well-balanced diet: daily or most days caffeine: Yes Type: coffee Number of servings: 1 eating out: 1-3 times/week during the past year weight has: remained stable what type of physical activity do you participate in: walking, running and other details: pilates, bar workouts frequency: 3-4 times per week duration: 45-60 minutes/day lynette/moravian: Mosque seatbelt use: always do you feel safe at home: Yes additional social history: - 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 ROS ROS ED Constitutional Constitutional ED: Denies chills or fever(s) Eyes Eyes: Denies change in vision or diplopia ENT ENT ED: Denies rhinorrhea or sore throat Cardiovascular Cardiovascular: Denies chest pain or palpitations Respiratory/Chest Respiratory/Chest: Denies cough or dyspnea Gastrointestinal Gastrointestinal: Reports abdominal pain; Denies diarrhea, nausea or vomiting Genitourinary Genitourinary ED: Reports LMP (females 10-50) Details: Comment: (12/01/24); Denies dysuria, hematuria, vaginal bleeding or vaginal discharge Musculoskeletal Musculoskeletal: Denies back pain or neck pain Integumentary Denies abscess or rash Neurologic Neurologic: Denies headache(s), paresthesias or weakness Psychiatric Psychiatric: Denies anxiety or suicidal thoughts EXAM Physical Exam Const Vital Signs: 01/16/25 23:19 01/17/25 01:19 Temperature 98.2 F Temperature Source Temporal Pulse Rate 79 82 Respiratory Rate 16 16 Blood Pressure 140/66 H 131/73 H Blood Pressure Mean 90 92 Pulse Ox 100 100 Oxygen Delivery Method Room Air Room Air Positive well nourished and well developed General Appearance ED: well developed and NAD HEENT Reports moist mucous membranes normocephalic and atraumatic Eyes PERRL and EOMs intact bilaterally Neck full ROM and supple Resp normal respiratory effort and clear to auscultation bilaterally Cardio regular rate, regular rhythm and no murmurs GI non-tender and non-distended Auscultation: normoactive bowel sounds Palpation: soft Speculum Exam - Vagina: Negative for vaginal bleeding or vaginal discharge Back/Spine no CVA tenderness General Back: other FROM Extremity normal to inspection General Extremety ED: Negative for edema, pulses abnormal or tenderness General Extremity: Negative for edema or pulses abnormal Neuro oriented x3, CN's II-XII intact bilaterally and no sensory deficits noted Sensorium / Orientation: awake and alert Motor Exam: strength 5/5 throughout Skin no rashes or lesions noted and no wounds MDM MDM MDM Narrative Medical decision making narrative: Although patient is nontender, she states her symptoms were quite severe and unilateral with regards to the brief sharp pain she had and I think alan given her early stages of to obtain a quantitative hCG and a pelvic ultrasound to rule out ectopic. Quantitative hCG correlates with ultrasound showing single live intrauterine at 6 weeks 3 days, heart tones noted at 117, urinalysis normal. Patient is doing well clinically and hemodynamically, stable for discharge closea patient follow-up and she is reassured at this time, advised she can take Tylenol as needed for recurrent pain and advised to follow-up with her OB. Lab Data Attestation: I reviewed the patient's lab results. Labs: Laboratory Results - last 24 hr 01/16/25 01/16/25 23:30 23:59 HCG, Quant [id number] H Urine Color Yellow Urine Clarity Clear Urine pH 6.5 Ur Specific [place] 1.010 Urine Protein Negative Urine Glucose (UA) Normal Urine Ketones Negative Urine Occult Blood Negative Urine Nitrite Negative Urine Bilirubin Negative Urine Urobilinogen Normal Ur Leukocyte Esterase Negative Urine RBC 0 SEEN Urine WBC 0 SEEN Ur Squamous Epith Cells 5-10 SEEN Urine Bacteria RARE Urine Mucus RARE Radiography Diagnostic Testing: Clinical Impression(s) from Imaging Studies Obstetrics Ultrasound 01/16/25 23:46 IMPRESSION: Single, live intrauterine gestation. No abnormality is noted. Reading Location: [place] [address] Discharge Plan Triage Chief Complaint: Abd Pain ED Provider: Clarence Viveros Dx/Rx/DC Orders Clinical Impression: Pelvic pain during in first trimester, antepartum Instructions: ED Abdominal Pain, Early Prescriptions: No Action PNV-Flemington 28-1-300 mg capsule 1 cap PO DAILY citalopram 10 mg tablet 10 mg PO QDAY Qty: 90 0RF Primary Care Provider: Care Physician,No Primary Referrals: Lidya Child, [Med Staff - Active Staff] - As soon as possible Print Language: Russian Disposition Disposition: Home, Self Care What to do if you have Problems For any increased pain, shortness of breath, bleeding, nausea or vomiting, chestpain, or any unexpected problems, contact your Primary Care Provider. Call [facility] ([phone]) or report to the closest Emergency Room. Call 911 if necessary. 01/17/259 <Electronically signed by Clarence Viveros MD> Cosigner Signature (if applicable): CC: Dr. Lidya Child, DO; No Primary Care Physician ~ Signed [facility] Work Phone: 1(110) 633-397703-14-2025 Evaluation note* Diagnosis Onset Date Resolution Status Admit Date Family planning counseling acute October 17, 2024 8:12am PMDD (premenstrual dysphoric disorder) acute October 17, 2024 8:12am [facility] Work Phone: 1(203) 185-434903-14-2025 Evaluation note* Diagnosis Onset Date Resolution Status Admit Date PMDD (premenstrual dysphoric disorder) acute October 17, 2024 8:12am Family planning counseling inactive October 17, 2024 8:12am [facility] Work Phone: 1([phone]) 706-364603-14-2025 Evaluation note* Diagnosis Onset Date Resolution Status Admit Date PMDD (premenstrual dysphoric disorder) acute October 17, 2024 8:12am Family planning counseling inactive October 17, 2024 8:12am Acne acute February 03, 2025 10:35am Hair loss acute February 03, 2025 10:35am PMDD (premenstrual dysphoric disorder) acute February 03, 2025 1 0:35am acute February 03, 2025 10:35am Supervision of normal first acute February 03, 2025 1 0:35am IBS (irritable bowel syndrome) chron ic February 03, 2025 10:35am [facility] Work Phone: [phone] NoteHNO ID: [id number] Author: Warren Melo DO Service: ? Author Type: Physician Type: Progress Notes Filed: 10/11/2022 1:19 PM Note Text: [facility] [address] [place] [address] Date of Evaluation: 10/11/2022 Patient Name: Chapin [...] V79.0, ICD10: Z13.31 Negative - DEPRESSION SCREENING/ASSESSMENT Warren Kameron, DO Return if symptoms worsen or fail to improve. Discussed the above with the patient using shared decision making. The patient is in agreement with the diagnostic and treatment plans.[facility]11-09-2022 Miscellaneous Notes* Telephone Encounter - Eduard Batres MA - 06/14/2022 11:27 AM EST Spoke with patient and notified her of provider's recommendations. Patient states she is feeling a little better so will hold off on starting antibiotic. Eduard Batres MA * Telephone Encounter - Nieves [...] Please advise. Philomena Martinez documented in this encounterAult[facility]11-08-2022 NoteHNO ID: [id number] Author: Nieves Cabrales PA-C Service: ? Author Type: Physician Instructor Watch Assembly Type: Progress Notes Filed: 06/14/2022 3:46 PM Note Text: [facility] [place] [facility] [place] [address] Date of Evaluation: 06/13/2022 Patient Name: Chapin Chaudhari : 1995 Chief Complaint: Patient presents with: Sore Throat Chest Congestion neck stiffness Nursing Intake: Nursing Notes: Eduard Batres MA 06/13/2022 3:50 PM Signed Chapin Chaudhari is a 26 year old female who presents for Sore Throat, Chest Congestion, ears hurt and neck stiffness since Sunday afternoon. Had fever last night. Did not test for COVID. Denies cough. Eduard Batres MA Subjective Ms. Chaudhari is a 26 year old female who presents with the following complaint(s): HPI Since weekend on Sunday, sore throat, fever, white spots on both tonsils. Achy, sore neck but no nuchal rigidity. Also has runny nose, congestion, ear fullness, occ cough. Can swallow, eat/drink, no difficulty breathing. Note, prior pharyngitis with mononucleosis (EBV) and splenic rupture in 2016. Off control since last month - had negative test 2 days ago. 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 She states understanding and has no further questions. Eduard Batres MA * Telephone Encounter - Eduard Batres MA - 03/13/2022 3:49 PM EDT ----- Message from Nieves Cabrales PA-C sent at 03/13/2022 9:20 AM EDT ----- Good news - Ultrasound of right breast shows prominent fibroglandular (dense) tissue that is not a concern or is cancerous. There are no abnormalities noted. Nieves Cabrales PA-C documented in this encounterAultman Hospital08-05-2022 NoteHNO ID: [id number] Author: RT Noelle(R) Service: Radiology Author Type: [...] BY: RT Noelle(R) March 10, 2022 1:38 [facility] History of Present illness Narrative* RT Noelle(R) [...] 10, 2022 1:38 PM documented in this encounterAultman Hospital07-21-2022 Miscellaneous Notes* Telephone Encounter - Eduard Batres MA - 02/23/2022 11:21 AM EDT Patient notified of results and recommendations. She voices understanding and has no further questions. Eduard Batres MA * Telephone Encounter - Eduard Batres MA - 02/23/2022 11:21 AM EDT ----- Message from Nieves Cabrales PA-C sent at 02/22/2022 5:13 PM EDT ----- Labs reviewed. Everything looks excellent.Thyroid function and vitamin D level are normal. Blood count, metabolic panel including kidney and liver function are also normal. Keep upcoming appointment for mammogram and ultrasound. Nieves Cabrales PA-C documented in this encounterAultman Hospital07-12-2022 NoteHNO ID: [id number] Author: Nieves Cabrales PA-C Service: ? Author Type: Physician Instructor Watch Assembly Type: Progress Notes Filed: 02/14/2022 5:15 PM Note Text: [address] [address] Date of Evaluation: 02/14/2022 Patient Name: Chapin [...] pills, late getting refill this past week. 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 Tenderness now gone and she is not [...] nasal deformity or septal deviation. Mouth/Throat: Lips: [place]. Mouth: Mucous membranes are moist. Tongue: No lesions. Tongue does not deviate from midline. Pharynx: Oropharynx is clear. Uvula midline. No pharyngeal swelling or posterior oropharyngeal erythema. Eyes: General: Lids are normal. Extraocul (more content not included)...[facility]07-12-2022 Instructions* Patient Instructions* Nieves Cabrales PA-C - [...] to 4:30PM Sunday 8AM to 11:30PM [address] [place] [address] documented in this encounterAultman Hospital07-12-2022 History of Present illness Narrative* Nieves Cabrales PA-C - 02/14/2022 4:23 PM EDT Images from the original note were not included. [facility] [address] [place] [address] Date of Evaluation: 02/14/2022 Patient Name: Chapin Chaudhari : 1995 Chief Complaint: Patient presents with: Breast Problem: right breast Nursing Intake: Nursing Notes: Mónica Cox MA 02/14/2022 4:02 PM Signed Chapin Sridevi Chaudhari is a 26 year old female [...] pills, late getting refill this past week. 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 Hx of mononucleosis and splenic laceration did not require surgery 2016. Had follow up CT abdomen 2017 - incidental left lung nodule 4 mm [...] 01/05 Normal color vision Rupture of spleen Fall of 2016. No surgical intervention. grade 2 tear. PAST [...] nasal deformity or septal deviation. Mouth/Throat: Lips: [place]. Mouth: Mucous membranes are moist. Tongue: No [...] diet and regular exercise - Keep annual ENDBAND CUTTER HAND exams, scheduled for March 2022 - CBC [...] diagnostic and treatment plans. documented in this encounterAultman Hospital07-12-2022 Nurse Note* Mónica Cox MA - 02/14/2022 3:59 PM EDT Chapin Chaudhari is a 26 year old female who presents with complaint of Breast Problem (right breast). Mónica Cox MA documented in this encounterAultman Hospital07-11-2022 Miscellaneous Notes* Telephone Encounter - Lavonne Schroeder RN - 02/13/2022 10:59 AM EDT Reason: Lump noticed on right breast. Outcome: See PCP within 3 days. Conferenced to [facility] for appointment. Reason for Disposition Breast lump Answer Assessment - Initial Assessment Questions 1. SYMPTOM: Lump on right breast. 2. LOCATION: Right breast. 3. ONSET: 02-11-22. 4. PRIOR HISTORY: Denies. 5. CAUSE: Unsure. 6. OTHER SYMPTOMS: Denies any other symptoms. 7. -: Denies or . Protocols used: BREAST [id number] [facility]* Diagnosis Encounter for annual health examination- Primary Routine general medical examination at a health care facility Mass of lower outer quadrant of right breast documented [facility]* Diagnosis Mass of lower outer quadrant of right breast documented in [facility] encounter [facility]* Diagnosis Onset Date Resolution Status Acne acute Hair loss acute Encounter for routine gynecological examination noneactive Fatigue noneactive [facility] Work Phone: Progress note Author Lidya See [facility] Note Date/Time February 03, 2025 11:29 am [facility] [address] [place] [address], [address] [place] [id number] OFFICE VISIT Date of Service: 02/03/25 MR#: [id number] Acct: [id number] Name: CHAPIN CHAUDHARI Rep #: [id number] : 1995 Provider: Dr. 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 Required: No Is patient in pain?: No Allergies No Known Allergies Allergy (Verified 02/03/25 10:37) Medications ?Medication ?Instructions ?Recorded ?Confirmed ?Type citalopram 10 mg tablet 10 mg PO QDAY #90 tabs 07/0202/03/25 Rx multivit-min no.71-iron fum 28 1 cap PO DAILY 01/16/25 02/03/25 History mg-folate no.1 1 mg-dha 300 mg capsule (PNV-[place]) promethazine 12.5 mg tablet 12.5 mg PO Q6H PRN nausea #30 tabs 02/03/25 02/03/25 Rx Last Menstrual Period: 12/01/24 Zika: Zika virus screening: Negative : No PFSH PFSH Medical History Seasonal allergies Albinism PMS (premenstrual syndrome) Family planning counseling Dense breast tissue Splenic laceration IBS (irritable bowel syndrome) Family History Grandmother Hypertension Maternal Thyroid disorder Grandfather Hypertension Maternal Thyroid disorder Maternal- hypothyroidism Mother Thyroid disorder, Onset Age: 15 hyperthyroidism Aunt Thyroid disorder, Onset Age: 40 Maternal- hypothyroidism Social History adopted: No household members: spouse housing: house current occupational status: employed 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, [employer]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[employer] current occupational exposures/hazards: No pets and animals: Yes history of recent travel: No sexually active: Yes Smoking Status: Never smoker alcohol intake: current alcohol intake frequency: holidays/special occasions only details: not while substance use type: does not use well-balanced diet: daily or most days caffeine: Yes Type: coffee Number of servings: 1 eating out: 1-3 times/week during the past year weight has: remained stable what type of physical activity do you participate in: walking, running and other details: pilates, bar workouts frequency: 3-4 times per week duration: 45-60 minutes/day lynette/moravian: Mosque seatbelt use: always do you feel safe at home: Yes additional social history: - 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 OB Visit PATSY Calculator Estimated Delivery Date Method Current WG Current Estimate 09/07/25 LMP (Certain) 9w 1d Other Estimates 09/08/25 Ultrasound #1 9w 0d Comments: HIV: Urine Culture: Sequential Screen: NIPT Screen: Estimated Due Date: 09/01/25 Expected Delivery Route/Plan Labor Preferences- CB/BF classes: [] labor support person: [] labor intervention preferences: [] pain management options preferred: [] cut cord/dad catch: [] : [] PP control planned: [] discussed possible routes of delivery and associated risks: [] special requests: [] Specific Issue/Plans Covid status: [] Flu vaccine: [] Tdap vaccine: [] Rhogam: [] LARC form signed: [] Problem list reviewed and updated with the most current plan of care details and appropriate orders placed. Relevant counseling for the gestational age provided. Continue routine care and follow up unless otherwise noted in visit notes/problem list details Initial Weight: Not Recorded Date -?-?-?-?-?-?-?-?-?-?-?-?- EGA Weight BP Urine Prot -?-?-?-?-?-?-?-?-?-?-?-?- Glucose FHR FuHt Pres Dilation -?-?-?-?-?-?-?-?-?-?-?-?- Effaced St Visit Note 02/03/25 -?-?-?-?-?-?-?-?-?-?--?-?- 9w 1d 170 lb 6 oz 117/75 -?-?-?-?-?-?-?-?-?-?-?-?- 165 -?-?-?-?-?-?-?-?-?-?-?-?- JV- CRL consiste nt with LMP. Did carrier screen already. 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) Menstrual History Last Menstrual Period: 12/01/24 Reported LMP: definite Normal amount/duration: Yes Frequency in days: 27-29 On hormonal BC at conception: No hCG+: 12/25/24 Antepartum Record Genetic Screening: Congenital Heart Defect: Other, Neural Tube Defect: Other, Hemoglobinopathy Or Carrier: Other, Cystic Fibrosis: Other, Chromosome Abnormality: Other, Neri-Sachs: Other, Hemophilia: Other, Intellectual Disability/Autism: Partner (Brother), Recurrent Loss/Stillbirth: Other, Other Structural Defect: Other, Other Genetic Disease: Patient (Albinisim) and Maternal Metabolic Disorder: Other Infection History: Live with someone with TB or Exposed to TB: No, Patient or Partner has history of Genital Herpes: No, Rash or Viral illness since last mentrual period: No, Prior GBS-Infected child: No, History of STD: No, HIV Infection: No, History of Hepatitis: No, Recent travel outside of [place]: No, Concern for hepatitis exposure: No, Varicella immune: Yes (immune vaccinated) and Covid Vaccinated: Yes (Pfizer, Boosters annually) Medical History Medical History: Positive: Psychiatric (PMDD), Seasonal allergies (spring), Relevant family history (See PFSH) and Other (IBS) and Negative: Diabetes, Hypertension, Heart disease, Auto-immune disorder, Kidney disease/UTI, Neurologic/epilepsy, Depression/ depression, Hepatitis/liver disease, Varicosities/phlebitis, Thyroid dysfunction, Trauma/domestic violence, History of blood transfusions, D (Rh) Sensitized, Pulmonary (e.g.,TB,Asthma), Drug/latex allergies/reactions, Breast, Prosthodontist surgery, Operations/hospitalizations, Anesthetic complications, History of abnormal pap, Uterine anomaly/aleah, Infertility and Anti-retroviral treatment ACOG First Trimester First Trimester: Desire for , Alcohol, Tobacco Cessation, Illicit/Recreational Drug/Substance Use, Intimate Partner Violence, Barriers to care, Unstable Housing, Communication Barriers, Environmental/Work Hazards, Anticipated Course of Care, Nurtrition and weight gain, Toxoplasmosis Precations, Use of Any medications, Sexual activity, Exercise, Dental Care, Sauna/Hot tub use, Seat Belt use, Childbirth classes/Hospital facilities, Travel, Indications for Ultrasound and Screening for Aneuploidy; Discussed ROS Const Reports system reviewed and no additional complaints, except as documented, Reports fatigue and Denies fever(s) Eyes Reports system reviewed and no additional complaints, except as documented ENT Reports system reviewed and no additional complaints, except as documented Card Denies chest pain and Denies dyspnea Resp Reports system reviewed and no additional complaints, except as documented, Denies cough and Denies dyspnea GI Denies abdominal pain and Reports nausea Reports system reviewed and no additional complaints, except as documented Musc Reports system reviewed and no additional complaints, except as documented Skin/Breast Reports system reviewed and no additional complaints, except as documented Neuro Yes system reviewed and no additional complaints, except as documented Psych Reports system reviewed and no additional complaints, except as documented Endo Reports system reviewed and no additional complaints, except as documented and Reports fatigue Exam Const General: healthy appearing, comfortable and no acute distress Orientation: alert [facility] Head: normal to inspection, normocephalic and atraumatic Ears: hearing grossly normal bilaterally and external ears normal Nose: external nose normal and nares normal Mouth: oral mucosae normal Teeth and gingiva: dentition normal Eyes General: appearance normal, both eyes and all related structures Neck Neck: normal visual inspection, no lymphadenopathy and supple Thyroid: thyroid normal Chest Chest palpation & inspection: normal inspection of the chest Breast inspection: normal inspection of the breasts and normal inspection of the axillae Breast palpation: normal palpation of the breasts and normal palpation of the axillae Resp Effort & Inspection: normal respiratory effort GI Inspection: normal to inspection Palpation: soft and no hepatosplenomegaly General: bladder normal to palpation External Female Exam: normal external appearance and normal appearance of the urethra Urethra: normal appearance of the urethra Speculum Exam - Vagina: normal appearance of the vagina and normal vaginal discharge Speculum Exam - Cervix: normal appearance of the cervix Bimanual Exam- Vagina & Uterus: normal bimanual exam, bladder normal to palpation, non-tender and other Bimanual Exam- Adnexa, other: non-tender Skin General: no rashes or lesions noted Neuro Motor: muscle tone normal throughout and no movement abnormalities noted Extrem General: normal to inspection and full ROM Supplemental Info ACOG book given and patient encouraged to read about nutrition, exercise, weight gain, and food avoidance in . Coding Level of Care Code OB Routine Diagnoses Supervision of normal first Z34.00 Z34.90 PMDD (premenstrual dysphoric disorder) F32.81 Acne, unspecified acne type L70.9 Acne type: unspecified acne Hair loss L65.9 IBS (irritable bowel syndrome) K58.9 Assessment and Plan Assessment and Plan (1) Supervision of normal first : Status: Acute Comment: , PATSY 09/07/25, Blaine (2) : Status: Acute Comment: discussed NIPT testing- undecided, carrier negative (3) PMDD (premenstrual dysphoric disorder): Status: Acute Comment: 10mg citalopram recommended counseling. (4) Acne: Status: Acute Qualifiers: Acne type: unspecified acne Qualified Code(s): L70.9 - Acne, unspecified (5) Hair loss: Status: Acute (6) IBS (irritable bowel syndrome): Status: Chronic Orders: Orders CBC W/Diff, Automated 01/16/25 Z34.00 - Encounter for supervision of normal first , unspecified trimester Type & Screen 01/16/25 Z34.00 - Encounter for supervision of normal first , unspecified trimester Rubella IgG 01/16/25 Z34.00 - Encounter for supervision of normal first , unspecified trimester Hepatitis C Antibody 01/16/25 Z34.00 - Encounter for supervision of normal first , unspecified trimester Hepatitis B Surface Antigen 01/16/25 Z34.00 - Encounter for supervision of normal first , unspecified trimester Culture, Urine 01/16/25 Z34.00 - Encounter for supervision of normal first , unspecified trimester Syphilis Antibodies 01/16/25 Z34.00 - Encounter for supervision of normal first , unspecified trimester Chlamydia/GC PATRICIA aptima 01/16/25 Z34.00 - Encounter for supervision of normal first , unspecified trimester HIV 01/16/25 Z34.00 - Encounter for supervision of normal first , unspecified trimester Medications: New promethazine 12.5 mg PO Q6H PRN 30 tabs 3RF nausea Plan Patient oriented to practice and discussed care expectations and screenings. ACOG book offered to patient. Discussed routine and specially indicated labs if needed- patient consents to testing. See problem list details for plan information. Optional screening including maternal carrier screenings, neural tube defect screening, genetic screening options including quad screen, nuchal translucency, sequential screening, and NIPT screening offered to patient and patient chose: nipt, possibly AFP 02/03/25 1129 <Electronically signed by Lidya Tran DO> Date _ Lidya Child DO Cosigner Signature: Date (if applicable) CC: ~ [facility] Work Phone: Progress note Author Tamika Garcia [facility] Services Note Date/Time March 05, 2025 11:2 9am [facility] [address], [address] [place] [address] OFFICE VISIT Date of Service: 03/05/25 MR#: [id number] Acct: [id number] Name: CHAPIN CHAUDHARI Rep #: [id number] : 1995 Provider: CASSANDRA Garcia Age/Sex: 29/F [place] [facility] [place]: Signed Intake Vital Signs 10/17/24 08:15 02/03/25 10:39 03/05/25 11:01 Height 5 ft 7 in 5 ft 7 in 5 ft 7 in Weight: 170 lb BMI 26.6 BP 129/78 H Intake Visit Reasons: 13wk ob Chief Complaint: 13wk OB Explosive Operator Grenade Required: No Is patient in pain?: No Allergies No Known Allergies Allergy (Verified 03/05/25 10:59) Medications ?Medication ?Instructions ?Recorded ?Confirmed ?Type citalopram 10 mg tablet 10 mg PO QDAY #90 tabs 07/0203/05/25 Rx multivit-min no.71-iron fum 28 1 cap PO DAILY 01/16/25 03/05/25 History mg-folate no.1 1 mg-dha 300 mg capsule (PNV-[place]) promethazine 12.5 mg tablet 12.5 mg PO Q6H PRN nausea #30 tabs 02/03/25 03/05/25 Rx Last Menstrual Period: 12/01/24 : No PFSH PFSH Medical History Seasonal allergies Albinism PMS (premenstrual syndrome) Family planning counseling Dense breast tissue Splenic laceration IBS (irritable bowel syndrome) Family History Grandmother Hypertension Maternal Thyroid disorder Grandfather Hypertension Maternal Thyroid disorder Maternal- hypothyroidism Mother Thyroid disorder, Onset Age: 15 hyperthyroidism Aunt Thyroid disorder, Onset Age: 40 Maternal- hypothyroidism Social History adopted: No household members: spouse housing: house current occupational status: employed 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, [employer] current occupational exposures/hazards: No pets and animals: Yes history of recent travel: No sexually active: Yes Smoking Status: Never smoker alcohol intake: current alcohol intake frequency: holidays/special occasions only details: not while substance use type: does not use well-balanced diet: daily or most days caffeine: Yes Type: coffee Number of servings: 1 eating out: 1-3 times/week during the past year weight has: remained stable what type of physical activity do you participate in: walking, running and other details: pilates, bar workouts frequency: 3-4 times per week duration: 45-60 minutes/day lynette/moravian: Mosque seatbelt use: always do you feel safe at home: Yes 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 OB Visit PATSY Calculator Estimated Delivery Date Method Current WG Current Estimate 09/07/25 LMP (Certain) 13w 3d Other Estimates 09/08/25 Ultrasound #1 13w 2d Expected Delivery Route/Plan Labor Preferences- CB/BF classes: [] labor support person: [] labor intervention preferences: [] pain management options preferred: [] cut cord/dad catch: [] : [] PP control planned: [] discussed possible routes of delivery and associated risks: [] special requests: [] Specific Issue/Plans Covid status: [] Flu vaccine: [] Tdap vaccine: [] Rhogam: [] LARC form signed: [] Problem list reviewed and updated with the most current plan of care details and appropriate orders placed. Relevant counseling for the gestational age provided. Continue routine care and follow up unless otherwise noted in visit notes/problem list details Initial Weight: Not Recorded Date -?-?-?-?-?-?-?-?-?-?-?-?- EGA Weight BP Urine Prot -?-?-?-?-?-?-?-?-?-?-?-?- Glucose FHR FuHt Pres Dilation -?-?-?-?-?-?-?-?-?-?-?-?- Effaced St Visit Note 02/03/25 -?-?-?-?-?-?-?-?-?-?-?-?- 9w 1d 170 lb 6 oz 117/75 -?-?--?-?-?-?-?-?-?-?-?-?- 165 -?-?-?-?-?-?-?-?-?-?-?-?- JV- CRL consiste nt with LMP. Did carrier screen already. 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 SHe is jose's sis (L&D nurse) 03/05/25 -?-?-?-?-?-?-?-?-?-?-?-?- 13w 3d 170 lb 129/78 Negative -?-?-?-?-?-?-?-?-?-?-?-?- Negative 153 -?-?-?-?-?-?-?-?-?-?-?-?- KW- no vb/crampi ng. answered Rhogam questions. ACOG First Trimester First Trimester: Desire for , Alcohol, Tobacco Cessation, Illicit/Recreational Drug/Substance Use, Intimate Partner Violence, Barriers to care, Unstable Housing, Communication Barriers, Environmental/Work Hazards, Anticipated Course of Care, Toxoplasmosis Precations, Use of Any medications, Sexual activity, Exercise, Dental Care, Sauna/Hot tub use, Seat Belt use, Childbirth classes/Hospital facilities, Travel, Indications for Ultrasound and Screening for Aneuploidy; Discussed ROS Const Reports system reviewed and no additional complaints, except as documented Eyes Reports system reviewed and no additional complaints, except as documented ENT Reports system reviewed and no additional complaints, except as documented Card Reports system reviewed and no additional complaints, except as documented Resp Reports system reviewed and no additional complaints, except as documented GI Reports system reviewed and no additional complaints, except as documented, Denies nausea and Denies vomiting Reports system reviewed and no additional complaints, except as documented Musc Reports system reviewed and no additional complaints, except as documented Skin/Breast Reports system reviewed and no additional complaints, except as documented Neuro Yes system reviewed and no additional complaints, except as documented Psych Reports system reviewed and no additional complaints, except as documented Endo Reports system reviewed and no additional complaints, except as documented Floyd/Lymph Reports system reviewed and no additional complaints, except as documented Aller/Immun Reports system reviewed and no additional complaints, except as documented Exam Const General: cooperative, healthy appearing and no acute distress Orientation: alert, awake and oriented x3 Neck Neck: normal visual inspection and full ROM Resp Effort & Inspection: normal respiratory effort, able to speak in complete sentences and symmetric chest movement GI Inspection: normal to inspection Palpation: soft and other Other: gravid Skin General: no rashes or lesions noted Neuro General: patient alert, patient awake and patient oriented x3 Cognition: normal cognition Speech: speech normal Gait: normal gait Motor: muscle tone normal throughout Extrem General: normal to inspection and full ROM Psych Appearance: grossly normal Mental Status: mental status grossly normal Mood: congruent mood Affect: normal affect Speech and Movement: speech and movement normal Attitude: cooperative Thought Process: normal Thought Content: normal Judgment: judgment good Results POC Urinalysis 2 Dip (Clinic) Office Urine Glucose Negative Last Edit by Lorie Angel on 03/05/25 11:07 Office Urine Protein Negative Last Edit by Lorie Angel on 03/05/25 11:07 Coding Level of Care Code OB Routine Diagnoses Rh negative status during O26.899; Z67.91 Rh positive blood type in fetus Supervision of normal first Z34.00 13 weeks gestation of Z3A.13 Weeks of gestation: 13 weeks PMDD (premenstrual dysphoric disorder) F32.81 Acne, unspecified acne type L70.9 Acne type: unspecified acne Hair loss L65.9 IBS (irritable bowel syndrome) K58.9 Assessment and Plan Assessment and Plan (1) Rh negative status during : Status: Acute Comment: O-, Rhogam @ 28 weeks (2) Rh positive blood type in fetus: Status: Acute (3) Supervision of normal first : Status: Acute Comment: PRR, , PATSY 09/07/25, Blaine (4) : Status: Acute Qualifiers: Weeks of gestation: 13 weeks Qualified Code(s): Z3A.13 - 13 weeks gestation of Comment: elects NIPT low risk, male , carrier negative (5) PMDD (premenstrual dysphoric disorder): Status: Acute Comment: 10mg citalopram recommended counseling. (6) Acne: Status: Acute Qualifiers: Acne type: unspecified acne Qualified Code(s): L70.9 - Acne, unspecified (7) Hair loss: Status: Acute (8) IBS (irritable bowel syndrome): Status: Chronic Orders: Orders POC Urinalysis 2 Dip (Clinic) Today Plan Details Additional Comments: ACOG trimester education reviewed and updated. see problem list details for updated plan management information and see below for orders placed at this visit. GA appropriate handout given. 03/05/25 1129 <Electronically signed by Tamika bennett CNM> Date _ Tamika Garcia CNM Cosigner Signature: Date (if applicable) CC: ~ [facility] Work Phone: Progress note Author Lois Stewart [facility] Note Date/Time May 28, 2025 1 0:05am [facility] [address] [place] [address], [address] [place] [address] OFFICE VISIT Date of Service: 05/28/25 MR#: [id number] Acct: [id number] Name: CHAPIN CHAUDHARI Rep #: [id number] : 1995 Provider: VILMA Stewart Age/Sex: 29/F [place] [facility] [place]: Signed Intake Vital Signs 03/05/25 11:01 04/27/25 15:39 05/28/25 08:35 Height 5 ft 7 in 5 ft 7 in 5 ft 7 in Weight: 179 lb 2 oz 185 lb 5 oz BMI 28.0 29.0 BP 122/75 H 128/80 H Intake Visit Reasons: 25 WK OB Explosive Operator Grenade Required: No Is patient in pain?: No Allergies No Known Allergies Allergy (Verified 05/28/25 08:35) Medications ?Medication ?Instructions ?Recorded ?Confirmed ?Type multivit-min no.71-iron fum 28 1 cap PO DAILY 01/16/25 05/28/25 History mg-folate no.1 1 mg-dha 300 mg capsule (PNV-[place]) promethazine 12.5 mg tablet 12.5 mg PO Q6H PRN nausea #30 tabs 02/03/25 05/28/25 Rx citalopram 10 mg tablet 10 mg PO QDAY #90 tabs 04/0105/28/25 Rx Last Menstrual Period: 12/01/24 Zika: Zika virus screening: Negative : Yes PFSH PFSH Medical History Seasonal allergies Albinism PMS (premenstrual syndrome) Family planning counseling Dense breast tissue Splenic laceration IBS (irritable bowel syndrome) Family History Grandmother Hypertension Maternal Thyroid disorder Grandfather Hypertension Maternal Thyroid disorder Maternal- hypothyroidism Mother Thyroid disorder, Onset Age: 15 hyperthyroidism Aunt Thyroid disorder, Onset Age: 40 Maternal- hypothyroidism Social History adopted: No household members: spouse housing: house current occupational status: employed 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, [employer] current occupational exposures/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: No pets and animals: Yes history of recent travel: No sexually active: Yes Smoking Status: Never smoker alcohol intake: current alcohol intake frequency: holidays/special occasions only details: not while substance use type: does not use well-balanced diet: daily or most days caffeine: Yes Type: coffee Number of servings: 1 eating out: 1-3 times/week during the past year weight has: remained stable what type of physical activity do you participate in: walking, running and other details: pilates, bar workouts frequency: 3-4 times per week duration: 45-60 minutes/day lynette/moravian: Mosque seatbelt use: always do you feel safe at home: Yes additional social history: - 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 OB Visit PATSY Calculator Estimated Delivery Date Method Current WG Current Estimate 09/07/25 LMP (Certain) 25w 3d Other Estimates 09/08/25 Ultrasound #1 25w 2d Expected Delivery Route/Plan Labor Preferences- CB/BF classes: yes labor support person: Blaine labor intervention preferences: [] pain management options preferred: cut cord/dad catch: cord : yes PP control planned: discussed discussed possible routes of delivery and associated risks: [] special requests: [] Specific Issue/Plans Covid status: [] Flu vaccine: given Tdap vaccine: [] Rhogam: [] LARC form signed: yes Problem list reviewed and updated with the most current plan of care details and appropriate orders placed. Relevant counseling for the gestational age provided. Continue routine care and follow up unless otherwise noted in visit notes/problem list details Initial Weight: Not Recorded Date -?-?-?-?-?-?-?-?-?-?-?-?- EGA Weight BP Urine Prot -?-?-?-?-?-?-?-?-?-?-?-?- Glucose FHR FuHt Pres Dilation -?-?-?-?-?-?-?-?-?-?-?-?- Effaced St Visit Note 02/03/25 -?-?-?-?-?-?-?-?-?-?-?-?- 9w 1d 170 lb 6 oz 117/75 -?-?-?-?-?-?-?-?-?-?-?-?- 165 -?-?-?-?-?-?-?-?-?-?-?-?- JV- CRL consiste nt with LMP. Did carrier screen already. 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 SHe is jose's sis (L&D nurse) 03/05/25 -?-?-?-?-?-?-?-?-?-?-?-?- 13w 3d 170 lb 129/78 Negative -?-?-?-?-?-?-?-?-?-?-?-?- Negative 153 -?-?-?-?-?-?-?-?-?-?-?-?- KW- no vb/crampi ng. answered Rhogam questions. 03/31/25 -?-?-?-?-?-?-?-?-?-?-?-?- 17w 1d 175 lb 5 oz 137/75 Nega tive -?-?-?-?-?-?-?-?-?-?-?-?- Negative 145 -?-?-?-?-?-?-?-?-?-?-?-?- SM- no vb crampi ng 04/27/25 -?-?-?-?-?-?-?-?-?-?-?-?- 21w 0d 179 lb 2 oz 122/75 Nega tive -?-?-?-?-?-?-?-?-?-?-?-?- Negative 154 -?-?-?-?-?-?-?-?-?-?-?-?- MH-NO VB. Sheryl yoo movement. No concerns 05/28/25 -?-?-?-?-?-?-?-?-?-?-?-?- 25w 3d 185 lb 5 oz 128/80 Nega tive -?-?-?-?-?-?-?-?-?-?-?-?- Negative 147 25 -?-?-?-?-?-?-?-?-?-?-?-?- MH-No VB. Priyank Dorado Larc, flu vaccine. ACOG First Trimester First Trimester: Desire for , Alcohol, Tobacco Cessation, Illicit/Recreational Drug/Substance Use, Intimate Partner Violence, Barriers to care, Unstable Housing, Communication Barriers, Environmental/Work Hazards, Anticipated Course of Care, Toxoplasmosis Precations, Use of Any medications, Sexual activity, Exercise, Dental Care, Sauna/Hot tub use, Seat Belt use, Childbirth classes/Hospital facilities, , Travel, Indications for Ultrasound and Screening for Aneuploidy Second Trimester Second Trimester: Signs and Symptoms of Labor, Selecting a care provider, Reproductive Life Planning & Contreception and Intimate Partner Violence Third Trimester Third Trimester: Pain Management Plans, Labor support person(s), Immediate Larc, Circumcision preference Yes Yes, Signs and Symptoms of Preeclampsia, Infant Feeding Yes and Family Medical Leave or Disability Forms ROS Const Reports system reviewed and no additional complaints, except as documented GI Denies abdominal pain, Denies nausea and Denies vomiting Exam Const General: cooperative Nutritional Appearance: well nourished GI Palpation: soft, nontender and other (gravid) Results POC Urinalysis 2 Dip (Clinic) Office Urine Glucose Negative Last Edit by Seema Ortiz on 05/28/25 08 :38 Office Urine Protein Negative Last Edit by Seema Ortiz on 05/28/25 08 :38 Immunizations Flucelvax [id number] (PF) 45 mcg (15 mcg x 3)/0.5 mL IM syringe Performing Provider: Lois Stewart CURATOR [employer], CURATOR [employer]USE[employer]-C Performing Location: [facility] [place] Administered by: Seema Ortiz on 05/28/25 08:56 Dose Route Admin Location Dispensed Lot Number Expiration Date Pack age NDC NDC [employer] 0.5 mL IM Left Deltoid 0.5 mL [id number] 12/13/25 [id number] [id number] [employer] VIS Given Date VIS Provided VIS Publication Date 05/28/25 Single Vaccine 24 Eligibility Eligibility Date Funding Source Not Applicable Coding Level of Care Code OB Routine Diagnoses Encounter for supervision of normal first in second trimester Z34.02 Trimester: second trimester 25 weeks gestation of Z3A.25 Weeks of gestation: 25 weeks Rh positive blood type in fetus Rh negative status during in second trimester O26.892; Z67.91 Trimester: second trimester Assessment and Plan Assessment and Plan (1) Supervision of normal first : Status: Acute Qualifiers: Trimester: second trimester Qualified Code(s): Z34.02 - Encounter for supervision of normal first , second trimester Comment: PRR, , PATSY 09/07/25,boy Blaine, (2) : Status: Acute Qualifiers: Weeks of gestation: 25 weeks Qualified Code(s): Z3A.25 - 25 weeks gestation of Comment: elects NIPT low risk, male , carrier negative , normal anatomy (3) Rh positive blood type in fetus: Status: Acute (4) Rh negative status during : Status: Acute Qualifiers: Trimester: second trimester Qualified Code(s): O26.892 - Other specified related conditions, second trimester; Z67. - Unspecified blood type, Rh negative Comment: O-, Rhogam @ 28 weeks Orders: Orders POC Urinalysis 2 Dip (Clinic) Today CBC W/Diff, Automated Today Z34.02 - Encounter for supervision of normal first , second trimester Glucose Challenge Gest 1H 50g Today Z13.1 - Encounter for screening for diabetes mellitus, Z34.02 - Encounter for supervision of normal first , second trimester Type & Screen Today Z34.02 - Encounter for supervision of normal first , second trimester HIV Today Z34.02 - Encounter for supervision of normal first , second trimester Syphilis Antibodies Today Z34.02 - Encounter for supervision of normal first , second trimester Influenza Immunization Today Z23 - Encounter for immunization Plan problem list reviewed and updated for most current plan of care and appropriate orders placed. Relevant counseling for the gestational age appropriate provided and ACOG education checklist updated. Continue routine care and follow up. 05/28/25 0911 <Electronically signed by Lois Sims sabrina CURATOR [employer] CURATOR [employer]-C> Date _ Lois [place] CURATOR [employer] CURATOR [employer]USE[employer]-C Cosigner Signature: Date (if applicable) CC: ~ [facility] Work Phone: reason for referral (narrative)* Diagnostic Procedure Only (Routine) - Pending Review Specialty Diagnoses / Procedures Referred By Ana ward Referred To Contact [facility] Diagnoses Mass of lower outer quadrant of right breast Procedures US BREAST COMPLETE RT US BREAST UNI REAL TIME WITH IMAGE COMPLETE Nieves Cabrales PA-C [address] [facility] [address] [place] [address] [facility] [address] [place] [address] Referral ID Status Reason Start Date Expiration Date Visits Requested Visits Authorized [id number] Pending Review Auto-Generat ed Referral 02/14/2022 03/16/2023 1 1 * Diagnostic Procedure Only (Routine) - Pending Review Specialty Diagnoses / Procedures Referred By Ana ward Referred To Contact [facility] Diagnoses Mass of lower outer quadrant of right breast Procedures [facility] BILAT DIAGNOSTIC MAMMOGRAPHY COMPUTER-AIDED DETCJ BI Nieves Cabrales PA-C [address] [facility] [address] [place] [address] [facility] [address] [place] [address] Referral ID Status Reason Start Date Expiration Date Visits Requested Visits Authorized [id number] Pending Review Auto-Generat ed Referral 02/14/2022 03/16/2023 1 1 [facility] for referral (narrative)* Diagnostic Procedure Only (Routine) - Closed Specialty Diagnoses / Procedures Referred By Contac t Referred To Contact [facility] Diagnoses Mass of lower outer quadrant of right breast Procedures US BREAST COMPLETE RT US BREAST UNI REAL TIME WITH IMAGE COMPLETE Nieves Cabrales PA-C [address] [facility] [address] [place] [address] [facility] [address] [place] [address] Referral ID Status Reason Start Date Expiration Date V isits Requested Visits Authorized [id number] Closed Auto-Generate d Referral 02/14/2022 03/16/2023 1 1 * Diagnostic Procedure Only (Routine) - Closed Specialty Diagnoses / Procedures Referred By Ana t Referred To Contact [facility] Diagnoses Mass of lower outer quadrant of right breast Procedures [facility] BILAT DIAGNOSTIC MAMMOGRAPHY COMPUTER-AIDED DETCJ BI Nieves Cabrales PA-C [address] [facility] [address] [place] [address] [facility] [address] [place] [address] Referral ID Status Reason Start Date Expiration Date V isits Requested Visits Authorized [id number] Closed Auto-Generate d Referral 02/14/2022 03/16/2023 1 1 [facility] for referral (narrative)No [facility] for [facility] Work Phone: Reason for visit Narrative* Diagnostic Procedure Only (Routine) - Closed Specialty Diagnoses / Procedures Referred By Ana t Referred To Contact [facility] Diagnoses Mass of lower outer quadrant of right breast Procedures US BREAST COMPLETE RT US BREAST UNI REAL TIME WITH IMAGE COMPLETE Nieves Cabrales PA-C [address] [facility] [address] [place] [address] [facility] [address] [place] [address] Referral ID Status Reason Start Date Expiration Date V isits Requested Visits Authorized [id number] Closed Auto-Generate d Referral 02/14/2022 03/16/2023 1 1 [facility] Summary Purpose Family History Relationship Condition Age at Onset Recorded Date/T rhiannon grandmother Hypertension Unknown grandfather Hypertension Unknown Relationship Condition Age at Onset Recorded Date/T rhiannon grandmother Hypertension Unknown Disorder of thyroid Unknown grandfather Hypertension Unknown mother Disorder of thyroid 15 aunt Disorder of thyroid 40 Advance Directives Advance Directive Response Recorded Date/ Time Living Will No March 31, 201 9 10:31am Power of Maintenance Superintendent No March 31, 019 10:31am Advance Directive Response Recorded Date/ Time Do you have a Healthcare Power of Maintenance Superintendent? 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) Reason for Visit Acne Hair loss Encounter for routine gynecological examination Fatigue Chief Complaint Admit Date Family Planning Consult October 17, 2024 8:12am Reason for Visit Admit Date Family planning counseling October 17 8:12am PMDD (premenstrual dysphoric disorder) [facility] 2024 8:12am Chief Complaint Admit Date Family Planning Consult October 17, 2024 8:12am Pre new ob, confirm preg, vitals January 162024 12:58pm Chief Complaint Admit Date Family Planning Consult October 17, 2024 8:12am Pre new ob, confirm preg, vitals January 162024 12:58pm CRAMPING January 16, 2025 11:1 9pm Reason for Visit Admit Date PMDD (premenstrual dysphoric disorder) arch 2024 8:12am Family planning counseling October 17 8:12am Chief Complaint Admit Date Family Planning Consult October 17, 2024 8:12am Pre new ob, confirm preg, vitals January 162024 12:58pm CRAMPING January 16, 2025 11:1 9pm *est* NOB LMP 12/01February 03, 2025 10:35 am Reason for Visit Admit Date PMDD (premenstrual dysphoric disorder) M arch 2024 8:12am Family planning counseling October 17 8:12am Acne February 03, 2025 10:35 am Hair loss February 03, 2025 10:35 am PMDD (premenstrual dysphoric disorder) J michael 2024 10:35am February 03, 2025 10:35 am Supervision of normal first Ju ly 2024 10:35am IBS (irritable bowel syndrome) February 03, 2025 10:35am Chief Complaint Admit Date Pre new ob, confirm preg, vitals January 162024 12:58pm CRAMPING January 16, 2025 11:1 9pm *est* NOB LMP 12/01February 03, 2025 10:35 am Reason for Visit Admit Date Acne February 03, 2025 10:35 am Hair loss February 03, 2025 10:35 am PMDD (premenstrual dysphoric disorder) J michael 2024 10:35am February 03, 2025 10:35 am Supervision of normal first Ju ly 2024 10:35am IBS (irritable bowel syndrome) February 03, 2025 10:35am Chief Complaint Admit Date Pre new ob, confirm preg, vitals January 162024 12:58pm CRAMPING January 16, 2025 11:1 9pm *est* NOB LMP 12/01February 03, 2025 10:35 am 13wk ob March 05, 2025 10:5 8am Reason for Visit Admit Date Acne February 03, 2025 10:35 am Hair loss February 03, 2025 10:35 am PMDD (premenstrual dysphoric disorder) J michael 2024 10:35am February 03, 2025 10:35 am Supervision of normal first Ju ly 2024 10:35am IBS (irritable bowel syndrome) February 03, 2025 10:35am Acne March 05, 2025 10:5 8am Hair loss March 05, 2025 10:5 8am PMDD (premenstrual dysphoric disorder) J michael 2024 10:58am March 05, 2025 10:5 8am Rh negative status during March 05, 2025 10:58am Rh positive blood type in fetus February 10:58am Supervision of normal first Ju ly 2024 10:58am IBS (irritable bowel syndrome) February 10:58am Chief Complaint Admit Date Pre new ob, confirm preg, vitals January 162024 12:58pm CRAMPING January 16, 2025 11:1 9pm *est* NOB LMP 12/01February 03, 2025 10:35 am 13wk ob March 05, 2025 10:5 8am 17wk ob March 31, 2025 4: 01pm Reason for Visit Admit Date February 03, 2025 10:35 am Supervision of normal first Marcia ly 2024 10:35am Acne February 03, 2025 10:35 am Hair loss February 03, 2025 10:35 am IBS (irritable bowel syndrome) February 03, 2025 10:35am PMDD (premenstrual dysphoric disorder) Nettie michael 2024 10:35am March 05, 2025 10:5 8am Rh negative status during March 05, 2025 10:58am Rh positive blood type in fetus February 10:58am Supervision of normal first Marcia cruz 2024 10:58am Acne March 05, 2025 10:5 8am Hair loss March 05, 2025 10:5 8am IBS (irritable bowel syndrome) February 10:58am PMDD (premenstrual dysphoric disorder) Nettie michael 2024 10:58am March 31, 2025 4: 01pm Rh negative status during Augu st 2024 4:01pm Rh positive blood type in fetus March 072024 4:01pm Supervision of normal first Au 2024 4:01pm Chief Complaint Admit Date Pre new ob, confirm preg, vitals January 162024 12:58pm CRAMPING January 16, 2025 11:1 9pm *est* NOB LMP 12/01February 03, 2025 10:35 am 13wk ob March 05, 2025 10:5 8am 17wk ob March 31, 2025 4: 01pm 21wk ob April 27, 2025 3:32pm Reason for Visit Admit Date February 03, 2025 10:35 am Supervision of normal first Marcia cruz 2024 10:35am Acne February 03, 2025 10:35 am Hair loss February 03, 2025 10:35 am IBS (irritable bowel syndrome) February 03, 2025 10:35am PMDD (premenstrual dysphoric disorder) J michael 2024 10:35am March 05, 2025 10:5 8am Rh negative status during March 05, 2025 10:58am Rh positive blood type in fetus February 10:58am Supervision of normal first Ju ly 2024 10:58am Acne March 05, 2025 10:5 8am Hair loss March 05, 2025 10:5 8am IBS (irritable bowel syndrome) February 10:58am PMDD (premenstrual dysphoric disorder) J michael 2024 10:58am March 31, 2025 4: 01pm Rh negative status during Augu st 2024 4:01pm Rh positive blood type in fetus March 072024 4:01pm Supervision of normal first Au geoffrey 2024 4:01pm April 27, 2025 3:32pm Rh negative status during Sept ember 2024 3:32pm Rh positive blood type in fetus Septembe r 2024 3:32pm Supervision of normal first Se ptember 2024 3:32pm Chief Complaint Admit Date 13wk ob March 05, 2025 10:5 8am 17wk ob March 31, 2025 4: 01pm 21wk ob April 27, 2025 3:32pm 25 WK OB May 28, 2025 8 :29am 28wk ob/glucose/rhogam June 15 3:27pm Reason for Visit Admit Date March 05, 2025 10:5 8am Rh negative status during March 05, 2025 10:58am Rh positive blood type in fetus February 10:58am Supervision of normal first Ju ly 2024 10:58am Acne March 05, 2025 10:5 8am Hair loss March 05, 2025 10:5 8am IBS (irritable bowel syndrome) February 10:58am PMDD (premenstrual dysphoric disorder) J michael 2024 10:58am March 31, 2025 4: 01pm Rh negative status during Augu st 2024 4:01pm Rh positive blood type in fetus March 072024 4:01pm Supervision of normal first Au geoffrey 2024 4:01pm April 27, 2025 3:32pm Rh negative status during Sept ember 2024 3:32pm Rh positive blood type in fetus Septembe r 2024 3:32pm Supervision of normal first Se ptember 2024 3:32pm May 28, 2025 8 :29am Rh negative status during Octo amelia 2024 8:29am Rh positive blood type in fetus May 28, 2025 8:29am Supervision of normal first Oc tober 2024 8:29am June 15, 2025 3:27pm Rh negative status during Nove mber 2024 3:27pm Rh positive blood type in fetus June 15, 2025 3:27pm Supervision of normal first No vember 2024 3:27pm Additional Source Comments INFORMATION SOURCE (unrecogn ized section and content) DATE CREATED AUTHOR 01/29/2018 [facility] DATE CREATED AUTHOR AUTHOR'S ORGANIZ ATION 09/26/2021 [facility] DATE CREATED AUTHOR AUTHOR'S ORGANIZ ATION 03/11/2022 [facility] DATE CREATED AUTHOR AUTHOR'S ORGANIZ ATION 10/13/2022 [facility] DATE CREATED AUTHOR AUTHOR'S ORGANIZ ATION 04/15/2025 [facility] DATE CREATED AUTHOR AUTHOR'S ORGANIZ ATION 06/16/2025 [facility] Source Comments (unrecognize d section and content) In the event this informatio n is protected by the Federal Confidentiality of Alcohol and Drug Abuse Patient Records regulations: The Federal rules restrict any use of the information to criminally investigate or prosecute any alcohol or drug abuse patient.[facility] the event this information is protected by the Federal Confidentiality of Alcohol and Drug Abuse Patient Records regulations: The Federal rules restrict any use of the information to criminally investigate or prosecute any alcohol or drug abuse patient.[facility] the event this information is protected by the Federal Confidentiality of Alcohol and Drug Abuse Patient Records regulations: The Federal rules restrict any use of the information to criminally investigate or prosecute any alcohol or drug abuse patient.[facility] the event this information is protected by the Federal Confidentiality of Alcohol and Drug Abuse Patient Records regulations: The Federal rules restrict any use of the information to criminally investigate or prosecute any alcohol or drug abuse patient.[facility] the event this information is protected by the Federal Confidentiality of Alcohol and Drug Abuse Patient Records regulations: The Federal rules restrict any use of the information to criminally investigate or prosecute any alcohol or drug abuse patient.[facility] the event this information is protected by the Federal Confidentiality of Alcohol and Drug Abuse Patient Records regulations: The Federal rules restrict any use of the information to criminally investigate or prosecute any alcohol or drug abuse patient.[facility] Reason for Visit (unrecogniz ed section and content) Reason Comments Cyst Reason Comments Breast Problem right breast Reason Comments Results Reason Comments Medication Question Care Teams (unrecognized sec tion and content) Second Mate Relationship Specialty Start Date End Date Nieves Cabrales PA-C 1945 [facility] [address] [place] [address] PCP - General Family Practice 02/14/22 Second Mate Relationship Specialty Start Date End Date Nieves Cabrales PA-C 1945 [facility] [address] [place] [address] PCP - General Family Practice 02/14/22 Second Mate Relationship Specialty Start Date End Date Nieves Cabrales PA-C 1945 [facility] [address] [place] [address] PCP - General Family Practice 02/14/22 Second Mate Relationship Specialty Start Date End Date Nieves Cabrales PA-C 1945 [facility] [address] [place] [address] PCP - General Family Practice 02/14/22 Second Mate Relationship Specialty Start Date End Date Nieves Cabrales PA-C 1944 [facility] [address] [place] [address] PCP - General Family Medicine 02/14/22 Team Status: Active Member Role Status Dates Dr. Philip Andre MD Family Provider Active Dr. Philip Andre MD Primary Care Provider Active Team Status: Inactive Member Role Status Dates Dr. Philip Andre MD Primary Care Provider, Referring Provider Active Lois Stewart [employer], [employer] Attending Provider Active Team Status: Inactive Member Role Status Dates Dr. Philip Andre MD Primary Care Provider Active Lois Stewart [employer], [employer] Attending Provider, Referring Provider Active Team Status: Inactive Member Role Status Dates Dr. Philip Andre MD Primary Care Provider Active Start: October 17, 2024 End: October 17, 2024 Dr. Philip Andre MD Referring Provider Active Start: October 17, 2024 End: October 17, 2024 Nuha Glynn CNM Attending Provider Active Start: October 17, 2024 End: October 17, 2024 Team Status: Inactive Member Role Status Dates Dr. Philip Andre MD Primary Care Provider Active Start: October 17, 2024 End: October 17, 2024 Nuha Glynn CNM Attending Provider Active Start: October 17, 2024 End: October 17, 2024 Nuha Glynn CNM Referring Provider Active Start: October 17, 2024 End: October 17, 2024 Team Status: Inactive Member Role Status Dates Dr. Philip Andre MD Primary Care Provider Active Start: January 16, 2025 End: January 16, 2025 Dr. Philip Andre MD Referring Provider Active Start: January 16, 2025 End: January 16, 2025 Dr. Lidya Child DO Attending Provider Activ e Start: January 16, 2025 End: January 16, 2025 Team Status: Active Member Role Status Dates No Primary Care Physician Primary Care Provider Active Team Status: Inactive Member Role Status Dates Dr. Clarence Viveros MD Emergency Provider Active Start: January 16, 2025 End: January 17, 2025 No Primary Care Physician Primary Care Provider Active Start: January 16, 2025 End: January 17, 2025 Team Status: Active Member Role/Relationship Status Dates No Primary Care Physician Primary Care Provider Active Team Status: Inactive Member Role/Relationship Status Dates Dr. Philip Andre MD Primary Care Provider Active Start: October 17, 2024 End: October 17, 2024 Dr. Philip Andre MD Referring Provider Active Start: October 17, 2024 End: October 17, 2024 Nuha Glynn CNM Attending Provider Active Start: October 17, 2024 End: October 17, 2024 Team Status: Inactive Member Role/Relationship Status Dates Dr. Philip Andre MD Primary Care Provider Active Start: October 17, 2024 End: October 17, 2024 Nuha Glynn CNM Attending Provider Active Start: October 17, 2024 End: October 17, 2024 Nuha Glynn CNM Referring Provider Active Start: October 17, 2024 End: October 17, 2024 Team Status: Inactive Member Role/Relationship Status Dates Dr. Philip Andre MD Primary Care Provider Active Start: January 16, 2025 End: January 16, 2025 Dr. Philip Andre MD Referring Provider Active Start: January 16, 2025 End: January 16, 2025 Dr. Lidya Child DO Attending Provider Activ e Start: January 16, 2025 End: January 16, 2025 Team Status: Inactive Member Role/Relationship Status Dates Dr. Clarence Viveros MD Attending Provider Active Start: January 16, 2025 End: January 17, 2025 Dr. Clarence Viveros MD Emergency Provider Active Start: January 16, 2025 End: January 17, 2025 No Primary Care Physician Primary Care Provider Active Start: January 16, 2025 End: January 17, 2025 Team Status: Inactive Member Role/Relationship Status Dates Dr. Philip Andre MD Referring Provider Active Start: February 03, 2025 End: February 03, 2025 Dr. Lidya Child DO Attending Provider Activ e Start: February 03, 2025 End: February 03, 2025 No Primary Care Physician Primary Care Provider Active Start: February 03, 2025 End: February 03, 2025 Team Status: Inactive Member Role/Relationship Status Dates No Primary Care Physician Primary Care Provider Active Start: February 03, 2025 End: February 03, 2025 Dr. Lidya Child DO Attending Provider Activ e Start: February 03, 2025 End: February 03, 2025 Dr. Lidya Child DO Referring Provider Activ e Start: February 03, 2025 End: February 03, 2025 Team Status: Inactive Member Role/Relationship Status Dates Dr. Philip Andre MD Primary Care Provider Active Start: January 16, 2025 End: January 16, 2025 Dr. Philip Andre MD Referring Provider Active Start: January 16, 2025 End: January 16, 2025 Dr. Lidya Child DO Attending Provider Activ e Start: January 16, 2025 End: January 16, 2025 Team Status: Inactive Member Role/Relationship Status Dates Dr. Clarence Viveros MD Attending Provider Active Start: January 16, 2025 End: January 17, 2025 Dr. Clarence Viveros MD Emergency Provider Active Start: January 16, 2025 End: January 17, 2025 No Primary Care Physician Primary Care Provider Active Start: January 16, 2025 End: January 17, 2025 Team Status: Inactive Member Role/Relationship Status Dates Dr. Philip Andre MD Referring Provider Active Start: February 03, 2025 End: February 03, 2025 Dr. Lidya Child DO Attending Provider Activ e Start: February 03, 2025 End: February 03, 2025 No Primary Care Physician Primary Care Provider Active Start: February 03, 2025 End: February 03, 2025 Team Status: Inactive Member Role/Relationship Status Dates No Primary Care Physician Primary Care Provider Active Start: February 03, 2025 End: February 03, 2025 Dr. Lidya Child DO Attending Provider Activ e Start: February 03, 2025 End: February 03, 2025 Dr. Lidya Child DO Referring Provider Activ e Start: February 03, 2025 End: February 03, 2025 Team Status: Inactive Member Role/Relationship Status Dates No Primary Care Physician Primary Care Provider Active Start: February 18, 2025 End: February 18, 2025 Dr. Lidya Child DO Attending Provider Activ e Start: February 18, 2025 End: February 18, 2025 Dr. Lidya Child DO Referring Provider Activ e Start: February 18, 2025 End: February 18, 2025 Team Status: Inactive Member Role/Relationship Status Dates Dr. Philip Andre MD Referring Provider Active Start: March 05, 2025 End: March 05, 2025 Tamika Garcia CNM Attending Provider Active S tart: March 05, 2025 End: March 05, 2025 No Primary Care Physician Primary Care Provider Active Start: March 05, 2025 End: March 05, 2025 Team Status: Inactive Member Role/Relationship Status Dates No Primary Care Physician Primary Care Provider Active Start: March 31, 2025 End: March 31, 2025 No Primary Care Physician Referring Provider Active Start: March 31, 2025 End: March 31, 2025 Dr. Mamie Dubon MD Attending Provider Active Start: March 31, 2025 End: March 31, 2025 Team Status: Active Member Role/Relationship Status Dates No Primary Care Physician Primary care physician Activ e Team Status: Inactive Member Role/Relationship Status Dates Dr. Philip Andre MD Primary care physician Active Start: January 16, 2025 End: January 16, 2025 Dr. Philip Andre MD Referring Provider Active Start: January 16, 2025 End: January 16, 2025 Dr. Lidya Child DO Attending physician Acti ve Start: January 16, 2025 End: January 16, 2025 Team Status: Inactive Member Role/Relationship Status Dates Dr. Clarence Viveros MD Attending physician Active Start: January 16, 2025 End: January 17, 2025 Dr. Clarence Viveros MD Emergency Depart ment Physician Active Start: January 16, 2025 End: January 17, 2025 No Primary Care Physician Primary care physician Activ e Start: January 16, 2025 End: January 17, 2025 Team Status: Inactive Member Role/Relationship Status Dates Dr. Philip Andre MD Referring Provider Active Start: February 03, 2025 End: February 03, 2025 Dr. Lidya Child DO Attending physician Acti ve Start: February 03, 2025 End: February 03, 2025 No Primary Care Physician Primary care physician Activ e Start: February 03, 2025 End: February 03, 2025 Team Status: Inactive Member Role/Relationship Status Dates No Primary Care Physician Primary care physician Activ e Start: February 03, 2025 End: February 03, 2025 Dr. Lidya Child , DO Attending physician Acti ve Start: February 03, 2025 End: February 03, 2025 Dr. Lidya Child , DO Referring Provider Activ e Start: February 03, 2025 End: February 03, 2025 Team Status: Inactive Member Role/Relationship Status Dates No Primary Care Physician Primary care physician Activ e Start: February 18, 2025 End: February 18, 2025 Dr. Lidya Child , DO Attending physician Acti ve Start: February 18, 2025 End: February 18, 2025 Dr. Lidya Child , DO Referring Provider Activ e Start: February 18, 2025 End: February 18, 2025 Team Status: Inactive Member Role/Relationship Status Dates Dr. Philip Andre MD Referring Provider Active Start: March 05, 2025 End: March 05, 2025 Tamika Garcia CNM Attending physician Active Start: March 05, 2025 End: March 05, 2025 No Primary Care Physician Primary care physician Activ e Start: March 05, 2025 End: March 05, 2025 Team Status: Inactive Member Role/Relationship Status Dates No Primary Care Physician Primary care physician Activ e Start: March 31, 2025 End: March 31, 2025 No Primary Care Physician Referring Provider Active Start: March 31, 2025 End: March 31, 2025 Dr. Mamie Dubon MD Attending physician Active Start: March 31, 2025 End: March 31, 2025 Team Status: Inactive Member Role/Relationship Status Dates No Primary Care Physician Primary care physician Activ e Start: April 27, 2025 End: April 27, 2025 No Primary Care Physician Referring Provider Active Start: April 27, 2025 End: April 27, 2025 Lois Stewart NP, [employer] Attending physician Active Start: April 27, 2025 End: April 27, 2025 Team Status: Inactive Member Role/Relationship Status Dates No Primary Care Physician Primary care physician Activ e Start: February 18, 2025 End: February 18, 2025 Dr. Lidya Child , DO Attending physician Acti ve Start: February 18, 2025 End: February 18, 2025 Dr. Lidya Child DO Referring Provider Activ e Start: February 18, 2025 End: February 18, 2025 Team Status: Inactive Member Role/Relationship Status Dates Dr. Philip Andre MD Referring Provider Active Start: March 05, 2025 End: March 05, 2025 Tamika Garcia CNM Attending physician Active Start: March 05, 2025 End: March 05, 2025 No Primary Care Physician Primary care physician Activ e Start: March 05, 2025 End: March 05, 2025 Team Status: Inactive Member Role/Relationship Status Dates No Primary Care Physician Primary care physician Activ e Start: March 31, 2025 End: March 31, 2025 No Primary Care Physician Referring Provider Active Start: March 31, 2025 End: March 31, 2025 Dr. Mamie Dubon MD Attending physician Active Start: March 31, 2025 End: March 31, 2025 Team Status: Inactive Member Role/Relationship Status Dates No Primary Care Physician Primary care physician Activ e Start: April 27, 2025 End: April 27, 2025 No Primary Care Physician Referring Provider Active Start: April 27, 2025 End: April 27, 2025 Lois Stewart NP, [employer] Attending physician Active Start: April 27, 2025 End: April 27, 2025 Team Status: Inactive Member Role/Relationship Status Dates No Primary Care Physician Primary care physician Activ e Start: May 28, 2025 End: May 28, 2025 No Primary Care Physician Referring Provider Active Start: May 28, 2025 End: May 28, 2025 Lois Stewart NP [employer] Attending physician Active Start: May 28, 2025 End: May 28, 2025 Team Status: Inactive Member Role/Relationship Status Dates No Primary Care Physician Primary care physician Activ e Start: June 15, 2025 End: June 15, 2025 No Primary Care Physician Referring Provider Active Start: June 15, 2025 End: June 15, 2025 Dr. Mamie Dubon MD Attending physician Active Start: June 15, 2025 End: June 15, 2025 Team Status: Active Member Role/Relationship Status Dates No Primary Care Physician Primary care physician Activ e Start: June 15, 2025 Dr. Mamie Dubon MD Attending physician Active Start: June 15, 2025 Goals (unrecognized section and content) Type Care Experience Labor Preferences-CB /BF classes: []labor support person: []labor intervention preferences: []pain management options preferred: []cut cord/dad catch: []: []PP control planned: []discussed possible routes of delivery and associated risks: []special requests: [] Type Detail Care Experience svdLabor Preferences -CB/BF classes: yeslabor support person: Kevinlabor intervention preferences: []pain management options preferred: cut cord/dad catch: cordbreastfeeding: yesPP control planned: discusseddiscussed possible routes of delivery and associated risks: []special requests: [] FOR RECORDS PERTAINING TO PATIENTS WHO ARE [...] BE BASED ON THE PRIMARY CLINICAL RECORDS. [facility] [employer] [facility]. provides no warranty or guarantee of the accuracy or completeness of information in this document.
== END | disposition home or self-care (01) ==
LOC: LABSPEC 16:05
PROVIDERS: Visit Provider Nurse Practitioner Women's Health
DX: N89.8 Other specified noninflammatory disorders of vagina (principal)
CPT/HCPCS: 84112

== ENCOUNTER → 2025-07-28 | Outpatient (CLI) | payer OTHER, SELFPAY ==
[2025-07-28 10:32] LABS: ROM Internal Control Test YES-OK TO RESULT pt. (Internal QC); ROM Patient Test Negative (Negative); Record Kit Lot#, ROM+ K3607
== END | disposition home or self-care (01) ==
LOC: BWCLAB 10:02 → LABSPEC 10:02
PROVIDERS: Visit Provider Advanced Practice Midwife
DX: O26.893 Other specified pregnancy related conditions, third trimester (principal); N89.8 Other specified noninflammatory disorders of vagina; Z3A.00 Weeks of gestation of pregnancy not specified
CPT/HCPCS: 84112